=== PATIENT | male | born 1975 | race American Indian/Alaskan Native ===

== ENCOUNTER 2017-03-25 01:46 | Emergency (ER) | payer OTHER ==
[~2017-03-25] VITALS: Ht 188 cm; Wt 122.5 kg
[~2017-03-25 01:46] MED LIST: ALLEGRA ALLERG180 MG PO; BACTRIM DS TAB1 EACH PO; CIPRO500 MG PO; FOLIC ACID1 MG PO; HYDROCHLOROTHIA25 MG PO; KEFLEX500 MG PO; LANTUS100 UNITS/ SUB-Q; MULTIVITAMINS1 EAC7 PO; NOVALOG SUB-Q; TOPROL XL100 MG PO; TRIAMTERENE-HC1 EAC1 PO; TRIAMTERENE-HC1 EAC3 PO; VITAMIN B-12500 MCG PO; VITAMIN D2000 UNI1 PO; VITAMIN D5000 UNIT PO
--- NOTE | 2017-05-27 18:28 | DS ---
[facility] [address] [place], [place] [address] Signed DATE OF DISCHARGE: 05/25/17 FINAL DIAGNOSES Grade 3 splenic laceration. Grade 3 left renal laceration with extravasation. PROCEDURES CT scan of the abdomen and pelvis x2. HISTORY OF PRESENT ILLNESS Bethanie is an 19-year-old young man who is from [place], [place]. He goes to [employer] in [place], [place]. He is on their soccer team. They came down to [place], [place], which is 4 hours away to play our [employer] soccer team. Another player had come from behind him and the knee landed in his left posterior rib cage. He had some shortness of breath, but also noticed some blood in his urine. He was brought to our local hospital for evaluation. HOSPITAL COURSE Bethanie was seen in the emergency room and remained hemodynamically stable. His initial hemoglobin was 12.9, with a BUN 14, creatinine 0.76. His urine of course showed blood. CT scan of the abdomen and pelvis showed the grade 3 splenic laceration with a grade 3 left renal laceration as well involving the lower pole. He also had a moderate amount of hemoperitoneum in his pelvis. I was asked to see him around 9 o'clock that night. We admitted him to the ICU for observation. Bethanie has remained hemodynamically stable. He has not been hypotensive, nor has he had tachycardia. His hemoglobin levels dropped as low as 10.8, but the most recent one is now 11.1. Platelet count also dropped from 231, down to 171, it is now 186. We repeated the CT scan this morning with delayed images and sure enough, he does have some extravasation from his left kidney. There is a fluid collection on the medial side of that left kidney. Consequently, he is in need of stenting of his left kidney. We initially called [facility] and her general surgeon felt that he needed to be at a higher level for his care. His family again is from [facility], so we had initially made a couple of phone calls down to [place], but then finally we were able to reach [facility] in [place], [place]. Dr. Rebel Briscoe is kind enough to accept him in transfer. We are making arrangements now to get Bethanie up to [place] where he can be admitted and undergo his stenting with urologist. Unfortunately, our urologist is out of the country currently. I reviewed all this with Bethanie and mother in detail. They have expressed understanding, would like to proceed. We will go ahead and make those arrangements and we will send a couple of units of blood with Bethanie for his transport as well. Electronically Signed By: KEVIN VARNER MD 05/27/17 1828 PATIENT NAME: BETHANIE VEGA DISCHARGE SUMMARY DATE OF : 77 PHYSICIAN: KEVIN VARNER MD REPORT #: [id number] REPORT IS CONFIDENTIAL AND NOT TO BE RELEASED WITHOUT AUTHORIZATION [facility] [address] [place] [id number] Signed MD YOCASTA Jade/Marlon /[id number] Electronically Signed By: KEVIN VARNER MD 05/27/17 1828 PATIENT NAME: BETHANIE VEGA DISCHARGE SUMMARY DATE OF : 77 PHYSICIAN: KEVIN VARNER MD REPORT #: [id number] REPORT IS CONFIDENTIAL AND NOT TO BE RELEASED WITHOUT AUTHORIZATION
--- NOTE | 2017-05-27 18:28 | CONS ---
[facility] [address] [place], [place] [address] Signed DATE OF CONSULTATION: 05/24/17 REFERRING PHYSICIAN: Dr. Thang Hinojosa. CHIEF COMPLAINT: Trauma to left posterior ribcage. HISTORY OF PRESENT ILLNESS Bethanie is an 19-year-old young man who is attending college in [place], [place]. He is on the soccer team and they were down here tonight for their soccer match. Just after 4 o'clock this afternoon, he took a knee into the posterior aspect of his left ribcage. He thought it maybe he was just out of breath. Of course, he had come out of the game. He also noticed hematuria. He was therefore brought to our local emergency room for evaluation. At the meantime, he has been hemodynamically stable. His initial hemoglobin was 12.9, and an hour later 11.5. Of course, the urinalysis shows the blood in his urine. He underwent a CT scan of the abdomen and pelvis and he has a grade 3 stellate splenic laceration with moderate hemoperitoneum and then grade 3 renal laceration of the inferior pole of his left kidney. It does not appear to extend into the hilum, but of course, whether or not it is leaking from the ureter is not entirely known. In the meantime, he has remained hemodynamically stable and I was asked to come and see him as a general surgeon on-call. PAST MEDICAL HISTORY: Asthma. PAST SURGICAL HISTORY: Tonsils. SOCIAL HISTORY He does not smoke or drink. He is from [place], [place]. He has no primary care provider. His mother is Susan at [phone] and he has 1 older brother. FAMILY HISTORY Mom and dad are healthy. Paternal grandmother was smoker and ended up with throat cancer. REVIEW OF SYSTEMS He had 10 systems reviewed, and he is very healthy otherwise. ALLERGIES: None. MEDICATIONS: Albuterol inhaler p.r.n. PHYSICAL EXAMINATION VITAL SIGNS: His blood pressure is 131/65, his heart rate is 76, respiratory rate 16, his temperature is 98.2. He is 100% on room air. He is 6 feet 4 inches and 83 kg. GENERAL: Bethanie is an 19-year-old young man, lying supine semi-recumbent in his ER bed. Electronically Signed By: KEVIN VARNER MD 05/27/17 1828 PATIENT NAME: BETHANIE VEGA CONSULTATION DATE OF : 77 PHYSICIAN: KEVIN VARNER MD REPORT #: [id number] REPORT IS CONFIDENTIAL AND NOT TO BE RELEASED WITHOUT AUTHORIZATION [facility] [address] [place], [place] [address] Signed His kids activities coach and an country director from a local [employer] are also here with him. He is alert, awake and interactive. He has had good skin color. LUNGS: Clear to auscultation bilaterally. HEART: Regular rate and rhythm. ABDOMEN: Soft and flat. He is a little tender over that left ribcage. LABORATORY DATA His white blood cell count 12, hemoglobin was 12.9 and an hour later after IV fluids down to 11.5, neutrophils 76, the platelet count is 211. BUN 14, creatinine 0.76. His liver function tests are negative. His albumin is 4.4. His urinalysis shows of course the blood. RADIOGRAPHIC STUDIES CT scan of the abdomen and pelvis is reviewed per myself. I also reviewed the dictation from our radiologist. He clearly has grade 3 stellate splenic laceration headed right toward his hilum and then he has a grade 3 inferior pole left renal laceration. It does not appear to involve the hilum. Nevertheless, it does not rule out an injury to the ureter or leak. He also has moderate hemoperitoneum, some around the kidney, some up in the upper abdomen, but most of it is down in his pelvis at this point. ASSESSMENT AND PLAN Bethanie is an 19-year-old young man, otherwise healthy, with a grade 3 splenic laceration and a grade 3 left renal laceration. So far, he has been hemodynamically stable and his injury was 6-1/2 hours ago. At this point, we are going to admit him to our ICU. We will have him undergo serial hemoglobin levels. Tomorrow, we will do a delayed CT scan after some contrast and see if he leaks from his left kidney. In the meantime, I did call Dr. Dago Vick who is 1 of our trauma surgeons at [facility]. We did review these findings and we are going to follow Dr. Vick's input. In the meantime, I had a long discussion with Bethanie and his kids activities coach and his country director. I think Bethanie is well aware of the gravity of this situation. Then afterwards, I called his mother. We spoke over the phone as well. His dad will probably leave in the morning and it is a 7-hour drive or so to get down here. I explained to Bethanie and his mom he is at high risk for transportation in the acute setting and that is why we have to keep him. We would only transport him if absolutely necessary. We can certainly handle his spleen here. If he has a leak from the kidney, we have to give our local urologist manager transition and see if that can be handled here locally. Otherwise, we will keep him least 3 full days, maybe 4 and after that if things are going well, he will travel back to [place] with his family. He has expressed understanding and agreed to above. Kevin Varner MD Electronically Signed By: KEVIN VARNER MD 05/27/17 1828 PATIENT NAME: BETHANIE VEGA CONSULTATION DATE OF : 77 PHYSICIAN: KEVIN VARNER MD REPORT #: [id number] REPORT IS CONFIDENTIAL AND NOT TO BE RELEASED WITHOUT AUTHORIZATION [facility] [address] [place], [place] [address], [place] [address] Signed /Marlon /[id number] Electronically Signed By: KEVIN VARNER MD 05/27/17 1828 PATIENT NAME: BETHANIE VEGA CONSULTATION DATE OF : 77 PHYSICIAN: KEVIN VARNER MD REPORT #: [id number] REPORT IS CONFIDENTIAL AND NOT TO BE RELEASED WITHOUT AUTHORIZATION
== END 2017-03-25 02:22 | disposition home or self-care (01) ==
LOC: ED 01:46
DX: F10.129 Alcohol abuse with intoxication, unspecified (principal); I10 Essential (primary) hypertension; F17.200 Nicotine dependence, unspecified, uncomplicated; Z79.899 Other long term (current) drug therapy
CPT/HCPCS: 99283

== ENCOUNTER 2017-09-11 19:19 | Emergency (ER) | payer OTHER ==
[~2017-09-11] VITALS: Ht 188 cm; Wt 115.7 kg
--- OUTSIDE RECORDS SUMMARY | ~2017-09-11 | XMS | Clinical Summary ---
Demographics + + + | Address | [address] | | | [place] [address] | + + + | Home Phone | | + + + | Preferred Language | Unknown | + + + | Marital Status | Single | + + + | Methodist Affiliation | Unknown | + + + [...] Providers + +------+ + | Care Automatic Spinning Lathe Operator Name | Role | Phone | + +------+ + PP | Unavailable | + +------+ + Source Comments DAPHNE is fully live on both EpicCare Ambulatory and EpicCare InPatient.[facility] Allergies Not on File Current Medications Not [...]
--- OUTSIDE RECORDS SUMMARY | ~2017-09-11 | XMS | Clinical Summary ---
Demographics + + + | Address | [address] | | | [place] [address] | + + + | Home Phone | | + + + | Preferred Language | Unknown | + + + | Marital Status | Single | + + + | Mu-Ism Affiliation | Unknown | + + + [...] Team Providers + +------+ + | Care Hand Paster Name | Role | Phone | + +------+ + PP | Unavailable | + +------+ + Source Comments DAPHNE is fully live on both EpicCare Ambulatory and EpicCare InPatient.[facility] Allergies Not on File Current [...]
[2017-09-11] MEDS ORDERED: NOVOLOG FL100 UNIT/1 SUB-Q (19:37)
--- NOTE | 2017-09-13 07:15 | EKG ---
[facility] [address] [facility] [place], [place] [address] Signed Normal sinus rhythm Cannot rule out Anterior infarct , age undetermined Abnormal ECG No previous ECGs available Confirmed by MARICHUY FREEMAN MD ([id number]) on 09/13/2017 7:15:28 AM Electronically Signed By: MARICHUY FREEMAN MD 09/13/17 0715 PATIENT NAME: BETHANIE VEGA Electrocardiogram DATE OF : 77 PHYSICIAN: MARICHUY FREEMAN MD REPORT #: [id number] REPORT IS CONFIDENTIAL AND NOT TO BE RELEASED WITHOUT AUTHORIZATION
[2017-12-31] MEDS ORDERED: TRIAMTERENE-HC1 EAC2 PO (15:17)
[2017-12-31] MEDS ORDERED: LEXAPRO20 MG PO (15:18)
== END 2017-09-11 21:30 | disposition home or self-care (01) ==
LOC: ED 19:19
DX: F10.229 Alcohol dependence with intoxication, unspecified (principal); I10 Essential (primary) hypertension; E11.9 Type 2 diabetes mellitus without complications; F17.200 Nicotine dependence, unspecified, uncomplicated; Z88.8 Allergy status to other drugs, medicaments and biological substances; Z79.899 Other long term (current) drug therapy; Z79.4 Long term (current) use of insulin; Y90.8 Blood alcohol level of 240 mg/100 ml or more
CPT/HCPCS: 80053; 85025; 93005; 93010; 99284; G0480

== ENCOUNTER 2017-09-13 15:26 | Emergency (ER) | payer OTHER ==
[~2017-09-13] VITALS: Ht 188 cm; Wt 115.7 kg
--- OUTSIDE RECORDS SUMMARY | ~2017-09-13 | XMS | Clinical Summary ---
Demographics + + + | Address | [address] | | | [place] [address] | + + + | Home Phone | | + + + | Preferred Language | Unknown | + + + | Marital Status | Single | + + + | Mandaen Affiliation | Unknown | + + + | Race | | + + + | Ethnic Group | Not or | + + + Author + + + | Author | NON REVENUE LOCATIONS | + + + | Organization | NON REVENUE LOCATIONS | + + + | Address | Unknown | + + + | Phone | Unavailable | + + + Care Team Providers + +------+ + | Care Adoption Agent Name | Role | Phone | + +------+ + PP | Unavailable | + +------+ + Source Comments DAPHNE is fully live on both EpicCare Ambulatory and EpicCare InPatient.[facility] Allergies Not on File Current Medications Not on file Active Problems Not on file Social History + +-------+ +--------+------+ | Tobacco Use | Types | Packs/Day | Years | Date | | | | | Used | | + +-------+ +--------+------+ | Never Assessed | | | | | + +-------+ +--------+------+ + + + | Sex Assigned at | Date Recorded | | | | + + + | Not on file | | + + + Plan of Treatment + + + + + | Health Maintenance | Due Date | Last Done | Comments | + + + + + | INFLUENZA VACCINE | | | | | (FLU SHOT) | 7 | | | + + + + + Results Not on filefrom Last 3 Months"
--- OUTSIDE RECORDS SUMMARY | ~2017-09-13 | XMS | Clinical Summary ---
Demographics + + + | Address | [address] | | | [place] [address] | + + + | Home Phone | | + + + | Preferred Language | Unknown | + + + | Marital Status | Single | + + + | Caodaism Affiliation | Unknown | + + + [...] Team Providers + +------+ + | Care Concert Pianist Name | Role | Phone | + +------+ + PP | Unavailable | + +------+ + Source Comments DAPHNE is fully live on both EpicCare Ambulatory and EpicCare InPatient.[facility] Allergies Not on File Current Medications Not [...]
[~2017-09-13 15:26] MED LIST changes: +NOVOLOG FL100 UNIT/1 SUB-Q
[2017-12-31] MEDS ORDERED: TRIAMTERENE-HC1 EAC2 PO (15:17)
[2017-12-31] MEDS ORDERED: LEXAPRO20 MG PO (15:18)
== END 2017-09-13 16:30 | disposition home or self-care (01) ==
LOC: ED 15:26
DX: S90.411A Abrasion, right great toe, initial encounter (principal); W55.19XA Other contact with horse, initial encounter

== ENCOUNTER 2017-10-20 13:24 | Emergency (ER) | payer OTHER ==
[~2017-10-20] VITALS: Ht 188 cm; Wt 122.5 kg
--- OUTSIDE RECORDS SUMMARY | ~2017-10-20 | XMS | Clinical Summary ---
Demographics + + + | Address | [address] | | | [place] [address] | + + + | Home Phone | | + + + | Preferred Language | Unknown | + + + | Marital Status | Single | + + + | Sabianism Affiliation | Unknown | + + + [...] Team Providers + +------+ + | Care Financial Management Name | Role | Phone | + +------+ + PP | Unavailable | + +------+ + Source Comments DAPHNE is fully live on both EpicCare Ambulatory and EpicCare InPatient.[facility] Allergies Not on File Current Medications Not [...]
--- OUTSIDE RECORDS SUMMARY | ~2017-10-20 | XMS | Clinical Summary ---
Demographics + + + | Address | [address] | | | [place] [address] | + + + | Home Phone | | + + + | Preferred Language | Unknown | + + + | Marital Status | Single | + + + | Orthodox Affiliation | Unknown | + + + [...] Team Providers + +------+ + | Care Kiln Maintenance Name | Role | Phone | + +------+ + PP | Unavailable | + +------+ + Source Comments DAPHNE is fully live on both EpicCare Ambulatory and EpicCare InPatient.[facility] Allergies Not on File Current Medications Not [...]
[2017-10-20] MEDS ORDERED: ATIVAN2 MG PO (14:18)
[2017-10-20] MEDS ORDERED: ONDANSETRON ODT8 MG PO (14:18)
[2017-12-31] MEDS ORDERED: TRIAMTERENE-HC1 EAC2 PO (15:17)
[2017-12-31] MEDS ORDERED: LEXAPRO20 MG PO (15:18)
== END 2017-10-20 14:30 | disposition home or self-care (01) ==
LOC: ED 13:24
DX: F10.10 Alcohol abuse, uncomplicated (principal); R45.89 Other symptoms and signs involving emotional state; I10 Essential (primary) hypertension; F17.200 Nicotine dependence, unspecified, uncomplicated; Z88.8 Allergy status to other drugs, medicaments and biological substances; Z79.899 Other long term (current) drug therapy; Z63.79 Other stressful life events affecting family and household
CPT/HCPCS: 99283

== ENCOUNTER 2018-05-19 12:54 | Emergency (ER) | payer OTHER ==
[~2018-05-19] VITALS: Ht 188 cm; Wt 122.5 kg
--- OUTSIDE RECORDS SUMMARY | ~2018-05-19 | XMS | Clinical Summary ---
Demographics + + + | Address | [address] | | | [place] [address] | + + + | Home Phone | | + + + | Preferred Language | Unknown | + + + | Marital Status | Single | + + + | Alevism Affiliation | Unknown | + + + [...] Team Providers + +------+ + | Care Rides Attendant Name | Role | Phone | + +------+ + PP | Unavailable | + +------+ + Source Comments DAPHNE is fully live on both EpicCare Ambulatory and EpicCare InPatient.[facility] Allergies Not on File Current Medications Not [...] | | | | (FLU SHOT) | 8 | | | + + + + + Results Not on filefrom Last 3 Months"
--- OUTSIDE RECORDS SUMMARY | ~2018-05-19 | XMS | Clinical Summary ---
Demographics + + + | Address | [address] | | | [place] [address] | + + + | Home Phone | | + + + | Preferred Language | Unknown | + + + | Marital Status | Single | + + + | Restorationism Affiliation | Unknown | + + + [...] Team Providers + +------+ + | Care Senior Economist Name | Role | Phone | + +------+ + PP | Unavailable | + +------+ + Source Comments DAPHNE is fully live on both EpicCare Ambulatory and EpicCare InPatient.[facility] [...]
--- OUTSIDE RECORDS SUMMARY | ~2018-05-19 | XMS | Clinical Summary ---
Demographics + + + | Address | [address] | | | [place] [address] | + + + | Home Phone | | + + + | Preferred Language | Unknown | + + + | Marital Status | Single | + + + | Buddhism Affiliation | [id number] | + + + | Race | Unknown | + + + | Ethnic Group | Unknown | + + + Author + + + | Author | [facility] | | | and [place] | + + + | Organization | [facility] | | | and [place] [...] [place], [place] | | | | | [address] | | + + + + + | Elyse Hobbs | ECON | [address] | | | | | [place] | | | | | [address] | | + + + + + Care Team Providers + +------+ + | Care Hardwood Finisher Name | Role | Phone | + [...] +---------+ | [place]ICAID [place] | MEDICA | [id number] | Medica | [phone] | | | | ID | | id | [id number] | | | | [place] | | | | | + +--------+ +--------+ +---------+ | [facility] | IHS | [id number] | Indemn | | | | SERVICE [...] | Self | [birth year] | Home: | [address] | | | al/Fam | | 1975 | [phone] | [place] [address] | | | [place] | | | [address] | | + +--------+ +--------+ + +"
--- OUTSIDE RECORDS SUMMARY | ~2018-05-19 | XMS | Clinical Summary ---
Demographics + + + | Address | [address] | | | [place] [address] | + + + | Home Phone | | + + + | Preferred Language | Unknown | + + + | Marital Status | Single | + + + | Scientology Affiliation | 1041 | + + + | Race | Unknown | + + + | Ethnic Group | Unknown | + + + Author + + + | Author | [facility] | | | and [place] | + + + | Organization | [facility] | | | and [place] | + + + | Address | Unknown | + + + | Phone | Unavailable | + + + Support + + + + + | Name | Relationship | Address | Phone | + + + + + | Isidra Thao | ECON | [address] | | | | | [place], [place] | | | | | [address] | | + + + + + | Elyse Hobbs | ECON | [address] | | | | | [place] | | | | | [address] | | + + + + + Care Team Providers + +------+ + | Care Retail Sales Consultant Name | Role | Phone | + [...] +---------+ | [place]ICAID [place] | MEDICA | [id number] | Medica | [phone] | | | | ID | | id | [phone] | | | | [place] | | | | | + +--------+ +--------+ +---------+ | [facility] | IHS | [id number] | Indemn | | | | SERVICE [...] | Self | [birth year] | Home: | [address] | | | al/Fam | | 1975 | [phone] | [place] [address] | | | [place] | | | [address] | | + +--------+ +--------+ + +"
[~2018-05-19 12:54] MED LIST changes: +ATIVAN2 MG PO; +LEXAPRO20 MG PO; +ONDANSETRON ODT8 MG PO; +TRIAMTERENE-HC1 EAC2 PO
--- OUTSIDE RECORDS SUMMARY | 2018-05-19 12:58 | XMS ---
PreManage Notification: BETHANIE VEGA Security Proteomics Scientist Events 1 event(s) in the past 18 months Most recent security events: Elopement at [facility] 12/31/2017 15:03 - Patient eloped before treatment completed. Details: AMA CRITERIA MET - Group Notification CARE PROVIDERS DR NEYDA ZAFAR Primary Care Current PHONE: [phone] Antonio has no Care Guidelines for this patient. E.D. VISIT COUNT ([address] [facility]. TOTAL 5 NOTE: Visits indicate total known visits. ED/UCC VISIT TRACKING (12 MO.) 05/19/2018 12:55 [facility] [place] TYPE: Emergency COMPLAINT: - INTOXICATION 12/31/2017 15:03 [facility] [place] TYPE: Emergency COMPLAINT: - ALTERED LOC;ETOH INTOXICATION DIAGNOSES: - Disorientation, unspecified - Essential (primary) hypertension - Procedure and treatment not carried out due to patient leaving prior to being seen by health care provider - Other superintendent container terminal (current) drug therapy - Procedure and treatment not carried out due to patient leaving prior to being seen by health care provider - Allergy status to other drugs, medicaments and biological substances status - PREDIABETES - Alcohol dependence, uncomplicated - Procedure and treatment not carried out because of patient's decision for reasons of belief and group pressure - Nicotine dependence, unspecified, uncomplicated - Restlessness and agitation 10/20/2017 13:[address] [facility] [place] TYPE: Emergency COMPLAINT: - DIZZINESS DIAGNOSES: - Other stressful life events affecting family and household - Essential (primary) hypertension - Alcohol abuse, uncomplicated - Other superintendent container terminal (current) drug therapy - Allergy status to other drugs, medicaments and biological substances status - Nicotine dependence, unspecified, uncomplicated - Alcohol dependence with withdrawal, unspecified - Other symptoms and signs involving emotional state 09/13/2017 15:[address] [facility] [place] TYPE: Emergency COMPLAINT: - R FOOT INJURY/PAIN/MSE DIAGNOSES: - Other contact with horse, initial encounter - Abrasion, right great toe, initial encounter 09/11/2017 19:[address] [facility] [facility] [place] TYPE: Emergency COMPLAINT: - DIZZINESS DIAGNOSES: - Alcohol dependence with intoxication, unspecified - Other assisted (current) drug therapy - Type 2 diabetes mellitus without complications - Allergy status to other drugs, medicaments and biological substances status - Dizziness and giddiness - ad terminal makeup operator (current) use of insulin - Blood alcohol level of 240 mg/100 ml or more - Nicotine dependence, unspecified, uncomplicated - Essential (primary) hypertension INPATIENT VISIT TRACKING (12 MO.) No inpatient visits to display in this time frame [email or web address]
[2018-05-19] MEDS ORDERED: BALANCED B-501 EACH PO (13:30)
[2018-05-19] MEDS ORDERED: FOLIC ACID0.4 MG PO (13:31)
--- NOTE | 2018-05-19 21:01 | EKG ---
[facility] [address] [facility] [facility] [place] [address] Signed Normal sinus rhythm Left anterior fascicular block Abnormal ECG When compared with ECG of 11-SEP-2017 20:04, Left anterior fascicular block is now present T wave amplitude has increased in Lateral leads Confirmed by SHERI STONE MD ([id number]) on 05/19/2018 9:01:05 PM Electronically Signed By: SHERI STONE MD 05/19/182100 PATIENT NAME: BETHANIE VEGA RAJAT Electrocardiogram DATE OF : 77 PHYSICIAN: SHERI STONE MD REPORT #: [id number] REPORT IS CONFIDENTIAL AND NOT TO BE RELEASED WITHOUT AUTHORIZATION
== END 2018-05-19 16:15 | disposition home or self-care (01) ==
LOC: ED 12:54
DX: F10.129 Alcohol abuse with intoxication, unspecified (principal); Y90.8 Blood alcohol level of 240 mg/100 ml or more; I10 Essential (primary) hypertension; F17.200 Nicotine dependence, unspecified, uncomplicated; Z88.8 Allergy status to other drugs, medicaments and biological substances; Z79.899 Other long term (current) drug therapy
CPT/HCPCS: 70450; 80053; 85025; 96374; 96375; 99284; G0480; J2405; J3411; J7030; J7042

== ENCOUNTER 2018-05-31 19:10 | Emergency (ER) | payer OTHER ==
[~2018-05-31] VITALS: Ht 188 cm; Wt 122.5 kg
--- OUTSIDE RECORDS SUMMARY | ~2018-05-31 | XMS | Clinical Summary ---
Demographics + + + | Address | [address] | | | [place] [address] | + + + | Home Phone | | + + + | Preferred Language | Unknown | + + + | Marital Status | Single | + + + | Bahai Affiliation | 1041 | + + + | Race | Unknown | + + + | Ethnic Group | Unknown | + + + Author + + + | Author | [facility] | | | and [place] | + + + | Organization | [facility] | | | and [place] | + + + | Address | Unknown | + + + | Phone | Unavailable | + + + Support + + + + + | Name | Relationship | Address | Phone | + + + + + | Isidra Thao | ECON | [address] | | | | | [place], [place] | | | | | [address] | | + + + + + | Elyse Hobbs | ECON | [address] | | | | | [place] | | | | | [address] | | + + + + + Care Team Providers + +------+ + | Care Recovery Coach Name | Role | Phone | + +------+ + | No, Unknownpcp | PP | | + +------+ + [...] | | | | | (#1) | 8 | | | + + + + + Results Not on filefrom Last 3 Months Insurance + +--------+ +--------+ +---------+ | Payer | Benefi | Subscriber | Type | Phone | Address | | | t Plan | ID | | | | | | / | | | | | | | Group | | | | | + +--------+ +--------+ +---------+ | [place] | MEDICA | [id number] | Medica | [phone] | | | ID | | id | [phone] | | | | [place] | | | | | + +--------+ +--------+ +---------+ | [facility] | IHS | [id number] | Indemn | | | | SERVICE | YELLOW | | ity | | | | | [place] | | | | | + +--------+ +--------+ +---------+ + +--------+ +--------+ + + | Guarantor Name | Accoun | Relation to | Date | Phone | Billing Address | | | t Type | Patient | of | | | | | | | | | | + +--------+ +--------+ + + | BETHANIE VEGA | Person | Self | [birth year] | Home: | [address] | | | al/Fam | | 1975 | [phone] | [place] [address] | | | [place] | | | [phone] | | + +--------+ +--------+ + +"
--- OUTSIDE RECORDS SUMMARY | ~2018-05-31 | XMS | Clinical Summary ---
Demographics + + + | Address | [address] | | | [place] [address] | + + + | Home Phone | | + + + | Preferred Language | Unknown | + + + | Marital Status | Single | + + + | Baptism Affiliation | Unknown | + + + [...] Team Providers + +------+ + | Care Procedures Nurse Name | Role | Phone | + +------+ + PP | Unavailable | + +------+ + Source Comments DAPHNE is fully live on both EpicCare Ambulatory and EpicCare InPatient.[facility] Allergies Not on File Current Medications Not [...] | | | | vaccination (#1) | 8 | | | + + + + + Results Not on filefrom Last 3 Months"
--- OUTSIDE RECORDS SUMMARY | ~2018-05-31 | XMS | Clinical Summary ---
Demographics + + + | Address | [address] | | | [place] [address] | + + + | Home Phone | | + + + | Preferred Language | Unknown | + + + | Marital Status | Single | + + + | Worship Affiliation | Unknown | + + + [...] Team Providers + +------+ + | Care Embosser Operator Name | Role | Phone | + +------+ + PP | Unavailable | + +------+ + Source Comments DAPHNE is fully live on both EpicCare Ambulatory and EpicCare InPatient.[facility] Allergies Not on File Current Medications Not [...]
--- OUTSIDE RECORDS SUMMARY | ~2018-05-31 | XMS | Clinical Summary ---
Demographics + + + | Address | [address] | | | [place] [address] | + + + | Home Phone | | + + + | Preferred Language | Unknown | + + + | Marital Status | Single | + + + | Catholic Affiliation | 1041 | + + + | Race | Unknown | + + + | Ethnic Group | Unknown | + + + Author + + + | Author | [facility] | | | and [place] | + + + | Organization | [facility] | | | and [place] [...] [place], [place] | | | | | [address] | | + + + + + | Elyse Hobbs | ECON | [address] | | | | | [place] | | | | | [address] | | + + + + + Care Team Providers + +------+ + | Care Lathe Winder Name | Role | Phone | + [...] +---------+ | [place] | MEDICA | [id number] | Medica | [phone] | | | | ID | | id | [phone] | | | | [place] | | | | | + +--------+ +--------+ +---------+ | [facility] | IHS | [id number] | Indemn | | | | SERVICE [...] | Self | [birth year] | Home: | [address] | | | al/Fam | | 1975 | [phone] | [place] [address] | | | [place] | | | [address] | | + +--------+ +--------+ + +"
[~2018-05-31 19:10] MED LIST changes: +BALANCED B-501 EACH PO; +FOLIC ACID0.4 MG PO
--- OUTSIDE RECORDS SUMMARY | 2018-05-31 19:16 | XMS ---
PreManage Notification: BETHANIE VEGA Security Coupon Manifest Clerk Events 1 event(s) in the past 18 months Most recent security events: Elopement at [facility] 12/31/2017 15:03 - Patient eloped before treatment completed. Details: AMA CRITERIA MET - Group Notification - [facility] - 2 Visits in 30 Days CARE PROVIDERS NEYDA ZAFAR [facility] 05/19/2018-Current PHONE: [phone] DR NEYDA ZAFAR Primary Care Current PHONE: [phone] Antonio has no Care Guidelines for this patient. EAlannaDAlanna VISIT COUNT (12 MO.) 6 [facility] TOTAL 6 NOTE: Visits indicate total known visits. ED/UCC VISIT TRACKING (12 MO.) 2018 19:11 [facility] [place] TYPE: Emergency COMPLAINT: - L SIDED FACIAL SWELLING 05/19/2018 12:55 [facility] [place] TYPE: Emergency COMPLAINT: - INTOXICATION DIAGNOSES: - Blood alcohol level of 240 mg/100 ml or more - Allergy status to other drugs, medicaments and biological substances status - Alcohol abuse with intoxication, unspecified - Essential (primary) hypertension - Other lobsterman (current) drug therapy - Alcohol abuse with intoxication, unspecified - Nicotine dependence, unspecified, uncomplicated 12/31/2017 15:03 [facility] [place] TYPE: Emergency COMPLAINT: - ALTERED LOC;ETOH INTOXICATION DIAGNOSES: - Disorientation, unspecified - Prediabetes - Essential (primary) hypertension - Procedure and treatment not carried out due to patient leaving prior to being seen by health care provider - Other lobsterman (current) drug therapy - Procedure and treatment [...] uncomplicated - Restlessness and agitation 10/20/2017 13:25 [facility] [place] TYPE: Emergency COMPLAINT: - DIZZINESS DIAGNOSES: - Other stressful life events affecting family and household - Essential (primary) hypertension - Alcohol abuse, uncomplicated - Other lobsterman (current) drug therapy - Allergy status to other drugs, medicaments and biological substances status - Nicotine dependence, unspecified, uncomplicated - Alcohol dependence with withdrawal, unspecified - Other symptoms and signs involving emotional state 09/13/2017 15:27 [facility] [place] TYPE: Emergency COMPLAINT: - R FOOT INJURY/PAIN/MSE DIAGNOSES: - Other contact with horse, initial encounter - Abrasion, right great toe, initial encounter 09/11/2017 19:[address] [facility] [place] TYPE: Emergency COMPLAINT: - DIZZINESS DIAGNOSES: - Alcohol dependence with intoxication, unspecified - Other longterm (current) drug therapy - Type 2 diabetes mellitus without complications - Allergy status to other drugs, medicaments and biological substances status - Dizziness and giddiness - half-way (current) use of insulin - Blood alcohol level of 240 mg/100 ml or more - Nicotine dependence, unspecified, uncomplicated - Essential (primary) hypertension INPATIENT VISIT TRACKING (12 MO.) No inpatient visits to display in this time frame [email or web address]
[2018-05-31] MEDS ORDERED: DYRENIUM50 MG PO (19:39)
[2018-05-31] MEDS ORDERED: LAMISIL AT30 GM TOP (20:35)
[2018-05-31] MEDS ORDERED: CEPHALEXIN500 MG PO (20:35)
== END 2018-05-31 20:55 | disposition home or self-care (01) ==
LOC: ED 19:10
DX: B35.6 Tinea cruris (principal); L03.211 Cellulitis of face; L21.9 Seborrheic dermatitis, unspecified; I10 Essential (primary) hypertension; F17.200 Nicotine dependence, unspecified, uncomplicated; Z88.8 Allergy status to other drugs, medicaments and biological substances; Z79.899 Other long term (current) drug therapy
CPT/HCPCS: 99282

== ENCOUNTER 2019-07-05 00:28 | Emergency (ER) | payer OTHER ==
[~2019-07-05] VITALS: Ht 190.5 cm; Wt 113.4 kg
--- OUTSIDE RECORDS SUMMARY | ~2019-07-05 | XMS | Encounter Summary ---
Demographics + + + | Address | [address] | | | [place] [address] | + + + | Home Phone | | + + + | Preferred Language | Unknown | + + + | Marital Status | Single | + + + | Taoism Affiliation | Unknown | + + + | Race | | + + + | Ethnic Group | Not or | + + + Author + + + | Author | [facility] | + + + | Organization | [facility] | + + + | Address | Unknown | + + + | Phone | Unavailable | + + + Care Team Providers + +------+ + | Care Automatic Brine Mixer Operator Name | Role | Phone | + +------+ + PCP | Unavailable | + +------+ + Encounter Details +--------+ + + + + | Date | Type | Department | Care Team | Description | +--------+ + + + + | 07/15/ | Results | Registration [id number] | | | | 1993 | Only | [address] | | | | | | [address] Mailcode: [address] | | | | | | [place], [place] | | | | | | [address] | | | | | | [phone] | | | +--------+ + + + [...] on file | | + + + + + + + | Job Start Date | Occupation | Industry | + + + + | Not on file | Not on file | Not on file | + + + + + + + + | Travel History | Travel Start | Travel End | + + + + + + | No recent travel history available. | + + documented as of this encounter Plan of Treatment Not on filedocumented as of this encounter Procedures + +--------+ + + + | Procedure Name | Priori | Date/Time | Associated Diagnosis | Comments | | | ty | | | | + +--------+ + + + | CHEMISTRY TESTS 4 | Routin | 07/15/1995 | | Results for this | | | e | 1:54 PM | | procedure are in the | | | | PST | | results section. | + +--------+ + + + | CBC TESTS 2 | Routin | 07/15/1995 | | Results for this | | | e | 1:54 PM | | procedure are in the | | | | PST | | results section. | + +--------+ + + + | CHEMISTRY TESTS 2 | Routin | 07/15/1995 | | Results for this | | | e | 1:54 PM | | procedure are in the | | | | PST | | results section. | + +--------+ + + + documented in this encounter Results CHEMISTRY TESTS 2 (07/15/1995 1:54 PM PST) + + + + + + | Component | Value | Ref Range | Performed | Pathologist | | | | | At | Signature | + + + + + + | CHOLESTEROL | 196. | mg/dL | | | | (LAB) | | | | | + + + + + + | TRIGLYCERID | 277. (H) | mg/dL | | | | ES | | | | | + + + + + + + + | Specimen | + + | | + + + + + + + | Performing | Address | City/State/Zipcode | Phone Number | | Organization | | | | + + + + + | [facility] | [address] | [place] [address] | | | PATHOLOGY | [address] | | | + + + + + CHEMISTRY TESTS 4 (07/15/1995 1:54 PM PST) + + + + + + | Component | Value | Ref Range | Performed | Pathologist | | | | | At | Signature | + + + + + + | SODIUM, | 138. | mmol/l | | | | PLASMA | | | | | | (LAB) | | | | | + + + + + + | POTASSIUM, | 4.1 | mmol/l | | | | PLASMA | | | | | | (LAB) | | | | | + + + + + + | CHLORIDE, | 102. | mmol/l | | | | PLASMA | | | | | | (LAB) | | | | | + + + + + + | TOTAL CO2, | 27. | mmol/l | | | | PLASMA | | | | | | (LAB) | | | | | + + + + + + | BUN, PLASMA | 9. | mg/dL | | | | (LAB) | | | | | + + + + + + | CREATININE | 1. | mg/dL | | | | PLASMA | | | | | | (LAB) | | | | | + + + + + + | GLUCOSE, | 85. | mg/dL | | | | PLASMA | | | | | | (LAB) | | | | | + + + + + + | CALCIUM, | 9.6 | mg/dL | | | | PLASMA | | | | | | (LAB) | | | | | + + + + + + | MAGNESIUM,P | 2. | mg/dL | | | | LASMA | | | | | + + + + + + | PHOSPHORUS, | 4. | mg/dL | | | | PLASMA | | | | | | (LAB) | | | | | + + + + + + | URIC ACID, | 9.1 (H) | mg/dL | | | | PLASMA | | | | | | (LAB) | | | | | + + + + + + | AST(SGOT) | 66. (H) | U/L | | | + + + + + + | ALT (SGPT) | 111. (H) | U/L | | | + + + + + + | ALK PHOS | 83. | U/L | | | + + + + + + | LD TOTAL, | 189. | U/L | | | | PLASMA | | | | | + + + + + + | BILIRUBIN | 0.2 | mg/dL | | | | DIRECT | | | | | + + + + + + | BILIRUBIN | 0.8 | mg/dL | | | | TOTAL | | | | | + + + + + + | TOTAL | 7.6 | GM/DL | | | | PROTEIN, | | | | | | PLASMA | | | | | | (LAB) | | | | | + + + + + + | ALBUMIN, | 4.6 | GM/DL | | | | PLASMA | | | | | | (LAB) | | | | | + + + + + + + + | Specimen | + + | | + + + + + + + | Performing | Address | City/State/Zipcode | Phone Number | | Organization | | | | + + + + + | [facility] | [address] | [place] [address] | | | PATHOLOGY | [address] | | | + + + + + CBC TESTS 2 (07/15/1995 1:54 PM PST) + + + + + + | Component | Value | Ref Range | Performed | Pathologist | | | | | At | Signature | + + + + + + | WHITE CELL | 9.4 | K/CU MM | | | | COUNT | | | | | + + + + + + | RED CELL | 4.99 | M/CU MM | | | | COUNT | | | | | + + + + + + | HEMOGLOBIN | 14.9 | GM/DL | | | + + + + + + | HEMATOCRIT | 42.9 | % | | | + + + + + + | MCV | 85.8 | FL | | | + + + + + + | MCH | 29.8 | PG | | | + + + + + + | MCHC | 34.7 (H) | GM/DL | | | + + + + + + | RDW | 13.6 | % | | | + + + + + + | PLATELET | 377. | K/CU MM | | | | COUNT | | | | | + + + + + + | MPV | 7.3 (L) | FL | | | + + + + + + + + | Specimen | + + | | + + + + + + + | Performing | Address | City/State/Zipcode | Phone Number | | Organization | | | | + + + + + | [facility] | [address] | [place] [address] | | | PATHOLOGY | [address] | | | + + + + + documented in this encounter Visit Diagnoses Not on filedocumented in this encounter"
--- OUTSIDE RECORDS SUMMARY | ~2019-07-05 | XMS | Clinical Summary ---
Demographics + + + | Address | [address] | | | [address] | | | [place] [address] | + + + | Home Phone | | + + + | Preferred Language | Unknown | + + + | Marital Status | Single | + + + | Anabaptist Affiliation | Unknown | + + + | Race | Unknown | + + + | Ethnic Group | Unknown | + + + Author + + + | Author | [facility] (Historical as of | | | 04-11-19) | + + + | Organization | [facility] (Historical as of | | | 04-11-19) | + + + | Address | Unknown | + + + | Phone | Unavailable | + + + Support + + +---------+ + | Name | Relationship | Address | Phone | + + +---------+ + | Jenny Correa | ECON | Unknown | | + + +---------+ + Care Team Providers + +------+ + | Care Inside Sales Lead Name | Role | Phone | + +------+ + | Donnell Hoskinsstephen Freedal | PP | | + +------+ + Allergies Not on File Current Medications Not [...] | + + + + + | Vaccine: | | | | | Dtap/Tdap/Td (1 - | 5 | | | | Tdap) | | | | + + + + + | Vaccine: Influenza | | | | | (#1) | 9 | | | + + + + + Results Not on filefrom Last 3 Months Insurance + +--------+ +------+-------+ + | Payer | Benefi | Subscriber | Type | Phone | Address | | | t Plan | ID | | | | | | / | | | | | | | Group | | | | | + +--------+ +------+-------+ + | MEDICAID | MEDICA | [id number] | | | [address] | | | ID | | | | [place], [place] | | | [place] | | | | [address] | + +--------+ +------+-------+ + | [place] | YELLOW | [id number] | | | | | PLANS | [place] | | | | | + +--------+ +------+-------+ + + +--------+ +--------+ + + | Guarantor Name | Accoun | Relation to | Date | Phone | Billing Address | | | t Type | Patient | of | | | | | | | | | | + +--------+ +--------+ + + | BETHANIE VEGA | Person | Self [birth year] | Home: | [address] | | | al/Fam | | 1975 | [phone] | [address] | | | [place] | | | [address] | [place] [address] | + +--------+ +--------+ + +"
--- OUTSIDE RECORDS SUMMARY | ~2019-07-05 | XMS | Clinical Summary ---
Demographics + + + | Address | [address] | | | [place] [address] | + + + | Home Phone | | + + + | Preferred Language | Unknown | + + + | Marital Status | Single | + + + | Christian Affiliation | Unknown | + + + [...] Team Providers + +------+ + | Care Direct Service Provider Name | Role | Phone | + +------+ + PCP | Unavailable | + +------+ + Source Comments DAPHNE is fully live on both EpicCare Ambulatory and EpicCare InPatient.[facility] Allergies Not on File Medications Not on [...] recent travel history available. | + + Last Filed Vital Signs Not on file Plan of Treatment + + + + + | Health Maintenance | Due Date | Last Done | Comments | + + + + + | Influenza (Flu) | | | | | vaccination (#1) | 9 | | | + + + + + | Pneumococcal | Aged Out | | No longer eligible | | vaccination | | | based on patient's | | | | | age to complete this | | | | | topic | + + + + + Results Not on filefrom Last 3 Months"
--- OUTSIDE RECORDS SUMMARY | ~2019-07-05 | XMS | Clinical Summary ---
Demographics + + + | Address | [address] | | | [place] [address] | + + + | Home Phone | | + + + | Preferred Language | Unknown | + + + | Marital Status | Single | + + + | Adventism Affiliation | Unknown | + + + [...] Team Providers + +------+ + | Care Hydro Plant Technician Name | Role | Phone | + +------+ + PCP | Unavailable | + +------+ + Source Comments DAPHNE is fully live on both EpicCare Ambulatory and EpicCare InPatient.[facility] Allergies Not on File Medications Not on [...]
--- OUTSIDE RECORDS SUMMARY | ~2019-07-05 | XMS | Clinical Summary ---
Demographics + + + | Address | [address] | | | [address] | | | [place] [address] | + + + | Home Phone | | + + + | Preferred Language | Unknown | + + + | Marital Status | Single | + + + | Mormonism Affiliation | Unknown | + + + | Race | Unknown | + + + | Ethnic Group | Unknown | + + + Author + + + | Author | [facility] (Historical as of | | | 04-11-19) | + + + | Organization | [facility] (Historical as of | | | 04-11-19) [...] Team Providers + +------+ + | Care Internal Audit Manager Name | Role | Phone | + [...] +------+-------+ + | MEDICAID | MEDICA | [id number] | | | [address] | | | ID | | | | [place], [place] | | | [place] | | | | [address] | + +--------+ +------+-------+ + | [employer] | YELLOW | [id number] | | | | | PLANS | [...] | Self | [birth year] | Home: | [address] | | | al/Fam | | 1975 | [phone] | [address] | | | [place] | | | [address] | [place] [address] | + +--------+ +--------+ + +"
--- OUTSIDE RECORDS SUMMARY | ~2019-07-05 | XMS | Encounter Summary ---
Demographics + + + | Address | [address] | | | [place] [address] | + + + | Home Phone | | + + + | Preferred Language | Unknown | + + + | Marital Status | Single | + + + | Presybeterian Affiliation | Unknown | + + + | Race | | + + + | Ethnic Group | Not or | + + + Author + + + | Author | [facility] | + + + | Organization | [facility] | + + + | Address | Unknown | + + + | Phone | Unavailable | + + + Care Team Providers + +------+ + | Care Booster Operator Name | Role | Phone | [...] [id number] | | | | | | [place], [place] | | | | | | [address] | | | | | | [phone] | | | +--------+ + + + [...] | + + + + + | [facility] | [address] | [place] [address] | | | PATHOLOGY | [address] [...] | + + + + + | [facility] | [address] | [place] [address] | | | PATHOLOGY | [address] [...] | + + + + + | [facility] | [address] | [place] [address] | | | PATHOLOGY | [address] | | | + + + + + documented in this encounter Visit Diagnoses Not on filedocumented in this encounter"
[~2019-07-05 00:28] MED LIST changes: +CEPHALEXIN500 MG PO; +DYRENIUM50 MG PO; +ELOCON15 GM TOP; +KETOCONAZOLE15 GM TOP; +LAMISIL AT30 GM TOP; +PANTOPRAZOLE SO40 MG PO
--- OUTSIDE RECORDS SUMMARY | 2019-07-05 00:30 | XMS ---
PreManage Notification: BETHANIE EVGA Security Lion Hunter Events No recent Security Events currently on file CRITERIA MET - Group Notification - [facility] - Has Care Guidelines CARE PROVIDERS NEYDA ZAFAR [facility] 05/19/2018-Current PHONE: Unknown SHERIF COFFMAN Physician Label Printer 06/02/2018-Current PHONE: Unknown DR NEYDA ZAFAR Primary Care Current PHONE: [phone] Antonio has no Care Guidelines for this patient. Care History Medical/Surgical 03/25/2019 [facility] Care Recommendation: - USE EXTREME CAUTION IN GIVING NARCOTICS TO THIS PATIENT. - Avoid Discharge Narcotic prescriptions if at all possible. Physician discretion. 03/04/2019 [facility] \T\middot;\T\nbsp; PATIENT IS A [employer] MEMBER. \T\middot;\T\nbsp; PLEASE REFER PATIENT TO [facility] FOR NON EMERGENT MEDICAL NEEDS. \T\middot;\ T\nbsp; [facility] CAN SEE PATIENTS SAME DAY FOR APTS IF PATIENT CALLS FIRST THING IN THE MORNING. [facility] NOTE: Visits indicate total known visits. ED/UCC VISIT TRACKING (12 MO.) [facility] COMPLAINT: - DETOX ISSUES 03/24/2019 16:28 [facility] [place] TYPE: Emergency COMPLAINT: - LOW BS DIAGNOSES: - Essential (primary) hypertension - Nicotine dependence, unspecified, uncomplicated - Dehydration - Alcohol abuse, uncomplicated - Acute gastritis without bleeding - Other senior living (current) drug therapy - Dizziness and giddiness - Allergy status to oth drug/meds/biol subst status 03/03/2019 22:57 [facility] [place] TYPE: Emergency COMPLAINT: - SKIN ISSUES DIAGNOSES: - Nicotine dependence, unspecified, uncomplicated - Essential (primary) hypertension - Allergy status to oth drug/meds/biol subst status - Other termination clerk (current) drug therapy - Seborrheic dermatitis, unspecified - Rash and other nonspecific skin eruption INPATIENT VISIT TRACKING (12 MO.) No inpatient visits to display in this time frame [id number]
== END 2019-07-05 01:08 | disposition home or self-care (01) ==
LOC: ED 00:28
DX: F10.10 Alcohol abuse, uncomplicated (principal); I10 Essential (primary) hypertension; F17.200 Nicotine dependence, unspecified, uncomplicated; Z88.8 Allergy status to other drugs, medicaments and biological substances; Z79.899 Other long term (current) drug therapy
CPT/HCPCS: 99284

== ENCOUNTER 2019-12-03 02:47 | Emergency (ER) | payer OTHER ==
[~2019-12-03] VITALS: Ht 190.5 cm; Wt 122.5 kg
--- OUTSIDE RECORDS SUMMARY | 2019-12-03 02:50 | XMS ---
PreManage Notification: BETHANIE VEGA Security District Wildlife Manager Events No recent Security Events currently on file CRITERIA MET - Group Notification - [facility] - Has Care Guidelines CARE PROVIDERS NEYDA ZAFAR [facility] 05/19/2018-Current PHONE: Unknown SHERIF COFFMAN Physician Bender Hand 06/02/2018-Current PHONE: Unknown Antonio has no Care Guidelines for this patient. Care History Medical/Surgical 07/07/2019 [facility] - PLEASE CONTACT [facility]- IF PATIENT ACCEPTS SERVICES- [phone]. - [facility] CAN PROVIDE PATIENT WITH GRANULIZING MACHINE OPERATOR AND HELP WITH COMMUNITY RESOURCES. 03/25/2019 [facility] Care Recommendation: - USE EXTREME CAUTION IN GIVING NARCOTICS TO THIS PATIENT. - Avoid Discharge Narcotic prescriptions if at all possible. Physician discretion. 03/04/2019 [facility] \T\middot;\T\nbsp; PATIENT IS A [employer] MEMBER. \T\middot;\T\nbsp; PLEASE REFER PATIENT TO [facility] FOR NON EMERGENT MEDICAL NEEDS. \T\middot;\ T\nbsp; [facility] CAN SEE PATIENTS SAME DAY FOR APTS IF PATIENT CALLS FIRST THING IN THE MORNING. Jess VISIT COUNT (12 MO.) 4 [facility] TOTAL 4 NOTE: Visits indicate total known visits. ED/UCC VISIT TRACKING (12 MO.) 12/03/2019 02:48 [facility] [place] TYPE: Emergency COMPLAINT: - ABDOMIANL PAIN 07/05/2019 00:28 [facility] [place] TYPE: Emergency COMPLAINT: - DETOX ISSUES DIAGNOSES: - Nicotine dependence, unspecified, uncomplicated - Alcohol abuse, uncomplicated - Other supervisor long goods (current) drug therapy - Essential (primary) hypertension - Allergy status to other drugs, medicaments and biological sub 03/24/2019 16:28 [facility] [place] TYPE: Emergency COMPLAINT: - LOW BS DIAGNOSES: - Essential (primary) hypertension - Nicotine dependence, unspecified, uncomplicated - Dehydration - Alcohol abuse, uncomplicated - Acute gastritis without bleeding - Other fpc (current) drug therapy - Dizziness and giddiness - Allergy status to other drugs, medicaments and biological sub 03/03/2019 22:57 [facility] [place] TYPE: Emergency COMPLAINT: - SKIN ISSUES DIAGNOSES: - Nicotine dependence, unspecified, uncomplicated - Essential (primary) hypertension - Allergy status to other drugs, medicaments and biological sub - Other supervisor long goods (current) drug therapy - Seborrheic dermatitis, unspecified - Rash and other nonspecific skin eruption INPATIENT VISIT TRACKING (12 MO.) No inpatient visits to display in this time frame [id number]
[2019-12-03] MEDS ORDERED: MULTI VITAMIN1 EACH PO (03:07)
== END 2019-12-03 06:50 | disposition short-term general hospital (02) ==
LOC: ED 02:47
DX: A41.9 Sepsis, unspecified organism (principal); R65.20 Severe sepsis without septic shock; N17.9 Acute kidney failure, unspecified; I10 Essential (primary) hypertension; E78.5 Hyperlipidemia, unspecified; Z87.891 Personal history of nicotine dependence; Z79.899 Other long term (current) drug therapy
CPT/HCPCS: 71045; 74176; 80053; 81001; 83605; 83690; 85025; 96361; 96374; 99285-25; G0480; J0692; J7030

== ENCOUNTER 2020-05-17 08:42 | Emergency (ER) | payer OTHER ==
[~2020-05-17] VITALS: Ht 190.5 cm; Wt 122.5 kg
--- OUTSIDE RECORDS SUMMARY | ~2020-05-17 | XMS | Encounter Summary ---
Demographics + + + | Address | [address] | | | [place] [address] | + + + | Home Phone | | + + + | Preferred Language | Unknown | + + + | Marital Status | Single | + + + | Taoist Affiliation | [id number] | + + + | Race | or | + + + | Additional Race(s) | White | + + + | Ethnic Group | Not or | + + + Author + + + | Author | [facility] | | | and [place] | + + + | Organization | [facility] | | | and [place] | + + + | Address | Unknown | + + + | Phone | Unavailable | + + + Support + + +---------+ + | Name | Relationship | Address | Phone | + + +---------+ + | Jenny Correa | ECON | Unknown | | | [place] | | | | + + +---------+ + | Selina Hobbs | ECON | Unknown | | + + +---------+ + | Clinton Perez | ECON | Unknown | | + + +---------+ + Care Team Providers + +------+ + | Care Building Drafter Name | Role | Phone | + +------+ + | Unknown, Physician | PCP | | + +------+ + Encounter Details +--------+ + + + + | Date | Type | Department | Care Team | Description | +--------+ + + + + | 12/02/ | Imaging | [facility] | Provider, | | | 2019 | Exam | [facility] | [address] [place] [address] | | | | | IMAG[address] | | | | | [facility] | [place] [address] | | | | | [place] [address] | | | | | | [phone] | | | +--------+ + + + + Social History + +-------+ +--------+------+ | Tobacco [...] on file | | + + + documented as of this encounter Plan of Treatment Not on filedocumented as of this encounter Procedures + +--------+ + + + | Procedure Name | Priori | Date/Time | Associated Diagnosis | Comments | | | ty | | | | + +--------+ + + + | CT ABDOMEN PELVIS WO | Routin | 12/03/2019 | | Results for this | | CONTRAST | e | 1:22 PM | | procedure are in the | | | | PDT | | results section. | + +--------+ + + + documented in this encounter Results CT Abdomen Pelvis wo Contrast (12/03/2019 1:22 PM PDT) + + | Specimen | + + | | + + + + + | Narrative | Performed At | + + + | External films for comparison only | [facility] | | | | | No results will be in the chart. | | + + + + +---------+ + + | Performing | Address | City/State/Zipcode | Phone Number | | Organization | | | | + +---------+ + + | [facility] | | | | + +---------+ + + documented in this encounter Visit Diagnoses Not on filedocumented in this encounter"
--- OUTSIDE RECORDS SUMMARY | ~2020-05-17 | XMS | Encounter Summary ---
Demographics + + + | Address | [address] | | | [place] [address] | + + + | Home Phone | | + + + | Preferred Language | Unknown | + + + | Marital Status | Single | + + + | Episcopalian Affiliation | [id number] | + + + | Race | or | + + + | Additional Race(s) | White | + + + | Ethnic Group | Not or | + + + Author + + + | Author | [facility] | | | and [place] | + + + | Organization | [facility] | | | and [place] | + + + | Address | Unknown | + + + | Phone | Unavailable | + + + Support + + +---------+ + | Name | Relationship | Address | Phone | + + +---------+ + | Aspen Correa | ECON | Unknown | | | [place] | | | | + + +---------+ + | Selina Hobbs | ECON | Unknown | | + + +---------+ + | Clinton Perez | ECON | Unknown | | + + +---------+ + Care Team Providers + +------+ + | Care Tiller Worker Name | Role | Phone | + +------+ + | Unknown, Physician | PCP | | + +------+ + Reason for Visit Auth/Cert +--------+--------+ + + + + | Status | Reason | Specialty | Diagnoses / | Referred By | Referred To | | | | | Procedures | Contact | Contact | +--------+--------+ + + + + | | | | Diagnoses | | | | | | | Sepsis | | | | | | | (HCC) | | | | | | | Abdominal | | | | | | | pain sepsis | | | | | | | abdominal | | | | | | | pain | | | +--------+--------+ + + + + Encounter Details +--------+ + + + + | Date | Type | Department | Care Team | Description | +--------+ + + + + | 12/02/ | Hospital | [facility] | Flores Bruce MD | Acute kidney injury | | 2019 - | Encounter | MED CTR SUR[facility] | [address] | (PATRICA) with acute | | | | [address] [place] | [place] | tubular necrosis | | 12/08/ | | [place] [address] | [id number] | (ATN) ([facility]) (Primary | | 2019 | | [phone] | | Dx); Severe sepsis | | | | | Glenn Garcia, | ([facility]); Acute kidney | | | | | [address] | injury ([facility]); | | | | | [place] | Hyponatremia | | | | | [address] | | | | | | | | | | | | Ron Melendez MD | | | | | | [address] | | | | | | [place], [place] | | | | | | [address] | | | | | | | | +--------+ + + + + Social History + +-------+ +--------+------+ | Tobacco Use | Types | Packs/Day | Years | Date | | | | | Used | | + +-------+ +--------+------+ | Former Smoker | | | | | + +-------+ +--------+------+ + +---+---+---+ | Smokeless Tobacco: | | | | | Never Used | | | | + +---+---+---+ + + | Comments: every once in a while, 1 or 2 a month | + + + + +---------+ + | Alcohol Use | Drinks/Week | oz/Week | Comments | + + +---------+ + | Yes | 28 Cans of beer | 28.0 | | + + +---------+ + + + + | Sex Assigned at | Date Recorded | | | | + + + | Not on file | | + + + documented as of this encounter Last Filed Vital Signs + + + + + | Vital Sign | Reading | Time Taken | Comments | + + + + + | Blood Pressure | 131/74 | 12/09/2019 7:31 AM | | | | | PDT | | + + + + + | Pulse | 81 | 12/09/2019 7:31 AM | | | | | PDT | | + + + + + | Temperature | 37.5 C (99.5 F) | 12/09/2019 7:31 AM | | | | | PDT | | + + + + + | Respiratory Rate | 19 | 12/09/2019 7:31 AM | | | | | PDT | | + + + + + | Oxygen Saturation | 96% | 12/09/2019 7:31 AM | | | | | PDT | | + + + + + | Inhaled Oxygen | - | - | | | Concentration | | | | + + + + + | Weight | 129.4 kg (285 lb 4.4 | 12/09/2019 4:35 AM | | | | oz) | PDT | | + + + + + | Height | 188 cm (6' 2") | 12/04/2019 6:40 PM | | | | | PDT | | + + + + + | Body Mass Index | 36.63 | 12/04/2019 6:40 PM | | | | | PDT | | + + + + + documented in this encounter Discharge Summaries Ron Melendez MD - 12/09/2019 9:53 AM PDT [place], [place] HOSPITALIST DISCHARGE SUMMARY Pt. Name/Age/: Christiano Johnston 44 y.o. 1975 Date of Admission: 12/03/2019 Date of Discharge: 12/09/2019 Admitting Physician: Flores Bruce MD Primary Care Provider: Physician Unknown PA Discharging Physician: Ron Melendez MD DISCHARGE DIAGNOSES: Active Hospital Problems Diagnosis Severe sepsis Acute kidney injury (PATRICA) with acute tubular necrosis (ATN) Resolved Hospital Problems No resolved problems to display. Liver cirrhosis Hyponatremia Hypomagnesemia DM, A1c 7.8 HTN GERD Alcohol abuse/methamphetamine abuse DISCHARGE MEDICATIONS: Discharge Medications New Medications Details Blood Glucose Monitor System w/Device Kit 1 each by Does not apply route Daily. hnhajotemm-mrrwqlzxnigye-igmsvjgp 50-325-40 mg per tablet Take 1-2 tablets by mouth every 4 hours as needed for Headaches. calcium carbonate 500 mg chewable tablet Chew and swallow 2 tablets 3 times daily. aka: TUMS docusate sodium 100 MG capsule Take 100 mg by mouth Twice daily as needed for Constipation. aka: COLACE folic acid 1 mg tablet Take 1 tablet by mouth Daily. Start: December 10, 2019 glucose blood test strips strip Check once daily aka: TRUETEST TEST Lancets Misc. Misc 1 each by Does not apply route Daily. metFORMIN 500 mg tablet Take 1 tablet by mouth 2 times daily. aka: GLUCOPHAGE sulfamethoxazole-trimethoprim 800-160 mg per tablet Take 1 tablet by mouth 2 times daily. aka: BACTRIM DS thiamine 100 mg tablet Take 1 tablet by mouth Daily. aka: VITAMIN B-1 Start: December 10, 2019 Unchanged Medications Details betamethasone dipropionate 0.05% ointment Apply 1 Application topically Daily as needed (psoriasis). triamcinolone 0.1% cream APPLY 2-3 TIMES DAILY TO AFFECTED AREAS OF PSORIASIS AVOID THE FACE UNDERARMS AND GROIN aka: [facility]: Please refer to the H&P for full details and the most recent rounding rounding (progress) n ote. In short Mr Johnston is a 44 y/o obese gentleman with pmhx of HTN, HLD, ?DM, alcohol and methampheta mine abuse who presented to outside hospital with left-sided flank pain for the past 7 days associated with decreased urine output, he was diagnosed with sepsis, likely due to sourc e, transferred to our facility for higher level of care. Upon arriving to our hospital valery ent was febrile, tachycardic with soft blood pressures, he responded to IVF resuscitation, h is labs showed PATRICA with creatinine of 5.05, BUN of 84, ammonia 54, lactic acid 3.7, total bi lirubin 3.7 with direct 3.3, elevated white count at 21.5, elevated procalcitonin at 28, el evated CRP at 312, hypokalemia, hyponatremia. He was started on Zosyn, meanwhile blood cult ures from [facility] came back with gram-negative bacilli. Throughout the course of the day 12/03 patient developed tachypnea, continued spiking fever. He was transferred to ICU f or closer monitoring. Improved gradually with some improvement in labs except for rising abdulkadir irubin. He was transferred back to regular floor for further care. His kidney function cont inued to improve, his creatinine was 1.8 upon discharge. Has hyperbilirubinemia likely relat ed to cholestasis related to sepsis, his total bili was 5.3 with direct 4.6 upon discharge a nd to trending down, he has been having labile sodium hovering between upper 120s and lower 130s BMP was ordered within 1 week of discharge to evaluate for kidney function and electrol ytes. PT/OT worked with the patient and deemed appropriate to discharge home. Patient was eating and drinking without problems, passing urine and having normal BMs prior to discharge . Cultures grew E. coli and he was switched to Bactrim upon discharge to complete total cou rse of 2 weeks of antibiotics. Patient stable clinically at the time of discharge[facility] 7 days of discharge, recheck BMP/LFTs within 1 week of discharge to [facility] for kidney function, electrolytes and liver function. Most recent weight: Input and output for last 24hrs: Wt Readings from Last 1 Encounters: 12/09/19 129.4 kg (285 lb 4.4 oz) I/O last 24 Hours: In: 1870 [P.O.:1870] Out: 2725 [Urine:2725] Vitals Ranges: Temp: [36.7 C (98 F)-37.5 C (99.5 F)] 37.5 C (99.5 F) Pulse: [75-90] 81 Resp: [18-20] 19 BP: (108-134)/(62-74) 131/74 Vitals: Temp: 37.5 C (99.5 F) BP: 131/74 Pulse: 81 Resp: 19 SpO2: 96 % SpO2 96 % on room air at flow rate 0L/min PHYSICAL EXAM: Patient seen and examined by me on discharge day Constitutional: In no acute distress Eye: pupils round, equal, reactive to light, injected conjunctivae ENT: unremarkable oral ear and nose Neck: obese neck, no lymphadenopathy, thyromegaly nor masses Lymph node exam: negative in the following areas: neck and epitrochlear Cardiac: RRR, S1/S2, no murmurs, rubs or gallops, slight bilateral LE edema Lung: Non-labored breathing, moderate crackles over both bases, no wheezing or rhonchi Abdomen: Obese abdomen, soft, mildly distended, nontender, no HSM nor masses, BS + Psych: Somewhat flat affect, oriented to name, date (month, year) and place, no psychosis, appears depressed Neuro: Face symmetric, tongue midline, lining strap closer equal, no pronator drift, motor and sensory int act throughout Skin: no rashes, ulcers or skin brakes, skin discoloration characteristic of chronic venous stasis over both lower extremities PROCEDURES AND CONSULTS: Procedures None Consults Nephrology PENDING RESULTS: None DISPOSITION AND DISCHARGE INSTRUCTIONS: Condition: Patient being discharged with condition improved Diet: Diabetic diet Greater than 30 minutes were spent on discharge and coordination of post-hospital care. Electronically signed by: Ron Melendez MD, 12/09/2019 9:53 AM [facility] Portions of this chart may have been created with [employer] voice recognition software. Occasi onal wrong-word or sound-alike substitutions may have occurred due to the inherent martinez itations of voice recognition software. Please read the chart carefully and recognize, using context, where these substitutions have occurred documented in this enco unter Discharge Instructions Instructions Ron Melendez MD - 12/03/2019Please check BMP and LFTs within one week of dis charge (12/09/2019) thank you. Probiotics Patient Discharge Information Sheet Probiotics are often thought of as "friendly bacteria" or "healthy bacteria." They are sim ilar to the bacteria that normally live inside of our body and play a role in helping to clay p the body working well. If you have been receiving antibiotics in the hospital, consider taking some form of a prob iotic once you are discharged. A reasonable approach is to take some form of probiotics for 5 days after antibiotics are completed. We have included some options below that may be more affordable and contain the types of ba cteria that have been found helpful in studies. If you have any concerns or questions about probiotics, or have a severe problem with your immune system, please discuss with your doctor. Recommended probiotic formulations commonly available in Pharmacies: ? VSL # 3: 1 capsule by mouth twice a day ? Culturelle: 1 capsule by mouth twice a day ? Provella: 1 capsule by mouth twice a day Dairy Product Options with Probiotics: ? Sabrina's Kefir (many flavors available): 8 ounces per day ? Sabrina's Organic Yogurt (many flavors available): 8 ounces per day ? Mayes Fresh Yogurt (many flavors available): 6 ounces per day AttachmentsThe following attachments cannot be sent through Care Everywhere.Diabetes, Carbo hydrates, Fats, and Protein, Understanding (Portuguese)documented in this encounter Medications at Time of Discharge + + + +---------+ + + | Medication | Sig | Dispensed | Refills | Start | End Date | | | | | | Date | | + + + +---------+ + + | betamethasone | Apply 1 Application | | 0 | | | | dipropionate 0.05% | topically Daily as | | | | | | ointment | needed (psoriasis). 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 Best | | | | | | | applied to damp | | | | | | | skin. | | | | | + + + +---------+ + + | Blood Glucose | 1 each by Does not | 1 each | 0 | 12/09/19 | | | Monitoring Suppl | apply route Daily. | | | 20 | | | (BLOOD GLUCOSE | | | | | | | MONITOR SYSTEM) | | | | | | | w/Device KIT | | | | | | + + + +---------+ + + | | Take 1-2 tablets by | 12 | 0 | 12/09/19 | | | butalbital-acetamino | mouth every 4 hours | tablet | | 20 | | | phen-caffeine | as needed for | | | | | | 50-325-40 mg per | Headaches. | | | | | | tablet | | | | | | + + + +---------+ + + | calcium carbonate | Chew and swallow 2 | 90 | 0 | 04/15/20 | | | (TUMS) 500 mg | tablets 3 times | tablet | | 20 | | | chewable tablet | daily. | | | | | + + + +---------+ + + | docusate sodium | Take 100 mg by mouth | 30 | 0 | 12/09/19 | | | (COLACE) 100 MG | Twice daily as | capsule | | 20 | | | capsule | needed for | | | | | | | Constipation. | | | | | + + + +---------+ + + | folic acid 1 mg | Take 1 tablet by | 30 | 0 | 12/10/19 | | | tablet | mouth Daily. | tablet | | 20 | | + + + +---------+ + + | glucose blood | Check once daily | 120 | 0 | 12/09/19 | | | test strips | | each | | 20 | | | (TRUETEST TEST) | | | | | | | strip | | | | | | + + + +---------+ + + | Ruel Misc. MISC | 1 each by Does not | 120 | 0 | / | | | | apply route Daily. | each | | 20 | | + + + +---------+ + + | metFORMIN | Take 1 tablet by | 60 | 0 | 12/09/19 | | | (GLUCOPHAGE) 500 mg | mouth 2 times daily. | tablet | | 20 | | | tablet | | | | | | + + + +---------+ + + | | Take 1 tablet by | 16 | 0 | / | | | sulfamethoxazole-tri | mouth 2 times daily. | tablet | | 20 | | | methoprim (BACTRIM | | | | | | | DS) 800-160 mg per | | | | | | | tablet | | | | | | + + + +---------+ + + | thiamine (VITAMIN | Take 1 tablet by | 30 | 0 | 12/10/19 | | | B-1) 100 mg tablet | mouth Daily. | tablet | | 20 | | + + + +---------+ + + | triamcinolone | APPLY 2-3 TIMES | | 0 | | | | (KENALOG) 0.1% cream | DAILY TO AFFECTED | | | | | | | AREAS OF PSORIASIS | | | | | | | AVOID THE FACE | | | | | | | UNDERARMS AND GROIN | | | | | + + + +---------+ + + | triamcinolone | Apply 2-3 times | 453.6 g | 11 | 04/17/20 | | | (KENALOG) 0.1% | daily to affected | | | 19 | | | creamIndications: | areas of psoriasis. | | | | | | Guttate psoriasis | Avoid the face, | | | | | | | underarms and groin. | | | | | + + + +---------+ + + | clobetasol | Apply to areas of | 50 mL | 11 | 04/17/20 | | | (TEMOVATE) 0.05 % | rash on a clean damp | | | 19 | 0 | | external | scalp once daily. | | | | | | solutionIndications: | Massage in and DO | | | | | | Guttate psoriasis | NOT RINSE. | | | | | + + + +---------+ + + documented as of this encounter Progress Notes Ron Melendez MD - 12/08/2019 11:15 AM PDT [facility] [place] [facility] Patient: Christiano Johnston : 1975: Age: 44 y.o. MedRec: [id number] Admission date: 12/03/2019 Hospital day # : 5 Physician author: Ron Melendez MD Today: 12/08/2019 Assessment and Hospital Course Mr Johnston is a 44 y/o obese gentleman with pmhx of HTN, HLD, ?DM, alcohol and methampheta mine abuse who presented to outside hospital with left-sided flank pain for the past 7 days associated with decreased urine output, he was diagnosed with sepsis, likely due to sourc e, transferred to our facility for higher level of care. Upon arriving to our hospital valery ent was febrile, tachycardic with soft blood pressures, he responded to IVF resuscitation, h is labs showed PATRICA with creatinine of 5.05, BUN of 84, ammonia 54, lactic acid 3.7, total bi lirubin 3.7 with direct 3.3, elevated white count at 21.5, elevated procalcitonin at 28, el evated CRP at 312, hypokalemia, hyponatremia. He was started on Zosyn, meanwhile blood cult ures from [facility] came back with gram-negative bacilli. Throughout the course of the day 12/03 patient developed tachypnea, continued spiking fever. He was transferred to ICU f or closer monitoring. Improved overnight with some improvement in labs except for rising abdulkadir irubin. He was transferred back to regular floor for further care. His kidney function cont inues to improve. Has hyperbilirubinemia likely related to cholestasis related to sepsis. labs improving, working with PT - still not at baseline. Pending further optimization. An ticipate d/c 12/08. Active Hospital Problems Diagnosis Severe sepsis Acute kidney injury (PATRICA) with acute tubular necrosis (ATN) Resolved Hospital Problems No resolved problems to display. Plan Severe sepsis, resolved Perhaps source White count coming down, lactate normalized, clinically continues to improve Stopped IVF, he is eating and drinking okay Blood cultures from outside hospital grew E.coli, abx switched to ceftriaxone Monitor closely hemodynamic status PATRICA Cr 5.05 from normal upon presentation, down to 3.14->2.4->2.04, urine output continues to i mporve Could be secondary to #1 prerenal versus ATN versus methamphetamine induced ATN versus po ssible hepatorenal syndrome, looking at steady improvement with volume leaning towards prere nal. He is eating and drinking now Appreciate nephrology (Dr. Jensen) input regarding further inpatient care and management w ill follow further recommendations Renally dose medications to creatinine clearance Avoid nephrotoxic agents Renal ultrasound reviewed demonstrates no evidence of hydronephrosis with mildly elevated i ndices of the left kidney suggestive of medical renal disease Monitor kidney function Liver cirrhosis Possible underlying alcoholic compensated cirrhosis Hepatitis panel negative, he was hep A positive in the past He has elevated total Bili 5.8 with direct 5.3, this is likely a cholestasis in the context of sepsis and abx (US showed patent biliary ducts), improving now Monitor closely transaminases and bilirubin 2 g low-sodium diet He was counseled extensively on alcohol cessation Hyponatremia Sodium up to 131 Most likely secondary to #1 and 2. Monitor closely electrolytes Hypomagnesemia Replete accordingly Monitor electrolytes Alcohol/methamphetamine use Patient notes consuming 6 tall bottles per day, but has recently cut down could not speci fy exactly. Continue withCIWAprotocol and multivitamins folate and thiamine. PRN Ativan for methamphetamine withdrawal. Hold for excessive sedation or respiratory rat e of 12 or less. Counseled extensively on alcohol cessation DM Hemoglobin A1c 7.8 He was not aware of the dx Started on insulin sliding scale, added glargine 20 units Continue to monitor sugars and adjust insulin as needed, will need education upon discharge Diabetic diet HTN BP normal low, mostly in low 100s SBP Continue to hold antihypertensives Monitor blood pressure Will restart when he recovers from sepsis GERD Monitor symptoms Protonix 40 mg DVT prophylaxis: In place CODE STATUS: full Code Diet: Renal/diabetic Dispo: Inpatient care, anticipate d/c 12/08 in AM Ron Melendez MD 12/08/2019 11:15 AM [facility] Subjective CC no major complaints as of this AM ROS Constitutional: afebrile, appears more comfortable compared to yesterday Head and neck: negative Cardiac: negative Pulmonary: negative GI: negative : Negative Skin: negative Psyche: Flat affect Musculoskeletal: Generalized weakness Exam Constitutional: In no acute distress Eye: pupils round, equal, reactive to light, injected conjunctivae ENT: unremarkable oral ear and nose Neck: obese neck, no lymphadenopathy, thyromegaly nor masses Lymph node exam: negative in the following areas: neck and epitrochlear Cardiac: RRR, S1/S2, no murmurs, rubs or gallops, slight bilateral LE edema Lung: Non-labored breathing, moderate crackles over both bases, no wheezing or rhonchi Abdomen: Obese abdomen, soft, mildly distended, nontender, no HSM nor masses, BS + Psych: Somewhat flat affect, oriented to name, date (month, year) and place, no psychosis, appears depressed Neuro: Face symmetric, tongue midline, lining strap closer equal, no pronator drift, motor and sensory int act throughout Skin: no rashes, ulcers or skin brakes, skin discoloration characteristic of chronic venous stasis over both lower extremities Objective Data Vitals Ranges: Temp: [35.7 C (96.3 F)-37.2 C (99 F)] 36.9 C (98.4 F) Pulse: [75-94] 89 Resp: [17-20] 17 BP: (104-137)/(64-74) 104/64 Vitals: Temp: 36.9 C (98.4 F) BP: 104/64 Pulse: 89 Resp: 17 SpO2: 97 % SpO2 97 % on room air at flow rate 0L/min Allergies: No Known Allergies Current Medications: Current Facility-Administered Medications Medication Dose Route Frequency Provider Last Rate Last Dose acetaminophen (TYLENOL) tablet 650 mg 650 mg Oral Q4H PRN Ron Melendez MD 650 mg at 12/06/19 0232 adult multivitamin with minerals/iron tablet 1 tablet 1 tablet Oral Daily Ron Melendez MD 1 tablet at 12/08/19 0804 albuterol 2.5 mg/3 mL nebulizer solution 2.5 mg 2.5 mg Nebulization RT Q4H PRN Ron colvin MD 2.5 mg at 12/07/19 2040 bisacodyl (DULCOLAX) suppository 10 mg 10 mg Rectal Daily PRN Ron Melendez MD iwvazmpwqn-ynpydmzunzymi-utvcujxf 50-325-40 mg per tablet 1-2 tablet 1-2 tablet Oral Q 4H PRN Ron Melendez MD 2 tablet at 12/08/19 0635 calcium carbonate (TUMS) chewable tablet 1,000 mg 1,000 mg Oral TID Ron Melendez MD 1,000 mg at 12/08/19 0804 calcium carbonate (TUMS) chewable tablet 1,000 mg 1,000 mg Oral Q4H PRN Ron Melendez MD cefTRIAXone (ROCEPHIN) 1 g in sodium chloride 0.9% 50 mL IVPB 1 g Intravenous Daily Ad mode Melendez MD 100 mL/hr at 12/08/19 0805 1 g at 12/08/19 0805 dextrose 50% injection 12.5-25 g 12.5-25 g Intravenous PRN Ron Melendez MD And dextrose 10% (D10W) infusion Intravenous Continuous PRN Ron Melendez MD metoclopramide (REGLAN) 5 mg/mL injection 10 mg 10 mg Intravenous Once PRN Flores burgess MD And diphenhydrAMINE (BENADRYL) injection 25 mg 25 mg Intravenous Once PRN Emily Miller docusate sodium (COLACE) capsule 100 mg 100 mg Oral BID PRN Ron Melendez MD folic acid tablet 1 mg 1 mg Oral Daily Ron Melendez MD 1 mg at 12/08/19 0804 heparin 5,000 units/mL injection 5,000 Units 5,000 Units Subcutaneous 2 times per day Ron Melendez MD 5,000 Units at 12/08/19 0805 insulin glargine (LANTUS SOLOSTAR) injection (pen) 20 Units 20 Units Subcutaneous QAM Ron Melendez MD 20 Units at 12/08/19 0816 insulin lispro (humaLOG KWIKPEN) injection (pen) 0-10 Units 0-10 Units Subcutaneous 4x Daily WC and HS Ron Melendez MD 1 Units at 12/08/19 0804 lactobacillus GG (CULTURELLE) capsule 1 capsule 1 capsule Oral BID Ron Melendez MD 1 capsule at 12/08/19 0804 LORazepam (ATIVAN) injection 1 mg 1 mg Intravenous Q6H PRN Ron Melendez MD LORazepam (ATIVAN) injection 1-4 mg 1-4 mg Intravenous PRN Ron Melendez MD 1 mg at 12/04/19 1531 melatonin tablet 3 mg 3 mg Oral Nightly PRN Ron Melendez MD ondansetron (ZOFRAN) injection 4 mg 4 mg Intravenous Q6H PRN Ron Melendez MD pharmacy consult - other medications/reasons Other Pharmacy Consult Ron Melendez MD polyethylene glycol (MIRALAX) powder 17 g 17 g Oral Daily PRN Ron Melendez MD senna (SENOKOT) tablet 8.6 mg 8.6 mg Oral BID PRN Ron Melendez MD thiamine (VITAMIN B-1) tablet 100 mg 100 mg Oral Daily Ron Melendez MD 100 mg at 0804 traMADol (ULTRAM) tablet 50 mg 50 mg Oral Q8H PRN Ron Melendez MD 50 mg at 12/05/19 1838 Current Infusions: dextrose 10% Point of care glucose Recent Labs Lab 12/08/19 0632 12/07/19 2128 12/07/19 1708 12/07/19 1159 12/07/19 0641 12/06/192016 POCGLU 157* 141* 159* 188* 131* 179* Labs last 24 hours Recent Results (from the past 24 hour(s)) POC Glucose Collection Time: 12/07/19 11:59 AM Result Value Ref Range Glucose, POC 188 (H) 70 - 109 mg/dL POC Glucose Collection Time: 12/07/19 5:08 PM Result Value Ref Range Glucose, POC 159 (H) 70 - 109 mg/dL POC Glucose Collection Time: 12/07/19 9:28 PM Result Value Ref Range Glucose, POC 141 (H) 70 - 109 mg/dL CBC with Differential Collection Time: 12/08/19 12:15 AM Result Value Ref Range WBC 15.7 (H) 4.0 - 11.0 K/uL RBC 3.80 (L) 4.30 - 5.70 M/uL Hemoglobin 12.2 (L) 13.5 - 18.0 g/dL Hematocrit 34.0 (L) 40.0 - 51.0 % MCV 89.5 83.0 - 101.0 fL MCH 32.1 28.0 - 35.0 pg MCHC 35.9 32.0 - 36.0 g/dL RDW-CV 13.4 <15.0 % RDW-SD 43.9 35.1 - 46.3 fL Platelet Count 142 140 - 440 K/uL MPV 10.5 6.5 - 12.4 fL % Neutrophils 80.3 45.0 - 82.0 % % Lymphocytes 8.8 (L) 20.0 - 45.0 % % Monocytes 8.1 4.0 - 12.0 % % Eosinophils 0.6 0.0 - 5.0 % % Basophils 0.4 0.0 - 1.0 % % Immature Granulocytes 1.8 (H) 0.0 - 0.4 % Absolute Neutrophils 12.60 (H) 1.80 - 8.50 K/uL Absolute Lymphocytes 1.38 0.60 - 3.20 K/uL Absolute Monocytes 1.27 (H) 0.00 - 1.00 K/uL Absolute Eosinophils 0.10 0.00 - 0.40 K/uL Absolute Basophils 0.06 0.00 - 0.10 K/uL Absolute Immature Granulocytes 0.28 (H) 0.00 - 0.03 K/uL % nRBC 0 0 - 2 per 100 WBCs Absolute nRBC 0.00 0.00 - 0.01 K/uL Basic Metabolic Panel Collection Time: 12/08/19 12:16 AM Result Value Ref Range Na 131 (L) 136 - 145 mmol/L K 3.8 3.4 - 5.1 mmol/L Cl 97 (L) 98 - 107 mmol/L CO2 25 20 - 31 mmol/L Anion Gap 9 3 - 16 mmol/L Glucose 130 (H) 60 - 106 mg/dL BUN 41 (H) 9 - 23 mg/dL Creatinine 2.07 (H) 0.70 - 1.30 mg/dL eGFR if not 35 (L) >=60 mL/min/1.73m2 Calcium 8.1 (L) 8.7 - 10.4 mg/dL BUN/Creatinine Ratio 19.8 Hepatic Function Panel Collection Time: 12/08/19 12:16 AM Result Value Ref Range Bilirubin Total 5.8 (H) 0.3 - 1.2 mg/dL Total Protein 5.9 5.7 - 8.2 g/dL Albumin 2.6 (L) 3.2 - 4.8 g/dL AST 76 (H) 0 - 34 U/L ALT 32 10 - 49 U/L Alkaline Phosphatase 208 (H) 46 - 116 U/L Globulin 3.3 2.1 - 3.8 g/dL Albumin/Globulin Ratio 0.8 0.8 - 1.9 Bilirubin, Direct 5.30 (H) 0.00 - 0.30 mg/dl POC Glucose Collection Time: 12/08/19 6:32 AM Result Value Ref Range Glucose, POC 157 (H) 70 - 109 mg/dL Micro results (more choices using dot micro) Microbiology Results (72 hrs) Procedure Component Value Units Date/Time Culture, Blood [[id number]] Collected: 12/07/19445 Order Status: Completed Lab Status: Preliminary result Updated: 12/07/191710 Specimen: Peripheral Blood Culture No growth: Monitored continually by instrument for 5 days Culture, Blood [[id number]] Collected: 12/07/19441 Order Status: Completed Lab Status: Preliminary result Updated: 12/07/191710 Specimen: Peripheral Blood Culture No growth: Monitored continually by instrument for 5 days Radiology results (more choices using dot risresults) No results found. Ron Melendez MD Portions of this chart may have been created with [employer] voice recognition software. Occasi onal wrong-word or sound-alike substitutions may have occurred due to the inherent martinez itations of voice recognition software. Please read the chart carefully and recognize, using context, where these substitutions have occurred Ron Hoyos MD - 5:26 PM PDT [facility] H[facility]PITALIST PROGRESS NOTE Patient: Christiano Johnston : 1975: Age: 44 y.o. MedRec: [id number] Admission date: 12/03/2019 Hospital day # : 4 Physician author: Ron Melendez MD Today: 12/07/2019 Assessment and Hospital Course Mr Johnston is a 44 y/o obese gentleman with pmhx of HTN, HLD, ?DM, alcohol and methampheta mine abuse who presented to outside hospital with left-sided flank pain for the past 7 days associated with decreased urine output, he was diagnosed with sepsis, likely due to sourc e, transferred to our facility for higher level of care. Upon arriving to our hospital valery ent was febrile, tachycardic with soft blood pressures, he responded to IVF resuscitation, h is labs showed PATRICA with creatinine of 5.05, BUN of 84, ammonia 54, lactic acid 3.7, total bi lirubin 3.7 with direct 3.3, elevated white count at 21.5, elevated procalcitonin at 28, el evated CRP at 312, hypokalemia, hyponatremia. He was started on Zosyn, meanwhile blood cult ures from [facility] came back with gram-negative bacilli. Throughout the course of the day 12/03 patient developed tachypnea, continued spiking fever. He was transferred to ICU f or closer monitoring. Improved overnight with some improvement in labs except for rising abdulkadir irubin. He was transferred back to regular floor for further care. His kidney function cont inues to improve. Has hyperbilirubinemia likely related to cholestasis related to sepsis. Pe nding further optimization. Active Hospital Problems Diagnosis Severe sepsis Acute kidney injury (PATRICA) with acute tubular necrosis (ATN) Resolved Hospital Problems No resolved problems to display. Plan Severe sepsis, improving Most likely etiology White count came down and back up (perhaps reactive), lactate normalized, clinically contin ues to improve Stopped IVF, he is eating and drinking okay Blood cultures from outside hospital growing gram-negative rods, continue to cover with Zos yn for now, pending final cultures Monitor closely hemodynamic status Follow-up on cultures and adjust biotics accordingly PATRICA Cr 5.05 from normal upon presentation, down to 3.14->2.4, urine output continues to imporve Could be secondary to #1 prerenal versus ATN versus methamphetamine induced ATN versus po ssible hepatorenal syndrome, looking at steady improvement with volume leaning towards prere nal. He is eating and drinking now Appreciate nephrology (Dr. Jensen) input regarding further inpatient care and management w ill follow further recommendations Renally dose medications to creatinine clearance of less than 15 Avoid nephrotoxic agents Renal ultrasound reviewed demonstrates no evidence of hydronephrosis with mildly elevated i ndices of the left kidney suggestive of medical renal disease Monitor kidney function Liver cirrhosis Possible underlying alcoholic compensated cirrhosis Hepatitis panel negative, he was hep A positive in the past He has elevated total Bili 6.6 with direct 5.8, this is likely a cholestasis in the context of sepsis and abx (US showed patent biliary ducts) Monitor closely transaminases and bilirubin 2 g low-sodium diet He was counseled extensively on alcohol cessation Hyponatremia Sodium hangs around high 120s Most likely secondary to #1 and 2. Monitor closely electrolytes Hypomagnesemia Replete accordingly Monitor electrolytes Alcohol/methamphetamine use Patient notes consuming 6 tall bottles per day, but has recently cut down could not speci fy exactly. Continue withCIWAprotocol and multivitamins folate and thiamine. PRN Ativan for methamphetamine withdrawal. Hold for excessive sedation or respiratory rat e of 12 or less. Counseled extensively on alcohol cessation DM Hemoglobin A1c 7.8 He was not aware of the dx Started on insulin sliding scale, added glargine 20 units Continue to monitor sugars and adjust insulin as needed, will need education upon discharge Diabetic diet HTN BP improved, mostly in low 100s SBP Continue to hold antihypertensives Monitor blood pressure Will restart when he recovers from sepsis GERD Monitor symptoms Protonix 40 mg DVT prophylaxis: In place CODE STATUS: full Code Diet: Renal/diabetic Dispo: Inpatient care, anticipate another 1-2 days Ron Melendez MD 12/07/2019 5:26 PM [facility] Subjective CC chest tightness ROS Constitutional: afebrile, appears more comfortable compared to yesterday Head and neck: negative Cardiac: negative Pulmonary: Subjective difficulty breathing GI: negative : Negative Skin: negative Psyche: Flat affect Musculoskeletal: Generalized weakness Exam Constitutional: In no acute distress Eye: pupils round, equal, reactive to light, injected conjunctivae ENT: unremarkable oral ear and nose Neck: obese neck, no lymphadenopathy, thyromegaly nor masses Lymph node exam: negative in the following areas: neck and epitrochlear Cardiac: RRR, S1/S2, no murmurs, rubs or gallops, slight bilateral LE edema Lung: Non-labored breathing, moderate crackles over both bases, no wheezing or rhonchi Abdomen: Obese abdomen, soft, mildly distended, nontender, no HSM nor masses, BS + Psych: Somewhat flat affect, oriented to name, date (month, year) and place, no psychosis, appears depressed Neuro: Face symmetric, tongue midline, lining strap closer equal, no pronator drift, motor and sensory int act throughout Skin: no rashes, ulcers or skin brakes, skin discoloration characteristic of chronic venous stasis over both lower extremities Objective Data Vitals Ranges: Temp: [35.7 C (96.3 F)-37.4 C (99.3 F)] 36.6 C (97.8 F) Pulse: [82-101] 87 Resp: [18-20] 20 BP: (112-135)/(61-76) 132/73 Vitals: Temp: 36.6 C (97.8 F) BP: 132/73 Pulse: 87 Resp: 20 SpO2: 95 % SpO2 95 % on room air at flow rate 0L/min Allergies: No Known Allergies Current Medications: Current Facility-Administered Medications Medication Dose Route Frequency Provider Last Rate Last Dose acetaminophen (TYLENOL) tablet 650 mg 650 mg Oral Q4H PRN Ron Melendez MD 650 mg at 12/06/19 0232 adult multivitamin with minerals/iron tablet 1 tablet 1 tablet Oral Daily Ron Melendez MD 1 tablet at 12/07/19 0824 albuterol 2.5 mg/3 mL nebulizer solution 2.5 mg 2.5 mg Nebulization RT Q4H PRN Ron colvin MD 2.5 mg at 12/07/19 1447 bisacodyl (DULCOLAX) suppository 10 mg 10 mg Rectal Daily PRN Ron Melendez MD [id number]-axyzzmsdhiugn-fqqrszpe 50-325-40 mg per tablet 1-2 tablet 1-2 tablet Oral Q 4H PRN Ron Melendez MD 2 tablet at 12/07/19 0623 calcium carbonate (TUMS) chewable tablet 1,000 mg 1,000 mg Oral TID Ron Melendez MD 1,000 mg at 12/07/19 1422 calcium carbonate (TUMS) chewable tablet 1,000 mg 1,000 mg Oral Q4H PRN Ron Melendez MD dextrose 50% injection 12.5-25 g 12.5-25 g Intravenous PRN Ron Melendez MD And dextrose 10% (D10W) infusion Intravenous Continuous PRN Ron Melendez MD metoclopramide (REGLAN) 5 mg/mL injection 10 mg 10 mg Intravenous Once PRN Flores burgess MD And diphenhydrAMINE (BENADRYL) injection 25 mg 25 mg Intravenous Once PRN Emily Miller docusate sodium (COLACE) capsule 100 mg 100 mg Oral BID PRN Ron Melendez MD folic acid tablet 1 mg 1 mg Oral Daily Ron Melendez MD 1 mg at 12/07/19 0824 heparin 5,000 units/mL injection 5,000 Units 5,000 Units Subcutaneous 2 times per day Ron Melendez MD 5,000 Units at 12/07/19 0824 insulin glargine (LANTUS SOLOSTAR) injection (pen) 20 Units 20 Units Subcutaneous QAM Ron Melendez MD 20 Units at 12/07/19 0830 insulin lispro (humaLOG KWIKPEN) injection (pen) 0-10 Units 0-10 Units Subcutaneous 4x Daily WC and HS Ron Melendez MD 1 Units at 12/07/19 1708 lactobacillus GG (CULTURELLE) capsule 1 capsule 1 capsule Oral BID Ron Melendez MD 1 capsule at 12/07/19 0824 LORazepam (ATIVAN) injection 1 mg 1 mg Intravenous Q6H PRN Ron Melendez MD LORazepam (ATIVAN) injection 1-4 mg 1-4 mg Intravenous PRN Ron Melendez MD 1 mg at 12/04/19 1531 melatonin tablet 3 mg 3 mg Oral Nightly PRN Ron Melendez MD ondansetron (ZOFRAN) injection 4 mg 4 mg Intravenous Q6H PRN Ron Melendez MD pharmacy consult - other medications/reasons Other Pharmacy Consult Ron Melendez MD piperacillin-tazobactam (ZOSYN) 3.375 g in sodium chloride 0.9% 100 mL IVPB 3.375 g In travenous Q8H Ron Melendez MD 25 mL/hr at 12/07/19 1423 3.375 g at 12/07/19 1423 polyethylene glycol (MIRALAX) powder 17 g 17 g Oral Daily PRN Ron Melendez MD potassium chloride (Klor-Con M20) ER tablet 40 mEq 40 mEq Oral BID Ron Melendez MD 40 mEq at 12/07/19 0824 senna (SENOKOT) tablet 8.6 mg 8.6 mg Oral BID PRN Ron Melendez MD thiamine (VITAMIN B-1) tablet 100 mg 100 mg Oral Daily Ron Melendez MD 100 mg at 0824 traMADol (ULTRAM) tablet 50 mg 50 mg Oral Q8H PRN Ron Melendez MD 50 mg at 12/05/19 1838 Current Infusions: dextrose 10% Point of care glucose Recent Labs Lab 12/07/19 1159 12/07/19 0641 12/06/19 2017 12/06/19 1654 12/06/19 1149 12/06/19 0640 POCGLU 188* 131* 179* 188* 237* 166* Labs last 24 hours Recent Results (from the past 24 hour(s)) POC Glucose Collection Time: 12/06/19 8:17 PM Result Value Ref Range Glucose, POC 179 (H) 70 - 109 mg/dL CBC with Differential Collection Time: 12/07/19 12:30 AM Result Value Ref Range WBC 17.6 (H) 4.0 - 11.0 K/uL RBC 3.97 (L) 4.30 - 5.70 M/uL Hemoglobin 13.0 (L) 13.5 - 18.0 g/dL Hematocrit 35.2 (L) 40.0 - 51.0 % MCV 88.7 83.0 - 101.0 fL MCH 32.7 28.0 - 35.0 pg MCHC 36.9 (H) 32.0 - 36.0 g/dL RDW-CV 13.1 <15.0 % RDW-SD 42.5 35.1 - 46.3 fL Platelet Count 117 (L) 140 - 440 K/uL MPV 11.4 6.5 - 12.4 fL % Neutrophils 82.6 (H) 45.0 - 82.0 % % Lymphocytes 7.0 (L) 20.0 - 45.0 % % Monocytes 7.5 4.0 - 12.0 % % Eosinophils 0.6 0.0 - 5.0 % % Basophils 0.5 0.0 - 1.0 % % Immature Granulocytes 1.8 (H) 0.0 - 0.4 % Absolute Neutrophils 14.55 (H) 1.80 - 8.50 K/uL Absolute Lymphocytes 1.23 0.60 - 3.20 K/uL Absolute Monocytes 1.32 (H) 0.00 - 1.00 K/uL Absolute Eosinophils 0.10 0.00 - 0.40 K/uL Absolute Basophils 0.08 0.00 - 0.10 K/uL Absolute Immature Granulocytes 0.32 (H) 0.00 - 0.03 K/uL % nRBC 0 0 - 2 per 100 WBCs Absolute nRBC 0.00 0.00 - 0.01 K/uL Basic Metabolic Panel Collection Time: 12/07/19 12:30 AM Result Value Ref Range Na 128 (L) 136 - 145 mmol/L K 3.4 3.4 - 5.1 mmol/L Cl 92 (L) 98 - 107 mmol/L CO2 26 20 - 31 mmol/L Anion Gap 10 3 - 16 mmol/L Glucose 151 (H) 60 - 106 mg/dL BUN 57 (H) 9 - 23 mg/dL Creatinine 2.52 (H) 0.70 - 1.30 mg/dL eGFR if not 28 (L) >=60 mL/min/1.73m2 Calcium 8.1 (L) 8.7 - 10.4 mg/dL BUN/Creatinine Ratio 22.6 Hepatic Function Panel Collection Time: 12/07/19 12:30 AM Result Value Ref Range Bilirubin Total 6.6 (H) 0.3 - 1.2 mg/dL Total Protein 6.2 5.7 - 8.2 g/dL Albumin 2.8 (L) 3.2 - 4.8 g/dL AST 82 (H) 0 - 34 U/L ALT 39 10 - 49 U/L Alkaline Phosphatase 185 (H) 46 - 116 U/L Globulin 3.4 2.1 - 3.8 g/dL Albumin/Globulin Ratio 0.8 0.8 - 1.9 Bilirubin, Direct 5.80 (H) 0.00 - 0.30 mg/dl Culture, Blood Collection Time: 12/07/19 4:42 AM Result Value Ref Range Culture No growth: Monitored continually by instrument for 5 days Culture, Blood Collection Time: 12/07/19 4:46 AM Result Value Ref Range Culture No growth: Monitored continually by instrument for 5 days POC Glucose Collection Time: 12/07/19 6:41 AM Result Value Ref Range Glucose, POC 131 (H) 70 - 109 mg/dL POC Glucose Collection Time: 12/07/19 11:59 AM Result Value Ref Range Glucose, POC 188 (H) 70 - 109 mg/dL Micro results (more choices using dot micro) Microbiology Results (72 hrs) Procedure Component Value Units Date/Time Culture, Blood [[id number]] Collected: 12/07/19 0446 Order Status: Completed Lab Status: Preliminary result Updated: 12/07/191710 Specimen: Peripheral Blood Culture No growth: Monitored continually by instrument for 5 days Culture, Blood [[id number]] Collected: 12/07/19441 Order Status: Completed Lab Status: Preliminary result Updated: 12/07/191710 Specimen: Peripheral Blood Culture No growth: Monitored continually by instrument for 5 days Culture, MRSA [[id number]] (Normal) Collected: 12/04/19 1843 Order Status: Completed Lab Status: Final result Updated: 12/05/19 1257 Specimen: Tissue from Nares Culture Negative for MRSA by chromogenic agar method. Radiology results (more choices using dot risresults) No results found. Ron Melendez MD Portions of this chart may have been created with [employer] voice recognition software. Occasi onal wrong-word or sound-alike substitutions may have occurred due to the inherent martinez itations of voice recognition software. Please read the chart carefully and recognize, using context, where these substitutions have occurred Ron Hoyos MD - 07/2020 2:30 PM PDT [place], [place] HOSPITALIST PROGRESS NOTE Patient: Christiano Johnston : 1975: Age: 44 y.o. MedRec: [id number] Admission date: 12/03/2019 Hospital day # : 3 Physician author: Ron Melendez MD Today: 12/06/2019 Assessment and Hospital Course Mr Johnston is a 44 y/o obese gentleman with pmhx of HTN, HLD, ?DM, alcohol and methampheta mine abuse who presented to outside hospital with left-sided flank pain for the past 7 days associated with decreased urine output, he was diagnosed with sepsis, likely due to sourc e, transferred to our facility for higher level of care. Upon arriving to our hospital valery ent was febrile, tachycardic with soft blood pressures, he responded to IVF resuscitation, h is labs showed PATRICA with creatinine of 5.05, BUN of 84, ammonia 54, lactic acid 3.7, total bi lirubin 3.7 with direct 3.3, elevated white count at 21.5, elevated procalcitonin at 28, el evated CRP at 312, hypokalemia, hyponatremia. He was started on Zosyn, meanwhile blood cult ures from [facility] came back with gram-negative bacilli. Throughout the course of the day 12/03 patient developed tachypnea, continued spiking fever. He was transferred to ICU f or closer monitoring. Improved overnight with some improvement in labs except for rising abdulkadir irubin. He was transferred back to regular floor for further care. His kidney function cont inues to improve, pending further optimization. Active Hospital Problems Diagnosis Severe sepsis Acute kidney injury (PATRICA) with acute tubular necrosis (ATN) Resolved Hospital Problems No resolved problems to display. Plan Severe sepsis, improving Most likely etiology White count coming down, lactate normalized, clinically continues to improve We will stop IVF, he is eating and drinking okay Blood cultures from outside hospital growing gram-negative bacilli, continue to cover with Zosyn for now Monitor closely hemodynamic status Follow-up on cultures and adjust biotics accordingly PATRICA Cr 5.05 from normal upon presentation, down to 3.14, urine output continues picking up Could be secondary to #1 prerenal versus ATN versus methamphetamine induced ATN versus po ssible hepatorenal syndrome, looking at steady improvement with volume leaning towards prere nal. He is eating and drinking now, will back off IVF Appreciate nephrology (Dr. Jensen) input regarding further inpatient care and management w ill follow further recommendations Renally dose medications to creatinine clearance of less than 15 Avoid nephrotoxic agents Renal ultrasound reviewed demonstrates no evidence of hydronephrosis with mildly elevated i ndices of the left kidney suggestive of medical renal disease Monitor kidney function Liver cirrhosis Possible underlying alcoholic compensated cirrhosis Hepatitis panel negative, he was hep A positive in the past Monitor closely transaminases and bilirubin 2 g low-sodium diet He was counseled extensively on alcohol cessation Hyponatremia Most likely secondary to #1 and 2. Monitor closely electrolytes Hypomagnesemia Replete accordingly Monitor electrolytes Alcohol/methamphetamine use Patient notes consuming 6 tall bottles per day, but has recently cut down could not speci fy exactly. Continue withCIWAprotocol and multivitamins folate and thiamine. PRN Ativan for methamphetamine withdrawal. Hold for excessive sedation or respiratory rat e of 12 or less. Counseled extensively on alcohol cessation DM Hemoglobin A1c 7.8 He was not aware of the dx Started on insulin sliding scale, added glargine 20 units Continue to monitor sugars and adjust insulin as needed, will need education upon discharge Diabetic diet HTN BP improved, mostly in low 100s SBP Continue to hold antihypertensives Monitor blood pressure Will restart when he recovers from sepsis GERD Monitor symptoms Protonix 40 mg DVT prophylaxis: In place CODE STATUS: full Code Diet: Renal/diabetic Dispo: Inpatient care, anticipate several days Ron Melendez MD 12/06/2019 2:30 PM [facility] Subjective CC difficulty breathing, fever ROS Constitutional: febrile, appears more comfortable compared to yesterday Head and neck: Headache Cardiac: negative Pulmonary: Subjective difficulty breathing GI: negative : Negative Skin: negative Psyche: Flat affect Musculoskeletal: Generalized weakness Exam Constitutional: In no acute distress Eye: pupils round, equal, reactive to light, injected conjunctivae ENT: unremarkable oral ear and nose Neck: obese neck, no lymphadenopathy, thyromegaly nor masses Lymph node exam: negative in the following areas: neck and epitrochlear Cardiac: RRR, S1/S2, no murmurs, rubs or gallops, slight bilateral LE edema Lung: Non-labored breathing, moderate crackles over both bases, no wheezing or rhonchi Abdomen: Obese abdomen, soft, mildly distended, nontender, no HSM nor masses, BS + Psych: Somewhat flat affect, oriented to name, date (month, year) and place, no psychosis, appears depressed Neuro: Face symmetric, tongue midline, lining strap closer equal, no pronator drift, motor and sensory int act throughout Skin: no rashes, ulcers or skin brakes, skin discoloration characteristic of chronic venous stasis over both lower extremities Objective Data Vitals Ranges: Temp: [35.7 C (96.2 F)-37.4 C (99.3 F)] 36.8 C (98.2 F) Pulse: [80-92] 89 Resp: [18-22] 20 BP: (108-124)/(60-87) 114/87 Vitals: Temp: 36.8 C (98.2 F) BP: 114/87 Pulse: 89 Resp: 20 SpO2: 95 % SpO2 95 % on room air at flow rate 2L/min Allergies: No Known Allergies Current Medications: Current Facility-Administered Medications Medication Dose Route Frequency Provider Last Rate Last Dose acetaminophen (TYLENOL) tablet 650 mg 650 mg Oral Q4H PRN Ron Melendez MD 650 mg at 12/06/19 0232 adult multivitamin with minerals/iron tablet 1 tablet 1 tablet Oral Daily Ron Melendez MD 1 tablet at 12/06/19 0836 albuterol 2.5 mg/3 mL nebulizer solution 2.5 mg 2.5 mg Nebulization Q8H PRN Ron diaz MD 2.5 mg at 12/06/19 0758 bisacodyl (DULCOLAX) suppository 10 mg 10 mg Rectal Daily PRN Ron Melendez MD cgoxmgesrv-emisdcijrdyna-lnwvbnmp 50-325-40 mg per tablet 1-2 tablet 1-2 tablet Oral Q 4H PRN Ron Melendez MD 1 tablet at 12/06/19 1253 calcium carbonate (TUMS) chewable tablet 1,000 mg 1,000 mg Oral TID Ron Melendez MD 1,000 mg at 12/06/19 0854 calcium carbonate (TUMS) chewable tablet 1,000 mg 1,000 mg Oral Q4H PRN Ron Melendez MD dextrose 50% injection 12.5-25 g 12.5-25 g Intravenous PRN Ron Melendez MD And dextrose 10% (D10W) infusion Intravenous Continuous PRN Ron Melendez MD dextrose 5% (D5W) 1,000 mL with sodium bicarbonate 150 mEq infusion Intravenous Sorin nuous Flores Bruce MD 100 mL/hr at 12/06/19 1218 metoclopramide (REGLAN) 5 mg/mL injection 10 mg 10 mg Intravenous Once PRN Flores burgess MD And diphenhydrAMINE (BENADRYL) injection 25 mg 25 mg Intravenous Once PRN Emily Miller docusate sodium (COLACE) capsule 100 mg 100 mg Oral BID PRN Ron Melendez MD folic acid tablet 1 mg 1 mg Oral Daily Ron Melendez MD 1 mg at 12/06/19 0836 heparin 5,000 units/mL injection 5,000 Units 5,000 Units Subcutaneous 2 times per day Ron Melendez MD 5,000 Units at 12/06/19 0838 insulin glargine (LANTUS SOLOSTAR) injection (pen) 20 Units 20 Units Subcutaneous QAM Rno Melendez MD 20 Units at 12/06/19 0844 insulin lispro (humaLOG KWIKPEN) injection (pen) 0-10 Units 0-10 Units Subcutaneous 4x Daily WC and HS Ron Melendez MD 2 Units at 12/06/19 1220 lactobacillus GG (CULTURELLE) capsule 1 capsule 1 capsule Oral BID Ron Melendez MD 1 capsule at 12/06/19 0836 LORazepam (ATIVAN) injection 1 mg 1 mg Intravenous Q6H PRN Ron Melendez MD LORazepam (ATIVAN) injection 1-4 mg 1-4 mg Intravenous PRN Ron Melendez MD 1 mg at 12/04/19 1531 melatonin tablet 3 mg 3 mg Oral Nightly PRN Ron Melendez MD ondansetron (ZOFRAN) injection 4 mg 4 mg Intravenous Q6H PRN Ron Melendez MD pharmacy consult - other medications/reasons Other Pharmacy Consult Ron Melendez MD piperacillin-tazobactam (ZOSYN) 3.375 g in sodium chloride 0.9% 100 mL IVPB 3.375 g In travenous Q8H Ron Melendez MD 25 mL/hr at 12/06/19 0710 3.375 g at 12/06/19 0710 polyethylene glycol (MIRALAX) powder 17 g 17 g Oral Daily PRN Ron Melendez MD potassium chloride (Klor-Con M20) ER tablet 40 mEq 40 mEq Oral BID Ron Melendez MD senna (SENOKOT) tablet 8.6 mg 8.6 mg Oral BID PRN Ron Melendez MD thiamine (VITAMIN B-1) tablet 100 mg 100 mg Oral Daily Ron Melendez MD 100 mg at 0836 traMADol (ULTRAM) tablet 50 mg 50 mg Oral Q8H PRN Ron Melendez MD 50 mg at 12/05/19 1838 Current Infusions: dextrose 10% dextrose 5% (D5W) infusion + additives 100 mL/hr at 12/06/19 1218 Point of care glucose Recent Labs Lab 12/06/19 1149 12/06/19 0640 12/05/19 2047 12/05/19 1705 12/05/19 1154 12/05/19 0800 POCGLU 237* 166* 237* 253* 283* 214* Labs last 24 hours Recent Results (from the past 24 hour(s)) POC Glucose Collection Time: 12/05/19 5:05 PM Result Value Ref Range Glucose, POC 253 (H) 70 - 109 mg/dL POC Glucose Collection Time: 12/05/19 8:47 PM Result Value Ref Range Glucose, POC 237 (H) 70 - 109 mg/dL Basic Metabolic Panel Collection Time: 12/06/19 12:01 AM Result Value Ref Range Na 127 (L) 136 - 145 mmol/L K 2.9 (L) 3.4 - 5.1 mmol/L Cl 93 (L) 98 - 107 mmol/L CO2 22 20 - 31 mmol/L Anion Gap 12 3 - 16 mmol/L Glucose 205 (H) 60 - 106 mg/dL BUN 74 (H) 9 - 23 mg/dL Creatinine 3.24 (H) 0.70 - 1.30 mg/dL eGFR if not 21 (L) >=60 mL/min/1.73m2 Calcium 7.8 (L) 8.7 - 10.4 mg/dL BUN/Creatinine Ratio 22.8 Hepatic Function Panel Collection Time: 12/06/19 12:01 AM Result Value Ref Range Bilirubin Total 5.8 (H) 0.3 - 1.2 mg/dL Total Protein 5.7 5.7 - 8.2 g/dL Albumin 2.6 (L) 3.2 - 4.8 g/dL AST 74 (H) 0 - 34 U/L ALT 38 10 - 49 U/L Alkaline Phosphatase 138 (H) 46 - 116 U/L Globulin 3.1 2.1 - 3.8 g/dL Albumin/Globulin Ratio 0.8 0.8 - 1.9 Bilirubin, Direct 5.20 (H) 0.00 - 0.30 mg/dl CBC with Differential Collection Time: 12/06/19 4:35 AM Result Value Ref Range WBC 15.5 (H) 4.0 - 11.0 K/uL RBC 3.85 (L) 4.30 - 5.70 M/uL Hemoglobin 12.4 (L) 13.5 - 18.0 g/dL Hematocrit 34.9 (L) 40.0 - 51.0 % MCV 90.6 83.0 - 101.0 fL MCH 32.2 28.0 - 35.0 pg MCHC 35.5 32.0 - 36.0 g/dL RDW-CV 13.2 <15.0 % RDW-SD 43.8 35.1 - 46.3 fL Platelet Count 79 (L) 140 - 440 K/uL MPV 12.3 6.5 - 12.4 fL % Neutrophils 83.0 (H) 45.0 - 82.0 % % Lymphocytes 5.9 (L) 20.0 - 45.0 % % Monocytes 8.1 4.0 - 12.0 % % Eosinophils 0.8 0.0 - 5.0 % % Basophils 0.5 0.0 - 1.0 % % Immature Granulocytes 1.7 (H) 0.0 - 0.4 % Absolute Neutrophils 12.84 (H) 1.80 - 8.50 K/uL Absolute Lymphocytes 0.91 0.60 - 3.20 K/uL Absolute Monocytes 1.26 (H) 0.00 - 1.00 K/uL Absolute Eosinophils 0.13 0.00 - 0.40 K/uL Absolute Basophils 0.07 0.00 - 0.10 K/uL Absolute Immature Granulocytes 0.26 (H) 0.00 - 0.03 K/uL % nRBC 0 0 - 2 per 100 WBCs Absolute nRBC 0.02 (H) 0.00 - 0.01 K/uL Renal Function Panel Collection Time: 12/06/19 4:35 AM Result Value Ref Range Na 127 (L) 136 - 145 mmol/L K 3.3 (L) 3.4 - 5.1 mmol/L Cl 94 (L) 98 - 107 mmol/L CO2 23 20 - 31 mmol/L Anion Gap 10 3 - 16 mmol/L Glucose 176 (H) 60 - 106 mg/dL BUN 71 (H) 9 - 23 mg/dL Creatinine 3.14 (H) 0.70 - 1.30 mg/dL eGFR if not 22 (L) >=60 mL/min/1.73m2 Calcium 7.8 (L) 8.7 - 10.4 mg/dL Albumin 2.7 (L) 3.2 - 4.8 g/dL Phosphorus 3.1 2.4 - 5.1 mg/dL BUN/Creatinine Ratio 22.6 POC Glucose Collection Time: 12/06/19 6:40 AM Result Value Ref Range Glucose, POC 166 (H) 70 - 109 mg/dL POC Glucose Collection Time: 12/06/19 11:49 AM Result Value Ref Range Glucose, POC 237 (H) 70 - 109 mg/dL Micro results (more choices using dot micro) Microbiology Results (72 hrs) Procedure Component Value Units Date/Time Culture, MRSA [[id number]] (Normal) Collected: 12/04/19 1843 Order Status: Completed Lab Status: Final result Updated: 12/05/19 1257 Specimen: Tissue from Nares Culture Negative for MRSA by chromogenic agar method. Radiology results (more choices using dot risresults) Xr Chest Ap Portable Result Date: 12/04/2019 XR CHEST AP PORTABLE 12/04/2019 6:11 PM HISTORY: respiratory distress. COMPARISON: 12/03/2019. Findings: Heart size is within normal limits. Aorta is normal. Mediastinum demonstrates no acute findings. Central pulmonary vasculature is normal. Mild atelectasis are in the lung ba ses. There is decreased inspiratory effort. There are no acute osseous abnormalities. Mild atelectasis in lung bases along with decreased inspiratory effort. Dictated and Signed by: Neville Bryant MD Electronically signed: 12/04/2019 6:22 PM Ron Melendez MD Portions of this chart may have been created with OneMore[employer]let voice recognition software. Occasi onal wrong-word or sound-alike substitutions may have occurred due to the inherent martinez itations of voice recognition software. Please read the chart carefully and recognize, using context, where these substitutions have occurred Ron Hoyos MD - 06/2020 5:54 PM PDT [facility] HOSPITALIST PROGRESS NOTE Patient: Christiano Johnston : 1975: Age: 44 y.o. MedRec: [id number] Admission date: 12/03/2019 Hospital day # : 2 Physician author: Ron Melendez MD Today: 12/05/2019 Assessment and Hospital Course Mr Johnston is a 44 y/o obese gentleman with pmhx of HTN, HLD, ?DM, alcohol and methampheta mine abuse who presented to outside hospital with left-sided flank pain for the past 7 days associated with decreased urine output, he was diagnosed with sepsis, likely due to sourc e, transferred to our facility for higher level of care. Upon arriving to our hospital valery ent was febrile, tachycardic with soft blood pressures, he responded to IVF resuscitation, h is labs showed PATRICA with creatinine of 5.05, BUN of 84, ammonia 54, lactic acid 3.7, total bi lirubin 3.7 with direct 3.3, elevated white count at 21.5, elevated procalcitonin at 28, el evated CRP at 312, hypokalemia, hyponatremia. He was started on Zosyn, meanwhile blood cult ures from [facility] came back with gram-negative bacilli. Throughout the course of day 12/03 patient developed tachypnea, continued spiking fever. He was transferred to ICU for closer monitoring. Improved overnight with some improvement in labs except for rising bi lirubin. He was transferred back to regular floor for further care. Pending further clinica l improvement. Active Hospital Problems Diagnosis Severe sepsis Acute kidney injury (PATRICA) with acute tubular necrosis (ATN) Resolved Hospital Problems No resolved problems to display. Plan Severe sepsis, improving Most likely etiology White count coming down, lactate normalized, clinically appears improved Continue IVF resuscitation, D5W with bicarb Blood cultures from outside hospital growing gram-negative bacilli, continue to cover with Zosyn for now Monitor closely hemodynamic status Follow-up on cultures and adjust biotics accordingly PATRICA Cr 5.05 from normal upon presentation, down to 4.19, urine output is picking up Could be secondary to #1 prerenal versus ATN versus methamphetamine induced ATN versus po ssible hepatorenal syndrome. Continue with aggressive IV fluid hydration Follow-up urine sodium, urine urea, and urine creatinine, urine osmolality. Appreciate nephrology (Dr. Jensen) input regarding further inpatient care and management w ill follow further recommendations Renally dose medications to creatinine clearance of less than 15 Avoid nephrotoxic agents Renal ultrasound reviewed demonstrates no evidence of hydronephrosis with mildly elevated i ndices of the left kidney suggestive of medical renal disease Monitor kidney function Liver cirrhosis Possible underlying alcoholic compensated cirrhosis Hepatitis panel negative, he was hep A positive in the past Monitor closely transaminases and bilirubin 2 g low-sodium diet He was counseled extensively on alcohol cessation Hyponatremia Most likely secondary to #1 and 2. Monitor closely electrolytes Hypomagnesemia Replete accordingly Monitor electrolytes Alcohol/methamphetamine use Patient notes consuming 6 tall bottles per day, but has recently cut down could not speci fy exactly. Continue withCIWAprotocol and multivitamins folate and thiamine. PRN Ativan for methamphetamine withdrawal. Hold for excessive sedation or respiratory rat e of 12 or less. Counseled extensively on alcohol cessation DM Hemoglobin A1c 7.8 He was not aware of the dx Started on insulin sliding scale, added glargine 20 units Continue to monitor sugars and adjust insulin as needed, will need education upon discharge Diabetic diet HTN Borderline hypotensive, in sepsis now DC all antihypertensives Monitor blood pressure Will restart when he recovers from sepsis GERD Monitor symptoms Protonix 40 mg DVT prophylaxis: In place CODE STATUS: full Code Diet: Renal/diabetic Dispo: Inpatient care, anticipate several days Ron Melendez MD 12/05/2019 5:54 PM [facility] Subjective CC difficulty breathing, fever ROS Constitutional: febrile, appears more comfortable compared to yesterday Head and neck: Headache Cardiac: negative Pulmonary: Subjective difficulty breathing GI: negative : Negative Skin: negative Psyche: Flat affect Musculoskeletal: Generalized weakness Exam Constitutional: In no acute distress Eye: pupils round, equal, reactive to light, injected conjunctivae ENT: unremarkable oral ear and nose Neck: obese neck, no lymphadenopathy, thyromegaly nor masses Lymph node exam: negative in the following areas: neck and epitrochlear Cardiac: RRR, S1/S2, no murmurs, rubs or gallops, slight bilateral LE edema Lung: Non-labored breathing, moderate crackles over both bases, no wheezing or rhonchi Abdomen: Obese abdomen, soft, mildly distended, nontender, no HSM nor masses, BS + Psych: Somewhat flat affect, oriented to name, date (month, year) and place, no psychosis, appears depressed Neuro: Face symmetric, tongue midline, lining strap closer equal, no pronator drift, motor and sensory int act throughout Skin: no rashes, ulcers or skin brakes, skin discoloration characteristic of chronic venous stasis over both lower extremities Objective Data Vitals Ranges: Temp: [35.7 C (96.2 F)-38.6 C (101.5 F)] 35.7 C (96.2 F) Pulse: [77-105] 84 Resp: [18-30] 21 BP: (90-132)/(62-86) 124/78 Vitals: Temp: 35.7 C (96.2 F) BP: 124/78 Pulse: 84 Resp: 21 SpO2: 98 % SpO2 98 % on room air at flow rate 2L/min Allergies: No Known Allergies Current Medications: Current Facility-Administered Medications Medication Dose Route Frequency Provider Last Rate Last Dose acetaminophen (TYLENOL) tablet 650 mg 650 mg Oral Q4H PRN Ron Melendez MD 650 mg at 12/05/19 1732 adult multivitamin with minerals/iron tablet 1 tablet 1 tablet Oral Daily Ron Melendez MD 1 tablet at 12/05/19 0844 albuterol 2.5 mg/3 mL nebulizer solution 2.5 mg 2.5 mg Nebulization Q8H PRN Ron diaz MD bisacodyl (DULCOLAX) suppository 10 mg 10 mg Rectal Daily PRN Ron Melendez MD calcium carbonate (TUMS) chewable tablet 1,000 mg 1,000 mg Oral Q4H PRN Ron Melendez MD dextrose 50% injection 12.5-25 g 12.5-25 g Intravenous PRN Ron Melendez MD And dextrose 10% (D10W) infusion Intravenous Continuous PRN Ron Melendez MD dextrose 5% (D5W) 1,000 mL with sodium bicarbonate 150 mEq infusion Intravenous Sorin raimundo Bruce MD 100 mL/hr at 12/05/19 1043 docusate sodium (COLACE) capsule 100 mg 100 mg Oral BID PRN Ron Melendez MD folic acid tablet 1 mg 1 mg Oral Daily Ron Melendez MD 1 mg at 12/05/19 0844 heparin 5,000 units/mL injection 5,000 Units 5,000 Units Subcutaneous 2 times per day Ron Melendez MD 5,000 Units at 12/05/19 0844 insulin glargine (LANTUS SOLOSTAR) injection (pen) 20 Units 20 Units Subcutaneous QAM Ron Melendez MD 20 Units at 12/05/19 1011 insulin lispro (humaLOG KWIKPEN) injection (pen) 0-10 Units 0-10 Units Subcutaneous 4x Daily WC and HS Ron Melendez MD 3 Units at 12/05/19 1736 lactobacillus GG (CULTURELLE) capsule 1 capsule 1 capsule Oral BID Ron Melendez MD 1 capsule at 12/05/19 0844 LORazepam (ATIVAN) injection 1 mg 1 mg Intravenous Q6H PRN Ron Melendez MD LORazepam (ATIVAN) injection 1-4 mg 1-4 mg Intravenous PRN Ron Melendez MD 1 mg at 12/04/19 1531 melatonin tablet 3 mg 3 mg Oral Nightly PRN Ron Melendez MD ondansetron (ZOFRAN) injection 4 mg 4 mg Intravenous Q6H PRN Ron Melendez MD pharmacy consult - other medications/reasons Other Pharmacy Consult Ron Melendez MD piperacillin-tazobactam (ZOSYN) 3.375 g in sodium chloride 0.9% 100 mL IVPB 3.375 g In travenous Q8H Ron Melendez MD 25 mL/hr at 12/05/19 1652 3.375 g at 12/05/19 1652 polyethylene glycol (MIRALAX) powder 17 g 17 g Oral Daily PRN Ron Melendez MD potassium chloride (Klor-Con M20) ER tablet 40 mEq 40 mEq Oral BID Ron Melendez MD 40 mEq at 12/05/19 1032 senna (SENOKOT) tablet 8.6 mg 8.6 mg Oral BID PRN Ron Melendez MD thiamine (VITAMIN B-1) tablet 100 mg 100 mg Oral Daily Ron Melendez MD 100 mg at 0844 Current Infusions: dextrose 10% dextrose 5% (D5W) infusion + additives 100 mL/hr at 12/05/19 1043 Point of care glucose Recent Labs Lab 12/05/19 1705 12/05/19 1154 12/05/19 0800 12/04/19 2147 12/04/19 1632 12/04/19 1122 POCGLU 253* 283* 214* 224* 159* 219* Labs last 24 hours Recent Results (from the past 24 hour(s)) Culture, MRSA Collection Time: 12/04/19 6:43 PM Result Value Ref Range Culture Negative for MRSA by chromogenic agar method. Lactic Acid Collection Time: 12/04/19 6:45 PM Result Value Ref Range Lactate 1.9 0.5 - 2.2 mmol/L Electrolyte panel Collection Time: 12/04/19 6:45 PM Result Value Ref Range Na 127 (L) 136 - 145 mmol/L K 3.2 (L) 3.4 - 5.1 mmol/L Cl 98 98 - 107 mmol/L CO2 16 (L) 20 - 31 mmol/L Anion Gap 13 3 - 16 mmol/L POC Glucose Collection Time: 12/04/19 9:47 PM Result Value Ref Range Glucose, POC 224 (H) 70 - 109 mg/dL Lactic Acid Collection Time: 12/05/19 12:13 AM Result Value Ref Range Lactate 1.5 0.5 - 2.2 mmol/L Basic Metabolic Panel Collection Time: 12/05/19 12:13 AM Result Value Ref Range Na 128 (L) 136 - 145 mmol/L K 3.1 (L) 3.4 - 5.1 mmol/L Cl 98 98 - 107 mmol/L CO2 18 (L) 20 - 31 mmol/L Anion Gap 12 3 - 16 mmol/L Glucose 244 (H) 60 - 106 mg/dL BUN 87 (H) 9 - 23 mg/dL Creatinine 4.40 (H) 0.70 - 1.30 mg/dL eGFR if not 15 (L) >=60 mL/min/1.73m2 Calcium 7.6 (L) 8.7 - 10.4 mg/dL BUN/Creatinine Ratio 19.8 Hepatic Function Panel Collection Time: 12/05/19 12:13 AM Result Value Ref Range Bilirubin Total 4.7 (H) 0.3 - 1.2 mg/dL Total Protein 5.7 5.7 - 8.2 g/dL Albumin 2.7 (L) 3.2 - 4.8 g/dL AST 76 (H) 0 - 34 U/L ALT 36 10 - 49 U/L Alkaline Phosphatase 106 46 - 116 U/L Globulin 3.0 2.1 - 3.8 g/dL Albumin/Globulin Ratio 0.9 0.8 - 1.9 Bilirubin, Direct 4.20 (H) 0.00 - 0.30 mg/dl Ammonia Collection Time: 12/05/19 12:13 AM Result Value Ref Range Ammonia <10 (L) 11 - 32 umol/L CBC with Differential Collection Time: 12/05/19 3:58 AM Result Value Ref Range WBC 13.8 (H) 4.0 - 11.0 K/uL RBC 4.30 4.30 - 5.70 M/uL Hemoglobin 13.8 13.5 - 18.0 g/dL Hematocrit 39.5 (L) 40.0 - 51.0 % MCV 91.9 83.0 - 101.0 fL MCH 32.1 28.0 - 35.0 pg MCHC 34.9 32.0 - 36.0 g/dL RDW-CV 13.5 <15.0 % RDW-SD 45.9 35.1 - 46.3 fL Platelet Count 61 (L) 140 - 440 K/uL MPV 12.2 6.5 - 12.4 fL % Neutrophils 86.5 (H) 45.0 - 82.0 % % Lymphocytes 5.5 (L) 20.0 - 45.0 % % Monocytes 6.4 4.0 - 12.0 % % Eosinophils 0.4 0.0 - 5.0 % % Basophils 0.1 0.0 - 1.0 % % Immature Granulocytes 1.1 (H) 0.0 - 0.4 % Absolute Neutrophils 11.90 (H) 1.80 - 8.50 K/uL Absolute Lymphocytes 0.75 0.60 - 3.20 K/uL Absolute Monocytes 0.88 0.00 - 1.00 K/uL Absolute Eosinophils 0.06 0.00 - 0.40 K/uL Absolute Basophils 0.02 0.00 - 0.10 K/uL Absolute Immature Granulocytes 0.15 (H) 0.00 - 0.03 K/uL % nRBC 0 0 - 2 per 100 WBCs Absolute nRBC 0.00 0.00 - 0.01 K/uL Renal Function Panel Collection Time: 12/05/19 3:58 AM Result Value Ref Range Na 130 (L) 136 - 145 mmol/L K 3.0 (L) 3.4 - 5.1 mmol/L Cl 97 (L) 98 - 107 mmol/L CO2 18 (L) 20 - 31 mmol/L Anion Gap 15 3 - 16 mmol/L Glucose 221 (H) 60 - 106 mg/dL BUN 84 (H) 9 - 23 mg/dL Creatinine 4.19 (H) 0.70 - 1.30 mg/dL eGFR if not 16 (L) >=60 mL/min/1.73m2 Calcium 7.8 (L) 8.7 - 10.4 mg/dL Albumin 2.9 (L) 3.2 - 4.8 g/dL Phosphorus 4.3 2.4 - 5.1 mg/dL BUN/Creatinine Ratio 20.0 POC Glucose Collection Time: 12/05/19 8:00 AM Result Value Ref Range Glucose, POC 214 (H) 70 - 109 mg/dL POC Glucose Collection Time: 12/05/19 11:54 AM Result Value Ref Range Glucose, POC 283 (H) 70 - 109 mg/dL POC Glucose Collection Time: 12/05/19 5:05 PM Result Value Ref Range Glucose, POC 253 (H) 70 - 109 mg/dL Micro results (more choices using dot micro) Microbiology Results (72 hrs) Procedure Component Value Units Date/Time Culture, MRSA [[id number]] (Normal) Collected: 12/04/19 1843 Order Status: Completed Lab Status: Final result Updated: 12/05/19 1257 Specimen: Tissue from Nares Culture Negative for MRSA by chromogenic agar method. Culture, Blood [[id number]] Collected: 12/03/19 1039 Order Status: Completed Lab Status: Preliminary result Updated: 12/03/19 231 Specimen: Peripheral Blood Culture No growth: Monitored continually by instrument for 5 days Culture, Blood [[id number]] Collected: 12/03/19 1039 Order Status: Completed Lab Status: Preliminary result Updated: 12/03/19 231 Specimen: Peripheral Blood Culture No growth: Monitored continually by instrument for 5 days Culture, Urine [[id number]] Collected: 12/03/19 0811 Order Status: Completed Lab Status: Final result Updated: 12/05/19 1057 Specimen: Urine, Clean Catch Culture 40,000 CFU/ml Mixed rome (multiple morphologies present) Comment: Suggests contamination with urogenital or skin rome. No further work-up to follow. Radiology results (more choices using dot risresults) Xr Chest Ap Portable Result Date: 12/04/2019 XR CHEST AP PORTABLE 12/04/2019 6:11 PM HISTORY: respiratory distress. COMPARISON: 12/03/2019. Findings: Heart size is within normal limits. Aorta is normal. Mediastinum demonstrates no acute findings. Central pulmonary vasculature is normal. Mild atelectasis are in the lung ba ses. There is decreased inspiratory effort. There are no acute osseous abnormalities. Mild atelectasis in lung bases along with decreased inspiratory effort. Dictated and Signed by: Neville Bryant MD Electronically signed: 12/04/2019 6:22 PM Us Abdomen Limited Result Date: 12/04/2019 US ABDOMEN LIMITED 12/04/2019 8:45 AM HISTORY: obstructive pattern bilirubinemia, to evaluat ed biliary tree, thank you. COMPARISON: 12/03/2019 PROTOCOL: Ross scale and Doppler images of the abdomen. FINDINGS: Gallbladder: Mild diffuse bladder wall thickening and distention of t he gallbladder. No pericholecystic fluid or gallstones identified. CBD is normal in caliber measuring 3 mm. No intrahepatic biliary ductal dilatation. Liver: Nodular echotexture of the liver. No suspicious mass identified. Liver is not enlarged. Pancreas: Visualized parenchym a is within normal limits. The pancreatic duct is normal. No evidence of intrahepatic or extrahepatic biliary ductal dilatation ultrasound. Gallbladd er is distended with mild gallbladder wall thickening. No other evidence to suggest acute ch olecystitis. Dictated and Signed by: Trevor Rascon MD Electronically signed: 12/04/2019 2:3 3 PM Ron Melendez MD Portions of this chart may have been created with OneMore[employer]let voice recognition software. Occasi onal wrong-word or sound-alike substitutions may have occurred due to the inherent martinez itations of voice recognition software. Please read the chart carefully and recognize, using context, where these substitutions have occurred esi Ewing, PharmD - 12/05/2019 4:49 PM PDT PHARMACY SERVICES: ADMISSION MEDICATION REVIEW Christiano Johnston is a 44 y.o. male admitted on 12/03/2019. Patient is a reliable historian. Location of Patient when reviewed: MEDICAL FLOOR Patient s prior to admit medication and over the counter (OTC) medications/herbal supplem ents list obtained from: X Verbal interview with patient who was ABLE TO RECALL ALL name, strength, and directions X [employer] insurance reported information X Outside Information Vaccines up to date? Influenza Yes Pneumococcal No Tdap Yes Shingles Unsure Noted medications discrepancies or medication-related issues: Medication added: Medication: Prior to Admission Sig: Patient taking differently as: Betamethasone 0.05% ointment 1 application topically daily as needed for psoriasis Triamcinolone 0.1% cream APPLY 2-3 TIMES DAILY TO AFFECTED AREAS OF PSORIASIS AVOID THE FA CE UNDERARMS AND GROIN Patient states he only uses this when he thinks about it Recreational Substances, Tobacco & Alcohol use/frequency: X Alcohol: 4-6 "tall cans daily" then states not daily when he has money Recreational substances: denies use Best possible PATENT EXAMINER medication list after pharmacy review: PT REPORTED TAKING NOT TAKING Medication Sig Last Dose Dispense Doc. Provider betamethasone dipropionate 0.05% ointment Apply 1 Application topically Daily as needed (p soriasis). Taking Historical Provider, triamcinolone (KENALOG) 0.1% cream APPLY 2-3 TIMES DAILY TO AFFECTED AREAS OF PSORIASIS AV OID THE FACE UNDERARMS AND GROIN Taking Differently Historical Provider, Medication review performed and electronically signed by Delilah Nunes, [employer] 2019 4:23 PM Reviewed by Desi Ewing, PharmD 12/05/2019 4:49 PM Ron Hoyos MD - 12/04/2019 5:47 PM PDT [place], [place] HOSPITALIST PROGRESS NOTE Patient: Christiano Johnston : 1975: Age: 44 y.o. MedRec: [id number] Admission date: 12/03/2019 Hospital day # : 1 Physician author: Ron Melendez MD Today: 12/04/2019 Assessment and Hospital Course Mr Johnston is a 44 y/o obese gentleman with pmhx of HTN, HLD, ?DM, alcohol and methampheta mine abuse who presented to outside hospital with left-sided flank pain for the past 7 days associated with decreased urine output, he was diagnosed with sepsis, likely due to sourc e, transferred to our facility for higher level of care. Upon arriving to our hospital valery ent was febrile, tachycardic with soft blood pressures, he responded to IVF resuscitation, h is labs showed PATRICA with creatinine of 5.05, BUN of 84, ammonia 54, lactic acid 3.7, total bi lirubin 3.7 with direct 3.3, elevated white count at 21.5, elevated procalcitonin at 28, el evated CRP at 312, hypokalemia, hyponatremia. He was started on Zosyn, meanwhile blood cult ures from [facility] came back with gram-negative bacilli. Throughout the course of th e day patient developed tachypnea, continued spiking fever. He was transferred to stepdown unit for closer monitoring, pending ABG/chest x-ray. Pending further clinical improvement. Active Hospital Problems Diagnosis Severe sepsis Acute kidney injury (PATRICA) with acute tubular necrosis (ATN) Resolved Hospital Problems No resolved problems to display. Plan Severe sepsis Most likely etiology Leukocytosis and lactic acid were trending down but clinically he became tachycardic and ta chypneic with labored breathing, pending ABG/chest x-ray Continue IVF resuscitation Blood cultures from outside hospital growing gram-negative bacilli, will cover with Zosyn f or now Monitor closely hemodynamic status Follow-up will follow cultures and adjust biotics accordingly PATRICA Cr 5.05 from normal Could be secondary to #1 prerenal versus ATN versus methamphetamine induced ATN versus po ssible hepatorenal syndrome. Continue with aggressive IV fluid hydration Follow-up urine sodium, urine urea, and urine creatinine, urine osmolality. Appreciate nephrology (Dr. Jensen) input regarding further inpatient care and management w ill follow further recommendations Renally dose medications to creatinine clearance of less than 15 Avoid nephrotoxic agents Renal ultrasound reviewed demonstrates no evidence of hydronephrosis with mildly elevated i ndices of the left kidney suggestive of medical renal disease Monitor kidney function Liver cirrhosis Possible underlying alcoholic compensated cirrhosis Hepatitis panel pending, he was hep A positive in the past Monitor closely transaminases 2 g low-sodium diet He was counseled extensively on alcohol cessation Hyponatremia Most likely secondary to #1 and 2. Monitor closely electrolytes Hypomagnesemia Replete accordingly Monitor electrolytes Alcohol/methamphetamine use The patient notes consuming 6 tall bottles per day, but has recently cut down could not s pecify exactly. Continue withCIWAprotocol and multivitamins folate and thiamine. PRN Ativan for methamphetamine withdrawal. Hold for excessive sedation or respiratory rat e of 12 or less. Counseled extensively on alcohol cessation DM Hemoglobin A1c 7.8 He was not aware of the dx Started on insulin sliding scale Continue to monitor sugars and adjust insulin as needed, will need education upon discharge Diabetic diet HTN Borderline hypotensive, in sepsis now DC all antihypertensives Monitor blood pressure Will restart when he recovers from sepsis GERD Monitor symptoms Protonix 40 mg DVT prophylaxis: In place CODE STATUS: full Code Diet: Renal/diabetic Dispo: Inpatient care, anticipate several days Ron Melendez MD 12/04/2019 5:47 PM [facility] Subjective CC increased work of breathing, generalized weakness ROS Constitutional: febrile, uncomfortable in bed Head and neck: Headache Cardiac: negative Pulmonary: Increased work of breathing GI: negative : Oliguria Skin: negative Psyche: Flat affect Musculoskeletal: Generalized weakness Exam Constitutional: In mild distress Eye: pupils round, equal, reactive to light, injected conjunctivae ENT: unremarkable oral ear and nose Neck: obese neck, no lymphadenopathy, thyromegaly nor masses Lymph node exam: negative in the following areas: neck and epitrochlear Cardiac: RRR, tachycardic, S1/S2, no murmurs, rubs or gallops, slight bilateral LE edema Lung: labored breathing, moderate crackles over both bases, no wheezing or rhonchi Abdomen: Obese abdomen, soft, mildly distended, nontender, no HSM nor masses, BS + Psych: Somewhat flat affect,, oriented to name, date (month, year) and place, no psychosis Neuro: Face symmetric, tongue midline, lining strap closer equal, no pronator drift, motor and sensory int act throughout Skin: no rashes, ulcers or skin brakes, skin discoloration characteristic of chronic venous stasis over both lower extremities Objective Data Vitals Ranges: Temp: [36.7 C (98.1 F)-39.2 C (102.6 F)] 39.2 C (102.6 F) Pulse: [88-114] 105 Resp: [18-32] 32 BP: (87-121)/(50-67) 121/62 Vitals: Temp: (!) 39.2 C (102.6 F) BP: 121/62 Pulse: 105 Resp: (!) 32 SpO2: 93 % SpO2 93 % on room air at flow rate L/min Allergies: No Known Allergies Current Medications: Current Facility-Administered Medications Medication Dose Route Frequency Provider Last Rate Last Dose acetaminophen (TYLENOL) tablet 650 mg 650 mg Oral Q4H PRN Flores Bruce MD 650 mg a t 12/04/19 1728 adult multivitamin with minerals/iron tablet 1 tablet 1 tablet Oral Daily Flores bunn MD 1 tablet at 12/04/19 0804 albuterol 2.5 mg/3 mL nebulizer solution 2.5 mg 2.5 mg Nebulization Q8H PRN Ron diaz MD bisacodyl (DULCOLAX) suppository 10 mg 10 mg Rectal Daily PRN Flores Bruce MD calcium carbonate (TUMS) chewable tablet 1,000 mg 1,000 mg Oral Q4H PRN Flores Bruce MD dextrose 50% injection 12.5-25 g 12.5-25 g Intravenous PRN Flores Bruce MD And dextrose 10% (D10W) infusion Intravenous Continuous PRN Flores Bruce MD docusate sodium (COLACE) capsule 100 mg 100 mg Oral BID PRN Flores Bruce MD folic acid tablet 1 mg 1 mg Oral Daily Flores Bruce MD 1 mg at 12/04/19 0804 heparin 5,000 units/mL injection 5,000 Units 5,000 Units Subcutaneous 2 times per day Flores Bruce MD 5,000 Units at 12/04/19 0803 insulin lispro (humaLOG KWIKPEN) injection (pen) 0-6 Units 0-6 Units Subcutaneous 4x D aily WC and HS Flores Bruce MD 2 Units at 12/04/19 1213 lactobacillus GG (CULTURELLE) capsule 1 capsule 1 capsule Oral BID Glenn Garcia MD 1 capsule at 12/04/19 0804 LORazepam (ATIVAN) injection 1 mg 1 mg Intravenous Q6H PRN Glenn Garcia MD LORazepam (ATIVAN) injection 1-4 mg 1-4 mg Intravenous PRN Flores Bruce MD 1 mg at 12/04/19 1531 melatonin tablet 3 mg 3 mg Oral Nightly PRN Flores Bruce MD ondansetron (ZOFRAN) injection 4 mg 4 mg Intravenous Q6H PRN Flores Bruce MD pharmacy consult - other medications/reasons Other Pharmacy Consult Glenn Garcia MD piperacillin-tazobactam (ZOSYN) 3.375 g in sodium chloride 0.9% 100 mL IVPB 3.375 g In travenous Q8H Ron Melendez MD polyethylene glycol (MIRALAX) powder 17 g 17 g Oral Daily PRN Flores Bruce MD potassium chloride (Klor-Con M20) ER tablet 20 mEq 20 mEq Oral BID Ron Melendez MD 20 mEq at 12/04/19 0928 senna (SENOKOT) tablet 8.6 mg 8.6 mg Oral BID PRN Flores Bruce MD sodium chloride 0.9% (NS) infusion Intravenous Continuous Ron Melendez MD 100 mL/hr at 12/04/19 1517 thiamine (VITAMIN B-1) tablet 100 mg 100 mg Oral Daily Flores Bruce MD 100 mg at 0 12/04/19 0804 Current Infusions: dextrose 10% sodium chloride 0.9% 100 mL/hr at 12/04/19 1517 Point of care glucose Recent Labs Lab 12/04/19 1632 12/04/19 1122 12/04/19 0636 12/03/19 2025 12/03/19 1700 12/03/19 1206 POCGLU 159* 219* 135* 166* 190* 163* Labs last 24 hours Recent Results (from the past 24 hour(s)) POC Glucose Collection Time: 12/03/19 8:25 PM Result Value Ref Range Glucose, POC 166 (H) 70 - 109 mg/dL Protime INR Collection Time: 12/04/19 3:55 AM Result Value Ref Range Prothrombin Time 18.6 (H) 11.3 - 13.9 seconds INR 1.5 (H) 0.9 - 1.1 Magnesium Collection Time: 12/04/19 3:56 AM Result Value Ref Range Magnesium 1.8 1.6 - 2.6 mg/dL Hemoglobin A1C Collection Time: 12/04/19 3:56 AM Result Value Ref Range Hemoglobin A1c 7.8 (H) 4.3 - 6.0 % Estimated Average Glucose 177 mg/dL CBC with Differential Collection Time: 12/04/19 3:56 AM Result Value Ref Range WBC 10.3 4.0 - 11.0 K/uL RBC 4.13 (L) 4.30 - 5.70 M/uL Hemoglobin 13.3 (L) 13.5 - 18.0 g/dL Hematocrit 37.3 (L) 40.0 - 51.0 % MCV 90.3 83.0 - 101.0 fL MCH 32.2 28.0 - 35.0 pg MCHC 35.7 32.0 - 36.0 g/dL RDW-CV 13.1 <15.0 % RDW-SD 44.0 35.1 - 46.3 fL Platelet Count 76 (L) 140 - 440 K/uL MPV 11.0 6.5 - 12.4 fL % Neutrophils 90.2 (H) 45.0 - 82.0 % % Lymphocytes 3.8 (L) 20.0 - 45.0 % % Monocytes 5.0 4.0 - 12.0 % % Eosinophils 0.2 0.0 - 5.0 % % Basophils 0.1 0.0 - 1.0 % % Immature Granulocytes 0.7 (H) 0.0 - 0.4 % Absolute Neutrophils 9.28 (H) 1.80 - 8.50 K/uL Absolute Lymphocytes 0.39 (L) 0.60 - 3.20 K/uL Absolute Monocytes 0.51 0.00 - 1.00 K/uL Absolute Eosinophils 0.02 0.00 - 0.40 K/uL Absolute Basophils 0.01 0.00 - 0.10 K/uL Absolute Immature Granulocytes 0.07 (H) 0.00 - 0.03 K/uL % nRBC 0 0 - 2 per 100 WBCs Absolute nRBC 0.03 (H) 0.00 - 0.01 K/uL Hepatic Function Panel Collection Time: 12/04/19 3:56 AM Result Value Ref Range Bilirubin Total 3.7 (H) 0.3 - 1.2 mg/dL Total Protein 6.1 5.7 - 8.2 g/dL Albumin 2.9 (L) 3.2 - 4.8 g/dL AST 74 (H) 0 - 34 U/L ALT 34 10 - 49 U/L Alkaline Phosphatase 179 (H) 46 - 116 U/L Globulin 3.2 2.1 - 3.8 g/dL Albumin/Globulin Ratio 0.9 0.8 - 1.9 Bilirubin, Direct 3.30 (H) 0.00 - 0.30 mg/dl Basic Metabolic Panel Collection Time: 12/04/19 3:56 AM Result Value Ref Range Na 128 (L) 136 - 145 mmol/L K 3.1 (L) 3.4 - 5.1 mmol/L Cl 96 (L) 98 - 107 mmol/L CO2 15 (L) 20 - 31 mmol/L Anion Gap 17 (H) 3 - 16 mmol/L Glucose 151 (H) 60 - 106 mg/dL BUN 84 (H) 9 - 23 mg/dL Creatinine 5.05 (H) 0.70 - 1.30 mg/dL eGFR if not 13 (L) >=60 mL/min/1.73m2 Calcium 8.2 (L) 8.7 - 10.4 mg/dL BUN/Creatinine Ratio 16.6 Phosphorus Collection Time: 12/04/19 3:56 AM Result Value Ref Range Phosphorus 4.6 2.4 - 5.1 mg/dL POC Glucose Collection Time: 12/04/19 6:36 AM Result Value Ref Range Glucose, POC 135 (H) 70 - 109 mg/dL Lactic Acid Collection Time: 12/04/19 9:10 AM Result Value Ref Range Lactate 2.6 (H) 0.5 - 2.2 mmol/L Ammonia Collection Time: 12/04/19 9:10 AM Result Value Ref Range Ammonia <10 (L) 11 - 32 umol/L POC Glucose Collection Time: 12/04/19 11:22 AM Result Value Ref Range Glucose, POC 219 (H) 70 - 109 mg/dL POC Glucose Collection Time: 12/04/19 4:32 PM Result Value Ref Range Glucose, POC 159 (H) 70 - 109 mg/dL Micro results (more choices using dot micro) Microbiology Results (72 hrs) Procedure Component Value Units Date/Time Culture, Blood [[id number]] Collected: 12/03/191038 Order Status: Completed Lab Status: Preliminary result Updated: 12/03/192310 Specimen: Peripheral Blood Culture No growth: Monitored continually by instrument for 5 days Culture, Blood [[id number]] Collected: 12/03/191038 Order Status: Completed Lab Status: Preliminary result Updated: 12/03/192310 Specimen: Peripheral Blood Culture No growth: Monitored continually by instrument for 5 days Culture, Urine [[id number]] Collected: 12/03/1911 Order Status: Completed Lab Status: Preliminary result Updated: 12/04/19838 Specimen: Urine, Clean Catch Culture 40,000 CFU/ml Mixed rome (multiple morphologies present) Comment: Suggests contamination with urogenital or skin rome. Radiology results (more choices using dot risresults) Ct Abdomen Pelvis Wo Contrast Result Date: 12/03/2019 External films for comparison only No results will be in the chart. Us Renal Complete Result Date: 12/03/2019 US RENAL COMPLETE 12/03/2019 8:24 AM HISTORY: ARF. COMPARISON: None. PROTOCOL: Ross scale and Doppler images of the kidneys and bladder. FINDINGS: Right Kidney: The kidney is smooth in contour and normal in echotexture without stone or hydronephrosis. Size of the kidney is 12. 7 x 6.4 x 7.1 cm. Resistive index is 0.68, normal. Left Kidney: The kidney is smooth in cont our and normal in echotexture without stone or hydronephrosis. Size of the kidney is 13.3 x 7.3 x 8.5 cm. Resistive indices range from 0.69-0.78, mildly elevated and suggestive of medi getachew renal disease. Bladder: The bladder has a normal appearance. The patient was unable to v oid. Ureteral jets are not seen on the right and left. No evidence for hydronephrosis. Mildly elevated resistive indices of left kidney suggestive of medical renal disease. Dictated and Signed by: Neville Bryant MD Electronically signed: 9:14 AM Us Abdomen Limited Result Date: 12/04/2019 US ABDOMEN LIMITED 12/04/2019 8:45 AM HISTORY: obstructive pattern bilirubinemia, to evaluat ed biliary tree, thank you. COMPARISON: 12/03/2019 PROTOCOL: Ross scale and Doppler images of the abdomen. FINDINGS: Gallbladder: Mild diffuse bladder wall thickening and distention of t he gallbladder. No pericholecystic fluid or gallstones identified. CBD is normal in caliber measuring 3 mm. No intrahepatic biliary ductal dilatation. Liver: Nodular echotexture of the liver. No suspicious mass identified. Liver is not enlarged. Pancreas: Visualized parenchym a is within normal limits. The pancreatic duct is normal. No evidence of intrahepatic or extrahepatic biliary ductal dilatation ultrasound. Gallbladd er is distended with mild gallbladder wall thickening. No other evidence to suggest acute ch olecystitis. Dictated and Signed by: Trevor Rascon MD Electronically signed: 12/04/2019 2:3 3 PM Xr Chest 1 Vw Result Date: 12/03/2019 External films for comparison only No results will be in the chart. Ron Melendez MD Portions of this chart may have been created with [employer] voice recognition software. Occasi onal wrong-word or sound-alike substitutions may have occurred due to the inherent martinez itations of voice recognition software. Please read the chart carefully and recognize, using context, where these substitutions have occurred esi Ewing PharmD - 12/03/2019 12:32 PM PDTPharmacy Services Probiotic protocol initiated for qualifying patients if the patient has been on antibiotics for <72 hours and after inclusion/exclusion criteria assessed. If the patient has been on a ntibiotics for >72 hours probiotics will not be initiated, despite meeting inclusion/exclusi on criteria. Inclusion criteria: Patient is Age 1818 years old or older Yes [x] No [] Exclusion criteria: Yes [] No [x] Surgical antibiotic prophylaxis Yes [] No [x] On Vancomycin IV monotherapy Yes [] No [x] Active antibiotics exclusively for CDI treatment Yes [] No [x] Acute pancreatitis Yes [] No [x] (lipase not drawn) Immunocompromised Yes [] No [x] (Neutropenia with ANC <1000, HIV with CD4 count <200,C hemotherapy or radiation, Solid organ transplant, Active hematologic malignancy) Comment: lactobacillus 1 capsule po bid Plan: 1. Initiate probiotics per protocol; smartphrase ".rxprobiotics" added to admin instruction s on probiotic order; yes 2. AVS updated with ".rxprobioticdischarge"; yes 3. Enter stop time for 5 days after antibiotics if/when end time established Desi Ewing PharmD 12/03/2019 12:32 PM documented in this encounter H&P Notes Glenn Garcia MD - 12/03/2019 10:58 AM PDTFormatting of this note might be different fr om the original. Patient Name: Christiano Johnston Date of Admission: 12/03/2019 Referring Provider: [facility] emergency room Source of Information: patient-Reliability fair. Chief Complaint: Left flank pain with decreased urine output x1 week. HPI: 44-year-old male with an extensive past medical history of essential hypertension, hyperlip idemia, methamphetamine and alcohol abuse and questionable diabetes mellitus who initially p resented to [facility] with a chief complaint of left-sided flank pain x7 day with asso ciated decreased urine output transfer to [facility] for severe sepsis and acute kidney injury with creatinine of 5.66 (baseline 0.6). As per discussion with the patient at bedside, he notes otherwise being in his usual state of health until last (11/23) when the patient began to experience left flank pain. Patient notes associated symptoms of fatigue, malaise, and decreased urinary output. The pa tient did not think much of his symptoms and otherwise try to increase his hydration. Ariel xt patient had methamphetamines on 11/23. The patient's symptoms continued to worsen at wh ich point he became concerned and presented to [facility] ER for further evaluation and management. In [facility] ER, the patient was noted to have heart rate of 99 bpm, afebrile and blo od pressure 90/50. The patient received 2 L of normal saline and cefepime. Laboratory resu lts demonstrated leukocytosis with serum sodium was noted to be 127, BUN 67, and creatinine 5.66 (baseline 0.6). CT of the abdomen pelvis without contrast demonstrated abnormal liver contour suggesting possible cirrhosis. No hydronephrosis no renal stones. Questional ear ly pyelonephritis although limited evaluation given no IV contrast. No free fluid or absces s in the abdomen. The patient was transferred as a direct admission to [facility] for further inpatient care and management admission for severe sepsis and acute kidney i njury. Review of Systems Constitutional: Positive for malaise/fatigue. Negative for chills and fever. HENT: Negative for nosebleeds. Eyes: Negative for double vision. Respiratory: Negative for shortness of breath. Cardiovascular: Negative for chest pain and palpitations. Gastrointestinal: Positive for nausea. Negative for blood in stool. Genitourinary: Positive for dysuria and flank pain. Musculoskeletal: Negative for falls. Neurological: Negative for focal weakness. Endo/Heme/Allergies: Negative for polydipsia. Psychiatric/Behavioral: Positive for substance abuse. Negative for hallucinations. PMH: Past Medical History: Diagnosis Date Reflux esophagitis 12/19/12 PSH: Past Surgical History: Procedure Laterality Date UPPER GASTROINTESTINAL ENDOSCOPY 12/19/12 Medications: No current facility-administered medications on file prior to encounter. No current outpatient medications on file prior to encounter. Allergies: No Known Allergies FH: family history is not on file. SH: Physical Exam: BP 127/67 | Pulse 110 | Temp 35.8 C (96.4 F) (Oral) | Resp 16 | Ht 1.88 m (6' 2") | Wt 115.9 kg (255 lb 8.2 oz) | BMI 32.81 kg/m Physical Exam Vitals signs and nursing note reviewed. Constitutional: General: He is not in acute distress. HENT: Head: Normocephalic. Nose: No congestion. Mouth/Throat: Mouth: Mucous membranes are dry. Eyes: Pupils: Pupils are equal, round, and reactive to light. Neck: Musculoskeletal: Neck supple. Cardiovascular: Rate and Rhythm: Normal rate. Pulses: Normal pulses. Abdominal: General: Bowel sounds are normal. Palpations: Abdomen is soft. Tenderness: There is no guarding or rebound. Comments: Positive for left-sided flank pain Skin: General: Skin is warm. Neurological: General: No focal deficit present. Mental Status: He is alert and oriented to person, place, and time. Mental status is at baseline. Cranial Nerves: No cranial nerve deficit. Sensory: No sensory deficit. Labs: BMP 129* 96* 69* 211* 3.6 17* 5.24* CaMgPhos 8.6* 1.5* LFT 48* 138* 7.4 31 2.6* 3.6 CBC 17.3* 14.5 112* 41.4 Coag Last labs from current encounter as of 12/03/19-10:58 Recent Labs Lab 12/03/19 0811 PHUR 6.0 BLOODU Moderate* KETONES Negative GLUCOSEU Negative Imaging: Imaging reviewed and will be addressed as indicated in the assessment and plan. ACTIVE COMORBIDITIES: Active comorbid conditions include: - hypertension; essential - - substance abuse Problem List: Active Problems: * No active hospital problems. * Resolved Problems: * No resolved hospital problems. * Assessment and Plan: 1. Severe sepsis: -Most likely secondary to etiology. In the setting of acute kidney injury which could b e secondary to infection. -Hemodynamically stable. Afebrile. -Laboratory results reviewed demonstrate leukocytosis of 21.5 K. No bandemia. -Urine culture in process. UA abnormal. -We will order blood culture x2. Of note, the patient was given cefepime at [place] ER before blood cultures were collected. -Serum lactic acid 3.7. Will repeat, until downtrend is established. -Procalcitonin 28.9 and CRP 312. -We will order Zosyn. Acute kidney injury: -Could be secondary to point #1 prerenal versus ATN versus ATN from methamphetamine use v ersus possible hepatorenal syndrome. -Continue with aggressive IV fluid hydration. -Follow-up urine sodium, urine urea, and urine creatinine. Will order urine osmolality. -Appreciate nephrology (Dr. Jensen) input regarding further inpatient care and management will follow further recommendations. -Renally dose medications to creatinine clearance of less than 15 -Avoid nephrotoxic agents. -Renal ultrasound reviewed demonstrates no evidence of hydronephrosis with mildly elevated indices of the left kidney suggestive of medical renal disease. Abnormal liver contour: -Possible underlying alcoholic compensated cirrhosis. -We will order acute liver panel to exclude underlying hepatitis C. -We will require outpatient GI follow-up. -2 g low-sodium diet. -Patient will require cessation of alcohol intake. Hyponatremia: -Most likely secondary to point #1 and 2. -We will continue to monitor with repeat labs later today. Hypomagnesemia: -We will replete. Alcohol/methamphetamine use: -The patient notes consuming 6 tall boys per day, but has recently cut down could not spe cify exactly. -Continue with CIWA protocol and multivitamins folate and thiamine. -PRN Ativan for methamphetamine withdrawal. Hold for excessive sedation or respiratory rat e of 12 or less. Hyperglycemia: -Most likely in the setting of point #1; however, as the patient is overweight we will orde r hemoglobin A1c to rule out undiagnosed diabetes mellitus. -We will start with insulin sliding scale. -Diet: Renal, diabetic Dental hypertension: Per review of home medications: Toprol-XL 100 mg daily. GERD: Protonix 40 mg every morning. DVT prophylaxis: In place Full Code by default - TBD Glenn Garcia MD 12/03/2019 I believe the patient will require a minimum of 2 midnights for appropriate medical managem ent and safe discharge planning. Kindly, see daily progress notes for further details.Elect ronically signed by Glenn Garcia MD at 12/03/2019 11:01 AM PDTdocumented in this encount er Consult Notes Harinder Jernigan RD - 12/08/2019 8:55 AM PDTAssociated Order(s): IP CONSULT TO DIABETES Mack HULL met with Christiano at bedside today to discuss his new dx of Type 2 DM. He receives his healthcare through [facility]. He states that he had diabetes in e past and took insulin, but was under the impression that he no longer had it. We discussed the significance of his 7.8% A1c and the importance of getting it below 7.0%. I provided payam rosario with a glucometer and 10 test strips. He is familiar with checking BG and has done it in t he past. [facility] will provide diabetes testing supplies, but he does not think he can get in anytime soon due to the COVID-19 situation. He will need a glucometer ordered prior to d ischarge. We discussed a healthy eating plan for diabetes, including the type and amount of carbohydrates to include per meal. I encouraged him to eliminate things like soda, juice, an d sugar and gave ideas for sugar-free alternatives. He was receptive of the information prov ided and plans to follow up with a provider at [facility]. Harinder Jernigan RD Diabetes Services Yvette Lin ch, MD - 12/03/2019 11:15 AM PDT [facility] NEPHROLOGY CONSULTATION Patient: Christiano Johnston : 1975 DATE OF CONSULTATION: 12/03/2019 REASON FOR CONSULTATION: Acute kidney injury REFERRING PHYSICIAN: Dr. Glenn Garcia MD PRIMARY CARE PHYSICIAN: Dr. Physician Lyles PA ASSESMENT AND PLAN 1. Acute kidney injury, suspect due to prerenal etiology, due to decrease PO intake, NSAID use, diuretic use. Baseline kidney function is normal, per report. UA is notable for hyaline casts. Urine sodium is >20 (however, pt took his diuretic, HCTZ- triamterene, prior to admission). Pt has notable sub-nephrotic proteinuria, UPCR 1.51. Interstitial nephritis related to NSAID use is possible. Imaging is negative for hydronephrosis. No h/o fall -- will check CK to rule out myositis. Recommend supportive care -- monitor UOP. Metabolic acidosis, +gap, due to lactic acidosis & renal failure -- will switch IVF to a bi carb-containing fluid. Hypomagnesemia -- will order 2 gm IV Mg sulfate. Hyponatremia -- agree with isotonic IVF. Monitor serum sodium trend. Possible UTI / pyelonephritis -- on abx; urine and blood cultures are pending. No nephrotoxins. 2. 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 No overt sign of ascites on exam. Check coag. 3. Hyperglycemia, without diagnosis of DM. HPI Christiano Johnston is a 44 y.o. male with hypertension, hyperlipidemia, obesity, alcohol and methamphetamine abuse, who presented with left abdominal / flank pain, leukocytosis, and ac [place] kidney failure. Pt states he has not felt well for about a week. Pt reports decrease in energy, appetite, and urine output. Pt denies fever, cough, shortness of breath, sore throat, chest pain. Pt had left-sided abdominal pain, sharp, exacerbated by certain position. Pt was seen in [facility] ER last night. Pt was found to have acute kidney failure, with serum creatinine 5 .7 mg/dL. Prior baseline serum creatinine had been 0.6 mg/dL (per H&P). Non-contrast CT wa s obtained in ER showed no hydronephrosis, no stones, abnormal liver c/w cirrhosis. Pt was transferred for further management. Pt reports he had a good BM this morning. His abdomen is no longer hurting him. Pt report s he is able to urinate without difficulty; pt is using an urinal. Pt denies back pain. Pt denies myalgia, arthralgia. Pt reports he was having headaches this past week, and he has been taking ibuprofen, one ta blet about twice a day, plus Tylenol. Pt also had a recent methamphetamine use at a friend's house. Pt reports he usually drinks 4-6 cans of beer per day. Pt states he is trying to cut down and eventually off. REVIEW OF SYSTEMS 10-ROS obtained per HPI otherwise negative. PAST MEDICAL HISTORY Hypertension Hyperlipidemia Alcohol use History of GERD / reflux esophagitis SURGICAL HISTORY Past Surgical History: Procedure Laterality Date UPPER GASTROINTESTINAL ENDOSCOPY 12/19/12 FAMILY HISTORY No FH of kidney disease. Mother -- of thyroid disease. Father -- estranged. SOCIAL HISTORY Pt is currently unemployed. 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 Pt denies tobacco, marijuana use. Heavy alcohol use, 4-6 beers a day. Pt uses methamphetamines. , is [place]. ALLERGIES No Known Allergies HOME MEDICATIONS "cholesterol" medication HCTZ-triamterene Metoprolol XL Folic acid B12 Multivitamin CURRENT MEDICATIONS Scheduled Meds: adult multivitamin with minerals/iron 1 tablet Oral Daily folic acid 1 mg Oral Daily heparin 5,000 Units Subcutaneous 2 times per day insulin lispro 0-6 Units Subcutaneous 4x Daily WC and HS pharmacy consult - other medications/reasons Other Pharmacy Consult piperacillin-tazobactam 3.375 g Intravenous Once piperacillin-tazobactam 3.375 g Intravenous Q12H thiamine 100 mg Oral Daily Continuous Infusions: dextrose 10% sodium chloride 0.9% 100 mL/hr at 12/03/19 0823 PRN Meds:acetaminophen, bisacodyl, calcium carbonate, Hypoglycemia Management AND POCT Glucose AND dextrose AND dextrose 10%, docusate sodium, LORazepam, LORazepam, venu onin, ondansetron, polyethylene glycol, senna OBJECTIVE VITAL SIGNS: Vital sign ranges for last 24hrs: Input and output for last 24hrs: Temp: [35.8 C (96.4 F)] 35.8 C (96.4 F) Pulse: [110] 110 Resp: [16] 16 BP: (127)/(67) 127/67 No data recorded First: 115.9 kg (12/03/19 0758)Last: 115.9 kg (12/03/19 0758)Difference: 0kg No intake/outp ut data recorded. General: In no acute distress HEENT: OP clear Cardiac: Regular rate and rhythm, normal S1 and S2. No rub, gallop, murmur. No periphera l edema. Chest: Normal respiratory effort. Clear to auscultation. No wheezes or crackles. Abdomen: Soft, non-distended, non-tender, normal bowel sounds. Msk: Normal muscle tone. No joint swelling. Skin: No rash. Neuro: Alert, interactive. Psych: Normal affect. Normal speech. LABORATORY DATA: Recent Labs Lab 12/03/19 1039 12/03/19 0817 WBC 17.3* 21.5* HGB 14.5 15.1 HCT 41.4 42.1 PLT 112* 140 Recent Labs Lab 12/03/19 1039 12/03/19 0817 NA 126* 129* K 3.7 3.6 CL 96* 96* CO2 16* 17* BUN 66* 69* CREA 5.16* 5.24* CALCIUM 8.5* 8.6* PHOS 4.3 -- ALBUMIN 3.3 3.6 GLU 198* 211* Recent Labs Lab 12/03/19 0817 MG 1.5* 12/03/2019 08:11 Color, UA Yellow Clarity, UA Hazy (A) Specific Dyke 1.014 pH, Urine 6.0 Glucose, UA Negative Ketones, UA Negative Protein, UA 100 mg/dL (A) Blood, UA Moderate (A) Bilirubin, UA Negative Nitrite, UA Negative Urobilinogen, Urine Negative Leukocyte esterase, UA Small (A) WBC UA 50-100 (A) WBC CLUMPS UA Few (A) RBC UA 50-100 (A) Squamous epithelial, UA 5-10 (A) BACTERIA UA 1+ (A) HYALINE CASTS UA 5-10 (A) Mucus, UA Present (A) Creatinine, Urine, Random 114 PRO/CREA RATIO,URINE 1.51 (H) Protein, Urine 175 (H) Sodium, Urine Random 45 URINE COMMENT Urine Culture Set Up Diagnostic Studies: Available data and images were reviewed personally. Significant results and findings are ad dressed here or in the Assessment and Plan. RENAL ULTRASOUND 12/03/2019 FINDINGS: Right Kidney: The kidney is smooth in contour and normal in echotexture without stone or hydronephrosis. Size of the kidney is 12.7 x 6.4 x 7.1 cm. Resistive index is 0.68 , normal. Left Kidney: The kidney is smooth in contour and normal in echotexture without stone or hydronephrosis. Size of the kidney is 13.3 x 7.3 x 8.5 cm. Resistive indices range from 0.69-0.78, mildly elevated and suggestive of medical renal disease. Bladder: The bladder has a normal appearance. The patient was unable to void. Ureteral jets are not seen on the right and left. IMPRESSION: No evidence for hydronephrosis. Mildly elevated resistive indices of left kidney suggestive of medical renal disease. Thank you for the opportunity to be of assistance. Please call if you have any questions. Yvette Jensen MD Electronically signed: 12/03/2019 11:15 AM [facility] documented in this encounter Miscellaneous Notes Plan of Zeinab - Allie Loya RN - 12/09/2019 3:00 PM PDTPt dcd home via agency transpo rt. Avs and prescriptions given. No questions voiced. lan of Zeinab - Rakan Elizondo LICSW - 12/09/2019 12:1 1 PM PDTThis binder caser faxed the history and physical, the last physician's progress note , after visit summary and demographics to the [facility] in [place]. Received a ca ll and a hospital follow up appointment was scheduled for Wednesday 12/13 at 10:15. This appoin tment was put on the patient's after visit summary.Electronically signed by: ANA LAURA Amato 12/09/2019 12:15 PMElectronically signed by ANA LAURA Madison at 020 12:15 PM PDTPlan of Zeinab - Tereso Garcia PTA - 12/09/2019 10:40 AM PDTTherapy Plan of Care Missed Visit Note Patient Information Patient Name: Christiano Johnston Date of : 1975 Age: 44 y.o. The patient was unable to be seen for today's scheduled visit due to pt requesting to rest prior to discharging today, pt stating he is frustrated with the discharge process and wanti ng to have his IV's removed and is wanting to go home and wondering if his ride has been set up, pt educated for importance of IV's until time to leave and that the nurse, FLORES and MD are working on his discharge planning, this therapist discussed his concerns with both his nurs e and CM and was able to report back to pt about how the process with going, pt re-education about importance of upright activity tolerance and functional mobility is for overall healt h, pt cont to decline therapy and requesting to rest prior to discharge. Plan: Pt to be seen at next scheduled visit. Electronically signed by: Tereso Garcia PTA, 12/09/2019 11:29 AM lan of Zeinab - Rama, Isabel Irvin RN - 12/09/2019 5:30 AM PDT Problem: Adult Inpatient Plan of Care Goal: Plan of Care Review Outcome: Ongoing, progressing Goal: Patient-Specific Goal Outcome: Ongoing, progressing Goal: Absence of Hospital-Acquired Illness or Injury Outcome: Ongoing, progressing Goal: Optimal Comfort and Wellbeing Outcome: Ongoing, progressing Goal: Readiness for Transition of Care Outcome: Ongoing, progressing Goal: Rounds/Family Conference Outcome: Ongoing, progressing Problem: Skin Injury Risk Increased Goal: Skin Health and Integrity Outcome: Ongoing, progressing Problem: Fall Injury Risk Goal: Absence of Fall and Fall-Related Injury Outcome: Ongoing, progressing Problem: Discharge Planning Goal: Patient's discharge needs will be identified in a timely manner Outcome: Ongoing, progressing Problem: Mobility Impairment Goal: Optimal Mobility Outcome: Ongoing, progressing Problem: Diabetes Comorbidity Goal: Blood Glucose Level Within Desired Range Outcome: Ongoing, progressing Pt A/O x4, VSS, Lungs clear/dim at the bases, Pt sclera/skin jaundice, ABD bruising LE devin dy, Numb on BL toes, Last BM 12/07, trace edema on ankles, CIWA 0, CGA w/fww, diet na 2g res tricted diet con carb. Renal diet. Slept well last night, call light within reach will sorin nue to monitor. lan o Yanick Todd PTA - 12/08/2019 3:20 PM PDT Physical Therapy Plan of Care Treatment Note Summary: Christiano has been participating in physical therapy for treatment of Weakness and d econditioning, impaired functional mobility and balance due to admission for sepsis and PATRICA with L flank pain. Emphasis of session included functional transfers, gt and stair trainin g. Patient demonstrates progress towards functional goals as evidenced by pt was able to in crease gt distance and begin stair training. RN cleared patient for participation in therapy. Patient was agreeable to therapy. Patient participated without adverse reaction. RN debriefed on therapy session and patient status. P amandaient is encouraged to ambulate into hallway with nursing staff. It is encouraged that the patient be up in chair for all meals. Recommended mobility with nursing: Day Night into the bathroom into the bathroom Front Wheel Walker Front Wheel Walker stand by assistance stand by assistance Remaining barriers to discharge and functional limitations include decreased insight into s afety and deficits, decreased functional activity tolerance, decreased functional transfers, decreased gait velocity, stairs at home, not yet able to mobilize at level safe for home rolo mccorm[facility] indicating significant impairment with basic functional mobility, and medical status. Christiano will benefit from continued therapeutic intervention to address ongoing impairments and increase safety and independence with activities necessary for safe discharge. Refer be low for specific details regarding functional levels. Physical Therapy Discharge Recommendations are: Recommended discharge disposition: home with assist Post discharge physical therapy recommendation: ongoing low intensity therapy, will benefi t from structured setting, home health Equipment Recommendations: none Planned Interventions: balance training, bed mobility training, gait training, home exerci se program, joint mobilization, motor coordination training, neuromuscular re-education, sta ir training, prosthetic fitting/training, postural re-education, patient/family education, s trengthening, stretching, transfer training Recommended Frequency: 5 times/wk Patient Status/Goals: Reflects last filed data and may be from multiple contributors. Gait pt agreeable to use fww during gt training in [place], however does not normally use FWW at [facility] Level of Newton: stand by assist, verbal cues required Assistive Device: 2 wheeled walker (FWW) Distance (feet): 150 x2 seated rest between sets Safety Issues: balance decreased during turns, step length decreased, weight-shifting abili ty decreased Impairments: impaired balance, pain, strength decreased, decreased flexibility Stairs trialed stairs, pt safely complete Number of Stairs: 4 Handrail Location: right side (ascending) Level of Newton: stand by assist Assistive Device: 1 rail Technique Used: step over step (ascending), step over step (descending) Safety Issues: weight-shifting ability decreased Impairments: impaired balance, decreased flexibility Transfers increased time/effort, pt reports increased abdominal pain during [id number]-vh-[id number] transitions; noted sway, no LOB; trialed with and without AD, pt more stable with AD, however does not u se one at home and does not want to start using an AD Bed-Chair, Level of Newton: stand by assist Chair-Bed, Level of Newton: stand by assist Vad-Jfoio-Vny, Assistive Device: none Sit-Stand, Level of Newton: contact guard assist Stand-Sit, Level of Newton: stand by assist Xko-Dsucc-Dpe, Assistive Device: none Toilet, Level of Newton: stand by assist Toilet, Assistive Device: grab bars Safety Issues: step length decreased, weight-shifting ability decreased, balance decreased during turns Impairments: impaired balance, pain, decreased flexibility Bed Mobility NT during session; pt up in recliner on arrival and requested to return to chair at end of session PT Goal Review Date Most Recent Value STG Review Date 12/14/19 at 12/07/2019 1140 All Bed Mobility Goal Most Recent Value STG Status new at 12/07/2019 1140 STG Newton Level modified independent at 12/07/2019 1140 STG Assistive Device bed rails, HOB elevated at 12/07/2019 1140 All Transfers Goal Most Recent Value STG Status progressing at 12/08/2019 1520 STG Newton Level modified independent at 12/07/2019 1140 STG Assistive Device 2 wheeled walker (FWW) at 12/07/2019 1140 Gait Goal Most Recent Value STG Status progressing at 12/08/2019 1520 STG Newton Level modified independent at 12/07/2019 1140 STG Assistive Device 2 wheeled walker (FWW) at 12/07/2019 1140 STG Distance (feet) 150 at 12/07/2019 1140 PT Time Calculation Individual Start Time: 1456 Individual Stop Time: 1520 Individual Total Time: 24 PT Total Treatment Time: 24 Timed [place] Code Minutes: 24 Electronically signed by: Yanick Gibson PTA, 12/08/2019 4:23 PM lan of Zeinab - Allie Loya RN - 0 12/08/2019 2:31 PM PDT Problem: Adult Inpatient Plan of Care Goal: Plan of Care Review Outcome: Ongoing, progressing Goal: Patient-Specific Goal Outcome: Ongoing, progressing Goal: Absence of Hospital-Acquired Illness or Injury Outcome: Ongoing, progressing Goal: Optimal Comfort and Wellbeing Outcome: Ongoing, progressing Goal: Readiness for Transition of Care Outcome: Ongoing, progressing Goal: Rounds/Family Conference Outcome: Ongoing, progressing Problem: Skin Injury Risk Increased Goal: Skin Health and Integrity Outcome: Ongoing, progressing Problem: Fall Injury Risk Goal: Absence of Fall and Fall-Related Injury Outcome: Ongoing, progressing Problem: Discharge Planning Goal: Patient's discharge needs will be identified in a timely manner Outcome: Ongoing, progressing Problem: Mobility Impairment Goal: Optimal Mobility Outcome: Ongoing, progressing Problem: Diabetes Comorbidity Goal: Blood Glucose Level Within Desired Range Outcome: Ongoing, progressing Pt alert and oriented. Tyl w/ caffiene given for H/A. CGA w/ fww. Tolerating renal diet, sodium restricted. LT wrist and RAC IV SL. Trace edema to b/L ankles. LBM today. HRR w/ tele . B/L LE juan, dry. Numbness to b/l feet. Yellow sclera. CIWA 0-2. lan of Zeinab - Rakan Earl LICSW - 12/08/2019 12:08 PM PDTReceived a call from the [facility] machine assembler supervisor Concepción at [facility] [phone] asking about the patient. This binder caser tried to get a hold of Concepción and left a message for her to call this binder caser. Patient maybe ready to return home tomorrow. Patient may benefit from home health nursing and physical therapy. Will put a sticky note for the physician. This binder caser saw the patient who stated that he wanted to go home and he was not interested in a custodial.El ectronically signed by: ANA LAURA Madison 12/08/2019 12:14 PM lan of Zeinab - Harinder Jernigan RD - 12/08/2019 8:56 AM PDTSee note from inpatient diabetes consult completed today.Electronica lly signed by Harinder Jernigan RD at 12/08/2019 2:00 PM PDTPlan of Zeinab - Kathryn Gardner RN - 12/08/2019 7:01 AM PDTAlert and oriented. C/o abdominal discomfort from " where the lady poked and prodded with the ultrasounds wand" bruising noted from the heparin sq injecti ons. Gave pain medication prn. IV antibiotics q6h. Clear lung sounds. Calls appropriately. V SS. lan of Care Carole Harris RRT - 12/07/2019 5:39 PM PDTBreath sounds diminished. He had one as needed nebulizer treatment for shortness of breath, with some relief to his breathing. SpO2: 95 % on room air lan of Zeinab - Allie Curiel RN - 12/07/2019 4:07 PM PDT Problem: Adult Inpatient Plan of Care Goal: Plan of Care Review Outcome: Ongoing, progressing Goal: Patient-Specific Goal Outcome: Ongoing, progressing Goal: Absence of Hospital-Acquired Illness or Injury Outcome: Ongoing, progressing Goal: Optimal Comfort and Wellbeing Outcome: Ongoing, progressing Goal: Readiness for Transition of Care Outcome: Ongoing, progressing Goal: Rounds/Family Conference Outcome: Ongoing, progressing Problem: Skin Injury Risk Increased Goal: Skin Health and Integrity Outcome: Ongoing, progressing Problem: Fall Injury Risk Goal: Absence of Fall and Fall-Related Injury Outcome: Ongoing, progressing Problem: Discharge Planning Goal: Patient's discharge needs will be identified in a timely manner Outcome: Ongoing, progressing Problem: Mobility Impairment Goal: Optimal Mobility Outcome: Ongoing, progressing Pt alert and oriented. Denies pain. CGA w/ fww. Tolerating renal diet, sodium restricted. LT wrist and RAC IV SL. Trace edema to b/L ankles. LBM today. HRR w/ tele. B/L LE juan. Num bness to b/l feet. Yellow sclera. CIWA 0.Electronically signed by Allie Loya RN at 4:11 PM PDTPlan of Silverio Villalobos PT - 12/07/2019 12:15 PM PDTFormatt ing of this note might be different from the original. Physical Therapy Plan of Care Initial Evaluation, Treatment Note Summary: Christiano presents to physical therapy with Weakness and deconditioning, impaired f unctional mobility and balance due to admission for sepsis and PATRICA with L flank pain. . Pt reports flank pain is mostly resolved and he wants to be up on his feet more. Agreeable to using FWW for safety for now. Moving slowly and making slow progress toward return to PLO F. Objective exam reveals impairments with aerobic capacity/endurance, cognitive, anthropomet lorri characteristics, ergonomics and body mechanics, functional endurance/activity tolerance, gait, locomotion, and balance, integumentary integrity, joint integrity and mobility, motor function, muscle performance, neuromotor, posture, ROM, reflex integrity, sensory integrati on/regulation, social dynamics, ventilation and respiration/gas exchange, HEP. RN cleared patient for participation in therapy. Patient was agreeable to therapy. Patient participated without adverse reaction. RN debriefed on therapy session and patient status. P atient is encouraged to ambulate into hallway with nursing staff. It is encouraged that the patient be up in chair for all meals. Recommended mobility with nursing: Day Night into the hallway into the hallway Front Wheel Walker Front Wheel Walker stand by assistance and verbal cues and tactile cues contact guard assistance and verbal c ues and tactile cues Barriers to discharge and functional limitations include decreased insight into safety and deficits, decreased functional activity tolerance, decreased bed mobility, decreased functio nal transfers, decreased functional gait distance, decreased gait velocity, and medical stat us. Christiano will benefit from therapeutic intervention to address impairments and increase safet y and independence with activities necessary for safe discharge. Refer below for specific d etails regarding functional levels. Precautions/Limitations: falls Precaution Comment: pt reports R ear hearing loss recently, reports he fell asleep next to a speaker after drinking and equilibrium was effected for 2-3 weeks Left Lower Extremity Weight-Bearing: full weight-bearing Right Lower Extremity Weight-Bearing: full weight-bearing Previous Level of Function: Transferring: independent Ambulation: independent Toileting: independent Bathing: independent Dressing: independent Eating: independent Communication: understands/communicates without difficulty Swallowin-->swallows foods/liquids without difficulty Equipment Currently Used at Home: none Prior Functional Level Comment: independent prior, does not drive Potential available assistance at discharge: Significant Relationships: spouse Parent Marital Status: Living Environment/Accessibility: Lives With: spouse Living Arrangements: house Home Accessibility: stairs to enter home Number of Stairs to Enter Home: 1 Number of Stairs Within Home: 0 Stair Railings at Home: none Financial Concerns: none Transportation Available: public transportation Patient/Family s Goals: return to PLOF, resume care and rehab thru [facility] Rehabilitation potential: good, to achieve stated therapy goals Physical Therapy Discharge Recommendations are: Recommended discharge disposition: home with assist Post discharge physical therapy recommendation: ongoing low intensity therapy, will benefi t from structured setting, home health Equipment Recommendations: none Planned Interventions: balance training, bed mobility training, gait training, home exerci se program, joint mobilization, motor coordination training, neuromuscular re-education, sta ir training, prosthetic fitting/training, postural re-education, patient/family education, s trengthening, stretching, transfer training Recommended Frequency: 5 times/wk Patient Status/Goals: Reflects last filed data and may be from multiple contributors. Gait gait belt for safety, pt moves slowly. reports he does not normally use FWW Level of Newton: contact guard assist Assistive Device: 2 wheeled walker (FWW) Distance (feet): 150 Transfers pt moves slowly Sit-Stand, Level of Newton: contact guard assist Stand-Sit, Level of Newton: contact guard assist Maz-Dvmcz-Orq, Assistive Device: 2 wheeled walker (FWW) Bed Mobility NT this session, RN reports he moves slow but needs only CGA for safety when sitting up Balance good Functional Endurance Fair, stops for rest breaks after 150 ft. ROM ROM Testing Results: no range of motion deficits identified Strength BLEs grossly 4/5 overall Strength Testing Results: no strength deficits were identified PT Goal Review Date Most Recent Value STG Review Date 12/14/19 at 12/07/2019 1140 All Bed Mobility Goal Most Recent Value STG Status new at 12/07/2019 1140 STG Newton Level modified independent at 12/07/2019 1140 STG Assistive Device bed rails, HOB elevated at 12/07/2019 1140 All Transfers Goal Most Recent Value STG Status new at 12/07/2019 1140 STG [place] Level modified independent at 12/07/2019 1140 STG Assistive Device 2 wheeled walker (FWW) at 12/07/2019 1140 Gait Goal Most Recent Value STG Status new at 12/07/2019 1140 STG [place] Level modified independent at 12/07/2019 1140 STG Assistive Device 2 wheeled walker (FWW) at 12/07/2019 1140 STG Distance (feet) 150 at 12/07/2019 1140 PT Time Calculation Individual Start Time: 1140 Individual Stop Time: 1215 Individual Total Time: 35 PT Total Treatment Time: 35 Timed [place] Code Minutes: 20 Electronically signed by: Silverio Jarvis, PT, 12/07/2019 12:21 PM lan of Rakan Orona L ICSW - 12/07/2019 11:55 AM PDTVisited with this patient in follow up. Patient lives [place] [facility] [place], [place] with his who does not drive. Patient said that the doctor said t hat he would probably be ready for discharge on Saturday. Patient will need transportation home using [employer] the [facility] emergency medical patient transportation driver.Electronically sign ed by: ANA LAURA Madison 12/07/2019 12:01 PM Patient is followed by the [facility] and needs to be referred back to the clinic wh en he is discharged.Electronically signed by: ANA LAURA Madison 12/07/2019 12:15 PME lectronically signed by ANA LAURA Madison at 12/07/2019 12:15 PM PDTPlan of Jay Jay Webb RN - 12/07/2019 5:21 AM PDTTravis is a/o x4 and resting well between care s. CIWA 2-4 score this shift. C/O of headache 02/02, Nqmvnuddjlq-sbketlkvzslyj-cvowvpwo given with relief. TMAX 99F. Lungs diminished throughout. Critical lab blood cultures 08/29 perico nielsen MD notified, more cultures ordered. BG 179 last night. VSS. lan of Lanette Moraes RN - 12/06/19 20 6:39 PM PDTHeadache managed better with fufdgqwagg-bfjutqcoxkmwm-urluwlls than acetamino phen. New orders for Tums THREE TIMES DAILY. BG ranged from 166-237 mg/dL. Spouse called several times; unable to speak to her. Last time she called the front office attendant she used amanda carmen. Patient had updated spouse on status. Requested phone number to call spouse but t hey don't have a home phone. 6: 44 PM PDTPlan of Care - Lisa Briggs GLOBAL REGULATORY AFFAIRS MANAGER - 12/06/2019 5:50 AM PDTTravis requested one PRN treatment this shift for shortness of breath, tightness/dry cough. SpO2: 93 % on room ai r. Breath sounds appear clear, equal bilaterally. lan of Care - Gloria Briscoe RN - 12/06/2019 3:50 AM PDTTravi s is A & O x 4. Reports pain 5-8/10, Tylenol administered re-assessed stays at 5/10. Pt k+2 .9, replacement administered. Voiding adequately. IV Zosyn continued. VSS. Calls appropriate ly, purposeful rounding. Slept well in between cares. lan of Zeinab - Lanette Tejeda RN - 12/05/2019 6:50 PM PD TTransferred from ICU around 1600. BG 253 mg/dL. Complained of headache and that acetamino phen didn't manage pain; administered anyway. Pain level dropped from 8-5.5/10. Informed D dhiraj Melendez; new order for tramadol which patient stated doesn't manage his headache pain eit her but agree to try again. CIWA score of 4. lan of Care - Desi Chou, GLOBAL REGULATORY AFFAIRS MANAGER - 12/05/2019 10:22 AM PDTTravis oxygen saturation is SpO2: 93 % on room air and a heart rate of 97. Breath sounds are clear and post breathing treatment breath sounds are . Pt has a none cough. Pt's respirations are no shortness of breath reported, depth regular, pattern regular, unlabored with . No respiratory distress/sob noted, no prn tx needed lan of Jillian Brown RN - 12/04/2019 6:53 PM PD TPatient is alert and oriented x4. Temp has been high, HR in tachy, and RR tachy, other nallely ls stable. Had a MEWS of 6 at 1730. Hospitalist notified, patient transferred to ICU. Heart is regular and lungs are clear. Patient is on RA. Bowel tones are active, last BM was 12/03/2019. Patient is voiding without difficulties. Patient reports pain, a headache. Ellen t used a one time dose of tramadol 50mg for pain, and had a dose of 1 mg ativan for a CIWA o f 9, mostly for the headache. No new skin issues. Bed alarm is active. Patient did not have any injuries or falls during this shift. Frequent rounding completed. Will continue to monit or. Moved to ICU at 1820 P DTPlan of Landon Ricks RRT - 12/04/2019 4:13 PM PDTTravis was 94% on RA with dar horton BS and no reported SOB. He did not require PRN tx. He says he usually takes an inhaler at bedtime. Unlabored RR 24. 4: 14 PM PDTPlan of Rakan Orona LICSW - 12/04/2019 11:36 AM PDTVisited with th is patient who lives just outside of [place], [place] with his who is a home health administrator. His w brigida does not drive. Patient is [facility] by the [facility]. Patient does not work. He stated that if he is discharged before the end of the weekend, he might not have a ride home. He has one step to get into the house and no other steps.Electronically signed by: ANA LAURA Gonzalez 12/04/2019 11:41 AM lan of Priscila Barron RN - 12/04/2019 4:48 AM PDTT beulah is A/O x4 and free of falls during shift. C/O headache and had a temp of 101.2 tx with tylenol with decreased temp and pain. MEWS score of 5 asymptomatic @0400 (Dr. Bruce notifie d). MEWS score 4 asymptomatic @[address] Bruce notified. CIWA score neg @2 and 1. Zosyn g iven x1. Christiano calls appropriately and will continue to monitor. eICU Note - Rik Guaman RN - 12/04/2019 4 :11 AM PDTContacted RN about MEWS score. Will continue to monitor lan of Care - Tia Bowman RN - 12/03/2019 6:51 PM PDTTravis denied pain today. He basically slept all day, in between cares. He woke up quite easily with just a gentle knock or speaking his name. His BT's were present, his l ast BM was 12/03/19, he was having diarrhea before coming in and had one BM here today. He is voiding but not a lot yet, he has had a couple incontinent episodes so it is hard to get an exact measurement. His vitals have been stable, although he is tachy in the low 100's.Electr onically signed by Tia Bowman RN at 12/03/2019 6:56 PM PDTdocumented in this encount er Plan of Treatment + +------+--------+ + + | Name | Type | Priori | Associated Diagnoses | Order Schedule | | | | ty | | | + +------+--------+ + + | Basic Metabolic | Lab | Routin | Severe sepsis | Expected: | | Panel | | e | ([facility]) Acute kidney | 12/16/2019, Expires: | | | | | injury ([facility]) | 12/08/2020 | | | | | Hyponatremia Acute | | | | | | kidney injury ([facility]) | | | | | | with acute tubular | | | | | | necrosis (ATN) ([facility]) | | + +------+--------+ + + documented as of this encounter Procedures + +--------+ + + + | Procedure Name | Priori | Date/Time | Associated Diagnosis | Comments | | | ty | | | | + +--------+ + + + | POC GLUCOSE | Routin | 12/09/2019 | | Results for this | | | e | 11:21 AM | | procedure are in the | | | | PDT | | results section. | + +--------+ + + + | POC GLUCOSE | Routin | 12/09/2019 | | Results for this | | | e | 6:24 AM | | procedure are in the | | | | PDT | | results section. | + +--------+ + + + | CBC WITH | Routin | 12/09/2019 | | Results for this | | DIFFERENTIAL | e | 12:21 AM | | procedure are in the | | | | PDT | | results section. | + +--------+ + + + | HEPATIC FUNCTION | Routin | 12/09/2019 | | Results for this | | PANEL | e | 12:21 AM | | procedure are in the | | | | PDT | | results section. | + +--------+ + + + | BASIC METABOLIC | Routin | 12/09/2019 | | Results for this | | PANEL | e | 12:21 AM | | procedure are in the | | | | PDT | | results section. | + +--------+ + + + | POC GLUCOSE | Routin | 12/08/2019 | | Results for this | | | e | 8:45 PM | | procedure are in the | | | | PDT | | results section. | + +--------+ + + + | POC GLUCOSE | Routin | 12/08/2019 | | Results for this | | | e | 4:48 PM | | procedure are in the | | | | PDT | | results section. | + +--------+ + + + | POC GLUCOSE | Routin | 12/08/2019 | | Results for this | | | e | 11:52 AM | | procedure are in the | | | | PDT | | results section. | + +--------+ + + + | POC GLUCOSE | Routin | 12/08/2019 | | Results for this | | | e | 6:32 AM | | procedure are in the | | | | PDT | | results section. | + +--------+ + + + | HEPATIC FUNCTION | Routin | 12/08/2019 | | Results for this | | PANEL | e | 12:16 AM | | procedure are in the | | | | PDT | | results section. | + +--------+ + + + | BASIC METABOLIC | Routin | 12/08/2019 | | Results for this | | PANEL | e | 12:16 AM | | procedure are in the | | | | PDT | | results section. | + +--------+ + + + | CBC WITH | Routin | 12/08/2019 | | Results for this | | DIFFERENTIAL | e | 12:15 AM | | procedure are in the | | | | PDT | | results section. | + +--------+ + + + | POC GLUCOSE | Routin | 12/07/2019 | | Results for this | | | e | 9:28 PM | | procedure are in the | | | | PDT | | results section. | + +--------+ + + + | POC GLUCOSE | Routin | 12/07/2019 | | Results for this | | | e | 5:08 PM | | procedure are in the | | | | PDT | | results section. | + +--------+ + + + | POC GLUCOSE | Routin | 12/07/2019 | | Results for this | | | e | 11:59 AM | | procedure are in the | | | | PDT | | results section. | + +--------+ + + + | POC GLUCOSE | Routin | 12/07/2019 | | Results for this | | | e | 6:41 AM | | procedure are in the | | | | PDT | | results section. | + +--------+ + + + | CULTURE, BLOOD | Routin | 12/07/2019 | | Results for this | | | e | 4:46 AM | | procedure are in the | | | | PDT | | results section. | + +--------+ + + + | BLOOD CULTURE GM | Routin | 12/07/2019 | | Results for this | | NEGATIVE PATHOGEN | e | 4:42 AM | | procedure are in the | | PANEL, PCR | | PDT | | results section. | + +--------+ + + + | CULTURE, BLOOD | Routin | 12/07/2019 | | Results for this | | | e | 4:42 AM | | procedure are in the | | | | PDT | | results section. | + +--------+ + + + | CBC WITH | Routin | 12/07/2019 | | Results for this | | DIFFERENTIAL | e | 12:30 AM | | procedure are in the | | | | PDT | | results section. | + +--------+ + + + | HEPATIC FUNCTION | Routin | 12/07/2019 | | Results for this | | PANEL | e | 12:30 AM | | procedure are in the | | | | PDT | | results section. | + +--------+ + + + | BASIC METABOLIC | Routin | 12/07/2019 | | Results for this | | PANEL | e | 12:30 AM | | procedure are in the | | | | PDT | | results section. | + +--------+ + + + | POC GLUCOSE | Routin | 12/06/2019 | | Results for this | | | e | 8:17 PM | | procedure are in the | | | | PDT | | results section. | + +--------+ + + + | POC GLUCOSE | Routin | 12/06/2019 | | Results for this | | | e | 4:54 PM | | procedure are in the | | | | PDT | | results section. | + +--------+ + + + | POC GLUCOSE | Routin | 12/06/2019 | | Results for this | | | e | 11:49 AM | | procedure are in the | | | | PDT | | results section. | + +--------+ + + + | POC GLUCOSE | Routin | 12/06/2019 | | Results for this | | | e | 6:40 AM | | procedure are in the | | | | PDT | | results section. | + +--------+ + + + | CBC WITH | Routin | 12/06/2019 | | Results for this | | DIFFERENTIAL | e | 4:35 AM | | procedure are in the | | | | PDT | | results section. | + +--------+ + + + | RENAL FUNCTION PANEL | Routin | 12/06/2019 | | Results for this | | | e | 4:35 AM | | procedure are in the | | | | PDT | | results section. | + +--------+ + + + | HEPATIC FUNCTION | Routin | 12/06/2019 | | Results for this | | PANEL | e | 12:01 AM | | procedure are in the | | | | PDT | | results section. | + +--------+ + + + | BASIC METABOLIC | Routin | 12/06/2019 | | Results for this | | PANEL | e | 12:01 AM | | procedure are in the | | | | PDT | | results section. | + +--------+ + + + | POC GLUCOSE | Routin | 12/05/2019 | | Results for this | | | e | 8:47 PM | | procedure are in the | | | | PDT | | results section. | + +--------+ + + + | POC GLUCOSE | Routin | 12/05/2019 | | Results for this | | | e | 5:05 PM | | procedure are in the | | | | PDT | | results section. | + +--------+ + + + | POC GLUCOSE | Routin | 12/05/2019 | | Results for this | | | e | 11:54 AM | | procedure are in the | | | | PDT | | results section. | + +--------+ + + + | POC GLUCOSE | Routin | 12/05/2019 | | Results for this | | | e | 8:00 AM | | procedure are in the | | | | PDT | | results section. | + +--------+ + + + | CBC WITH | Routin | 12/05/2019 | | Results for this | | DIFFERENTIAL | e | 3:58 AM | | procedure are in the | | | | PDT | | results section. | + +--------+ + + + | RENAL FUNCTION PANEL | Routin | 12/05/2019 | | Results for this | | | e | 3:58 AM | | procedure are in the | | | | PDT | | results section. | + +--------+ + + + | LACTIC ACID | Routin | 12/05/2019 | | Results for this | | | e | 12:13 AM | | procedure are in the | | | | PDT | | results section. | + +--------+ + + + | AMMONIA | Routin | 12/05/2019 | | Results for this | | | e | 12:13 AM | | procedure are in the | | | | PDT | | results section. | + +--------+ + + + | HEPATIC FUNCTION | Routin | 12/05/2019 | | Results for this | | PANEL | e | 12:13 AM | | procedure are in the | | | | PDT | | results section. | + +--------+ + + + | BASIC METABOLIC | Routin | 12/05/2019 | | Results for this | | PANEL | e | 12:13 AM | | procedure are in the | | | | PDT | | results section. | + +--------+ + + + | POC GLUCOSE | Routin | 12/04/2019 | | Results for this | | | e | 9:47 PM | | procedure are in the | | | | PDT | | results section. | + +--------+ + + + | LACTIC ACID | STAT | 12/04/2019 | | Results for this | | | | 6:45 PM | | procedure are in the | | | | PDT | | results section. | + +--------+ + + + | ELECTROLYTE PANEL | STAT | 12/04/2019 | | Results for this | | | | 6:45 PM | | procedure are in the | | | | PDT | | results section. | + +--------+ + + + | CULTURE, MRSA | Routin | 12/04/2019 | | Results for this | | | e | 6:43 PM | | procedure are in the | | | | PDT | | results section. | + +--------+ + + + | XR CHEST AP PORTABLE | STAT | 12/04/2019 | | Results for this | | | | 6:23 PM | | procedure are in the | | | | PDT | | results section. | + +--------+ + + + | POC BLOOD GASES | Routin | 12/04/2019 | | Results for this | | | e | 5:58 PM | | procedure are in the | | | | PDT | | results section. | + +--------+ + + + | POC GLUCOSE | Routin | 12/04/2019 | | Results for this | | | e | 4:32 PM | | procedure are in the | | | | PDT | | results section. | + +--------+ + + + | POC GLUCOSE | Routin | 12/04/2019 | | Results for this | | | e | 11:22 AM | | procedure are in the | | | | PDT | | results section. | + +--------+ + + + | US ABDOMEN LIMITED | Routin | 12/04/2019 | | Results for this | | | e | 9:17 AM | | procedure are in the | | | | PDT | | results section. | + +--------+ + + + | LACTIC ACID | Routin | 12/04/2019 | | Results for this | | | e | 9:10 AM | | procedure are in the | | | | PDT | | results section. | + +--------+ + + + | AMMONIA | Routin | 12/04/2019 | | Results for this | | | e | 9:10 AM | | procedure are in the | | | | PDT | | results section. | + +--------+ + + + | POC GLUCOSE | Routin | 12/04/2019 | | Results for this | | | e | 6:36 AM | | procedure are in the | | | | PDT | | results section. | + +--------+ + + + | HEPATITIS PANEL, | Routin | 12/04/2019 | | Results for this | | ACUTE | e | 4:20 AM | | procedure are in the | | | | PDT | | results section. | + +--------+ + + + | CBC WITH | Routin | 12/04/2019 | | Results for this | | DIFFERENTIAL | e | 3:56 AM | | procedure are in the | | | | PDT | | results section. | + +--------+ + + + | PHOSPHORUS | Routin | 12/04/2019 | | Results for this | | | e | 3:56 AM | | procedure are in the | | | | PDT | | results section. | + +--------+ + + + | MAGNESIUM | Routin | 12/04/2019 | | Results for this | | | e | 3:56 AM | | procedure are in the | | | | PDT | | results section. | + +--------+ + + + | HEMOGLOBIN A1C | Routin | 12/04/2019 | | Results for this | | | e | 3:56 AM | | procedure are in the | | | | PDT | | results section. | + +--------+ + + + | HEPATIC FUNCTION | Routin | 12/04/2019 | | Results for this | | PANEL | e | 3:56 AM | | procedure are in the | | | | PDT | | results section. | + +--------+ + + + | BASIC METABOLIC | Routin | 12/04/2019 | | Results for this | | PANEL | e | 3:56 AM | | procedure are in the | | | | PDT | | results section. | + +--------+ + + + | PROTIME INR | Routin | 12/04/2019 | | Results for this | | | e | 3:55 AM | | procedure are in the | | | | PDT | | results section. | + +--------+ + + + | POC GLUCOSE | Routin | 12/03/2019 | | Results for this | | | e | 8:25 PM | | procedure are in the | | | | PDT | | results section. | + +--------+ + + + | BASIC METABOLIC | Routin | 12/03/2019 | | Results for this | | PANEL | e | 5:26 PM | | procedure are in the | | | | PDT | | results section. | + +--------+ + + + | POC GLUCOSE | Routin | 12/03/2019 | | Results for this | | | e | 5:00 PM | | procedure are in the [...] | + +--------+ + + + | XR CHEST 1 VIEW | Routin | 12/03/2019 | | Results for this | | | e | 1:21 PM | | procedure are in the | | | | PDT | | results section. | + +--------+ + + + | POC GLUCOSE | Routin | 12/03/2019 | | Results for this | | | e | 12:06 PM | | procedure are in the | | | | PDT | | results section. | + +--------+ + + + | BLOOD CULTURE GM | Routin | 12/03/2019 | | Results for this | | NEGATIVE PATHOGEN | e | 10:39 AM | | procedure are in the | | PANEL, PCR | | PDT | | results section. | + +--------+ + + + | DIFFERENTIAL, MANUAL | Routin | 12/03/2019 | | Results for this | | | e | 10:39 AM | | procedure are in the | | | | PDT | | results section. | + +--------+ + + + | CULTURE, BLOOD | Routin | 12/03/2019 | | Results for this | | | e | 10:39 AM | | procedure are in the | | | | PDT | | results section. | + +--------+ + + + | CULTURE, BLOOD | Routin | 12/03/2019 | | Results for this | | | e | 10:39 AM | | procedure are in the | | | | PDT | | results section. | + +--------+ + + + | CBC WITH | Routin | 12/03/2019 | | Results for this | | DIFFERENTIAL | e | 10:39 AM | | procedure are in the | | | | PDT | | results section. | + +--------+ + + + | LACTIC ACID | STAT | 12/03/2019 | | Results for this | | | | 10:39 AM | | procedure are in the | | | | PDT | | results section. | + +--------+ + + + | RENAL FUNCTION PANEL | STAT | 12/03/2019 | | Results for this | | | | 10:39 AM | | procedure are in the | | | | PDT | | results section. | + +--------+ + + + | US RENAL COMPLETE | Routin | 12/03/2019 | | Results for this | | | e | 9:08 AM | | procedure are in the | | | | PDT | | results section. | + +--------+ + + + | PROCALCITONIN, SERUM | STAT | 12/03/2019 | | Results for this | | | | 8:17 AM | | procedure are in the | | | | PDT | | results section. | + +--------+ + + + | CBC WITH | STAT | 12/03/2019 | | Results for this | | DIFFERENTIAL | | 8:17 AM | | procedure are in the | | | | PDT | | results section. | + +--------+ + + + | C-REACTIVE PROTEIN | STAT | 12/03/2019 | | Results for this | | | | 8:17 AM | | procedure are in the | | | | PDT | | results section. | + +--------+ + + + | MAGNESIUM | STAT | 12/03/2019 | | Results for this | | | | 8:17 AM | | procedure are in the | | | | PDT | | results section. | + +--------+ + + + | LACTIC ACID | STAT | 12/03/2019 | | Results for this | | | | 8:17 AM | | procedure are in the | | | | PDT | | results section. | + +--------+ + + + | CK TOTAL | Add-On | 12/03/2019 | | Results for this | | | | 8:17 AM | | procedure are in the | | | | PDT | | results section. | + +--------+ + + + | COMPREHENSIVE | STAT | 12/03/2019 | | Results for this | | METABOLIC PANEL | | 8:17 AM | | procedure are in the | | | | PDT | | results section. | + +--------+ + + + | URINALYSIS WITH | Routin | 12/03/2019 | | Results for this | | MICROSCOPIC WITH | e | 8:11 AM | | procedure are in the | | CULTURE IF INDICATED | | PDT | | results section. | + +--------+ + + + | UREA NITROGEN, URINE | Add-On | 12/03/2019 | | Results for this | | | | 8:11 AM | | procedure are in the | | | | PDT | | results section. | + +--------+ + + + | PROTEIN/CREATININE | Add-On | 12/03/2019 | | Results for this | | RATIO, URINE | | 8:11 AM | | procedure are in the | | | | PDT | | results section. | + +--------+ + + + | SODIUM, URINE, | Routin | 12/03/2019 | | Results for this | | RANDOM | e | 8:11 AM | | procedure are in the | | | | PDT | | results section. | + +--------+ + + + | OSMOLALITY, URINE | Add-On | 12/03/2019 | | Results for this | | | | 8:11 AM | | procedure are in the | | | | PDT | | results section. | + +--------+ + + + | CREATININE, URINE, | Routin | 12/03/2019 | | Results for this | | RANDOM | e | 8:11 AM | | procedure are in the | | | | PDT | | results section. | + +--------+ + + + | DRUGS OF ABUSE, | Routin | 12/03/2019 | | Results for this | | SCREEN, URINE | e | 8:11 AM | | procedure are in the | | | | PDT | | results section. | + +--------+ + + + | CULTURE, URINE | Routin | 12/03/2019 | | Results for this | | | e | 8:11 AM | | procedure are in the | | | | PDT | | results section. | + +--------+ + + + | IMAGING REPORT - | | 12/03/2019 | | Results for this | | EXTERNAL SCAN | | 12:00 AM | | procedure are in the | | | | PDT | | results section. | + +--------+ + + + | IMAGING REPORT - | | 12/03/2019 | | Results for this | | EXTERNAL SCAN | | 12:00 AM | | procedure are in the | | | | PDT | | results section. | + +--------+ + + + | LABS - EXTERNAL SCAN | | 12/03/2019 | | Results for this | | | | 12:00 AM | | procedure are in the | | | | PDT | | results section. | + +--------+ + + + documented in this encounter Results POC Glucose (12/09/2019 11:21 AM PDT) + +---------+ + + + | Component | Value | Ref Range | Performed | Pathologist | | | | | At | Signature | + +---------+ + + + | Glucose, | 128 (H) | 70 - 109 mg/dL | [facility] | | | P[facility] | | | [facility] | [facility] | [facility] | | | | | | [facility] - | | | | | | LAB[facility]ATORY | | + +---------+ + + + + + | Specimen | + + | Blood | + + + + + + + | Performing | Address | City/State/Zipcode | Phone Number | | Organization | | | | + + + + + | [facility] | [address] | [place] | [phone] | | [facility] | | [address] | | | - LABORATORY | | | | + + + + + POC Glucose (12/09/2019 6:24 AM PDT) + +-------+ + + + | Component | Value | Ref Range | Performed | Pathologist | | | | | At | Signature | + +-------+ + + + | Glucose, | 98 | 70 - 109 mg/dL | [facility] | | | POC | | | [facility] | | | | | | [facility] | | | | | | [facility] - | | | | | | LABORATORY | | + +-------+ + + + + + | Specimen | + + | Blood | + + + + + + + | Performing | Address | City/State/Zipcode | Phone Number | | Organization | | | | + + + + + | [facility] | [address] | [place] | [phone] | | [facility] | | [address] | | | - LABORATORY | | | | + + + + + Hepatic Function Panel (12/09/2019 12:21 AM PDT) + + + + + + | Component | Value | Ref Range | Performed | Pathologist | | | | | At | Signature | + + + + + + | Bilirubin | 5.3 (H) | 0.3 - 1.2 mg/dL | [facility] | | | Total | | | [facility] | | | | | | [facility] | | | | | | [facility] - | | | | | | LABORATORY | | + + + + + + | Total | 6.6 | 5.7 - 8.2 g/dL | [facility] | | | Protein | | | [facility] | | | | | | [facility] | | | | | | [facility] - | | | | | | LABORATORY | | + + + + + + | Albumin | 2.8 (L) | 3.2 - 4.8 g/dL | [facility] | | | | | | [facility] | | | | | | [facility] | | | | | | [facility] - | | | | | | LABORATORY | | + + + + + + | AST | 70 (H) | 0 - 34 U/L | [facility] | | | | | | [facility] | | | | | | [facility] | | | | | | [facility] - | | | | | | LABORATORY | | + + + + + + | ALT | 33 | 10 - 49 U/L | [facility] | | | | | [facility] | | | | | | [facility] | | | | | | [facility] - | | | | | | LAB[facility]ATORY | | + + + + + + | Alkaline | 229 (H) | 46 - 116 U/L | [facility] | | | Phosphatase | | | [facility] | | | [facility] | | [facility] | | | | | | [facility] - | | | | | | LABORATORY | | + + + + + + | Globulin | 3.8 | 2.1 - 3.8 g/dL | [facility] | | | | | | [facility] | | | | | | [facility] | | | | | | [facility] - | | | | | | LABORATORY | | + + + + + + | Albumin/Katrin | 0.7 (L) | 0.8 - 1.9 | [facility] | | | bulin Ratio | | | [facility] | | | | | | [facility] | | | | | | [facility] - | | | | | | LABORATORY | | + + + + + + | Bilirubin, | 4.60 (H) | 0.00 - 0.30 | [facility] | | | Direct | | mg/dl | [facility] | | | | | | [facility] | | | | | | [facility] - | | | | | | LABORATORY | | + + + + + + + + | Specimen | + + | Blood | + + + + + + + | Performing | Address | City/State/Zipcode | Phone Number | | Organization | | | | + + + + + | [facility] | [address] | [place], [place] | [phone] | | [facility] | | [address] | | | - LABORATORY | | | | + + + + + Basic Metabolic Panel (12/09/2019 12:21 AM PDT) + + + + + + | Component | Value | Ref Range | Performed | Pathologist | | | | | At | Signature | + + + + + + | Na | 127 (L) | 136 - 145 | [facility] | | | | | mmol/L | [facility] | | | | | | [facility] | | | | | | [facility] - | | | | | | LABORATORY | | + + + + + + | K | 4.2 | 3.4 - 5.1 | [facility] | | | | | mmol/L | [facility] | | | | | | [facility] | | | | | | [facility] - | | | | | | LABORATORY | | + + + + + + | Cl | 99 | 98 - 107 mmol/L | [facility] | | | | | | [facility] | | | | | | [facility] | | | | | | [facility] - | | | | | | LABORATORY | | + + + + + + | CO2 | 22 | 20 - 31 mmol/L | [facility] | | | | | | [facility] | | | | | | [facility] | | | | | | [facility] - | | | | | | LABORATORY | | + + + + + + | Anion Gap | 6 | 3 - 16 mmol/L | [facility] | | | | | | [facility] | | | | | | [facility] | | | | | | [facility] - | | | | | | LABORATORY | | + + + + + + | Glucose | 145 (H) | 60 - 106 mg/dL | [facility] | | | | | | [facility] | | | | | | [facility] | | | | | | [facility] - | | | | | | LABORATORY | | + + + + + + | BUN | 34 (H) | 9 - 23 mg/dL | [facility] | | | | | | [facility] | | | | | | [facility] | | | | | | [facility] - | | | | | | LABORATORY | | + + + + + + | Creatinine | 1.82 (H) | 0.70 - 1.30 | [facility] | | | | | mg/dL | [facility] | | | | | | MEDICAL | | | | | | CENTER - | | | | | | LABORATORY | | + + + + + + | eGFR, | 41 (L)Comment: | >=60 | [facility] | | | non- | GLOMERULAR FILTRATION | mL/min/1.73m2 | [facility] | | | [place] | RATE,ESTIMATED | | MEDICAL | | | | mL/min/1.41d8Dmbf than | | CENTER - | | | | 60 Chronic kidney | | LABORATORY | | | | disease,if found over a | | | | | | 3-month period.Less than | | | | | | 15 Kidney failureFor | | | | | | | | | | | | Americans,multiply the | | | | | | calculated GFR by 1.21. | | | | | | | | | | + + + + + + | Calcium | 8.2 (L) | 8.7 - 10.4 | [facility] | | | | | mg/dL | [facility] | | | | | | MEDICAL | | | | | | CENTER - | | | | | | LABORATORY | | + + + + + + | BUN/Creatin | 18.7 | | [facility] | | | ine Ratio | | | [facility] | | | | | | [facility] | | | | | | [facility] - | | | | | | LABORATORY | | + + + + + + + + | Specimen | + + | Blood | + + + + + + + | Performing | Address | City/State/Zipcode | Phone Number | | Organization | | | | + + + + + | [facility] | [address] | [place] | [phone] | | [facility] | | [address] | | | - LABORATORY | | | | + + + + + CBC with Differential (12/09/2019 12:21 AM PDT) + + + + + + | Component | Value | Ref Range | Performed | Pathologist | | | | | At | Signature | + + + + + + | White Blood | 15.4 (H) | 4.0 - 11.0 K/uL | [facility] | | | Cells | | | [facility] | | | | | | [facility] | | | | | | C[facility] - | | | | | | LABORATORY | | + + + + + + | Red Blood | 4.03 (L) | 4.30 - 5.70 | [facility] | | | Cells | | M/uL | [facility] | | | | | | MEDICAL | | | | | | CENTER - | | | | | | LABORATORY | | + + + + + + | Hemoglobin | 13.0 (L) | 13.5 - 18.0 | [facility] | | | | | g/dL | [facility] | | | | | | [facility] | | | | | | CENTER - | | | | | | LABORATORY | | + + + + + + | Hematocrit | 37.3 (L) | 40.0 - 51.0 % | [facility] | | | | | | [facility] | | | | | | [facility] | | | | | | CENTER - | | | | | | LABORATORY | | + + + + + + | MCV | 92.6 | 83.0 - 101.0 fL | [facility] | | | | | | [facility] | | | | | | [facility] | | | | | | CENTER - | | | | | | LABORATORY | | + + + + + + | MCH | 32.3 | 28.0 - 35.0 pg | [facility] | | | | | | [facility] | | | | | | [facility] | | | | | | [facility] - | | | | | | LABORATORY | | + + + + + + | MCHC | 34.9 | 32.0 - 36.0 | [facility] | | | | | g/dL | [facility] | | | | | | [facility] | | | | | | CENTER - | | | | | | LABORATORY | | + + + + + + | RDW-CV | 13.7 | <15.0 % | [facility] | | | | | | [facility] | | | | | | [facility] | | | | | | [facility] - | | | | | | LABORATORY | | + + + + + + | RDW-SD | 46.9 (H) | 35.1 - 46.3 fL | [facility] | | | | | | [facility] | | | | | | [facility] | | | | | | [facility] - | | | | | | LABORATORY | | + + + + + + | Platelet | 188 | 140 - 440 K/uL | [facility] | | | Count | | | [facility] | | | | | | [facility] | | | | | | [facility] - | | | | | | LABORATORY | | + + + + + + | MPV | 10.1 | 6.5 - 12.4 fL | [facility] | | | | | | [facility] | | | | | | [facility] | | | | | | [facility] - | | | | | | LABORATORY | | + + + + + + | % | 81.3 | 45.0 - 82.0 % | [facility] | | | Neutrophils | | | [facility] | | | | | | [facility] | | | | | | CENTER - | | | | | | LABORATORY | | + + + + + + | % | 9.3 (L) | 20.0 - 45.0 % | [facility] | | | Lymphocytes | | | [facility] | | | | | | [facility] | | | | | | CENTER - | | | | | | LABORATORY | | + + + + + + | % Monocytes | 6.6 | 4.0 - 12.0 % | [facility] | | | | | | [facility] | | | | | | [facility] | | | | | | [facility] - | | | | | | LABORATORY | | + + + + + + | % | 1.0 | 0.0 - 5.0 % | [facility] | | | Eosinophils | | | [facility] | | | | | | [facility] | | | | | | CENTER - | | | | | | LABORATORY | | + + + + + + | % Basophils | 0.4 | 0.0 - 1.0 % | [facility] | | | | | | [facility] | | | | | | [facility] | | | | | | [facility] - | | | | | | LABORATORY | | + + + + + + | % Immature | 1.4 (H)Comment: | 0.0 - 0.4 % | [facility] | | | Granulocyte | Preliminary studies have | | [facility] | | | s | indicated the IG% | | MEDICAL | | | | and/or IG# show promise | | CENTER - | | | | as an early indicator | | LABORATORY | | | | for infection. | | | | + + + + + + | Absolute | 12.50 (H) | 1.80 - 8.50 | [facility] | | | Neutrophils | | K/uL | [facility] | | | | | | MEDICAL | | | | | | CENTER - | | | | | | LABORATORY | | + + + + + + | Absolute | 1.43 | 0.60 - 3.20 | [facility] | | | Lymphocytes | | K/uL | [facility] | | | | | | MEDICAL | | | | | | CENTER - | | | | | | LABORATORY | | + + + + + + | Absolute | 1.01 (H) | 0.00 - 1.00 | [facility] | | | Monocytes | | K/uL | [facility] | | | | | | MEDICAL | | | | | | CENTER - | | | | | | LABORATORY | | + + + + + + | Absolute | 0.16 | 0.00 - 0.40 | [facility] | | | Eosinophils | | K/uL | [facility] | | | | | | MEDICAL | | | | | | CENTER - | | | | | | LABORATORY | | + + + + + + | Absolute | 0.06 | 0.00 - 0.10 | [facility] | | | Basophils | | K/uL | [facility] | | | | | | MEDICAL | | | | | | CENTER - | | | | | | LABORATORY | | + + + + + + | Absolute | 0.21 (H) | 0.00 - 0.03 | [facility] | | | Immature | | K/uL | [facility] | | | Granulocyte | | | MEDICAL | | | s | | | CENTER - | | | | | | LABORATORY | | + + + + + + | % nRBC | 0 | 0 - 2 per 100 | [facility] | | | | | WBCs | [facility] | | | | | | MEDICAL | | | | | | CENTER - | | | | | | LABORATORY | | + + + + + + | Absolute | 0.00 | 0.00 - 0.01 | [facility] | | | nRBC | | K/uL | [facility] | | | | | | MEDICAL | | | | | | CENTER - | | | | | | LABORATORY | | + + + + + + + + | Specimen | + + | Blood | + + + + + + + | Performing | Address | City/State/Zipcode | Phone Number | | Organization | | | | + + + + + | [facility] | [address] | [place] | [phone] | | [facility] | | [address] | | | - LABORATORY | | | | + + + + + POC Glucose (12/08/2019 8:45 PM PDT) + +---------+ + + + | Component | Value | Ref Range | Performed | Pathologist | | | | | At | Signature | + +---------+ + + + | Glucose, | 140 (H) | 70 - 109 mg/dL | [facility] | | | POC | | | [facility] | | | | | | MEDICAL | | | | | | CENTER - | | | | | | LABORATORY | | + +---------+ + + + + + | Specimen | + + | Blood | + + + + + + + | Performing | Address | City/State/Zipcode | Phone Number | | Organization | | | | + + + + + | [facility] | [address] | [place] | [phone] | | [facility] | | [address] | | | - LABORATORY | | | | + + + + + POC Glucose (12/08/2019 4:48 PM PDT) + +---------+ + + + | Component | Value | Ref Range | Performed | Pathologist | | | | | At | Signature | + +---------+ + + + | Glucose, | 128 (H) | 70 - 109 mg/dL | [facility] | | | POC | | | [facility] | | | | | | MEDICAL | | | | | | CENTER - | | | | | | LABORATORY | | + +---------+ + + + + + | Specimen | + + | Blood | + + + + + + + | Performing | Address | City/State/Zipcode | Phone Number | | Organization | | | | + + + + + | [facility] | [address] | [place] | [phone] | | [facility] | | [address] | | | - LABORATORY | | | | + + + + + POC Glucose (12/08/2019 11:52 AM PDT) + +---------+ + + + | Component | Value | Ref Range | Performed | Pathologist | | | | | At | Signature | + +---------+ + + + | Glucose, | 169 (H) | 70 - 109 mg/dL | [facility] | | | POC | | | [facility] | | | | | | MEDICAL | | | | | | CENTER - | | | | | | LABORATORY | | + +---------+ + + + + + | Specimen | + + | Blood | + + + + + + + | Performing | Address | City/State/Zipcode | Phone Number | | Organization | | | | + + + + + | [facility] | [address] | [place] | [phone] | | [facility] | | [address] | | | - LABORATORY | | | | + + + + + POC Glucose (12/08/2019 6:32 AM PDT) + +---------+ + + + | Component | Value | Ref Range | Performed | Pathologist | | | | | At | Signature | + +---------+ + + + | Glucose, | 157 (H) | 70 - 109 mg/dL | [facility] | | | POC | | | [facility] | | | | | | MEDICAL | | | | | | CENTER - | | | | | | LABORATORY | | + +---------+ + + + + + | Specimen | + + | Blood | + + + + + + + | Performing | Address | City/State/Zipcode | Phone Number | | Organization | | | | + + + + + | [facility] | [address] | [place] | [phone] | | [facility] | | [address] | | | - LABORATORY | | | | + + + + + Hepatic Function Panel (12/08/2019 12:16 AM PDT) + + + + + + | Component | Value | Ref Range | Performed | Pathologist | | | | | At | Signature | + + + + + + | Bilirubin | 5.8 (H) | 0.3 - 1.2 mg/dL | [facility] | | | Total | | | [facility] | | | | | | MEDICAL | | | | | | CENTER - | | | | | | LABORATORY | | + + + + + + | Total | 5.9 | 5.7 - 8.2 g/dL | [facility] | | | Protein | | | [facility] | | | | | | MEDICAL | | | | | | CENTER - | | | | | | LABORATORY | | + + + + + + | Albumin | 2.6 (L) | 3.2 - 4.8 g/dL | [facility] | | | | | | [facility] | | | | | | MEDICAL | | | | | | CENTER - | | | | | | LABORATORY | | + + + + + + | AST | 76 (H) | 0 - 34 U/L | [facility] | | | | | | [facility] | | | | | | MEDICAL | | | | | | CENTER - | | | | | | LABORATORY | | + + + + + + | ALT | 32 | 10 - 49 U/L | [facility] | | | | | | [facility] | | | | | | MEDICAL | | | | | | CENTER - | | | | | | LABORATORY | | + + + + + + | Alkaline | 208 (H) | 46 - 116 U/L | [facility] | | | Phosphatase | | | [facility] | | | | | | MEDICAL | | | | | | CENTER - | | | | | | LABORATORY | | + + + + + + | Globulin | 3.3 | 2.1 - 3.8 g/dL | [facility] | | | | | | [facility] | | | | | | MEDICAL | | | | | | CENTER - | | | | | | LABORATORY | | + + + + + + | Albumin/Katrin | 0.8 | 0.8 - 1.9 | [facility] | | | bulin Ratio | | | [facility] | | | | | | MEDICAL | | | | | | CENTER - | | | | | | LABORATORY | | + + + + + + | Bilirubin, | 5.30 (H) | 0.00 - 0.30 | [facility] | | | Direct | | mg/dl | [facility] | | | | | | MEDICAL | | | | | | CENTER - | | | | | | LABORATORY | | + + + + + + + + | Specimen | + + | Blood | + + + + + + + | Performing | Address | City/State/Zipcode | Phone Number | | Organization | | | | + + + + + | [facility] | [address] | [place] | [phone] | | [facility] | | [address] | | | - LABORATORY | | | | + + + + + Basic Metabolic Panel (12/08/2019 12:16 AM PDT) + + + + + + | Component | Value | Ref Range | Performed | Pathologist | | | | | At | Signature | + + + + + + | Na | 131 (L) | 136 - 145 | [facility] | | | | | mmol/L | [facility] | | | | | | MEDICAL | | | | | | CENTER - | | | | | | LABORATORY | | + + + + + + | K | 3.8 | 3.4 - 5.1 | [facility] | | | | | mmol/L | [facility] | | | | | | MEDICAL | | | | | | CENTER - | | | | | | LABORATORY | | + + + + + + | Cl | 97 (L) | 98 - 107 mmol/L | [facility] | | | | | | [facility] | | | | | | MEDICAL | | | | | | CENTER - | | | | | | LABORATORY | | + + + + + + | CO2 | 25 | 20 - 31 mmol/L | [facility] | | | | | | [facility] | | | | | | MEDICAL | | | | | | CENTER - | | | | | | LABORATORY | | + + + + + + | Anion Gap | 9 | 3 - 16 mmol/L | [facility] | | | | | | [facility] | | | | | | MEDICAL | | | | | | CENTER - | | | | | | LABORATORY | | + + + + + + | Glucose | 130 (H) | 60 - 106 mg/dL | [facility] | | | | | | [facility] | | | | | | MEDICAL | | | | | | CENTER - | | | | | | LABORATORY | | + + + + + + | BUN | 41 (H) | 9 - 23 mg/dL | [facility] | | | | | | [facility] | | | | | | MEDICAL | | | | | | CENTER - | | | | | | LABORATORY | | + + + + + + | Creatinine | 2.07 (H) | 0.70 - 1.30 | [facility] | | | | | mg/dL | [facility] | | | | | | MEDICAL | | | | | | CENTER - | | | | | | LABORATORY | | + + + + + + | eGFR, | 35 (L)Comment: | >=60 | [facility] | | | non- | GLOMERULAR FILTRATION | mL/min/1.73m2 | [facility] | | | [place] | RATE,ESTIMATED | | MEDICAL | | | | mL/min/1.87f2Qitt than | | CENTER - | | | | 60 Chronic kidney | | LABORATORY | | | | disease,if found over a | | | | | | 3-month period.Less than | | | | | | 15 Kidney failureFor | | | | | | | | | | | | Americans,multiply the | | | | | | calculated GFR by 1.21. | | | | | | | | | | + + + + + + | Calcium | 8.1 (L) | 8.7 - 10.4 | [facility] | | | | | mg/dL | [facility] | | | | | | MEDICAL | | | | | | CENTER - | | | | | | LABORATORY | | + + + + + + | BUN/Creatin | 19.8 | | [facility] | | | ine Ratio | | | [facility] | | | | | | MEDICAL | | | | | | CENTER - | | | | | | LABORATORY | | + + + + + + + + | Specimen | + + | Blood | + + + + + + + | Performing | Address | City/State/Zipcode | Phone Number | | Organization | | | | + + + + + | [facility] | [address] | [place] | [phone] | | [facility] | | [address] | | | - LABORATORY | | | | + + + + + CBC with Differential (12/08/2019 12:15 AM PDT) + + + + + + | Component | Value | Ref Range | Performed | Pathologist | | | | | At | Signature | + + + + + + | White Blood | 15.7 (H) | 4.0 - 11.0 K/uL | [facility] | | | Cells | | | [facility] | | | | | | MEDICAL | | | | | | CENTER - | | | | | | LABORATORY | | + + + + + + | Red Blood | 3.80 (L) | 4.30 - 5.70 | [facility] | | | Cells | | M/uL | [facility] | | | | | | MEDICAL | | | | | | CENTER - | | | | | | LABORATORY | | + + + + + + | Hemoglobin | 12.2 (L) | 13.5 - 18.0 | [facility] | | | | | g/dL | [facility] | | | | | | MEDICAL | | | | | | CENTER - | | | | | | LABORATORY | | + + + + + + | Hematocrit | 34.0 (L) | 40.0 - 51.0 % | [facility] | | | | | | [facility] | | | | | | MEDICAL | | | | | | CENTER - | | | | | | LABORATORY | | + + + + + + | MCV | 89.5 | 83.0 - 101.0 fL | [facility] | | | | | | [facility] | | | | | | MEDICAL | | | | | | CENTER - | | | | | | LABORATORY | | + + + + + + | MCH | 32.1 | 28.0 - 35.0 pg | [facility] | | | | | | [facility] | | | | | | MEDICAL | | | | | | CENTER - | | | | | | LABORATORY | | + + + + + + | MCHC | 35.9 | 32.0 - 36.0 | [facility] | | | | | g/dL | [facility] | | | | | | MEDICAL | | | | | | CENTER - | | | | | | LABORATORY | | + + + + + + | RDW-CV | 13.4 | <15.0 % | [facility] | | | | | | [facility] | | | | | | MEDICAL | | | | | | CENTER - | | | | | | LABORATORY | | + + + + + + | RDW-SD | 43.9 | 35.1 - 46.3 fL | [facility] | | | | | | [facility] | | | | | | MEDICAL | | | | | | CENTER - | | | | | | LABORATORY | | + + + + + + | Platelet | 142 | 140 - 440 K/uL | [facility] | | | Count | | | [facility] | | | | | | MEDICAL | | | | | | CENTER - | | | | | | LABORATORY | | + + + + + + | MPV | 10.5 | 6.5 - 12.4 fL | [facility] | | | | | | [facility] | | | | | | MEDICAL | | | | | | CENTER - | | | | | | LABORATORY | | + + + + + + | % | 80.3 | 45.0 - 82.0 % | [facility] | | | Neutrophils | | | [facility] | | | | | | MEDICAL | | | | | | CENTER - | | | | | | LABORATORY | | + + + + + + | % | 8.8 (L) | 20.0 - 45.0 % | [facility] | | | Lymphocytes | | | [facility] | | | | | | MEDICAL | | | | | | CENTER - | | | | | | LABORATORY | | + + + + + + | % Monocytes | 8.1 | 4.0 - 12.0 % | [facility] | | | | | | [facility] | | | | | | MEDICAL | | | | | | CENTER - | | | | | | LABORATORY | | + + + + + + | % | 0.6 | 0.0 - 5.0 % | [facility] | | | Eosinophils | | | [facility] | | | | | | MEDICAL | | | | | | CENTER - | | | | | | LABORATORY | | + + + + + + | % Basophils | 0.4 | 0.0 - 1.0 % | [facility] | | | | | | [facility] | | | | | | MEDICAL | | | | | | CENTER - | | | | | | LABORATORY | | + + + + + + | % Immature | 1.8 (H)Comment: | 0.0 - 0.4 % | [facility] | | | Granulocyte | Preliminary studies have | | [facility] | | | s | indicated the IG% | | MEDICAL | | | | and/or IG# show promise | | CENTER - | | | | as an early indicator | | LABORATORY | | | | for infection. | | | | + + + + + + | Absolute | 12.60 (H) | 1.80 - 8.50 | [facility] | | | Neutrophils | | K/uL | [facility] | | | | | | MEDICAL | | | | | | CENTER - | | | | | | LABORATORY | | + + + + + + | Absolute | 1.38 | 0.60 - 3.20 | [facility] | | | Lymphocytes | | K/uL | [facility] | | | | | | MEDICAL | | | | | | CENTER - | | | | | | LABORATORY | | + + + + + + | Absolute | 1.27 (H) | 0.00 - 1.00 | [facility] | | | Monocytes | | K/uL | [facility] | | | | | | MEDICAL | | | | | | CENTER - | | | | | | LABORATORY | | + + + + + + | Absolute | 0.10 | 0.00 - 0.40 | [facility] | | | Eosinophils | | K/uL | [facility] | | | | | | MEDICAL | | | | | | CENTER - | | | | | | LABORATORY | | + + + + + + | Absolute | 0.06 | 0.00 - 0.10 | [facility] | | | Basophils | | K/uL | [facility] | | | | | | MEDICAL | | | | | | CENTER - | | | | | | LABORATORY | | + + + + + + | Absolute | 0.28 (H) | 0.00 - 0.03 | [facility] | | | Immature | | K/uL | [facility] | | | Granulocyte | | | MEDICAL | | | s | | | CENTER - | | | | | | LABORATORY | | + + + + + + | % nRBC | 0 | 0 - 2 per 100 | [facility] | | | | | WBCs | [facility] | | | | | | MEDICAL | | | | | | CENTER - | | | | | | LABORATORY | | + + + + + + | Absolute | 0.00 | 0.00 - 0.01 | [facility] | | | nRBC | | K/uL | [facility] | | | | | | MEDICAL | | | | | | CENTER - | | | | | | LABORATORY | | + + + + + + + + | Specimen | + + | Blood | + + + + + + + | Performing | Address | City/State/Zipcode | Phone Number | | Organization | | | | + + + + + | [facility] | [address] | [place] | [phone] | | [facility] | | [address] | | | - LABORATORY | | | | + + + + + POC Glucose (12/07/2019 9:28 PM PDT) + +---------+ + + + | Component | Value | Ref Range | Performed | Pathologist | | | | | At | Signature | + +---------+ + + + | Glucose, | 141 (H) | 70 - 109 mg/dL | [facility] | | | POC | | | [facility] | | | | | | MEDICAL | | | | | | CENTER - | | | | | | LABORATORY | | + +---------+ + + + + + | Specimen | + + | Blood | + + + + + + + | Performing | Address | City/State/Zipcode | Phone Number | | Organization | | | | + + + + + | [facility] | [address] | [place] | [phone] | | [facility] | | [address] | | | - LABORATORY | | | | + + + + + POC Glucose (12/07/2019 5:08 PM PDT) + +---------+ + + + | Component | Value | Ref Range | Performed | Pathologist | | | | | At | Signature | + +---------+ + + + | Glucose, | 159 (H) | 70 - 109 mg/dL | [facility] | | | POC | | | [facility] | | | | | | MEDICAL | | | | | | CENTER - | | | | | | LABORATORY | | + +---------+ + + + + + | Specimen | + + | Blood | + + + + + + + | Performing | Address | City/State/Zipcode | Phone Number | | Organization | | | | + + + + + | [facility] | [address] | [place], [place] | [phone] | | [facility] | | [address] | | | - LABORATORY | | | | + + + + + POC Glucose (12/07/2019 11:59 AM PDT) + +---------+ + + + | Component | Value | Ref Range | Performed | Pathologist | | | | | At | Signature | + +---------+ + + + | Glucose, | 188 (H) | 70 - 109 mg/dL | [facility] | | | POC | | | [facility] | | | | | | MEDICAL | | | | | | CENTER - | | | | | | LABORATORY | | + +---------+ + + + + + | Specimen | + + | Blood | + + + + + + + | Performing | Address | City/State/Zipcode | Phone Number | | Organization | | | | + + + + + | [facility] | [address] | [place] | [phone] | | [facility] | | [address] | | | - LABORATORY | | | | + + + + + POC Glucose (12/07/2019 6:41 AM PDT) + +---------+ + + + | Component | Value | Ref Range | Performed | Pathologist | | | | | At | Signature | + +---------+ + + + | Glucose, | 131 (H) | 70 - 109 mg/dL | [facility] | | | POC | | | [facility] | | | | | | MEDICAL | | | | | | CENTER - | | | | | | LABORATORY | | + +---------+ + + + + + | Specimen | + + | Blood | + + + + + + + | Performing | Address | City/State/Zipcode | Phone Number | | Organization | | | | + + + + + | [facility] | [address] | [place] | [phone] | | [facility] | | [address] | | | - LABORATORY | | | | + + + + + Culture, Blood (12/07/2019 4:46 AM PDT) + + + + + + | Component | Value | Ref Range | Performed | Pathologist | | | | | At | Signature | + + + + + + | Culture | No growth after 5 days | | [facility] | | | | incubation. | | [facility] | | | | | | MEDICAL | | | | | | CENTER - | | | | | | LABORATORY | | + + + + + + + + | Specimen | + + | Blood - Peripheral | | blood specimen | | (specimen) | + + + + + + + | Performing | Address | City/State/Zipcode | Phone Number | | Organization | | | | + + + + + | [facility] | [address] | [place] | [phone] | | [facility] | | [address] | | | - LABORATORY | | | | + + + + + Blood Culture GN Panel, PCR (12/07/2019 4:42 AM PDT) + + + + + + | Component | Value | Ref Range | Performed | Pathologist | | | | | At | Signature | + + + + + + | Escherichia | Detected (AA)Comment: | Not Detected | [facility] | | | coli, DNA | Critical Result called | | [facility] | | | | to and read back by | | MEDICAL | | | | Jeremy Bowman, | | CENTER - | | | | PharmDanilo on 12/08/2019 at | | LABORATORY | | | | 8:39 PM by Bria | | | | | | GABRIELLE Stephens | | | | + + + + + + | Pseudomonas | Not Detected | Not Detected | [facility] | | | | | | [facility] | | | aeruginosa, | | | MEDICAL | | | DNA | | | CENTER - | | | | | | LABORATORY | | + + + + + + | Klebsiella | Not Detected | Not Detected | [facility] | | | pneumoniae, | | | [facility] | | | DNA | | | MEDICAL | | | | | | CENTER - | | | | | | LABORATORY | | + + + + + + | Klebsiella | Not Detected | Not Detected | [facility] | | | oxytoca, | | | [facility] | | | DNA | | | MEDICAL | | | | | | CENTER - | | | | | | LABORATORY | | + + + + + + | CTX-M (ESBL | Not Detected | Not Detected | [facility] | | | resistance | | | [facility] | | | gene), DNA | | | MEDICAL | | | | | | CENTER - | | | | | | LABORATORY | | + + + + + + | Enterobacte | Not Detected | Not Detected | [facility] | | | r species, | | | [facility] | | | DNA | | | MEDICAL | | | | | | CENTER - | | | | | | LABORATORY | | + + + + + + | Proteus | Not Detected | Not Detected | [facility] | | | species, | | | [facility] | | | DNA | | | MEDICAL | | | | | | CENTER - | | | | | | LABORATORY | | + + + + + + | Acinetobact | Not Detected | Not Detected | [facility] | | | er species, | | | [facility] | | | DNA | | | MEDICAL | | | | | | CENTER - | | | | | | LABORATORY | | + + + + + + | Citrobacter | Not Detected | Not Detected | [facility] | | | species, | | | [facility] | | | DNA | | | MEDICAL | | | | | | CENTER - | | | | | | LABORATORY | | + + + + + + | OXA (CRE | Not Detected | Not Detected | [facility] | | | resistance | | | [facility] | | | gene), DNA | | | MEDICAL | | | | | | CENTER - | | | | | | LABORATORY | | + + + + + + | IMP (CRE | Not Detected | Not Detected | [facility] | | | resistance | | | [facility] | | | gene), DNA | | | MEDICAL | | | | | | CENTER - | | | | | | LABORATORY | | + + + + + + | KPC (CRE | Not Detected | Not Detected | [facility] | | | resistance | | | [facility] | | | gene), DNA | | | MEDICAL | | | | | | CENTER - | | | | | | LABORATORY | | + + + + + + | VIM (CRE | Not Detected | Not Detected | [facility] | | | resistance | | | [facility] | | | gene), DNA | | | MEDICAL | | | | | | CENTER - | | | | | | LABORATORY | | + + + + + + | NDM (CRE | Not Detected | Not Detected | [facility] | | | resistance | | | [facility] | | | gene), DNA | | | MEDICAL | | | | | | CENTER - | | | | | | LABORATORY | | + + + + + + + + | Specimen | + + | Blood - Peripheral | | blood specimen | | (specimen) | + + + + + + + | Performing | Address | City/State/Zipcode | Phone Number | | Organization | | | | + + + + + | [facility] | [address] | [place] | [phone] | | [facility] | | [address] | | | - LABORATORY | | | | + + + + + Culture, Blood (12/07/2019 4:42 AM PDT) + + + + + + | Component | Value | Ref Range | Performed | Pathologist | | | | | At | Signature | + + + + + + | Culture | Positive Blood Culture | | [facility] | | | | (AA) | [facility] | | | | | [facility] | | | | | | CENTER - | | | | | | LABORATORY | | + + + + + + | Culture | Escherichia coli | | [facility] | | | | | | [facility] | | | | | | MEDICAL | | | | | | CENTER - | | | | | | LABORATORY | | + + + + + + | Gram Stain | Gram negative | | [facility] | | | Result | rodsComment: | | [facility] | | | | Critical Result called | | MEDICAL | | | | to and read back by | | CENTER - | | | | Allie Loya RN on | | LABORATORY | | | | 12/08/2019 at 6:17 PM by | | | | | | Bria Stephens [place] | | | | + + + + + + + + | Specimen | + + | Blood - Peripheral | | blood specimen | | (specimen) | + + + + +--------+ + | Organism | Antibiotic | Method | Susceptibility | + + +--------+ + | Escherichia coli | Cefazolin | | <=4 ug/mL: | | | | | Sensitive | + + +--------+ + | Escherichia coli | Cefoxitin | | <=4 ug/mL: | | | | | Sensitive | + + +--------+ + | Escherichia coli | Ceftazidime | | <=1 ug/mL: | | | | | Sensitive | + + +--------+ + | Escherichia coli | Ceftriaxone | | <=1 ug/mL: | | | | | Sensitive | + + +--------+ + | Escherichia coli | Ciprofloxacin | | <=0.25 ug/mL: | | | | | Sensitive | + + +--------+ + | Escherichia coli | Ertapenem | | <=0.5 ug/mL: | | | | | Sensitive | + + +--------+ + | Escherichia coli | Gentamicin | | <=1 ug/mL: | | | | | Sensitive | + + +--------+ + | Escherichia coli | Meropenem | | <=0.25 ug/mL: | | | | | Sensitive | + + +--------+ + | Escherichia coli | Tobramycin | | <=1 ug/mL: | | | | | Sensitive | + + +--------+ + | Escherichia coli | Trimethoprim + | | <=20 ug/mL: | | | Sulfamethoxazole | | Sensitive | + + +--------+ + + + + + + | Performing | Address | City/State/Zipcode | Phone Number | | Organization | | | | + + + + + | [facility] | [address] | [place] | [phone] | | [facility] | | [address] | | | - LABORATORY | | | | + + + + + Hepatic Function Panel (12/07/2019 12:30 AM PDT) + + + + + + | Component | Value | Ref Range | Performed | Pathologist | | | | | At | Signature | + + + + + + | Bilirubin | 6.6 (H) | 0.3 - 1.2 mg/dL | [facility] | | | Total | | | [facility] | | | | | [facility] - | | | | | | [facility]ATORY | | + + + + + + | Total | 6.2 | 5.7 - 8.2 g/dL | [facility] | | | Protein | | | [facility] | | | | | | [facility] | | | [facility] - | | | | | | [facility]ATORY | | + + + + + + | Albumin | 2.8 (L) | 3.2 - 4.8 g/dL | [facility] | | | | | | [facility] | | | | [facility] | | | | | [facility] - | | | | | | [facility]ATORY | | + + + + + + | AST | 82 (H) | 0 - 34 U/L | [facility] | | | | | | [facility] | | [facility] - | | | | | | [facility]ATORY | | + + + + + + | ALT | 39 | 10 - 49 U/L | [facility] | | | | | | [facility] | | [facility] - | | | | | | [facility]ATORY | | + + + + + + | Alkaline | 185 (H) | 46 - 116 U/L | [facility] | | | Phosphatase | | | [facility] | | | | | | [facility] | | | | | | [facility] - | | | | | | [facility]ATORY | | + + + + + + | Globulin | 3.4 | 2.1 - 3.8 g/dL | [facility] | | | | | | [facility] | | [facility] | | | [facility] | | | | | [facility] - | | | | | | [facility]ATORY | | + + + + + + | Albumin/Katrin | 0.8 | 0.8 - 1.9 | [facility] | | | bulin Ratio | | | [facility] | | | | | | [facility] | | | | | | [facility] - | | | | | | LAB[facility]ATORY | | + + + + + + | Bilirubin, | 5.80 (H) | 0.00 - 0.30 | [facility] | | | Direct | | mg/dl | [facility] | | | | | | [facility] | | | | | | [facility] - | | | | | | LAB[facility]ATORY | | + + + + + + + + | Specimen | + + | Blood | + + + + + + + | Performing | Address | City/State/Zipcode | Phone Number | | Organization | | | | + + + + + | [facility] | [address] | [place] | [phone] | | [facility] | | [address] | | | - LABORATORY | | | | + + + + + Basic Metabolic Panel (12/07/2019 12:30 AM PDT) + + + + + + | Component | Value | Ref Range | Performed | Pathologist | | | | | At | Signature | + + + + + + | Na | 128 (L) | 136 - 145 | [facility] | | | | | mmol/L | [facility] | | | | | | [facility] | | | | | | [facility] - | | | | | | LABORATORY | | + + + + + + | K | 3.4 | 3.4 - 5.1 | [facility] | | | | | mmol/L | [facility] | | | | | | [facility] | | | | | | [facility] - | | | | | | LABORATORY | | + + + + + + | Cl | 92 (L) | 98 - 107 mmol/L | [facility] | | | | | | [facility] | | | | | | [facility] | | | | | [facility] - | | | | | | LAB[facility]ATORY | | + + + + + + | CO2 | 26 | 20 - 31 mmol/L | [facility] | | | | | | [facility] | | | | | | [facility] | | | | | [facility] - | | | | | | LAB[facility]ATORY | | + + + + + + | Anion Gap | 10 | 3 - 16 mmol/L | [facility] | | [facility] - | | | | | | LAB[facility]ATORY | | + + + + + + | Glucose | 151 (H) | 60 - 106 mg/dL | [facility] | [facility] | [facility] - | | | | | | [facility]ATORY | | + + + + + + | BUN | 57 (H) | 9 - 23 mg/dL | [facility] | [facility] | [facility] | | | | [facility] - | | | | | | LAB[facility]ATORY | | + + + + + + | Creatinine | 2.52 (H) | 0.70 - 1.30 | [facility] | | | | | mg/dL | [facility] | | | [facility] | | [facility] | | | | | | [facility] - | | | | | | LABORATORY | | + + + + + + | eGFR, | 28 (L)Comment: | >=60 | [facility] | | | non- | GLOMERULAR FILTRATION | mL/min/1.73m2 | [facility] | | | [place] | RATE,ESTIMATED | | MEDICAL | | | | mL/min/1.77r3Dajx than | | CENTER - | | | | 60 Chronic kidney | | LABORATORY | | | | disease,if found over a | | | | | | 3-month period.Less than | | | | | | 15 Kidney failureFor | | | | | | | | | | | | Americans,multiply the | | | | | | calculated GFR by 1.21. | | | | | | | | | | + + + + + + | Calcium | 8.1 (L) | 8.7 - 10.4 | [facility] | | | | | mg/dL | [facility] | | | | | | [facility] - | | | | | | LAB[facility]ATORY | | + + + + + + | BUN/Creatin | 22.6 | | [facility] | | | ine Ratio | | | [facility] | | | | | | [facility] | | | | | | [facility] - | | | | | | LABORATORY | | + + + + + + + + | Specimen | + + | Blood | + + + + + + + | Performing | Address | City/State/Zipcode | Phone Number | | Organization | | | | + + + + + | [facility] | [address] | [place] | [phone] | | [facility] | | [address] | | | - LABORATORY | | | | + + + + + CBC with Differential (12/07/2019 12:30 AM PDT) + + + + + + | Component | Value | Ref Range | Performed | Pathologist | | | | | At | Signature | + + + + + + | White Blood | 17.6 (H) | 4.0 - 11.0 K/uL | [facility] | | | Cells | | | [facility] | [facility] | [facility] | | | [facility] - | | | | | | LABORATORY | | + + + + + + | Red Blood | 3.97 (L) | 4.30 - 5.70 | [facility] | | | Cells | | M/uL | [facility] | | | | | | [facility] | | | | | | [facility] - | | | | | | LABORATORY | | + + + + + + | Hemoglobin | 13.0 (L) | 13.5 - 18.0 | [facility] | | | | | g/dL | [facility] | | | | | | [facility] | | | | | | [facility] - | | | | | | LABORATORY | | + + + + + + | Hematocrit | 35.2 (L) | 40.0 - 51.0 % | [facility] | | | | | | [facility] | | | | | | [facility] | | | | | | [facility] - | | | | | | LABORATORY | | + + + + + + | MCV | 88.7 | 83.0 - 101.0 fL | [facility] | | | | | | [facility] | | | | | | [facility] | | | | | | [facility] - | | | | | | LABORATORY | | + + + + + + | MCH | 32.7 | 28.0 - 35.0 pg | [facility] | | | | | | [facility] | | | [facility] | | [facility] | | | | | | [facility] - | | | | | | LABORATORY | | + + + + + + | MCHC | 36.9 (H) | 32.0 - 36.0 | [facility] | | | | | g/dL | [facility] | | | | | | [facility] | | | | | | C[facility] - | | | | | | LABORATORY | | + + + + + + | RDW-CV | 13.1 | <15.0 % | [facility] | | | | | [facility] | | | [facility] | [facility] | | | | | | [facility] - | | | | | | LAB[facility]ATORY | | + + + + + + | RDW-SD | 42.5 | 35.1 - 46.3 fL | [facility] | | | | | | [facility] | | | | | | [facility] | | | | | | [facility] - | | | | | | LABORATORY | | + + + + + + | Platelet | 117 (L) | 140 - 440 K/uL | [facility] | | | Count | | | [facility] | | | | | | [facility] | | | | | | [facility] - | | | | | | LABORATORY | | + + + + + + | MPV | 11.4 | 6.5 - 12.4 fL | [facility] | | | | | | [facility] | | | | | | [facility] | | | | | | [facility] - | | | | | | LABORATORY | | + + + + + + | % | 82.6 (H) | 45.0 - 82.0 % | [facility] | | | Neutrophils | | | [facility] | | | | | | [facility] | | | | | | CENTER - | | | | | | LABORATORY | | + + + + + + | % | 7.0 (L) | 20.0 - 45.0 % | [facility] | | | Lymphocytes | | | [facility] | | | | | | [facility] | | | | | | [facility] - | | | | | | LABORATORY | | + + + + + + | % Monocytes | 7.5 | 4.0 - 12.0 % | [facility] | | | | | | [facility] | | | | | | [facility] | | | | | | [facility] - | | | | | | LABORATORY | | + + + + + + | % | 0.6 | 0.0 - 5.0 % | [facility] | | | Eosinophils | | | [facility] | | | | | | [facility] | | | | | | [facility] - | | | | | | LABORATORY | | + + + + + + | % Basophils | 0.5 | 0.0 - 1.0 % | [facility] | | | | | | [facility] | | | | | | [facility] | | | | | | [facility] - | | | | | | LABORATORY | | + + + + + + | % Immature | 1.8 (H)Comment: | 0.0 - 0.4 % | [facility] | | | Granulocyte | Preliminary studies have | | [facility] | | | s | indicated the IG% | | MEDICAL | | | | and/or IG# show promise | | CENTER - | | | | as an early indicator | | LABORATORY | | | | for infection. | | | | + + + + + + | Absolute | 14.55 (H) | 1.80 - 8.50 | [facility] | | | Neutrophils | | K/uL | [facility] | | | | | | [facility] | | | | | | CENTER - | | | | | | LABORATORY | | + + + + + + | Absolute | 1.23 | 0.60 - 3.20 | [facility] | | | Lymphocytes | | K/uL | [facility] | | | | | | [facility] | | | | | | CENTER - | | | | | | LABORATORY | | + + + + + + | Absolute | 1.32 (H) | 0.00 - 1.00 | [facility] | | | Monocytes | | K/uL | [facility] | | | | | | [facility] | | | | | | CENTER - | | | | | | LABORATORY | | + + + + + + | Absolute | 0.10 | 0.00 - 0.40 | [facility] | | | Eosinophils | | K/uL | [facility] | | | | | | [facility] | | | | | | CENTER - | | | | | | LABORATORY | | + + + + + + | Absolute | 0.08 | 0.00 - 0.10 | [facility] | | | Basophils | | K/uL | [facility] | | | | | | [facility] | | | | | | CENTER - | | | | | | LABORATORY | | + + + + + + | Absolute | 0.32 (H) | 0.00 - 0.03 | [facility] | | | Immature | | K/uL | [facility] | | | Granulocyte | | | MEDICAL | | | s | | | CENTER - | | | | | | LABORATORY | | + + + + + + | % nRBC | 0 | 0 - 2 per 100 | [facility] | | | | | WBCs | [facility] | | | | | | [facility] | | | | | | [facility]ENTER - | | | | | | LABORATORY | | + + + + + + | Absolute | 0.00 | 0.00 - 0.01 | [facility] | | | nRBC | | K/uL | [facility] | | | | | | [facility] | | | | | | [facility]ENTER - | | | | | | LABORATORY | | + + + + + + + + | Specimen | + + | Blood | + + + + + + + | Performing | Address | City/State/Zipcode | Phone Number | | Organization | | | | + + + + + | [facility] | [address] | [place] | [phone] | | [facility] | | [address] | | | - LABORATORY | | | | + + + + + POC Glucose (12/06/2019 8:17 PM PDT) + +---------+ + + + | Component | Value | Ref Range | Performed | Pathologist | | | | | At | Signature | + +---------+ + + + | Glucose, | 179 (H) | 70 - 109 mg/dL | [facility] | | | POC | | | [facility] | | | | | | [facility] | | | | | | CENTER - | | | | | | LABORATORY | | + +---------+ + + + + + | Specimen | + + | Blood | + + + + + + + | Performing | Address | City/State/Zipcode | Phone Number | | Organization | | | | + + + + + | [facility] | [address] | [place] | [phone] | | [facility] | | [address] | | | - LABORATORY | | | | + + + + + POC Glucose (12/06/2019 4:54 PM PDT) + +---------+ + + + | Component | Value | Ref Range | Performed | Pathologist | | | | | At | Signature | + +---------+ + + + | Glucose, | 188 (H) | 70 - 109 mg/dL | [facility] | | | POC | | | [facility] | | | | | | [facility] | | | | | | C[facility] - | | | | | | LABORATORY | | + +---------+ + + + + + | Specimen | + + | Blood | + + + + + + + | Performing | Address | City/State/Zipcode | Phone Number | | Organization | | | | + + + + + | [facility] | [address] | [place] | [phone] | | [facility] | | [address] | | | - LABORATORY | | | | + + + + + POC Glucose (12/06/2019 11:49 AM PDT) + +---------+ + + + | Component | Value | Ref Range | Performed | Pathologist | | | | | At | Signature | + +---------+ + + + | Glucose, | 237 (H) | 70 - 109 mg/dL | [facility] | | | POC | | | [facility] | | | | | | [facility] | | | | | | CENTER - | | | | | | LABORATORY | | + +---------+ + + + + + | Specimen | + + | Blood | + + + + + + + | Performing | Address | City/State/Zipcode | Phone Number | | Organization | | | | + + + + + | [facility] | [address] | [place] | [phone] | | [facility] | | [address] | | | - LABORATORY | | | | + + + + + POC Glucose (12/06/2019 6:40 AM PDT) + +---------+ + + + | Component | Value | Ref Range | Performed | Pathologist | | | | | At | Signature | + +---------+ + + + | Glucose, | 166 (H) | 70 - 109 mg/dL | [facility] | | | POC | | | [facility] | | | | | | [facility] | | | | | | CENTER - | | | | | | LABORATORY | | + +---------+ + + + + + | Specimen | + + | Blood | + + + + + + + | Performing | Address | City/State/Zipcode | Phone Number | | Organization | | | | + + + + + | [facility] | [address] | [place] | [phone] | | [facility] | | [address] | | | - LABORATORY | | | | + + + + + Renal Function Panel (12/06/2019 4:35 AM PDT) + + + + + + | Component | Value | Ref Range | Performed | Pathologist | | | | | At | Signature | + + + + + + | Na | 127 (L) | 136 - 145 | [facility] | | | | | mmol/L | [facility] | | | | | | [facility] | | | | | | CENTER - | | | | | | LABORATORY | | + + + + + + | K | 3.3 (L) | 3.4 - 5.1 | [facility] | | | | | mmol/L | [facility] | | | | | | [facility] | | | | | | CENTER - | | | | | | LABORATORY | | + + + + + + | Cl | 94 (L) | 98 - 107 mmol/L | [facility] | | | | | | [facility] | | | | | | [facility] | | | | | | CENTER - | | | | | | LABORATORY | | + + + + + + | CO2 | 23 | 20 - 31 mmol/L | [facility] | | | | | | [facility] | | | | | | [facility] | | | | | | CENTER - | | | | | | LABORATORY | | + + + + + + | Anion Gap | 10 | 3 - 16 mmol/L | [facility] | | | | | | [facility] | | | | | | [facility] | | | | | | CENTER - | | | | | | LABORATORY | | + + + + + + | Glucose | 176 (H) | 60 - 106 mg/dL | [facility] | | | | | | [facility] | | | | | | [facility] | | | | | | CENTER - | | | | | | LABORATORY | | + + + + + + | BUN | 71 (H) | 9 - 23 mg/dL | [facility] | | | | | | [facility] | | | | | | [facility] | | | | | | CENTER - | | | | | | LABORATORY | | + + + + + + | Creatinine | 3.14 (H) | 0.70 - 1.30 | [facility] | | | | | mg/dL | [facility] | | | | | | MEDICAL | | | | | | CENTER - | | | | | | LABORATORY | | + + + + + + | eGFR, | 22 (L)Comment: | >=60 | [facility] | | | non- | GLOMERULAR FILTRATION | mL/min/1.73m2 | [facility] | | | [place] | RATE,ESTIMATED | | MEDICAL | | | | mL/min/1.16m7Pfdu than | | CENTER - | | | | 60 Chronic kidney | | LABORATORY | | | | disease,if found over a | | | | | | 3-month period.Less than | | | | | | 15 Kidney failureFor | | | | | | | | | | | | Americans,multiply the | | | | | | calculated GFR by 1.21. | | | | | | | | | | + + + + + + | Calcium | 7.8 (L) | 8.7 - 10.4 | [facility] | | | | | mg/dL | [facility] | | | | | | MEDICAL | | | | | | CENTER - | | | | | | LABORATORY | | + + + + + + | Albumin | 2.7 (L) | 3.2 - 4.8 g/dL | [facility] | | | | | | [facility] | | | | | | [facility] | | | | | | CENTER - | | | | | | LABORATORY | | + + + + + + | Phosphorus | 3.1 | 2.4 - 5.1 mg/dL | [facility] | | | | | | [facility] | | | | | | [facility]ICAL | | | | | | CENTER - | | | | | | LABORATORY | | + + + + + + | BUN/Creatin | 22.6 | | [facility] | | | ine Ratio | | | [facility] | | | | | | [facility] | | | | | | CENTER - | | | | | | LABORATORY | | + + + + + + + + | Specimen | + + | Blood | + + + + + + + | Performing | Address | City/State/Zipcode | Phone Number | | Organization | | | | + + + + + | [facility] | [address] | [place], [place] | [phone] | | [facility] | | [address] | | | - LABORATORY | | | | + + + + + CBC with Differential (12/06/2019 4:35 AM PDT) + + + + + + | Component | Value | Ref Range | Performed | Pathologist | | | | | At | Signature | + + + + + + | White Blood | 15.5 (H) | 4.0 - 11.0 K/uL | [facility] | | | Cells | | | [facility] | | | | | | [facility] | | | | | | CENTER - | | | | | | LABORATORY | | + + + + + + | Red Blood | 3.85 (L) | 4.30 - 5.70 | [facility] | | | Cells | | M/uL | [facility] | | | | | | [facility] | | | | | | CENTER - | | | | | | LABORATORY | | + + + + + + | Hemoglobin | 12.4 (L) | 13.5 - 18.0 | [facility] | | | | | g/dL | [facility] | | | | | | [facility] | | | | | | CENTER - | | | | | | LABORATORY | | + + + + + + | Hematocrit | 34.9 (L) | 40.0 - 51.0 % | [facility] | | | | | | [facility] | | | | | | [facility] | | | | | | CENTER - | | | | | | LABORATORY | | + + + + + + | MCV | 90.6 | 83.0 - 101.0 fL | [facility] | | | | | | [facility] | | | | | | [facility] | | | | | | CENTER - | | | | | | LABORATORY | | + + + + + + | MCH | 32.2 | 28.0 - 35.0 pg | [facility] | | | | | | [facility] | | | | | | [facility] | | | | | | CENTER - | | | | | | LABORATORY | | + + + + + + | MCHC | 35.5 | 32.0 - 36.0 | [facility] | | | | | g/dL | [facility] | | | | | | [facility] | | | | | | CENTER - | | | | | | LABORATORY | | + + + + + + | RDW-CV | 13.2 | <15.0 % | [facility] | | | | | | [facility] | | | | | | [facility] | | | | | | CENTER - | | | | | | LABORATORY | | + + + + + + | RDW-SD | 43.8 | 35.1 - 46.3 fL | [facility] | | | | | | [facility] | | | | | | [facility] | | | | | | CENTER - | | | | | | LABORATORY | | + + + + + + | Platelet | 79 (L) | 140 - 440 K/uL | [facility] | | | Count | | | [facility] | | | | | | [facility] | | | | | | CENTER - | | | | | | LABORATORY | | + + + + + + | MPV | 12.3 | 6.5 - 12.4 fL | [facility] | | | | | | [facility] | | | | | | [facility] | | | | | | CENTER - | | | | | | LABORATORY | | + + + + + + | % | 83.0 (H) | 45.0 - 82.0 % | [facility] | | | Neutrophils | | | [facility] | | | | | | [facility] | | | | | | CENTER - | | | | | | LABORATORY | | + + + + + + | % | 5.9 (L) | 20.0 - 45.0 % | [facility] | | | Lymphocytes | | | [facility] | | | | | | [facility] | | | | | | CENTER - | | | | | | LABORATORY | | + + + + + + | % Monocytes | 8.1 | 4.0 - 12.0 % | [facility] | | | | | | [facility] | | | | | | [facility] | | | | | | CENTER - | | | | | | LABORATORY | | + + + + + + | % | 0.8 | 0.0 - 5.0 % | [facility] | | | Eosinophils | | | [facility] | | | | | | [facility]ICAL | | | | | | CENTER - | | | | | | LABORATORY | | + + + + + + | % Basophils | 0.5 | 0.0 - 1.0 % | [facility] | | | | | | [facility] | | | | | | [facility] | | | | | | CENTER - | | | | | | LABORATORY | | + + + + + + | % Immature | 1.7 (H)Comment: | 0.0 - 0.4 % | [facility] | | | Granulocyte | Preliminary studies have | | [facility] | | | s | indicated the IG% | | MEDICAL | | | | and/or IG# show promise | | CENTER - | | | | as an early indicator | | LABORATORY | | | | for infection. | | | | + + + + + + | Absolute | 12.84 (H) | 1.80 - 8.50 | [facility] | | | Neutrophils | | K/uL | [facility] | | | | | | [facility] | | | | | | CENTER - | | | | | | LABORATORY | | + + + + + + | Absolute | 0.91 | 0.60 - 3.20 | [facility] | | | Lymphocytes | | K/uL | [facility] | | | | | | [facility] | | | | | | CENTER - | | | | | | LABORATORY | | + + + + + + | Absolute | 1.26 (H) | 0.00 - 1.00 | [facility] | | | Monocytes | | K/uL | [facility] | | | | | | [facility] | | | | | | CENTER - | | | | | | LABORATORY | | + + + + + + | Absolute | 0.13 | 0.00 - 0.40 | [facility] | | | Eosinophils | | K/uL | [facility] | | | | | | [facility] | | | | | | CENTER - | | | | | | LABORATORY | | + + + + + + | Absolute | 0.07 | 0.00 - 0.10 | [facility] | | | Basophils | | K/uL | [facility] | | | | | | [facility] | | | | | | CENTER - | | | | | | LABORATORY | | + + + + + + | Absolute | 0.26 (H) | 0.00 - 0.03 | [facility] | | | Immature | | K/uL | [facility] | | | Granulocyte | | | MEDICAL | | | s | | | CENTER - | | | | | | LABORATORY | | + + + + + + | % nRBC | 0 | 0 - 2 per 100 | [facility] | | | | | WBCs | [facility] | | | | | | [facility] | | | | | | CENTER - | | | | | | LABORATORY | | + + + + + + | Absolute | 0.02 (H)Comment: | 0.00 - 0.01 | [facility] | | | nRBC | Presence of any NRBC's | K/uL | [facility] | | | | in adults is clinically | | MEDICAL | | | | significant. | | CENTER - | | | | | | LABORATORY | | + + + + + + + + | Specimen | + + | Blood | + + + + + + + | Performing | Address | City/State/Zipcode | Phone Number | | Organization | | | | + + + + + | [facility] | [address] | [place] | [phone] | | [facility] | | [address] | | | - LABORATORY | | | | + + + + + Hepatic Function Panel (12/06/2019 12:01 AM PDT) + + + + + + | Component | Value | Ref Range | Performed | Pathologist | | | | | At | Signature | + + + + + + | Bilirubin | 5.8 (H) | 0.3 - 1.2 mg/dL | [facility] | | | Total | | | [facility] | | | | | | [facility] | | | | | | CENTER - | | | | | | LABORATORY | | + + + + + + | Total | 5.7 | 5.7 - 8.2 g/dL | [facility] | | | Protein | | | [facility] | | | | | | [facility]ICAL | | | | | | CENTER - | | | | | | LABORATORY | | + + + + + + | Albumin | 2.6 (L) | 3.2 - 4.8 g/dL | [facility] | | | | | | [facility] | | | | | | [facility] | | | | | | CENTER - | | | | | | LABORATORY | | + + + + + + | AST | 74 (H) | 0 - 34 U/L | [facility] | | | | | | [facility] | | | | | | [facility] | | | | | | CENTER - | | | | | | LABORATORY | | + + + + + + | ALT | 38 | 10 - 49 U/L | [facility] | | | | | | [facility] | | | | | | [facility] | | | | | | CENTER - | | | | | | LABORATORY | | + + + + + + | Alkaline | 138 (H) | 46 - 116 U/L | [facility] | | | Phosphatase | | | [facility] | | | | | | [facility]ICAL | | | | | | CENTER - | | | | | | LABORATORY | | + + + + + + | Globulin | 3.1 | 2.1 - 3.8 g/dL | [facility] | | | | | | [facility] | | | | | | [facility] | | | | | | CENTER - | | | | | | LABORATORY | | + + + + + + | Albumin/Katrin | 0.8 | 0.8 - 1.9 | [facility] | | | bulin Ratio | | | [facility] | | | | | | [facility] | | | | | | CENTER - | | | | | | LABORATORY | | + + + + + + | Bilirubin, | 5.20 (H) | 0.00 - 0.30 | [facility] | | | Direct | | mg/dl | [facility] | | | | | | [facility]ICAL | | | | | | CENTER - | | | | | | LABORATORY | | + + + + + + + + | Specimen | + + | Blood | + + + + + + + | Performing | Address | City/State/Zipcode | Phone Number | | Organization | | | | + + + + + | [facility] | [address] | [place], [place] | [phone] | | [facility] | | [address] | | | - LABORATORY | | | | + + + + + Basic Metabolic Panel (12/06/2019 12:01 AM PDT) + + + + + + | Component | Value | Ref Range | Performed | Pathologist | | | | | At | Signature | + + + + + + | Na | 127 (L) | 136 - 145 | [facility] | | | | | mmol/L | [facility] | | | | | | [facility] | | | | | | CENTER - | | | | | | LABORATORY | | + + + + + + | K | 2.9 (L) | 3.4 - 5.1 | [facility] | | | | | mmol/L | [facility] | | | | | | [facility]ICAL | | | | | | CENTER - | | | | | | LABORATORY | | + + + + + + | Cl | 93 (L) | 98 - 107 mmol/L | [facility] | | | | | | [facility] | | | | | | [facility] | | | | | | CENTER - | | | | | | LABORATORY | | + + + + + + | CO2 | 22 | 20 - 31 mmol/L | [facility] | | | | | | [facility] | | | | | | MEDICAL | | | | | | CENTER - | | | | | | LABORATORY | | + + + + + + | Anion Gap | 12 | 3 - 16 mmol/L | [facility] | | | | | | [facility] | | | | | | [facility] | | | | | | CENTER - | | | | | | LABORATORY | | + + + + + + | Glucose | 205 (H) | 60 - 106 mg/dL | [facility] | | | | | | [facility] | | | | | | [facility] | | | | | | CENTER - | | | | | | LABORATORY | | + + + + + + | BUN | 74 (H) | 9 - 23 mg/dL | [facility] | | | | | | [facility] | | | | | | [facility] | | | | | | CENTER - | | | | | | LABORATORY | | + + + + + + | Creatinine | 3.24 (H) | 0.70 - 1.30 | [facility] | | | | | mg/dL | [facility] | | | | | | [facility] | | | | | | CENTER - | | | | | | LABORATORY | | + + + + + + | eGFR, | 21 (L)Comment: | >=60 | [facility] | | | non- | GLOMERULAR FILTRATION | mL/min/1.73m2 | [facility] | | | [place] | RATE,ESTIMATED | | MEDICAL | | | | mL/min/1.68l4Sawo than | | CENTER - | | | | 60 Chronic kidney | | LABORATORY | | | | disease,if found over a | | | | | | 3-month period.Less than | | | | | | 15 Kidney failureFor | | | | | | | | | | | | Americans,multiply the | | | | | | calculated GFR by 1.21. | | | | | | | | | | + + + + + + | Calcium | 7.8 (L) | 8.7 - 10.4 | [facility] | | | | | mg/dL | [facility] | | | | | | [facility] | | | | | | CENTER - | | | | | | LABORATORY | | + + + + + + | BUN/Creatin | 22.8 | | [facility] | | | ine Ratio | | | [facility] | | | | | | [facility] | | | | | | CENTER - | | | | | | LABORATORY | | + + + + + + + + | Specimen | + + | Blood | + + + + + + + | Performing | Address | City/State/Zipcode | Phone Number | | Organization | | | | + + + + + | [facility] | [address] | [place] | [phone] | | [facility] | | [address] | | | - LABORATORY | | | | + + + + + POC Glucose (12/05/2019 8:47 PM PDT) + +---------+ + + + | Component | Value | Ref Range | Performed | Pathologist | | | | | At | Signature | + +---------+ + + + | Glucose, | 237 (H) | 70 - 109 mg/dL | [facility] | | | POC | | | [facility] | | | | | | [facility] | | | | | | CENTER - | | | | | | LABORATORY | | + +---------+ + + + + + | Specimen | + + | Blood | + + + + + + + | Performing | Address | City/State/Zipcode | Phone Number | | Organization | | | | + + + + + | [facility] | [address] | [place] | [phone] | | [facility] | | [address] | | | - LABORATORY | | | | + + + + + POC Glucose (12/05/2019 5:05 PM PDT) + +---------+ + + + | Component | Value | Ref Range | Performed | Pathologist | | | | | At | Signature | + +---------+ + + + | Glucose, | 253 (H) | 70 - 109 mg/dL | [facility] | | | POC | | | [facility] | | | | | | MEDICAL | | | | | | CENTER - | | | | | | LABORATORY | | + +---------+ + + + + + | Specimen | + + | Blood | + + + + + + + | Performing | Address | City/State/Zipcode | Phone Number | | Organization | | | | + + + + + | [facility] | [address] | [place] | [phone] | | [facility] | | [address] | | | - LABORATORY | | | | + + + + + POC Glucose (12/05/2019 11:54 AM PDT) + +---------+ + + + | Component | Value | Ref Range | Performed | Pathologist | | | | | At | Signature | + +---------+ + + + | Glucose, | 283 (H) | 70 - 109 mg/dL | [facility] | | | POC | | | [facility] | | | | | | [facility] | | | | | | CENTER - | | | | | | LABORATORY | | + +---------+ + + + + + | Specimen | + + | Blood | + + + + + + + | Performing | Address | City/State/Zipcode | Phone Number | | Organization | | | | + + + + + | [facility] | [address] | [place] | [phone] | | [facility] | | [address] | | | - LABORATORY | | | | + + + + + POC Glucose (12/05/2019 8:00 AM PDT) + +---------+ + + + | Component | Value | Ref Range | Performed | Pathologist | | | | | At | Signature | + +---------+ + + + | Glucose, | 214 (H) | 70 - 109 mg/dL | [facility] | | | P[facility] | | | [facility] | | | | | | [facility] | | | | | | CENTER - | | | | | | LABORATORY | | + +---------+ + + + + + | Specimen | + + | Blood | + + + + + + + | Performing | Address | City/State/Zipcode | Phone Number | | Organization | | | | + + + + + | [facility] | [address] | [place] | [phone] | | [facility] | | [address] | | | - LABORATORY | | | | + + + + + Renal Function Panel (12/05/2019 3:58 AM PDT) + + + + + + | Component | Value | Ref Range | Performed | Pathologist | | | | | At | Signature | + + + + + + | Na | 130 (L) | 136 - 145 | [facility] | | | | | mmol/L | [facility] | | | | | | MEDICAL | | | | | | CENTER - | | | | | | LABORATORY | | + + + + + + | K | 3.0 (L) | 3.4 - 5.1 | [facility] | | | | | mmol/L | [facility] | | | | | | MEDICAL | | | | | | CENTER - | | | | | | LABORATORY | | + + + + + + | Cl | 97 (L) | 98 - 107 mmol/L | [facility] | | | | | | [facility] | | | | | | [facility] | | | | | | CENTER - | | | | | | LABORATORY | | + + + + + + | CO2 | 18 (L) | 20 - 31 mmol/L | [facility] | | | | | | [facility] | | | | | | MEDICAL | | | | | | CENTER - | | | | | | LABORATORY | | + + + + + + | Anion Gap | 15 | 3 - 16 mmol/L | [facility] | | | | | | [facility] | | | | | | [facility] | | | | | | CENTER - | | | | | | LABORATORY | | + + + + + + | Glucose | 221 (H) | 60 - 106 mg/dL | [facility] | | | | | | [facility] | | | | | | [facility] | | | | | | CENTER - | | | | | | LABORATORY | | + + + + + + | BUN | 84 (H) | 9 - 23 mg/dL | [facility] | | | | | | [facility] | | | | | | MEDICAL | | | | | | CENTER - | | | | | | LABORATORY | | + + + + + + | Creatinine | 4.19 (H) | 0.70 - 1.30 | [facility] | | | | | mg/dL | [facility] | | | | | | MEDICAL | | | | | | CENTER - | | | | | | LABORATORY | | + + + + + + | eGFR, | 16 (L)Comment: | >=60 | [facility] | | | non- | GLOMERULAR FILTRATION | mL/min/1.73m2 | [facility] | | | [place] | RATE,ESTIMATED | | MEDICAL | | | | mL/min/[id number] than | | CENTER - | | | | 60 Chronic kidney | | LABORATORY | | | | disease,if found over a | | | | | | 3-month period.Less than | | | | | | 15 Kidney failureFor | | | | | | | | | | | | Americans,multiply the | | | | | | calculated GFR by 1.21. | | | | | | | | | | + + + + + + | Calcium | 7.8 (L) | 8.7 - 10.4 | [facility] | | | | | mg/dL | [facility] | | | | | | MEDICAL | | | | | | CENTER - | | | | | | LABORATORY | | + + + + + + | Albumin | 2.9 (L) | 3.2 - 4.8 g/dL | [facility] | | | | | | [facility] | | | | | | MEDICAL | | | | | | CENTER - | | | | | | LABORATORY | | + + + + + + | Phosphorus | 4.3 | 2.4 - 5.1 mg/dL | [facility] | | | | | | [facility] | | | | | | MEDICAL | | | | | | CENTER - | | | | | | LABORATORY | | + + + + + + | BUN/Creatin | 20.0 | | [facility] | | | ine Ratio | | | [facility] | | | | | | MEDICAL | | | | | | CENTER - | | | | | | LABORATORY | | + + + + + + + + | Specimen | + + | Blood | + + + + + + + | Performing | Address | City/State/Zipcode | Phone Number | | Organization | | | | + + + + + | [facility] | [address] | [place] | [phone] | | [facility] | | [address] | | | - LABORATORY | | | | + + + + + CBC with Differential (12/05/2019 3:58 AM PDT) + + + + + + | Component | Value | Ref Range | Performed | Pathologist | | | | | At | Signature | + + + + + + | White Blood | 13.8 (H) | 4.0 - 11.0 K/uL | [facility] | | | Cells | | | [facility] | | | | | | MEDICAL | | | | | | CENTER - | | | | | | LABORATORY | | + + + + + + | Red Blood | 4.30 | 4.30 - 5.70 | [facility] | | | Cells | | M/uL | [facility] | | | | | | MEDICAL | | | | | | CENTER - | | | | | | LABORATORY | | + + + + + + | Hemoglobin | 13.8 | 13.5 - 18.0 | [facility] | | | | | g/dL | [facility] | | | | | | MEDICAL | | | | | | CENTER - | | | | | | LABORATORY | | + + + + + + | Hematocrit | 39.5 (L) | 40.0 - 51.0 % | [facility] | | | | | | [facility] | | | | | | [facility]ICAL | | | | | | CENTER - | | | | | | LABORATORY | | + + + + + + | MCV | 91.9 | 83.0 - 101.0 fL | [facility] | | | | | | [facility] | | | | | | MEDICAL | | | | | | CENTER - | | | | | | LABORATORY | | + + + + + + | MCH | 32.1 | 28.0 - 35.0 pg | [facility] | | | | | | [facility] | | | | | | [facility] | | | | | | CENTER - | | | | | | LABORATORY | | + + + + + + | MCHC | 34.9 | 32.0 - 36.0 | [facility] | | | | | g/dL | [facility] | | | | | | MEDICAL | | | | | | CENTER - | | | | | | LABORATORY | | + + + + + + | RDW-CV | 13.5 | <15.0 % | [facility] | | | | | | [facility] | | | | | | MEDICAL | | | | | | CENTER - | | | | | | LABORATORY | | + + + + + + | RDW-SD | 45.9 | 35.1 - 46.3 fL | [facility] | | | | | | [facility] | | | | | | [facility]ICAL | | | | | | CENTER - | | | | | | LABORATORY | | + + + + + + | Platelet | 61 (L) | 140 - 440 K/uL | [facility] | | | Count | | | [facility] | | | | | | MEDICAL | | | | | | CENTER - | | | | | | LABORATORY | | + + + + + + | MPV | 12.2 | 6.5 - 12.4 fL | [facility] | | | | | | [facility] | | | | | | MEDICAL | | | | | | CENTER - | | | | | | LABORATORY | | + + + + + + | % | 86.5 (H) | 45.0 - 82.0 % | [facility] | | | Neutrophils | | | [facility] | | | | | | MEDICAL | | | | | | CENTER - | | | | | | LABORATORY | | + + + + + + | % | 5.5 (L) | 20.0 - 45.0 % | [facility] | | | Lymphocytes | | | [facility] | | | | | | MEDICAL | | | | | | CENTER - | | | | | | LABORATORY | | + + + + + + | % Monocytes | 6.4 | 4.0 - 12.0 % | [facility] | | | | | | [facility] | | | | | | MEDICAL | | | | | | CENTER - | | | | | | LABORATORY | | + + + + + + | % | 0.4 | 0.0 - 5.0 % | [facility] | | | Eosinophils | | | [facility] | | | | | | MEDICAL | | | | | | CENTER - | | | | | | LABORATORY | | + + + + + + | % Basophils | 0.1 | 0.0 - 1.0 % | [facility] | | | | | | [facility] | | | | | | MEDICAL | | | | | | CENTER - | | | | | | LABORATORY | | + + + + + + | % Immature | 1.1 (H)Comment: | 0.0 - 0.4 % | [facility] | | | Granulocyte | Preliminary studies have | | [facility] | | | s | indicated the IG% | | MEDICAL | | | | and/or IG# show promise | | CENTER - | | | | as an early indicator | | LABORATORY | | | | for infection. | | | | + + + + + + | Absolute | 11.90 (H) | 1.80 - 8.50 | [facility] | | | Neutrophils | | K/uL | [facility] | | | | | | MEDICAL | | | | | | CENTER - | | | | | | LABORATORY | | + + + + + + | Absolute | 0.75 | 0.60 - 3.20 | [facility] | | | Lymphocytes | | K/uL | [facility] | | | | | | MEDICAL | | | | | | CENTER - | | | | | | LABORATORY | | + + + + + + | Absolute | 0.88 | 0.00 - 1.00 | [facility] | | | Monocytes | | K/uL | [facility] | | | | | | MEDICAL | | | | | | CENTER - | | | | | | LABORATORY | | + + + + + + | Absolute | 0.06 | 0.00 - 0.40 | [facility] | | | Eosinophils | | K/uL | [facility] | | | | | | MEDICAL | | | | | | CENTER - | | | | | | LABORATORY | | + + + + + + | Absolute | 0.02 | 0.00 - 0.10 | [facility] | | | Basophils | | K/uL | [facility] | | | | | | MEDICAL | | | | | | CENTER - | | | | | | LABORATORY | | + + + + + + | Absolute | 0.15 (H) | 0.00 - 0.03 | [facility] | | | Immature | | K/uL | [facility] | | | Granulocyte | | | MEDICAL | | | s | | | CENTER - | | | | | | LABORATORY | | + + + + + + | % nRBC | 0 | 0 - 2 per 100 | [facility] | | | | | WBCs | [facility] | | | | | | MEDICAL | | | | | | CENTER - | | | | | | LABORATORY | | + + + + + + | Absolute | 0.00 | 0.00 - 0.01 | [facility] | | | nRBC | | K/uL | [facility] | | | | | | MEDICAL | | | | | | CENTER - | | | | | | LABORATORY | | + + + + + + + + | Specimen | + + | Blood | + + + + + + + | Performing | Address | City/State/Zipcode | Phone Number | | Organization | | | | + + + + + | [facility] | [address] | [place] | [phone] | | [facility] | | [address] | | | - LABORATORY | | | | + + + + + Ammonia (12/05/2019 12:13 AM PDT) + +---------+ + + + | Component | Value | Ref Range | Performed | Pathologist | | | | | At | Signature | + +---------+ + + + | Ammonia | <10 (L) | 11 - 32 umol/L | [facility] | | | | | | [facility] | | | | | | MEDICAL | | | | | | CENTER - | | | | | | LABORATORY | | + +---------+ + + + + + | Specimen | + + | Blood | + + + + + + + | Performing | Address | City/State/Zipcode | Phone Number | | Organization | | | | + + + + + | [facility] | [address] | [place], [place] | [phone] | | [facility] | | [address] | | | - LABORATORY | | | | + + + + + Hepatic Function Panel (12/05/2019 12:13 AM PDT) + + + + + + | Component | Value | Ref Range | Performed | Pathologist | | | | | At | Signature | + + + + + + | Bilirubin | 4.7 (H) | 0.3 - 1.2 mg/dL | [facility] | | | Total | | | [facility] | | | | | | MEDICAL | | | | | | CENTER - | | | | | | LABORATORY | | + + + + + + | Total | 5.7 | 5.7 - 8.2 g/dL | [facility] | | | Protein | | | [facility] | | | | | | MEDICAL | | | | | | CENTER - | | | | | | LABORATORY | | + + + + + + | Albumin | 2.7 (L) | 3.2 - 4.8 g/dL | [facility] | | | | | | [facility] | | | | | | MEDICAL | | | | | | CENTER - | | | | | | LABORATORY | | + + + + + + | AST | 76 (H) | 0 - 34 U/L | [facility] | | | | | | [facility] | | | | | | MEDICAL | | | | | | CENTER - | | | | | | LABORATORY | | + + + + + + | ALT | 36 | 10 - 49 U/L | [facility] | | | | | | [facility] | | | | | | MEDICAL | | | | | | CENTER - | | | | | | LABORATORY | | + + + + + + | Alkaline | 106 | 46 - 116 U/L | [facility] | | | Phosphatase | | | [facility] | | | | | | MEDICAL | | | | | | CENTER - | | | | | | LABORATORY | | + + + + + + | Globulin | 3.0 | 2.1 - 3.8 g/dL | [facility] | | | | | | [facility] | | | | | | MEDICAL | | | | | | CENTER - | | | | | | LABORATORY | | + + + + + + | Albumin/Katrin | 0.9 | 0.8 - 1.9 | [facility] | | | bulin Ratio | | | [facility] | | | | | | MEDICAL | | | | | | CENTER - | | | | | | LABORATORY | | + + + + + + | Bilirubin, | 4.20 (H) | 0.00 - 0.30 | [facility] | | | Direct | | mg/dl | [facility] | | | | | | MEDICAL | | | | | | CENTER - | | | | | | LABORATORY | | + + + + + + + + | Specimen | + + | Blood | + + + + + + + | Performing | Address | City/State/Zipcode | Phone Number | | Organization | | | | + + + + + | [facility] | [address] | [place] | [phone] | | [facility] | | [address] | | | - LABORATORY | | | | + + + + + Basic Metabolic Panel (12/05/2019 12:13 AM PDT) + + + + + + | Component | Value | Ref Range | Performed | Pathologist | | | | | At | Signature | + + + + + + | Na | 128 (L) | 136 - 145 | [facility] | | | | | mmol/L | [facility] | | | | | | MEDICAL | | | | | | CENTER - | | | | | | LABORATORY | | + + + + + + | K | 3.1 (L) | 3.4 - 5.1 | [facility] | | | | | mmol/L | [facility] | | | | | | MEDICAL | | | | | | CENTER - | | | | | | LABORATORY | | + + + + + + | Cl | 98 | 98 - 107 mmol/L | [facility] | | | | | | [facility] | | [facility] | | | MEDICAL | | | | | | CENTER - | | | | | | LABORATORY | | + + + + + + | CO2 | 18 (L) | 20 - 31 mmol/L | [facility] | | | | | | [facility] | | | | | | MEDICAL | | | | | | CENTER - | | | | | | LABORATORY | | + + + + + + | Anion Gap | 12 | 3 - 16 mmol/L | [facility] | | | | | | [facility] | | | | | | MEDICAL | | | | | | CENTER - | | | | | | LABORATORY | | + + + + + + | Glucose | 244 (H) | 60 - 106 mg/dL | [facility] | | | | | | [facility] | | | | | | MEDICAL | | | | | | CENTER - | | | | | | LABORATORY | | + + + + + + | BUN | 87 (H) | 9 - 23 mg/dL | [facility] | | | | | | [facility] | | | | | | MEDICAL | | | | | | CENTER - | | | | | | LABORATORY | | + + + + + + | Creatinine | 4.40 (H) | 0.70 - 1.30 | [facility] | | | | | mg/dL | [facility] | | | | | | MEDICAL | | | | | | CENTER - | | | | | | LABORATORY | | + + + + + + | eGFR, | 15 (L)Comment: | >=60 | [facility] | | | non- | GLOMERULAR FILTRATION | mL/min/1.73m2 | [facility] | | | [place] | RATE,ESTIMATED | | MEDICAL | | | | mL/min/1.27l5Njyn than | | CENTER - | | | | 60 Chronic kidney | | LABORATORY | | | | disease,if found over a | | | | | | 3-month period.Less than | | | | | | 15 Kidney failureFor | | | | | | | | | | | | Americans,multiply the | | | | | | calculated GFR by 1.21. | | | | | | | | | | + + + + + + | Calcium | 7.6 (L) | 8.7 - 10.4 | [facility] | | | | | mg/dL | [facility] | | | | | | MEDICAL | | | | | | CENTER - | | | | | | LABORATORY | | + + + + + + | BUN/Creatin | 19.8 | | [facility] | | | ine Ratio | | | [facility] | | | | | | MEDICAL | | | | | | CENTER - | | | | | | LABORATORY | | + + + + + + + + | Specimen | + + | Blood | + + + + + + + | Performing | Address | City/State/Zipcode | Phone Number | | Organization | | | | + + + + + | [facility] | [address] | [place] | [phone] | | [facility] | | [address] | | | - LABORATORY | | | | + + + + + Lactic Acid (12/05/2019 12:13 AM PDT) + +-------+ + + + | Component | Value | Ref Range | Performed | Pathologist | | | | | At | Signature | + +-------+ + + + | Lactate | 1.5 | 0.5 - 2.2 | [facility] | | | | | mmol/L | [facility] | | | | | | MEDICAL | | | | | | CENTER - | | | | | | LABORATORY | | + +-------+ + + + + + | Specimen | + + | Blood | + + + + + + + | Performing | Address | City/State/Zipcode | Phone Number | | Organization | | | | + + + + + | [facility] | [address] | [place] | [phone] | | [facility] | | [address] | | | - LABORATORY | | | | + + + + + POC Glucose (12/04/2019 9:47 PM PDT) + +---------+ + + + | Component | Value | Ref Range | Performed | Pathologist | | | | | At | Signature | + +---------+ + + + | Glucose, | 224 (H) | 70 - 109 mg/dL | [facility] | | | POC | | | [facility] | | | | | | MEDICAL | | | | | | CENTER - | | | | | | LABORATORY | | + +---------+ + + + + + | Specimen | + + | Blood | + + + + + + + | Performing | Address | City/State/Zipcode | Phone Number | | Organization | | | | + + + + + | [facility] | [address] | [place] | [phone] | | [facility] | | [address] | | | - LABORATORY | | | | + + + + + Electrolyte panel (12/04/2019 6:45 PM PDT) + +---------+ + + + | Component | Value | Ref Range | Performed | Pathologist | | | | | At | Signature | + +---------+ + + + | Na | 127 (L) | 136 - 145 | [facility] | | | | | mmol/L | [facility] | | | | | | MEDICAL | | | | | | CENTER - | | | | | | LABORATORY | | + +---------+ + + + | K | 3.2 (L) | 3.4 - 5.1 | [facility] | | | | | mmol/L | [facility] | | | | | | MEDICAL | | | | | | CENTER - | | | | | | LABORATORY | | + +---------+ + + + | Cl | 98 | 98 - 107 mmol/L | [facility] | | | | | | [facility] | | | | | | MEDICAL | | | | | | CENTER - | | | | | | LABORATORY | | + +---------+ + + + | CO2 | 16 (L) | 20 - 31 mmol/L | [facility] | | | | | | [facility] | | | | | | MEDICAL | | | | | | CENTER - | | | | | | LABORATORY | | + +---------+ + + + | Anion Gap | 13 | 3 - 16 mmol/L | [facility] | | | | | | [facility] | | | | | | MEDICAL | | | | | | CENTER - | | | | | | LABORATORY | | + +---------+ + + + + + | Specimen | + + | Blood | + + + + + + + | Performing | Address | City/State/Zipcode | Phone Number | | Organization | | | | + + + + + | [facility] | [address] | [place] | [phone] | | [facility] | | [address] | | | - LABORATORY | | | | + + + + + Lactic Acid (12/04/2019 6:45 PM PDT) + +-------+ + + + | Component | Value | Ref Range | Performed | Pathologist | | | | | At | Signature | + +-------+ + + + | Lactate | 1.9 | 0.5 - 2.2 | [facility] | | | | | mmol/L | [facility] | | | | | | MEDICAL | | | | | | CENTER - | | | | | | LABORATORY | | + +-------+ + + + + + | Specimen | + + | Blood | + + + + + + + | Performing | Address | City/State/Zipcode | Phone Number | | Organization | | | | + + + + + | [facility] | [address] | [place] | [phone] | | [facility] | | [address] | | | - LABORATORY | | | | + + + + + Culture, MRSA (12/04/2019 6:43 PM PDT) + + + + + + | Component | Value | Ref Range | Performed | Pathologist | | | | | At | Signature | + + + + + + | Culture | Negative for MRSA by | | [facility] | | | | chromogenic agar method. | | [facility] | | | | | | MEDICAL | | | | | | CENTER - | | | | | | LABORATORY | | + + + + + + + + | Specimen | + + | Tissue - Both | | anterior nares (body | | structure) | + + + + + + + | Performing | Address | City/State/Zipcode | Phone Number | | Organization | | | | + + + + + | [facility] | [address] | [place] | [phone] | | [facility] | | [address] | | | - LABORATORY | | | | + + + + + XR Chest AP Portable (12/04/2019 6:23 PM PDT) + + | Specimen | + + | | + + + + + | Impressions | Performed At | + + + | Mild atelectasis in lung bases along with decreased inspiratory | [facility] | | effort. Dictated and Signed by: Neville Bryant MD Electronically | | | signed: 12/04/2019 6:22 PM | | + + + + + + | Narrative | Performed At | + + + | XR CHEST AP PORTABLE 12/04/2019 6:11 PM HISTORY: respiratory | [facility] | | distress. COMPARISON: 12/03/2019. Findings: Heart size is | | | within normal limits. Aorta is normal. Mediastinum demonstrates no | | | acute findings. Central pulmonary vasculature is normal. Mild | | | atelectasis are in the lung bases. There is decreased inspiratory | | | effort. There are no acute osseous abnormalities. | | + + + + + | Procedure Note | + + | Davin, Rad Results In - 12/04/2019 6:25 PM PDT XR CHEST AP PORTABLE 12/04/2019 6:11 PM | | | | HISTORY: respiratory distress. | | | | COMPARISON: 12/03/2019. | | | | Findings: | | Heart size is within normal limits. Aorta is normal. Mediastinum demonstrates no | | acute findings. Central pulmonary vasculature is normal. Mild atelectasis are in | | the lung bases. There is decreased inspiratory effort. There are no acute | | osseous abnormalities. | | | | IMPRESSION: | | Mild atelectasis in lung bases along with decreased inspiratory effort. | | | | Dictated and Signed by: Neville Bryant MD | | Electronically signed: 12/04/2019 6:22 PM | + + + +---------+ + + | Performing | Address | City/State/Zipcode | Phone Number | | Organization | | | | + +---------+ + + | [facility] | | | | + +---------+ + + POC Blood Gases (12/04/2019 5:58 PM PDT) + + + + + + | Component | Value | Ref Range | Performed | Pathologist | | | | | At | Signature | + + + + + + | Specimen | Artery | | [facility] | | | Source | | | [facility] | | | | | | MEDICAL | | | | | | CENTER - | | | | | | LABORATORY | | + + + + + + | pH, POC | 7.472 (H) | 7.3 - 7.45 | [facility] | | | | | | [facility] | | | | | | MEDICAL | | | | | | CENTER - | | | | | | LABORATORY | | + + + + + + | HCO3, POC | 13.8 (L) | 21.0 - 28.0 | [facility] | | | | | mmol/L | [facility] | | | | | | MEDICAL | | | | | | CENTER - | | | | | | LABORATORY | | + + + + + + | TCO2, POC | 14.4 (L) | 22.0 - 29.0 | [facility] | | | | | mmol/L | [facility] | | | | | | MEDICAL | | | | | | CENTER - | | | | | | LABORATORY | | + + + + + + | Base | -7.2 (L) | -2.0 - 3.0 | [facility] | | | Excess, POC | | mmol/L | [facility] | | | | | | MEDICAL | | | | | | CENTER - | | | | | | LABORATORY | | + + + + + + | Base | -9.8 (L) | -2.0 - 3.0 | [facility] | | | Excess, | | mmol/L | [facility] | | | Extracellul | | | MEDICAL | | | ar fluid, | | | CENTER - | | | POC | | | LABORATORY | | + + + + + + | O2 Sat, POC | 96 | 90 - 100 % | [facility] | | | | | | [facility] | | | | | | MEDICAL | | | | | | CENTER - | | | | | | LABORATORY | | + + + + + + | PCO2, POC | 18.9 (L) | 35 - 45 mmHg | [facility] | | | | | | [facility] | | | | | | MEDICAL | | | | | | CENTER - | | | | | | LABORATORY | | + + + + + + | pO2, POC | 72 | 60 - 750 mmHg | [facility] | | | | | | [facility] | | | | | | MEDICAL | | | | | | CENTER - | | | | | | LABORATORY | | + + + + + + + + | Specimen | + + | Blood | + + + + + + + | Performing | Address | City/State/Zipcode | Phone Number | | Organization | | | | + + + + + | [facility] | [address] | [place] | [phone] | | [facility] | | [address] | | | - LABORATORY | | | | + + + + + POC Glucose (12/04/2019 4:32 PM PDT) + +---------+ + + + | Component | Value | Ref Range | Performed | Pathologist | | | | | At | Signature | + +---------+ + + + | Glucose, | 159 (H) | 70 - 109 mg/dL | [facility] | | | POC | | | [facility] | | | | | | MEDICAL | | | | | | CENTER - | | | | | | LABORATORY | | + +---------+ + + + + + | Specimen | + + | Blood | + + + + + + + | Performing | Address | City/State/Zipcode | Phone Number | | Organization | | | | + + + + + | [facility] | [address] | [place] | [phone] | | [facility] | | [address] | | | - LABORATORY | | | | + + + + + POC Glucose (12/04/2019 11:22 AM PDT) + +---------+ + + + | Component | Value | Ref Range | Performed | Pathologist | | | | | At | Signature | + +---------+ + + + | Glucose, | 219 (H) | 70 - 109 mg/dL | [facility] | | | POC | | | [facility] | | | | | | MEDICAL | | | | | | CENTER - | | | | | | LABORATORY | | + +---------+ + + + + + | Specimen | + + | Blood | + + + + + + + | Performing | Address | City/State/Zipcode | Phone Number | | Organization | | | | + + + + + | [facility] | [address] | [place] | [phone] | | [facility] | | [address] | | | - LABORATORY | | | | + + + + + US Abdomen Limited (12/04/2019 9:17 AM PDT) + + | Specimen | + + | | + + + + + | Impressions | Performed At | + + + | No evidence of intrahepatic or extrahepatic biliary ductal | [facility] | | dilatation ultrasound. Gallbladder is distended with mild | | | gallbladder wall thickening. No other evidence to suggest acute | | | cholecystitis. Dictated and Signed by: Trevor Rascon MD | | | Electronically signed: 12/04/2019 2:33 PM | | + + + + + + | Narrative | Performed At | + + + | US ABDOMEN LIMITED 12/04/2019 8:45 AM HISTORY: obstructive | [facility] | | pattern bilirubinemia, to evaluated biliary tree, thank you. | | | COMPARISON: 12/03/2019 PROTOCOL: Ross scale and Doppler images of | | | the abdomen. FINDINGS: Gallbladder: Mild diffuse bladder wall | | | thickening and distention of the gallbladder. No pericholecystic | | | fluid or gallstones identified. CBD is normal in caliber measuring 3 | | | mm. No intrahepatic biliary ductal dilatation. Liver: Nodular | | | echotexture of the liver. No suspicious mass identified. Liver is not | | | enlarged. Pancreas: Visualized parenchyma is within normal | | | limits. The pancreatic duct is normal. | | + + + + + | Procedure Note | + + | Davin, Rad Results In - 12/04/2019 2:36 PM PDT US ABDOMEN LIMITED 12/04/2019 8:45 AM | | | | HISTORY: obstructive pattern bilirubinemia, to evaluated biliary tree, thank | | you. | | | | COMPARISON: 12/03/2019 | | | | PROTOCOL: Ross scale and Doppler images of the abdomen. | | | | FINDINGS: | | Gallbladder: Mild diffuse bladder wall thickening and distention of the | | gallbladder. No pericholecystic fluid or gallstones identified. CBD is normal in | | caliber measuring 3 mm. No intrahepatic biliary ductal dilatation. | | | | Liver: Nodular echotexture of the liver. No suspicious mass identified. Liver is | | not enlarged. | | | | Pancreas: Visualized parenchyma is within normal limits. The pancreatic duct is | | normal. | | | | | | | | IMPRESSION: | | No evidence of intrahepatic or extrahepatic biliary ductal dilatation | | ultrasound. | | | | Gallbladder is distended with mild gallbladder wall thickening. No other | | evidence to suggest acute cholecystitis. | | | | Dictated and Signed by: Trevor Rascon MD | | Electronically signed: 12/04/2019 2:33 PM | + + + +---------+ + + | Performing | Address | City/State/Zipcode | Phone Number | | Organization | | | | + +---------+ + + | [facility] | | | | + +---------+ + + Ammonia (12/04/2019 9:10 AM PDT) + +---------+ + + + | Component | Value | Ref Range | Performed | Pathologist | | | | | At | Signature | + +---------+ + + + | Ammonia | <10 (L) | 11 - 32 umol/L | [facility] | | | | | | [facility] | | | | | | [facility] | | | | | | [facility] - | | | | | | LABORATORY | | + +---------+ + + + + + | Specimen | + + | Blood | + + + + + + + | Performing | Address | City/State/Zipcode | Phone Number | | Organization | | | | + + + + + | [facility] | [address] | [place], [place] | [phone] | | [facility] | | [address] | | | - LABORATORY | | | | + + + + + Lactic Acid (12/04/2019 9:10 AM PDT) + +---------+ + + + | Component | Value | Ref Range | Performed | Pathologist | | | | | At | Signature | + +---------+ + + + | Lactate | 2.6 (H) | 0.5 - 2.2 | [facility] | | | | | mmol/L | [facility] | | | | | | [facility] | | | | | | [facility] - | | | | | | LABORATORY | | + +---------+ + + + + + | Specimen | + + | Blood | + + + + + + + | Performing | Address | City/State/Zipcode | Phone Number | | Organization | | | | + + + + + | [facility] | [address] | [place] | [phone] | | [facility] | | [address] | | | - LABORATORY | | | | + + + + + POC Glucose (12/04/2019 6:36 AM PDT) + +---------+ + + + | Component | Value | Ref Range | Performed | Pathologist | | | | | At | Signature | + +---------+ + + + | Glucose, | 135 (H) | 70 - 109 mg/dL | [facility] | | | POC | | | [facility] | | | | | | [facility] | | | | | | C[facility] - | | | | | | LABORATORY | | + +---------+ + + + + + | Specimen | + + | Blood | + + + + + + + | Performing | Address | City/State/Zipcode | Phone Number | | Organization | | | | + + + + + | [facility] | [address] | [place] | [phone] | | [facility] | | [address] | | | - LABORATORY | | | | + + + + + Hepatitis Panel, Acute (12/04/2019 4:20 AM PDT) + + + + + + | Component | Value | Ref Range | Performed | Pathologist | | | | | At | Signature | + + + + + + | HEP A IGM | Negative | Negative | REFERENCE | | | AB, REF | | | LAB [facility] | | | | | | - BKR | | + + + + + + | Hepatitis B | Negative | Negative | REFERENCE | | | Surface Ag | | | LAB [facility] | | | | | | - BKR | | + + + + + + | HEP B Core | Negative | Negative | REFERENCE | | | IGM | | | LAB [facility] | | | Antibody | | | - BKR | | + + + + + + | Hepatitis C | 0.1Comment: | 0.0 - 0.9 s/co | REFERENCE | | | Ab | | ratio | LAB [facility] | | | | Negative: | | - BKR | | | | < 0.8 | | | | | | | | | | | | Indeterminate: | | | | | | 0.8 - 0.9 | | | | | | | | | | | | Positive: | | | | | | > 0.9 The CDC | | | | | | recommends that a | | | | | | positive HCV antibody | | | | | | result be followed up | | | | | | with a HCV Nucleic Acid | | | | | | Amplification test | | | | | | ([id number]). | | | | + + + + + + + + | Specimen | + + | Blood | + + + + + | Narrative | Performed At | + + + | Performed at: 01 - [facility] [place] [address], | REFERENCE LAB | | [place], [place] [id number] Lube Attendant: Feliciano Avilez MD, Phone: | [facility] | | [phone] | | + + + + + + + + | Performing | Address | City/State/Zipcode | Phone Number | | Organization | | | | + + + + + | REFERENCE LAB | [address] | [place], [place] | [phone] | | [facility] | [facility] | [address] | | + + + + + Phosphorus (12/04/2019 3:56 AM PDT) + +-------+ + + + | Component | Value | Ref Range | Performed | Pathologist | | | | | At | Signature | + +-------+ + + + | Phosphorus | 4.6 | 2.4 - 5.1 mg/dL | [facility] | | | | | | [facility] | | | | | | [facility] | | | | | | [facility] - | | | | | | LABORATORY | | + +-------+ + + + + + | Specimen | + + | Blood | + + + + + + + | Performing | Address | City/State/Zipcode | Phone Number | | Organization | | | | + + + + + | [facility] | [address] | [place] | [phone] | | [facility] | | [address] | | | - LABORATORY | | | | + + + + + Basic Metabolic Panel (12/04/2019 3:56 AM PDT) + + + + + + | Component | Value | Ref Range | Performed | Pathologist | | | | | At | Signature | + + + + + + | Na | 128 (L) | 136 - 145 | [facility] | | | | | mmol/L | [facility] | | | | | | [facility] | | | | | | CENTER - | | | | | | LABORATORY | | + + + + + + | K | 3.1 (L) | 3.4 - 5.1 | [facility] | | | | | mmol/L | [facility] | | | | | | [facility] | | | | | | CENTER - | | | | | | LABORATORY | | + + + + + + | Cl | 96 (L) | 98 - 107 mmol/L | [facility] | | | | | | [facility] | | | | | | [facility] | | | | | | CENTER - | | | | | | LABORATORY | | + + + + + + | CO2 | 15 (L) | 20 - 31 mmol/L | [facility] | | | | | | [facility] | | | | | | [facility] | | | | | | CENTER - | | | | | | LABORATORY | | + + + + + + | Anion Gap | 17 (H) | 3 - 16 mmol/L | [facility] | | | | | | [facility] | | | | | | [facility] | | | | | | CENTER - | | | | | | LABORATORY | | + + + + + + | Glucose | 151 (H) | 60 - 106 mg/dL | [facility] | | | | | | [facility] | | | | | | [facility] | | | | | | CENTER - | | | | | | LABORATORY | | + + + + + + | BUN | 84 (H) | 9 - 23 mg/dL | [facility] | | | | | | [facility] | | | | | | [facility] | | | | | | CENTER - | | | | | | LABORATORY | | + + + + + + | Creatinine | 5.05 (H) | 0.70 - 1.30 | [facility] | | | | | mg/dL | [facility] | | | | | | [facility]ICAL | | | | | | CENTER - | | | | | | LABORATORY | | + + + + + + | eGFR, | 13 (L)Comment: | >=60 | [facility] | | | non- | GLOMERULAR FILTRATION | mL/min/1.73m2 | [facility] | | | [place] | RATE,ESTIMATED | | MEDICAL | | | | mL/min/1.60q1Jfco than | | CENTER - | | | | 60 Chronic kidney | | LABORATORY | | | | disease,if found over a | | | | | | 3-month period.Less than | | | | | | 15 Kidney failureFor | | | | | | | | | | | | Americans,multiply the | | | | | | calculated GFR by 1.21. | | | | | | | | | | + + + + + + | Calcium | 8.2 (L) | 8.7 - 10.4 | [facility] | | | | | mg/dL | [facility] | | | | | | [facility] | | | | | | CENTER - | | | | | | LABORATORY | | + + + + + + | BUN/Creatin | 16.6 | | [facility] | | | ine Ratio | | | . [facility] | | | | | | [facility] | | | | | | CENTER - | | | | | | LABORATORY | | + + + + + + + + | Specimen | + + | Blood | + + + + + + + | Performing | Address | City/State/Zipcode | Phone Number | | Organization | | | | + + + + + | [facility] | [address] | [place] | [phone] | | [facility] | | [address] | | | - LABORATORY | | | | + + + + + Hepatic Function Panel (12/04/2019 3:56 AM PDT) + + + + + + | Component | Value | Ref Range | Performed | Pathologist | | | | | At | Signature | + + + + + + | Bilirubin | 3.7 (H) | 0.3 - 1.2 mg/dL | [facility] | | | Total | | | [facility] | | | | | | [facility] | | | | | | CENTER - | | | | | | LABORATORY | | + + + + + + | Total | 6.1 | 5.7 - 8.2 g/dL | [facility] | | | Protein | | | [facility] | | | | | | MEDICAL | | | | | | CENTER - | | | | | | LABORATORY | | + + + + + + | Albumin | 2.9 (L) | 3.2 - 4.8 g/dL | [facility] | | | | | | [facility] | | | | | | MEDICAL | | | | | | CENTER - | | | | | | LABORATORY | | + + + + + + | AST | 74 (H) | 0 - 34 U/L | [facility] | | | | | | [facility] | | | | | | MEDICAL | | | | | | CENTER - | | | | | | LABORATORY | | + + + + + + | ALT | 34 | 10 - 49 U/L | [facility] | | | | | | [facility] | | | | | | [facility]ICAL | | | | | | CENTER - | | | | | | LABORATORY | | + + + + + + | Alkaline | 179 (H) | 46 - 116 U/L | [facility] | | | Phosphatase | | | [facility] | | | | | | MEDICAL | | | | | | CENTER - | | | | | | LABORATORY | | + + + + + + | Globulin | 3.2 | 2.1 - 3.8 g/dL | [facility] | | | | | | [facility] | | | | | | [facility] | | | | | | CENTER - | | | | | | LABORATORY | | + + + + + + | Albumin/Katrin | 0.9 | 0.8 - 1.9 | [facility] | | | bulin Ratio | | | [facility] | | | | | | MEDICAL | | | | | | CENTER - | | | | | | LABORATORY | | + + + + + + | Bilirubin, | 3.30 (H) | 0.00 - 0.30 | [facility] | | | Direct | | mg/dl | [facility] | | | | | | MEDICAL | | | | | | CENTER - | | | | | | LABORATORY | | + + + + + + + + | Specimen | + + | Blood | + + + + + + + | Performing | Address | City/State/Zipcode | Phone Number | | Organization | | | | + + + + + | [facility] | [address] | [place] | [phone] | | [facility] | | [address] | | | - LABORATORY | | | | + + + + + CBC with Differential (12/04/2019 3:56 AM PDT) + + + + + + | Component | Value | Ref Range | Performed | Pathologist | | | | | At | Signature | + + + + + + | White Blood | 10.3 | 4.0 - 11.0 K/uL | [facility] | | | Cells | | | [facility] | | | | | | MEDICAL | | | | | | CENTER - | | | | | | LABORATORY | | + + + + + + | Red Blood | 4.13 (L) | 4.30 - 5.70 | [facility] | | | Cells | | M/uL | [facility] | | | | | | MEDICAL | | | | | | CENTER - | | | | | | LABORATORY | | + + + + + + | Hemoglobin | 13.3 (L) | 13.5 - 18.0 | [facility] | | | | | g/dL | [facility] | | | | | | MEDICAL | | | | | | CENTER - | | | | | | LABORATORY | | + + + + + + | Hematocrit | 37.3 (L) | 40.0 - 51.0 % | [facility] | | | | | | [facility] | | | | | | MEDICAL | | | | | | CENTER - | | | | | | LABORATORY | | + + + + + + | MCV | 90.3 | 83.0 - 101.0 fL | [facility] | | | | | | [facility] | | [facility] | | | [facility]ICAL | | | | | | CENTER - | | | | | | LABORATORY | | + + + + + + | MCH | 32.2 | 28.0 - 35.0 pg | [facility] | | | | | | [facility] | | | | | | MEDICAL | | | | | | CENTER - | | | | | | LABORATORY | | + + + + + + | MCHC | 35.7 | 32.0 - 36.0 | [facility] | | | | | g/dL | [facility] | | | | | | MEDICAL | | | | | | CENTER - | | | | | | LABORATORY | | + + + + + + | RDW-CV | 13.1 | <15.0 % | [facility] | | | | | | [facility] | | | | | | MEDICAL | | | | | | CENTER - | | | | | | LABORATORY | | + + + + + + | RDW-SD | 44.0 | 35.1 - 46.3 fL | [facility] | | | | | | [facility] | | | | | | [facility]ICAL | | | | | | CENTER - | | | | | | LABORATORY | | + + + + + + | Platelet | 76 (L) | 140 - 440 K/uL | [facility] | | | Count | | | [facility] | | | | | | MEDICAL | | | | | | CENTER - | | | | | | LABORATORY | | + + + + + + | MPV | 11.0 | 6.5 - 12.4 fL | [facility] | | | | | | [facility] | | | | | | MEDICAL | | | | | | CENTER - | | | | | | LABORATORY | | + + + + + + | % | 90.2 (H) | 45.0 - 82.0 % | [facility] | | | Neutrophils | | | [facility] | | | | | | MEDICAL | | | | | | CENTER - | | | | | | LABORATORY | | + + + + + + | % | 3.8 (L) | 20.0 - 45.0 % | [facility] | | | Lymphocytes | | | [facility] | | | | | | MEDICAL | | | | | | CENTER - | | | | | | LABORATORY | | + + + + + + | % Monocytes | 5.0 | 4.0 - 12.0 % | [facility] | | | | | | [facility] | | | | | | MEDICAL | | | | | | CENTER - | | | | | | LABORATORY | | + + + + + + | % | 0.2 | 0.0 - 5.0 % | [facility] | | | Eosinophils | | | [facility] | | | | | | MEDICAL | | | | | | CENTER - | | | | | | LABORATORY | | + + + + + + | % Basophils | 0.1 | 0.0 - 1.0 % | [facility] | | | | | | [facility] | | | | | | MEDICAL | | | | | | CENTER - | | | | | | LABORATORY | | + + + + + + | % Immature | 0.7 (H)Comment: | 0.0 - 0.4 % | [facility] | | | Granulocyte | Preliminary studies have | | [facility] | | | s | indicated the IG% | | MEDICAL | | | | and/or IG# show promise | | CENTER - | | | | as an early indicator | | LABORATORY | | | | for infection. | | | | + + + + + + | Absolute | 9.28 (H) | 1.80 - 8.50 | [facility] | | | Neutrophils | | K/uL | [facility] | | | | | | MEDICAL | | | | | | CENTER - | | | | | | LABORATORY | | + + + + + + | Absolute | 0.39 (L) | 0.60 - 3.20 | [facility] | | | Lymphocytes | | K/uL | [facility] | | | | | | MEDICAL | | | | | | CENTER - | | | | | | LABORATORY | | + + + + + + | Absolute | 0.51 | 0.00 - 1.00 | [facility] | | | Monocytes | | K/uL | [facility] | | | | | | MEDICAL | | | | | | CENTER - | | | | | | LABORATORY | | + + + + + + | Absolute | 0.02 | 0.00 - 0.40 | [facility] | | | Eosinophils | | K/uL | [facility] | | | | | | MEDICAL | | | | | | CENTER - | | | | | | LABORATORY | | + + + + + + | Absolute | 0.01 | 0.00 - 0.10 | [facility] | | | Basophils | | K/uL | [facility] | | | | | | MEDICAL | | | | | | CENTER - | | | | | | LABORATORY | | + + + + + + | Absolute | 0.07 (H) | 0.00 - 0.03 | [facility] | | | Immature | | K/uL | [facility] | | | Granulocyte | | | MEDICAL | | | s | | | CENTER - | | | | | | LABORATORY | | + + + + + + | % nRBC | 0 | 0 - 2 per 100 | [facility] | | | | | WBCs | [facility] | | | | | | MEDICAL | | | | | | CENTER - | | | | | | LABORATORY | | + + + + + + | Absolute | 0.03 (H)Comment: | 0.00 - 0.01 | [facility] | | | nRBC | Presence of any NRBC's | K/uL | [facility] | | | | in adults is clinically | | MEDICAL | | | | significant. | | CENTER - | | | | | | LABORATORY | | + + + + + + + + | Specimen | + + | Blood | + + + + + + + | Performing | Address | City/State/Zipcode | Phone Number | | Organization | | | | + + + + + | [facility] | [address] | [place], [place] | [phone] | | [facility] | | [address] | | | - LABORATORY | | | | + + + + + Hemoglobin A1C (12/04/2019 3:56 AM PDT) + +---------+ + + + | Component | Value | Ref Range | Performed | Pathologist | | | | | At | Signature | + +---------+ + + + | Hemoglobin | 7.8 (H) | 4.3 - 6.0 % | [facility] | | | A1c | | | [facility] | | | | | | MEDICAL | | | | | | CENTER - | | | | | | LABORATORY | | + +---------+ + + + | Estimated | 177 | mg/dL | [facility] | | | Average | | | [facility] | | | Glucose | | | MEDICAL | | | | | | CENTER - | | | | | | LABORATORY | | + +---------+ + + + + + | Specimen | + + | Blood | + + + + + + + | Performing | Address | City/State/Zipcode | Phone Number | | Organization | | | | + + + + + | [facility] | [address] | [place] | [phone] | | [facility] | | [address] | | | - LABORATORY | | | | + + + + + Magnesium (12/04/2019 3:56 AM PDT) + +-------+ + + + | Component | Value | Ref Range | Performed | Pathologist | | | | | At | Signature | + +-------+ + + + | Magnesium | 1.8 | 1.6 - 2.6 mg/dL | [facility] | | | | | | [facility] | | | | | | MEDICAL | | | | | | CENTER - | | | | | | LABORATORY | | + +-------+ + + + + + | Specimen | + + | Blood | + + + + + + + | Performing | Address | City/State/Zipcode | Phone Number | | Organization | | | | + + + + + | [facility] | [address] | [place] | [phone] | | [facility] | | [address] | | | - LABORATORY | | | | + + + + + Protime INR (12/04/2019 3:55 AM PDT) + + + + + + | Component | Value | Ref Range | Performed | Pathologist | | | | | At | Signature | + + + + + + | Prothrombin | 18.6 (H) | 11.3 - 13.9 | [facility] | | | Time | | seconds | [facility] | | | | | | MEDICAL | | | | | | CENTER - | | | | | | LABORATORY | | + + + + + + | INR | 1.5 (H)Comment: Usual | 0.9 - 1.1 | [facility] | | | | Oral Anticoagulation | | [facility] | | | | Range: 2.0 - | | MEDICAL | | | | 3.0High Level Oral | | CENTER - | | | | Anticoagulation Range: | | LABORATORY | | | | 2.5 - 3.5 | | | | + + + + + + + + | Specimen | + + | Blood | + + + + + + + | Performing | Address | City/State/Zipcode | Phone Number | | Organization | | | | + + + + + | [facility] | [address] | [place] | [phone] | | [facility] | | [address] | | | - LABORATORY | | | | + + + + + POC Glucose (12/03/2019 8:25 PM PDT) + +---------+ + + + | Component | Value | Ref Range | Performed | Pathologist | | | | | At | Signature | + +---------+ + + + | Glucose, | 166 (H) | 70 - 109 mg/dL | [facility] | | | POC | | | [facility] | | | | | | MEDICAL | | | | | | CENTER - | | | | | | LABORATORY | | + +---------+ + + + + + | Specimen | + + | Blood | + + + + + + + | Performing | Address | City/State/Zipcode | Phone Number | | Organization | | | | + + + + + | [facility] | [address] | [place] | [phone] | | [facility] | | [address] | | | - LABORATORY | | | | + + + + + Basic Metabolic Panel (12/03/2019 5:26 PM PDT) + + + + + + | Component | Value | Ref Range | Performed | Pathologist | | | | | At | Signature | + + + + + + | Na | 126 (L) | 136 - 145 | [facility] | | | | | mmol/L | [facility] | | | | | | MEDICAL | | | | | | CENTER - | | | | | | LABORATORY | | + + + + + + | K | 3.6 | 3.4 - 5.1 | [facility] | | | | | mmol/L | [facility] | | | | | | MEDICAL | | | | | | CENTER - | | | | | | LABORATORY | | + + + + + + | Cl | 96 (L) | 98 - 107 mmol/L | [facility] | | | | | | [facility] | | | | | | MEDICAL | | | | | | CENTER - | | | | | | LABORATORY | | + + + + + + | CO2 | 15 (L) | 20 - 31 mmol/L | [facility] | | | | | | [facility] | | | | | | MEDICAL | | | | | | CENTER - | | | | | | LABORATORY | | + + + + + + | Anion Gap | 15 | 3 - 16 mmol/L | [facility] | | | | | | [facility] | | [facility] | | | MEDICAL | | | | | | CENTER - | | | | | | LABORATORY | | + + + + + + | Glucose | 215 (H) | 60 - 106 mg/dL | [facility] | | | | | | [facility] | | | | | | MEDICAL | | | | | | CENTER - | | | | | | LABORATORY | | + + + + + + | BUN | 75 (H) | 9 - 23 mg/dL | [facility] | | | | | | [facility] | | | | | | MEDICAL | | | | | | CENTER - | | | | | | LABORATORY | | + + + + + + | Creatinine | 5.17 (H) | 0.70 - 1.30 | [facility] | | | | | mg/dL | [facility] | | | | | | MEDICAL | | | | | | CENTER - | | | | | | LABORATORY | | + + + + + + | eGFR, | 12 (L)Comment: | >=60 | [facility] | | | non- | GLOMERULAR FILTRATION | mL/min/1.73m2 | [facility] | | | [place] | RATE,ESTIMATED | | MEDICAL | | | | mL/min/1.91x4Aucx than | | CENTER - | | | | 60 Chronic kidney | | LABORATORY | | | | disease,if found over a | | | | | | 3-month period.Less than | | | | | | 15 Kidney failureFor | | | | | | | | | | | | Americans,multiply the | | | | | | calculated GFR by 1.21. | | | | | | | | | | + + + + + + | Calcium | 8.2 (L) | 8.7 - 10.4 | [facility] | | | | | mg/dL | [facility] | | | | | | MEDICAL | | | | | | CENTER - | | | | | | LABORATORY | | + + + + + + | BUN/Creatin | 14.5 | | [facility] | | | ine Ratio | | | [facility] | | | | | | MEDICAL | | | | | | CENTER - | | | | | | LABORATORY | | + + + + + + + + | Specimen | + + | Blood | + + + + + + + | Performing | Address | City/State/Zipcode | Phone Number | | Organization | | | | + + + + + | [facility] | [address] | [place] | [phone] | | [facility] | | [address] | | | - LABORATORY | | | | + + + + + POC Glucose (12/03/2019 5:00 PM PDT) + +---------+ + + + | Component | Value | Ref Range | Performed | Pathologist | | | | | At | Signature | + +---------+ + + + | Glucose, | 190 (H) | 70 - 109 mg/dL | [facility] | | | POC | | | [facility] | | | | | | MEDICAL | | | | | | CENTER - | | | | | | LABORATORY | | + +---------+ + + + + + | Specimen | + + | Blood | + + + + + + + | Performing | Address | City/State/Zipcode | Phone Number | | Organization | | | | + + + + + | [facility] | [address] | [place] | [phone] | | [facility] | | [address] | | | - LABORATORY | | | | + + + + + CT Abdomen Pelvis wo Contrast (12/03/2019 1:22 [...] | | | + +---------+ + + XR Chest 1 Vw (12/03/2019 1:21 PM PDT) + + | Specimen | [...] | | | + +---------+ + + POC Glucose (12/03/2019 12:06 PM PDT) + +---------+ + + + | Component | Value | Ref Range | Performed | Pathologist | | | | | At | Signature | + +---------+ + + + | Glucose, | 163 (H) | 70 - 109 mg/dL | [facility] | | | POC | | | [facility] | | | | | | MEDICAL | | | | | | CENTER - | | | | | | LABORATORY | | + +---------+ + + + + + | Specimen | + + | Blood | + + + + + + + | Performing | Address | City/State/Zipcode | Phone Number | | Organization | | | | + + + + + | [facility] | [address] | [place] | [phone] | | [facility] | | [address] | | | - LABORATORY | | | | + + + + + Blood Culture GN Panel, PCR (12/03/2019 10:39 AM PDT) + + + + + + | Component | Value | Ref Range | Performed | Pathologist | | | | | At | Signature | + + + + + + | Escherichia | Detected (AA)Comment: | Not Detected | [facility] | | | coli, DNA | Critical Result called | | [facility] | | | | to and read back by | | MEDICAL | | | | Jeremy Bowman, | | CENTER - | | | | PharmD on 12/07/2019 at | | LABORATORY | | | | 5:21 AM by Brock Carrasco | | | | | | Mitchell. | | | | + + + + + + | Pseudomonas | Not Detected | Not Detected | [facility] | | | | | | [facility] | | | aeruginosa, | | | MEDICAL | | | DNA | | | CENTER - | | | | | | LABORATORY | | + + + + + + | Klebsiella | Not Detected | Not Detected | [facility] | | | pneumoniae, | | | [facility] | | | DNA | | | MEDICAL | | | | | | CENTER - | | | | | | LABORATORY | | + + + + + + | Klebsiella | Not Detected | Not Detected | [facility] | | | oxytoca, | | | [facility] | | | DNA | | | MEDICAL | | | | | | CENTER - | | | | | | LABORATORY | | + + + + + + | CTX-M (ESBL | Not Detected | Not Detected | [facility] | | | resistance | | | [facility] | | | gene), DNA | | | MEDICAL | | | | | | CENTER - | | | | | | LABORATORY | | + + + + + + | Enterobacte | Not Detected | Not Detected | [facility] | | | r species, | | | [facility] | | | DNA | | | MEDICAL | | | | | | CENTER - | | | | | | LABORATORY | | + + + + + + | Proteus | Not Detected | Not Detected | [facility] | | | species, | | | [facility] | | | DNA | | | MEDICAL | | | | | | CENTER - | | | | | | LABORATORY | | + + + + + + | Acinetobact | Not Detected | Not Detected | [facility] | | | er species, | | | [facility] | | | DNA | | | MEDICAL | | | | | | CENTER - | | | | | | LABORATORY | | + + + + + + | Citrobacter | Not Detected | Not Detected | [facility] | | | species, | | | [facility] | | | DNA | | | MEDICAL | | | | | | CENTER - | | | | | | LABORATORY | | + + + + + + | OXA (CRE | Not Detected | Not Detected | [facility] | | | resistance | | | [facility] | | | gene), DNA | | | MEDICAL | | | | | | CENTER - | | | | | | LABORATORY | | + + + + + + | IMP (CRE | Not Detected | Not Detected | [facility] | | | resistance | | | [facility] | | | gene), DNA | | | MEDICAL | | | | | | CENTER - | | | | | | LABORATORY | | + + + + + + | KPC (CRE | Not Detected | Not Detected | [facility] | | | resistance | | | [facility] | | | gene), DNA | | | MEDICAL | | | | | | CENTER - | | | | | | LABORATORY | | + + + + + + | VIM (CRE | Not Detected | Not Detected | [facility] | | | resistance | | | [facility] | | | gene), DNA | | | MEDICAL | | | | | | CENTER - | | | | | | LABORATORY | | + + + + + + | NDM (CRE | Not Detected | Not Detected | [facility] | | | resistance | | | [facility] | | | gene), DNA | | | MEDICAL | | | | | | CENTER - | | | | | | LABORATORY | | + + + + + + + + | Specimen | + + | Blood - Peripheral | | blood specimen | | (specimen) | + + + + + + + | Performing | Address | City/State/Zipcode | Phone Number | | Organization | | | | + + + + + | [facility] | [address] | [place], [place] | [phone] | | [facility] | | [address] | | | - LABORATORY | | | | + + + + + Differential, Manual (12/03/2019 10:39 AM PDT) + + + + + + | Component | Value | Ref Range | Performed | Pathologist | | | | | At | Signature | + + + + + + | % Segmented | 79.0 (H) | 50.0 - 70.0 % | [facility] | | | | | | [facility] | | | Neutrophils | | | MEDICAL | | | | | | CENTER - | | | | | | LABORATORY | | + + + + + + | % | 4.0 (L) | 20.0 - 40.0 % | [facility] | | | Lymphocytes | | | [facility] | | | | | | [facility]ICAL | | | | | | CENTER - | | | | | | LABORATORY | | + + + + + + | % Monocytes | 1.0 | 1.0 - 6.0 % | [facility] | | | | | | [facility] | | | | | | [facility]ICAL | | | | | | CENTER - | | | | | | LABORATORY | | + + + + + + | % Bands | 16.0 (H) | 0.0 - 5.0 % | [facility] | | | | | | [facility] | | | | | | [facility] | | | | | | CENTER - | | | | | | LABORATORY | | + + + + + + | Absolute | 13.67 (H) | 1.80 - 7.70 | [facility] | | | Segmented | | K/uL | [facility] | | | Neutrophils | | | MEDICAL | | | | | | CENTER - | | | | | | LABORATORY | | + + + + + + | Absolute | 0.69 (L) | 1.00 - 3.40 | [facility] | | | Lymphocytes | | K/uL | [facility] | | | | | | [facility] | | | | | | CENTER - | | | | | | LABORATORY | | + + + + + + | Absolute | 0.17 | 0.00 - 0.80 | [facility] | | | Monocytes | | K/uL | [facility] | | | | | | [facility] | | | | | | CENTER - | | | | | | LABORATORY | | + + + + + + | Absolute | 2.77 (H) | 0.00 - 1.50 | [facility] | | | Bands | | K/uL | [facility] | | | | | | [facility]ICAL | | | | | | CENTER - | | | | | | LABORATORY | | + + + + + + | % nRBC | 1 | per 100 WBC's | [facility] | | | | | | [facility] | | | | | | [facility] | | | | | | [facility] - | | | | | | LABORATORY | | + + + + + + | Total Cells | 100 | | [facility] | | | Counted | | | [facility] | | | | | | [facility] | | | | | | CENTER - | | | | | | LABORATORY | | + + + + + + | RBC | Normal | | [facility] | | | Morphology | | | [facility] | | | | | | [facility] | | | | | | CENTER - | | | | | | LABORATORY | | + + + + + + | Platelet | Increased (A) | Adequate | [facility] | | | Estimate | | | [facility] | | | | | | [facility] | | | | | | CENTER - | | | | | | LABORATORY | | + + + + + + | Toxic | Present (A) | Not Present | [facility] | | | Granulation | | | [facility] | | | | | | [facility] | | | | | | CENTER - | | | | | | LABORATORY | | + + + + + + | Leukocyte | Present (A) | Not Present | [facility] | | | Toxic | | | [facility] | | | Vacuoles | | | MEDICAL | | | | | | CENTER - | | | | | | LABORATORY | | + + + + + + | Dohle | Present (A) | (none) | [facility] | | | Bodies | | | [facility] | | | | | | [facility] | | | | | | CENTER - | | | | | | LABORATORY | | + + + + + + + + | Specimen | + + | Blood | + + + + + + + | Performing | Address | City/State/Zipcode | Phone Number | | Organization | | | | + + + + + | [facility] | [address] | [place] | [phone] | | [facility] | | [address] | | | - LABORATORY | | | | + + + + + Renal Function Panel (12/03/2019 10:39 AM PDT) + + + + + + | Component | Value | Ref Range | Performed | Pathologist | | | | | At | Signature | + + + + + + | Na | 126 (L) | 136 - 145 | [facility] | | | | | mmol/L | [facility] | | | | | | [facility]ICAL | | | | | | CENTER - | | | | | | LABORATORY | | + + + + + + | K | 3.7 | 3.4 - 5.1 | [facility] | | | | | mmol/L | [facility] | | | | | | [facility] | | | | | | CENTER - | | | | | | LABORATORY | | + + + + + + | Cl | 96 (L) | 98 - 107 mmol/L | [facility] | | | | | | [facility] | | | | | | [facility] | | | | | | CENTER - | | | | | | LABORATORY | | + + + + + + | CO2 | 16 (L) | 20 - 31 mmol/L | [facility] | | | | | | [facility] | | | | | | [facility] | | | | | | CENTER - | | | | | | LABORATORY | | + + + + + + | Anion Gap | 14 | 3 - 16 mmol/L | [facility] | | | | | | [facility] | | | | | | MEDICAL | | | | | | CENTER - | | | | | | LABORATORY | | + + + + + + | Glucose | 198 (H) | 60 - 106 mg/dL | [facility] | [facility] | [facility] | | | | | | [facility] - | | | | | | LABORATORY | | + + + + + + | BUN | 66 (H) | 9 - 23 mg/dL | [facility] | [facility] | | [facility] | [facility] | | | | | | CENTER - | | | | | | LABORATORY | | + + + + + + | Creatinine | 5.16 (H) | 0.70 - 1.30 | [facility] | | | | | mg/dL | [facility] | [facility] | [facility] | | | | | | CENTER - | | | | | | LABORATORY | | + + + + + + | eGFR, | 12 (L)Comment: | >=60 | [facility] | | | non- | GLOMERULAR FILTRATION | mL/min/1.73m2 | [facility] | | | [place] | RATE,ESTIMATED | | MEDICAL | | | | mL/min/[id number] than | | CENTER - | | | | 60 Chronic kidney | | LABORATORY | | | | disease,if found over a | | | | | | 3-month period.Less than | | | | | | 15 Kidney failureFor | | | | | | | | | | | | Americans,multiply the | | | | | | calculated GFR by 1.21. | | | | | | | | | | + + + + + + | Calcium | 8.5 (L) | 8.7 - 10.4 | [facility] | | | | | mg/dL | [facility] | | | | | | MEDICAL | | | | | | CENTER - | | | | | | LABORATORY | | + + + + + + | Albumin | 3.3 | 3.2 - 4.8 g/dL | [facility] | [facility] | [facility] | | | [facility] | [facility] | | | | | | CENTER - | | | | | | LABORATORY | | + + + + + + | Phosphorus | 4.3 | 2.4 - 5.1 mg/dL | [facility] | | | | | | [facility] | | | | | | [facility] | | | | | | CENTER - | | | | | | LABORATORY | | + + + + + + | BUN/Creatin | 12.8 | | [facility] | | | ine Ratio | | | [facility] | | | | | | [facility] | | | | | | CENTER - | | | | | | LABORATORY | | + + + + + + + + | Specimen | + + | Blood | + + + + + + + | Performing | Address | City/State/Zipcode | Phone Number | | Organization | | | | + + + + + | [facility] | [address] | [place], [place] | [phone] | | [facility] | | [address] | | | - LABORATORY | | | | + + + + + CBC with Differential (12/03/2019 10:39 AM PDT) + + + + + + | Component | Value | Ref Range | Performed | Pathologist | | | | | At | Signature | + + + + + + | White Blood | 17.3 (H) | 4.0 - 11.0 K/uL | [facility] | | | Cells | | | [facility] | | | [facility] | | [facility] | | | | | | CENTER - | | | | | | LABORATORY | | + + + + + + | Red Blood | 4.43 | 4.30 - 5.70 | [facility] | | | Cells | | M/uL | [facility] | | | | | | MEDICAL | | | | | | CENTER - | | | | | | LABORATORY | | + + + + + + | Hemoglobin | 14.5 | 13.5 - 18.0 | [facility] | | | | | g/dL | [facility] | | | | | | [facility] | | | | | | CENTER - | | | | | | LABORATORY | | + + + + + + | Hematocrit | 41.4 | 40.0 - 51.0 % | [facility] | | | | | | [facility] | | | | | | [facility] | | | | | | CENTER - | | | | | | LABORATORY | | + + + + + + | MCV | 93.5 | 83.0 - 101.0 fL | [facility] | | | | | | [facility] | | | | | | [facility] | | | | | | CENTER - | | | | | | LABORATORY | | + + + + + + | MCH | 32.7 | 28.0 - 35.0 pg | [facility] | | | | | | [facility] | | | | | | [facility] | | | | | | CENTER - | | | | | | LABORATORY | | + + + + + + | MCHC | 35.0 | 32.0 - 36.0 | [facility] | | | | | g/dL | [facility] | | | | | | MEDICAL | | | | | | CENTER - | | | | | | LABORATORY | | + + + + + + | RDW-CV | 13.2 | <15.0 % | [facility] | | | | | | [facility] | | | | | | [facility] | | | | | | CENTER - | | | | | | LABORATORY | | + + + + + + | RDW-SD | 45.1 | 35.1 - 46.3 fL | [facility] | | | | | | [facility] | | | | | | [facility] | | | | | | CENTER - | | | | | | LABORATORY | | + + + + + + | Platelet | 112 (L) | 140 - 440 K/uL | [facility] | | | Count | | | [facility] | | | | | | MEDICAL | | | | | | CENTER - | | | | | | LABORATORY | | + + + + + + | MPV | 10.8 | 6.5 - 12.4 fL | [facility] | | | | | | [facility] | | | | | | [facility] | | | | | | CENTER - | | | | | | LABORATORY | | + + + + + + | % nRBC | 0 | 0 - 2 per 100 | [facility] | | | | | WBCs | [facility] | | | | | | MEDICAL | | | | | | CENTER - | | | | | | LABORATORY | | + + + + + + | Absolute | 0.00 | 0.00 - 0.01 | [facility] | | | nRBC | | K/uL | [facility] | | | | | | MEDICAL | | | | | | CENTER - | | | | | | LABORATORY | | + + + + + + + + | Specimen | + + | Blood | + + + + + + + | Performing | Address | City/State/Zipcode | Phone Number | | Organization | | | | + + + + + | [facility] | [address] | [place] | [phone] | | [facility] | | [address] | | | - LABORATORY | | | | + + + + + Lactic Acid (12/03/2019 10:39 AM PDT) + +---------+ + + + | Component | Value | Ref Range | Performed | Pathologist | | | | | At | Signature | + +---------+ + + + | Lactate | 3.1 (H) | 0.5 - 2.2 | [facility] | | | | | mmol/L | [facility] | | | | | | MEDICAL | | | | | | CENTER - | | | | | | LABORATORY | | + +---------+ + + + + + | Specimen | + + | Blood | + + + + + + + | Performing | Address | City/State/Zipcode | Phone Number | | Organization | | | | + + + + + | [facility] | [address] | [place] | [phone] | | [facility] | | [address] | | | - LABORATORY | | | | + + + + + Culture, Blood (12/03/2019 10:39 AM PDT) + + + + + + | Component | Value | Ref Range | Performed | Pathologist | | | | | At | Signature | + + + + + + | Culture | Positive Blood Culture | | [facility] | | | | (AA) | | [facility] | | | | | | MEDICAL | | | | | | CENTER - | | | | | | LABORATORY | | + + + + + + | Culture | Escherichia coliComment: | | [facility] | | | | For sensitivity | | [facility] | | | | results, refer to | | MEDICAL | | | | security tech culture. | | CENTER - | | | | | | LABORATORY | | + + + + + + | Gram Stain | Gram negative | | [facility] | | | Result | rodsComment: 3 | | [facility] | | | | bottles. Critical Result | | MEDICAL | | | | called to and read back | | CENTER - | | | | by Allie Loya RN | | LABORATORY | | | | on 12/08/2019 at 10:48 AM | | | | | | by Shahbaz Germain. | | | | + + + + + + + + | Specimen | + + | Blood - Peripheral | | blood specimen | | (specimen) | + + + + + | Narrative | Performed At | + + + | For sensitivity results, refer to security tech culture# [id number] | [facility] | | | [facility] | | | [facility] | | | - LABORATORY | + + + + + + + + | Performing | Address | City/State/Zipcode | Phone Number | | Organization | | | | + + + + + | [facility] | [address] | [place] | [phone] | | [facility] | | [address] | | | - LABORATORY | | | | + + + + + Culture, Blood (12/03/2019 10:39 AM PDT) + + + + + + | Component | Value | Ref Range | Performed | Pathologist | | | | | At | Signature | + + + + + + | Culture | Positive Blood Culture | | [facility] | | | | (AA) | | [facility] | | | | | | MEDICAL | | | | | | CENTER - | | | | | | LABORATORY | | + + + + + + | Culture | Escherichia coli | | [facility] | | | | | | [facility] | | | | | | MEDICAL | | | | | | CENTER - | | | | | | LABORATORY | | + + + + + + | Gram Stain | Gram negative | | [facility] | | | Result | rodsComment: 2 of 4 | | [facility] | | | | bottles. Critical Result | | MEDICAL | | | | called to and read back | | CENTER - | | | | by Jay Jay Ontiveros, RN | | LABORATORY | | | | on 12/07/2019 at 2:39 AM | | | | | | by Brock Medrano. | | | | + + + + + + + + | Specimen | + + | Blood - Peripheral | | blood specimen | | (specimen) | + + + + +--------+ + | Organism | Antibiotic | Method | Susceptibility | + + +--------+ + | Escherichia coli | Cefazolin | | <=4 ug/mL: | | | | | Sensitive | + + +--------+ + | Escherichia coli | Cefoxitin | | <=4 ug/mL: | | | | | Sensitive | + + +--------+ + | Escherichia coli | Ceftazidime | | <=1 ug/mL: | | | | | Sensitive | + + +--------+ + | Escherichia coli | Ceftriaxone | | <=1 ug/mL: | | | | | Sensitive | + + +--------+ + | Escherichia coli | Ciprofloxacin | | <=0.25 ug/mL: | | | | | Sensitive | + + +--------+ + | Escherichia coli | Ertapenem | | <=0.5 ug/mL: | | | | | Sensitive | + + +--------+ + | Escherichia coli | Gentamicin | | <=1 ug/mL: | | | | | Sensitive | + + +--------+ + | Escherichia coli | Meropenem | | <=0.25 ug/mL: | | | | | Sensitive | + + +--------+ + | Escherichia coli | Tobramycin | | <=1 ug/mL: | | | | | Sensitive | + + +--------+ + | Escherichia coli | Trimethoprim + | | <=20 ug/mL: | | | Sulfamethoxazole | | Sensitive | + + +--------+ + + + + + + | Performing | Address | City/State/Zipcode | Phone Number | | Organization | | | | + + + + + | [facility] | [address] | [place] | [phone] | | [facility] | | [address] | | | - LABORATORY | | | | + + + + + US Renal Complete (12/03/2019 9:08 AM PDT) + + | Specimen | + + | | + + + + + | Impressions | Performed At | + + + | No evidence for hydronephrosis. Mildly elevated resistive | [facility] | | indices of left kidney suggestive of medical renal disease. | | | Dictated and Signed by: Neville Bryant MD Electronically signed: | | | 12/03/2019 9:14 AM | | + + + + + + | Narrative | Performed At | + + + | US RENAL COMPLETE 12/03/2019 8:24 AM HISTORY: ARF. | [facility] | | COMPARISON: None. PROTOCOL: Ross scale and Doppler images of the | | | kidneys and bladder. FINDINGS: Right Kidney: The kidney is smooth | | | in contour and normal in echotexture without stone or | | | hydronephrosis. Size of the kidney is 12.7 x 6.4 x 7.1 cm. Resistive | | | index is 0.68, normal. Left Kidney: The kidney is smooth in | | | contour and normal in echotexture without stone or hydronephrosis. | | | Size of the kidney is 13.3 x 7.3 x 8.5 cm. Resistive indices range | | | from 0.69-0.78, mildly elevated and suggestive of medical renal | | | disease. Bladder: The bladder has a normal appearance. The patient | | | was unable to void. Ureteral jets are not seen on the right and | | | left. | | + + + + + | Procedure Note | + + | Davin, Rad Results In - 12/03/2019 9:17 AM PDT US RENAL COMPLETE 12/03/2019 8:24 AM | | | | HISTORY: ARF. | | | | COMPARISON: None. | | | | PROTOCOL: Ross scale and Doppler images of the kidneys and bladder. | | | | FINDINGS: | | Right Kidney: The kidney is smooth in contour and normal in echotexture without | | stone or hydronephrosis. Size of the kidney is 12.7 x 6.4 x 7.1 cm. Resistive | | index is 0.68, normal. | | | | Left Kidney: The kidney is smooth in contour and normal in echotexture without | | stone or hydronephrosis. Size of the kidney is 13.3 x 7.3 x 8.5 cm. Resistive | | indices range from 0.69-0.78, mildly elevated and suggestive of medical renal | | disease. | | | | Bladder: The bladder has a normal appearance. The patient was unable to void. | | Ureteral jets are not seen on the right and left. | | | | IMPRESSION: | | No evidence for hydronephrosis. | | | | Mildly elevated resistive indices of left kidney suggestive of medical renal | | disease. | | | | Dictated and Signed by: Neville Bryant MD | | Electronically signed: 12/03/2019 9:14 AM | + + + +---------+ + + | Performing | Address | City/State/Zipcode | Phone Number | | Organization | | | | + +---------+ + + | [facility] | | | | + +---------+ + + CK Total (12/03/2019 8:17 AM PDT) + +--------+ + + + | Component | Value | Ref Range | Performed | Pathologist | | | | | At | Signature | + +--------+ + + + | CK TOTAL | 36 (L) | 46 - 171 U/L | [facility] | | | | | | [facility] | | | | | | MEDICAL | | | | | | CENTER - | | | | | | LABORATORY | | + +--------+ + + + + + | Specimen | + + | Blood | + + + + + + + | Performing | Address | City/State/Zipcode | Phone Number | | Organization | | | | + + + + + | [facility] | [address] | [place] | [phone] | | [facility] | | [address] | | | - LABORATORY | | | | + + + + + Lactic Acid (12/03/2019 8:17 AM PDT) + +---------+ + + + | Component | Value | Ref Range | Performed | Pathologist | | | | | At | Signature | + +---------+ + + + | Lactate | 3.7 (H) | 0.5 - 2.2 | [facility] | | | | | mmol/L | [facility] | | | | | | MEDICAL | | | | | | CENTER - | | | | | | LABORATORY | | + +---------+ + + + + + | Specimen | + + | Blood | + + + + + + + | Performing | Address | City/State/Zipcode | Phone Number | | Organization | | | | + + + + + | [facility] | [address] | [place] | [phone] | | [facility] | | [address] | | | - LABORATORY | | | | + + + + + C-Reactive Protein (12/03/2019 8:17 AM PDT) + + + + + + | Component | Value | Ref Range | Performed | Pathologist | | | | | At | Signature | + + + + + + | CRP | 312.10 (H) | <10.00 mg/L | [facility] | | | | | | [facility] | | | | | | [facility] | | | | | | CENTER - | | | | | | LABORATORY | | + + + + + + + + | Specimen | + + | Blood | + + + + + + + | Performing | Address | City/State/Zipcode | Phone Number | | Organization | | | | + + + + + | [facility] | [address] | [place] | [phone] | | [facility] | | [address] | | | - LABORATORY | | | | + + + + + Procalcitonin (12/03/2019 8:17 AM PDT) + + + + + + | Component | Value | Ref Range | Performed | Pathologist | | | | | At | Signature | + + + + + + | Procalciton | 28.97 ()Comment: | <=0.50 ng/mL | [facility] | | | in | Critical Result called | | [facility] | | | | to and read back by | | MEDICAL | | | | Tia Bowman RN on | | CENTER - | | | | 12/03/2019 at 9:13 AM by | | LABORATORY | | | | [facility] | | | | | | Tech. | | | | + + + + + + | Comment | Comment: < 0.50 | | [facility] | | | | ng/mL:Procalcitonin | | [facility] | | | | levels below 0.50 ng/mL | | MEDICAL | | | | on the first day of | | CENTER - | | | | admission represents a | | LABORATORY | | | | low risk for progression | | | | | | to severe sepsis and/or | | | | | | septic shock, however | | | | | | these do not exclude an | | | | | | infection, because | | | | | | localized infections | | | | | | (without systemic signs) | | | | | | may also be associated | | | | | | with such low levels. | | | | | | > 2.00 | | | | | | ng/mL:Procalcitonin | | | | | | levels above 2.00 ng/mL | | | | | | on the first day of | | | | | | admission represents a | | | | | | high risk for | | | | | | progression to severe | | | | | | sepsis and/or septic | | | | | | shock. If the | | | | | | procalcitonin | | | | | | measurement is performed | | | | | | shortly after the | | | | | | systemic infection | | | | | | process has started | | | | | | (usually less than 6 | | | | | | hours), these values may | | | | | | still be low. As | | | | | | various non-infectious | | | | | | conditions are known to | | | | | | induce procalcitonin as | | | | | | well, procalcitonin | | | | | | levels between 0.50 | | | | | | ng/mL and 2.00 ng/mL | | | | | | should be reviewed | | | | | | carefully to take into | | | | | | account the specific | | | | | | clinical background and | | | | | | condition(s) of the | | | | | | individual patient. | | | | + + + + + + + + | Specimen | + + | Blood | + + + + + + + | Performing | Address | City/State/Zipcode | Phone Number | | Organization | | | | + + + + + | [facility] | [address] | [place] | [phone] | | [facility] | | [address] | | | - LABORATORY | | | | + + + + + Magnesium (12/03/2019 8:17 AM PDT) + +---------+ + + + | Component | Value | Ref Range | Performed | Pathologist | | | | | At | Signature | + +---------+ + + + | Magnesium | 1.5 (L) | 1.6 - 2.6 mg/dL | [facility] | | | | | | [facility] | | | | | | MEDICAL | | | | | | CENTER - | | | | | | LABORATORY | | + +---------+ + + + + + | Specimen | + + | Blood | + + + + + + + | Performing | Address | City/State/Zipcode | Phone Number | | Organization | | | | + + + + + | [facility] | [address] | [place] | [phone] | | [facility] | | [address] | | | - LABORATORY | | | | + + + + + Comprehensive Metabolic Panel (12/03/2019 8:17 AM PDT) + + + + + + | Component | Value | Ref Range | Performed | Pathologist | | | | | At | Signature | + + + + + + | Na | 129 (L) | 136 - 145 | [facility] | | | | | mmol/L | [facility] | | | | | | MEDICAL | | | | | | CENTER - | | | | | | LABORATORY | | + + + + + + | K | 3.6 | 3.4 - 5.1 | [facility] | | | | | mmol/L | [facility] | | | | | | MEDICAL | | | | | | CENTER - | | | | | | LABORATORY | | + + + + + + | Cl | 96 (L) | 98 - 107 mmol/L | [facility] | | | | | | [facility] | | | | | | MEDICAL | | | | | | CENTER - | | | | | | LABORATORY | | + + + + + + | CO2 | 17 (L) | 20 - 31 mmol/L | [facility] | | | | | | [facility] | | | | | | MEDICAL | | | | | | CENTER - | | | | | | LABORATORY | | + + + + + + | Anion Gap | 16 | 3 - 16 mmol/L | [facility] | | | | | | [facility] | | | | | | MEDICAL | | | | | | CENTER - | | | | | | LABORATORY | | + + + + + + | Glucose | 211 (H) | 60 - 106 mg/dL | [facility] | | | | | | [facility] | | | | | | MEDICAL | | | | | | CENTER - | | | | | | LABORATORY | | + + + + + + | BUN | 69 (H) | 9 - 23 mg/dL | [facility] | | | | | | [facility] | | | | | | MEDICAL | | | | | | CENTER - | | | | | | LABORATORY | | + + + + + + | Creatinine | 5.24 (H) | 0.70 - 1.30 | [facility] | | | | | mg/dL | [facility] | | | | | | MEDICAL | | | | | | CENTER - | | | | | | LABORATORY | | + + + + + + | eGFR, | 12 (L)Comment: | >=60 | [facility] | | | non- | GLOMERULAR FILTRATION | mL/min/1.73m2 | [facility] | | | [place] | RATE,ESTIMATED | | MEDICAL | | | | mL/min/1.09v7Xqyz than | | CENTER - | | | | 60 Chronic kidney | | LABORATORY | | | | disease,if found over a | | | | | | 3-month period.Less than | | | | | | 15 Kidney failureFor | | | | | | | | | | | | Americans,multiply the | | | | | | calculated GFR by 1.21. | | | | | | | | | | + + + + + + | Calcium | 8.6 (L) | 8.7 - 10.4 | [facility] | | | | | mg/dL | [facility] | | | | | | MEDICAL | | | | | | CENTER - | | | | | | LABORATORY | | + + + + + + | Albumin | 3.6 | 3.2 - 4.8 g/dL | [facility] | | | | | | [facility] | | | | | | MEDICAL | | | | | | CENTER - | | | | | | LABORATORY | | + + + + + + | Bilirubin | 2.6 (H) | 0.3 - 1.2 mg/dL | [facility] | | | Total | | | [facility] | | | | | | MEDICAL | | | | | | CENTER - | | | | | | LABORATORY | | + + + + + + | Total | 7.4 | 5.7 - 8.2 g/dL | [facility] | | | Protein | | | [facility] | | | | | | MEDICAL | | | | | | CENTER - | | | | | | LABORATORY | | + + + + + + | AST | 48 (H) | 0 - 34 U/L | [facility] | | | | | | [facility] | | | | | | MEDICAL | | | | | | CENTER - | | | | | | LABORATORY | | + + + + + + | ALT | 31 | 10 - 49 U/L | [facility] | | | | | | [facility] | | | | | | MEDICAL | | | | | | CENTER - | | | | | | LABORATORY | | + + + + + + | Alkaline | 138 (H) | 46 - 116 U/L | [facility] | | | Phosphatase | | | [facility] | | | | | | MEDICAL | | | | | | CENTER - | | | | | | LABORATORY | | + + + + + + | Globulin | 3.8 | 2.1 - 3.8 g/dL | [facility] | | | | | | [facility] | | | | | | MEDICAL | | | | | | CENTER - | | | | | | LABORATORY | | + + + + + + | Albumin/Katrin | 0.9 | 0.8 - 1.9 | [facility] | | | bulin Ratio | | | [facility] | | | | | | MEDICAL | | | | | | CENTER - | | | | | | LABORATORY | | + + + + + + | BUN/Creatin | 13.2 | | [facility] | | | ine Ratio | | | [facility] | | | | | | MEDICAL | | | | | | CENTER - | | | | | | LABORATORY | | + + + + + + + + | Specimen | + + | Blood | + + + + + + + | Performing | Address | City/State/Zipcode | Phone Number | | Organization | | | | + + + + + | [facility] | [address] | [place] | [phone] | | [facility] | | [address] | | | - LABORATORY | | | | + + + + + CBC with Differential (12/03/2019 8:17 AM PDT) + + + + + + | Component | Value | Ref Range | Performed | Pathologist | | | | | At | Signature | + + + + + + | White Blood | 21.5 (H) | 4.0 - 11.0 K/uL | [facility] | | | Cells | | | [facility] | | | | | | MEDICAL | | | | | | CENTER - | | | | | | LABORATORY | | + + + + + + | Red Blood | 4.57 | 4.30 - 5.70 | [facility] | | | Cells | | M/uL | [facility] | | | | | | MEDICAL | | | | | | CENTER - | | | | | | LABORATORY | | + + + + + + | Hemoglobin | 15.1 | 13.5 - 18.0 | [facility] | | | | | g/dL | [facility] | | | | | | MEDICAL | | | | | | CENTER - | | | | | | LABORATORY | | + + + + + + | Hematocrit | 42.1 | 40.0 - 51.0 % | [facility] | | | | | | [facility] | | | | | | MEDICAL | | | | | | CENTER - | | | | | | LABORATORY | | + + + + + + | MCV | 92.1 | 83.0 - 101.0 fL | [facility] | | | | | | [facility] | | | | | | MEDICAL | | | | | | CENTER - | | | | | | LABORATORY | | + + + + + + | MCH | 33.0 | 28.0 - 35.0 pg | [facility] | | | | | | [facility] | | | | | | MEDICAL | | | | | | CENTER - | | | | | | LABORATORY | | + + + + + + | MCHC | 35.9 | 32.0 - 36.0 | [facility] | | | | | g/dL | [facility] | | | | | | MEDICAL | | | | | | CENTER - | | | | | | LABORATORY | | + + + + + + | RDW-CV | 13.0 | <15.0 % | [facility] | | | | | | [facility] | | | | | | MEDICAL | | | | | | CENTER - | | | | | | LABORATORY | | + + + + + + | RDW-SD | 44.1 | 35.1 - 46.3 fL | [facility] | | | | | | [facility] | | | | | | MEDICAL | | | | | | CENTER - | | | | | | LABORATORY | | + + + + + + | Platelet | 140 | 140 - 440 K/uL | [facility] | | | Count | | | [facility] | | | | | | MEDICAL | | | | | | CENTER - | | | | | | LABORATORY | | + + + + + + | MPV | 10.4 | 6.5 - 12.4 fL | [facility] | | | | | | [facility] | | | | | | MEDICAL | | | | | | CENTER - | | | | | | LABORATORY | | + + + + + + | % | 89.0 (H) | 45.0 - 82.0 % | [facility] | | | Neutrophils | | | [facility] | | | | | | MEDICAL | | | | | | [facility] - | | | | | | LABORATORY | | + + + + + + | % | 2.8 (L) | 20.0 - 45.0 % | [facility] | | | Lymphocytes | | | [facility] | | | | | | [facility] | | | | | | [facility] - | | | | | | LABORATORY | | + + + + + + | % Monocytes | 4.4 | 4.0 - 12.0 % | [facility] | | | | | | [facility] | | | | | | [facility] | | | | | | [facility] - | | | | | | LABORATORY | | + + + + + + | % | 0.0 | 0.0 - 5.0 % | [facility] | | | Eosinophils | | | [facility] | | | | | | [facility] | | | | | | [facility] - | | | | | | LABORATORY | | + + + + + + | % Basophils | 0.7 | 0.0 - 1.0 % | [facility] | | | | | | [facility] | | | | | | [facility] | | | | | | [facility] - | | | | | | LABORATORY | | + + + + + + | % Immature | 3.1 (H)Comment: | 0.0 - 0.4 % | [facility] | | | Granulocyte | Preliminary studies have | | [facility] | | | s | indicated the IG% | | MEDICAL | | | | and/or IG# show promise | | CENTER - | | | | as an early indicator | | LABORATORY | | | | for infection. | | | | + + + + + + | Absolute | 19.14 (H) | 1.80 - 8.50 | [facility] | | | Neutrophils | | K/uL | [facility] | | | | | | [facility] | | | | | | [facility]ENTER - | | | | | | LABORATORY | | + + + + + + | Absolute | 0.60 | 0.60 - 3.20 | [facility] | | | Lymphocytes | | K/uL | [facility] | | | | | | [facility] | | | | | | [facility] - | | | | | | LABORATORY | | + + + + + + | Absolute | 0.94 | 0.00 - 1.00 | [facility] | | | Monocytes | | K/uL | [facility] | | | | | | [facility] | | | | | | [facility] - | | | | | | LABORATORY | | + + + + + + | Absolute | 0.00 | 0.00 - 0.40 | [facility] | | | Eosinophils | | K/uL | [facility] | | | | | | [facility] | | | | | | [facility] - | | | | | | LABORATORY | | + + + + + + | Absolute | 0.15 (H) | 0.00 - 0.10 | [facility] | | | Basophils | | K/uL | [facility] | | | | | | [facility] | | | | | | [facility] - | | | | | | LABORATORY | | + + + + + + | Absolute | 0.66 (H) | 0.00 - 0.03 | [facility] | | | Immature | | K/uL | [facility] | | | Granulocyte | | | MEDICAL | | | s | | | CENTER - | | | | | | LABORATORY | | + + + + + + | % nRBC | 0 | 0 - 2 per 100 | [facility] | | | | | WBCs | [facility] | | | | | | MEDICAL | | | | | | CENTER - | | | | | | LABORATORY | | + + + + + + | Absolute | 0.00 | 0.00 - 0.01 | [facility] | | | nRBC | | K/uL | [facility] | | | | | | MEDICAL | | | | | | CENTER - | | | | | | LABORATORY | | + + + + + + + + | Specimen | + + | Blood | + + + + + + + | Performing | Address | City/State/Zipcode | Phone Number | | Organization | | | | + + + + + | [facility] | [address] | [place] | [phone] | | [facility] | | [id number] | | | - LABORATORY | | | | + + + + + Urea nitrogen, urine (12/03/2019 8:11 AM PDT) + +-------+ + + + | Component | Value | Ref Range | Performed | Pathologist | | | | | At | Signature | + +-------+ + + + | Urea | 521 | Not Estab. | [facility] | | | nitrogen, | | mg/dL | [facility] | | | Urine | | | - BKR | | + +-------+ + + + + + | Specimen | + + | Urine | + + + + + | Narrative | Performed At | + + + | Performed at: [address] [address] [address], | REFERENCE LAB | | [place], [place] [id number] Lube Attendant: Feliciano Avilez MD, Phone: | [facility] | | [phone] | | + + + + + + + + | Performing | Address | City/State/Zipcode | Phone Number | | Organization | | | | + + + + + | REFERENCE LAB | [address] | [place], [place] | [phone] | | [facility] | [address] | [address] | | + + + + + Osmolality, Urine (12/03/2019 8:11 AM PDT) + +-------+ + + + | Component | Value | Ref Range | Performed | Pathologist | | | | | At | Signature | + +-------+ + + + | OSMO URINE | 394 | 300-1,000 | [facility] | | | | | mOsm/kg | [facility] | | | | | | [facility] | | | | | | CENTER - | | | | | | LABORATORY | | + +-------+ + + + + + | Specimen | + + | Urine | + + + + + + + | Performing | Address | City/State/Zipcode | Phone Number | | Organization | | | | + + + + + | [facility] | [address] | [place] | [phone] | | [facility] | | [address] | | | - LABORATORY | | | | + + + + + Protein/Creatinine Ratio, Urine (12/03/2019 8:11 AM PDT) + + + + + + | Component | Value | Ref Range | Performed | Pathologist | | | | | At | Signature | + + + + + + | Protein, | 175 (H) | 1 - 14 mg/dL | [facility] | | | Urine | | | [facility] | | | | | | MEDICAL | | | | | | CENTER - | | | | | | LABORATORY | | + + + + + + | Creatinine, | 116 | mg/dL | [facility] | | | Urine, | | | [facility] | | | Random | | | MEDICAL | | | | | | CENTER - | | | | | | LABORATORY | | + + + + + + | PRO/CREA | 1.51 (H) | <0.20 mg/mg | [facility] | | | RATIO,URINE | | | [facility] | | | | | | [facility] | | | | | | CENTER - | | | | | | LABORATORY | | + + + + + + + + | Specimen | + + | Urine - Urine | | specimen obtained by | | clean catch | | procedure (specimen) | + + + + + + + | Performing | Address | City/State/Zipcode | Phone Number | | Organization | | | | + + + + + | [facility] | [address] | [place] | [phone] | | [facility] | | [address] | | | - LABORATORY | | | | + + + + + Culture, Urine (12/03/2019 8:11 AM PDT) + + + + + + | Component | Value | Ref Range | Performed | Pathologist | | | | | At | Signature | + + + + + + | Culture | 40,000 CFU/ml Mixed | | [facility] | | | | rome (multiple | | [facility] | | | | morphologies | | MEDICAL | | | | present)Comment: | | CENTER - | | | | Suggests contamination | | LABORATORY | | | | with urogenital or skin | | | | | | rome.No further work-up | | | | | | to follow. | | | | + + + + + + + + | Specimen | + + | Urine - Urine | | specimen obtained by | | clean catch | | procedure (specimen) | + + + + + + + | Performing | Address | City/State/Zipcode | Phone Number | | Organization | | | | + + + + + | [facility] | [address] | [place] | [phone] | | [facility] | | [address] | | | - LABORATORY | | | | + + + + + Creatinine, Urine, Random (12/03/2019 8:11 AM PDT) + +-------+ + + + | Component | Value | Ref Range | Performed | Pathologist | | | | | At | Signature | + +-------+ + + + | Creatinine, | 114 | mg/dL | [facility] | | | Urine, | | | [facility] | | | Random | | | MEDICAL | | | | | | CENTER - | | | | | | LABORATORY | | + +-------+ + + + + + | Specimen | + + | Urine - Urine | | specimen obtained by | | clean catch | | procedure (specimen) | + + + + + + + | Performing | Address | City/State/Zipcode | Phone Number | | Organization | | | | + + + + + | [facility] | [address] | [place] | [phone] | | [facility] | | [address] | | | - LABORATORY | | | | + + + + + Sodium, Urine, Random (12/03/2019 8:11 AM PDT) + +-------+ + + + | Component | Value | Ref Range | Performed | Pathologist | | | | | At | Signature | + +-------+ + + + | Sodium, | 45 | 40 - 220 mmol/L | [facility] | | | Urine | | | [facility] | | | Random | | | MEDICAL | | | | | | CENTER - | | | | | | LABORATORY | | + +-------+ + + + + + | Specimen | + + | Urine - Urine | | specimen obtained by | | clean catch | | procedure (specimen) | + + + + + + + | Performing | Address | City/State/Zipcode | Phone Number | | Organization | | | | + + + + + | [facility] | [address] | [place] | [phone] | | [facility] | | [address] | | | - LABORATORY | | | | + + + + + Drugs of Abuse, Screen, Urine (12/03/2019 8:11 AM PDT) + + + + + + | Component | Value | Ref Range | Performed | Pathologist | | | | | At | Signature | + + + + + + | Amphetamine | Negative | Negative | [facility] | | | Screen, | | | [facility] | | | Urine | | | MEDICAL | | | | | | CENTER - | | | | | | LABORATORY | | + + + + + + | Barbiturate | Negative | Negative | [facility] | | | s Screen, | | | [facility] | | | Urine | | | MEDICAL | | | | | | CENTER - | | | | | | LABORATORY | | + + + + + + | Benzodiazep | Negative | Negative | [facility] | | | radha | | | [facility] | | | Screen, | | | MEDICAL | | | Urine | | | CENTER - | | | | | | LABORATORY | | + + + + + + | Cannabinoid | Negative | Negative | [facility] | | | s Screen, | | | [facility] | | | Urine | | | MEDICAL | | | | | | CENTER - | | | | | | LABORATORY | | + + + + + + | Cocaine | Negative | Negative | [facility] | | | Screen, | | | [facility] | | | Urine | | | MEDICAL | | | | | | CENTER - | | | | | | LABORATORY | | + + + + + + | Methadone | Negative | Negative | [facility] | | | Screen, | | | [facility] | | | Urine | | | MEDICAL | | | | | | CENTER - | | | | | | LABORATORY | | + + + + + + | Opiates | Negative | Negative | [facility] | | | Screen, | | | [facility] | | | Urine | | | MEDICAL | | | | | | CENTER - | | | | | | LABORATORY | | + + + + + + + + | Specimen | + + | Urine - Urine | | specimen obtained by | | clean catch | | procedure (specimen) | + + + + + + + | Performing | Address | City/State/Zipcode | Phone Number | | Organization | | | | + + + + + | [facility] | [address] | [place], [place] | [phone] | | [facility] | | [address] | | | - LABORATORY | | | | + + + + + Urinalysis with Microscopic with Culture if Indicated (12/03/2019 8:11 AM PDT) + + + + + + | Component | Value | Ref Range | Performed | Pathologist | | | | | At | Signature | + + + + + + | Color, | Yellow | Light Yellow, | [facility] | | | Urine | | Yellow, Straw | [facility] | | | | | | MEDICAL | | | | | | CENTER - | | | | | | LABORATORY | | + + + + + + | Clarity, | Hazy (A) | Clear | [facility] | | | Urine | | | [facility] | | | | | | MEDICAL | | | | | | CENTER - | | | | | | LABORATORY | | + + + + + + | pH, Urine | 6.0 | 5.0 - 8.0 | [facility] | | | | | | [facility] | | | | | | MEDICAL | | | | | | CENTER - | | | | | | LABORATORY | | + + + + + + | Specific | 1.014 | 1.001 - 1.030 | [facility] | | | Dyke, | | | [facility] | | | Urine | | | MEDICAL | | | | | | CENTER - | | | | | | LABORATORY | | + + + + + + | Protein, | 100 mg/dL (A) | Negative | [facility] | | | Urine | | | [facility] | | | | | | MEDICAL | | | | | | CENTER - | | | | | | LABORATORY | | + + + + + + | Blood, | Moderate (A) | Negative | [facility] | | | Urine | | | [facility] | | | | | | MEDICAL | | | | | | CENTER - | | | | | | LABORATORY | | + + + + + + | Glucose, | Negative | Negative | [facility] | | | Urine | | | [facility] | | | | | | MEDICAL | | | | | | CENTER - | | | | | | LABORATORY | | + + + + + + | Ketones, | Negative | Negative | [facility] | | | Urine | | | [facility] | | | | | | MEDICAL | | | | | | CENTER - | | | | | | LABORATORY | | + + + + + + | Bilirubin, | Negative | Negative | [facility] | | | Urine | | | [facility] | | | | | | MEDICAL | | | | | | CENTER - | | | | | | LABORATORY | | + + + + + + | Nitrite, | Negative | Negative | [facility] | | | Urine | | | [facility] | | | | | | MEDICAL | | | | | | CENTER - | | | | | | LABORATORY | | + + + + + + | Leukocyte | Small (A) | Negative | [facility] | | | Esterase, | | | [facility] | | | Urine | | | MEDICAL | | | | | | CENTER - | | | | | | LABORATORY | | + + + + + + | Urobilinoge | Negative | 0.2 mg/dL, 1.0 | [facility] | | | n, Urine | | mg/dL, Negative | [facility] | | | | | | MEDICAL | | | | | | CENTER - | | | | | | LABORATORY | | + + + + + + | White Blood | 50-100 (A) | 0 - 2 /HPF | [facility] | | | Cells, | | | [facility] | | | Urine | | | MEDICAL | | | | | | CENTER - | | | | | | LABORATORY | | + + + + + + | White Blood | Few (A) | None Seen /HPF | [facility] | | | Cell | | | [facility] | | | Clumps, | | | MEDICAL | | | Urine | | | CENTER - | | | | | | LABORATORY | | + + + + + + | Red Blood | 50-100 (A) | 0 - 2 /HPF | [facility] | | | Cells, | | | [facility] | | | Urine | | | MEDICAL | | | | | | CENTER - | | | | | | LABORATORY | | + + + + + + | Squamous | 5-10 (A) | 0 - 2 /LPF | [facility] | | | Epithelial | | | [facility] | | | Cells, | | | MEDICAL | | | Urine | | | CENTER - | | | | | | LABORATORY | | + + + + + + | Bacteria, | 1+ (A) | Negative /HPF | [facility] | | | Urine | | | [facility] | | | | | | MEDICAL | | | | | | CENTER - | | | | | | LABORATORY | | + + + + + + | Mucus, | Present (A) | Negative /LPF | [facility] | | | Urine | | | [facility] | | | | | | MEDICAL | | | | | | CENTER - | | | | | | LABORATORY | | + + + + + + | Hyaline | 5-10 (A) | 0 - 2 /LPF | [facility] | | | Christy, | | | [facility] | | | Urine | | | MEDICAL | | | | | | CENTER - | | | | | | LABORATORY | | + + + + + + | Urine | Urine Culture Set Up | | [facility] | | | Comment | | | [facility] | | | | | | MEDICAL | | | | | | CENTER - | | | | | | LABORATORY | | + + + + + + + + | Specimen | + + | Urine - Urine | | specimen obtained by | | clean catch | | procedure (specimen) | + + + + + + + | Performing | Address | City/State/Zipcode | Phone Number | | Organization | | | | + + + + + | [facility] | [address] | [place] | [phone] | | [facility] | | [address] | | | - LABORATORY | | | | + + + + + LABS - EXTERNAL SCAN (12/03/2019 12:00 AM PDT) + + + | Narrative | Performed At | + + + | Ordered by an | | | unspecified provider. | | + + + IMAGING REPORT - EXTERNAL SCAN (12/03/2019 12:00 AM PDT) + + + | Narrative | Performed At | + + + | Ordered by an | | | unspecified provider. | | + + + IMAGING REPORT - EXTERNAL SCAN (12/03/2019 12:00 AM PDT) + + + | Narrative | Performed At | + + + | Ordered by an | | | unspecified provider. | | + + + documented in this encounter Visit Diagnoses + + | Diagnosis | + + | Severe sepsis (HCC) - Primary | + + | Acute kidney injury (HCC) Acute kidney failure, unspecified | + + | Hyponatremia Hyposmolality and/or hyponatremia | + + | Acute kidney injury (PATRICA) with acute tubular necrosis (ATN) ([facility]) | + + documented in this encounter Administered Medications + +--------+ +--------+------+------+ | Medication Order | MAR | Action | Dose | Rate | Site | | | Action | Date | | | | + +--------+ +--------+------+------+ | acetaminophen (TYLENOL) tablet | Given | 12/06/19 | 650 mg | | | | 650 mg 650 mg, Oral, EVERY 4 | | 20 2:32 | | | | | HOURS PRN, Pain, or fever >= 38.6 | | AM PDT | | | | | C (101.5 F), Starting Marina 12/03/19 | | | | | | | at 0804 | | | | | | + +--------+ +--------+------+------+ +-------+ +--------+---+---+ | Given | 12/05/19 | 650 mg | | | | | 20 9:53 | | | | | | PM PDT | | | | +-------+ +--------+---+---+ | Given | 12/05/19 | 650 mg | | | | | 20 5:32 | | | | | | PM PDT | | | | +-------+ +--------+---+---+ +---+---+ | | | +---+---+ + +-------+ + +---+---+ | adult multivitamin with | Given | 12/09/19 | 1 tablet | | | | minerals/iron tablet 1 tablet 1 | | 20 8:27 | | | | | tablet, Oral, DAILY, First dose | | AM PDT | | | | | on [facility] 12/03/19 at 0900 | | | | | | + +-------+ + +---+---+ +-------+ + +---+---+ | Given | 12/08/19 | 1 tablet | | | | | 20 8:04 | | | | | | AM PDT | | | | +-------+ + +---+---+ | Given | 12/07/19 | 1 tablet | | | | | 20 8:24 | | | | | | AM PDT | | | | +-------+ + +---+---+ +---+---+ | | | +---+---+ + +-------+ +--------+---+---+ | albuterol 2.5 mg/3 mL nebulizer | Given | 12/07/19 | 2.5 mg | | | | solution 2.5 mg 2.5 mg, | | 20 12:31 | | | | | Nebulization, EVERY 8 HOURS PRN, | | AM PDT | | | | | Shortness of Breath, Starting Fri | | | | | | | 12/04/19 at 1536, RT will | | | | | | | administer., | | | | | | + +-------+ +--------+---+---+ +-------+ +--------+---+---+ | Given | 12/06/19 | 2.5 mg | | | | | 20 7:58 | | | | | | AM PDT | | | | +-------+ +--------+---+---+ | Given | 12/06/19 | 2.5 mg | | | | | 20 4:57 | | | | | | AM PDT | | | | +-------+ +--------+---+---+ +---+---+ | | | +---+---+ + +-------+ +--------+---+---+ | albuterol 2.5 mg/3 mL nebulizer | Given | 12/09/19 | 2.5 mg | | | | solution 2.5 mg 2.5 mg, | | 20 12:18 | | | | | Nebulization, RT EVERY 4 HOURS | | AM PDT | | | | | PRN, Shortness of Breath, | | | | | | | Starting 12/07/19 at 1111, RT | | | | | | | will administer., | | | | | | + +-------+ +--------+---+---+ +-------+ +--------+---+---+ | Given | 12/08/19 | 2.5 mg | | | | | 20 3:41 | | | | | | PM PDT | | | | +-------+ +--------+---+---+ | Given | 12/07/19 | 2.5 mg | | | | | 20 8:40 | | | | | | PM PDT | | | | +-------+ +--------+---+---+ +---+---+ | | | +---+---+ + +-------+ +---------+---+---+ | | Given | 12/08/19 | 2 | | | | wojthmqwvu-uparckcbqtune-ofquqifb | | 20 8:53 | tablets | | | | 50-325-40 mg per tablet 1-2 | | PM PDT | | | | | tablet 1-2 tablet, Oral, EVERY 4 | | | | | | | HOURS PRN, Headaches, Starting | | | | | | | 12/06/19 at 1232, Maximum 6 | | | | | | | tablets per day., | | | | | | + +-------+ +---------+---+---+ +-------+ +---------+---+---+ | Given | 12/08/19 | 2 | | | | | 20 1:30 | tablets | | | | | PM PDT | | | | +-------+ +---------+---+---+ | Given | 12/08/19 | 2 | | | | | 20 6:35 | tablets | | | | | AM PDT | | | | +-------+ +---------+---+---+ +---+---+ | | | +---+---+ + +-------+ + +---+---+ | calcium carbonate (TUMS) | Given | 12/09/19 | 1,000 mg | | | | chewable tablet 1,000 mg 1,000 | | 20 1:51 | | | | | mg, Oral, 3 TIMES DAILY, First | | PM PDT | | | | | dose on 12/06/19 at 0915 | | | | | | + +-------+ + +---+---+ +-------+ + +---+---+ | Given | 12/09/19 | 1,000 mg | | | | | 20 8:28 | | | | | | AM PDT | | | | +-------+ + +---+---+ | Given | 12/08/19 | 1,000 mg | | | | | 20 8:40 | | | | | | PM PDT | | | | +-------+ + +---+---+ +---+---+ | | | +---+---+ + +---------+ +-----+-------+---+ | cefTRIAXone (ROCEPHIN) 1 g in | New Bag | 12/09/19 | 1 g | 100 | | | sodium chloride 0.9% 50 mL IVPB | | 20 8:28 | | mL/hr | | | 1 g, Intravenous, Administer over | | AM PDT | | | | | 30 Minutes, EVERY 24 HOURS | | | | | | | (Daily), First dose on Sat | | | | | | | 12/08/19 at 0900, Activate system | | | | | | | and mix before use., Indications: | | | | | | | Bacteremia | | | | | | + +---------+ +-----+-------+---+ +---------+ +-----+-------+---+ | New Bag | 12/08/19 | 1 g | 100 | | | | 20 8:05 | | mL/hr | | | | AM PDT | | | | +---------+ +-----+-------+---+ + +---+ | | | + +---+ | dextrose 10% (D10W) infusion | | | at 50 mL/hr, Intravenous, | | | CONTINUOUS PRN, hypoglycemia, | | | Starting Marina 12/03/19 at 0804, | | | Start infusion if unable to | | | maintain blood glucose greater | | | than 70 mg/dL after two rounds of | | | hypoglycemia treatment. Recheck | | | blood glucose 30 minutes after | | | starting D10W then at least | | | hourly and PRN until it is | | | discontinued. Call provider to | | | discuss parameters for D10W | | | discontinuation., | | + +---+ | | | + +---+ + +---------+ +---+-------+---+ | dextrose 5% (D5W) 1,000 mL with | New Bag | 12/06/19 | | 100 | | | sodium bicarbonate 150 mEq | | 20 12:18 | | mL/hr | | | infusion at 100 mL/hr, | | PM PDT | | | | | Intravenous, CONTINUOUS, Starting | | | | | | | 12/05/19 at 0030 | | | | | | + +---------+ +---+-------+---+ +---------+ +---+-------+---+ | New Bag | 12/06/19 | | 100 | | | | 20 1:00 | | mL/hr | | | | AM PDT | | | | +---------+ +---+-------+---+ | New Bag | 12/05/19 | | 100 | | | | 20 10:43 | | mL/hr | | | | AM PDT | | | | +---------+ +---+-------+---+ +---+---+ | | | +---+---+ + +---------+ +---+-------+---+ | dextrose 5% and sodium chloride | New Bag | 12/04/19 | | 200 | | | 0.45% (D5 1/2 NS) 1,000 mL with | | 20 7:54 | | mL/hr | | | sodium bicarbonate 150 mEq | | PM PDT | | | | | infusion at 200 mL/hr, | | | | | | | Intravenous, CONTINUOUS, Starting | | | | | | | 12/04/19 at 1930 | | | | | | + +---------+ +---+-------+---+ + +---+ | | | + +---+ | dextrose 50% injection 12.5-25 | | | g 12.5-25 g, Intravenous, PRN, | | | Low Blood Sugar, Starting Marina | | | 12/03/19 at 0804, For blood glucose | | | 50-69 mg/dl - give 12.5 g For | | | blood glucose less than 50 mg/dl | | | - give 25 g, | | + +---+ | | | + +---+ | diphenhydrAMINE (BENADRYL) | | | injection 25 mg 25 mg, | | | Intravenous, ONCE PRN, headache, | | | Starting 12/06/19 at 0330, For | | | 1 dose | | + +---+ | | | + +---+ + +-------+ +------+---+---+ | folic acid tablet 1 mg 1 mg, | Given | 12/09/19 | 1 mg | | | | Oral, DAILY, First dose on Sat | | 20 8:27 | | | | | 12/03/19 at 0900 | | AM PDT | | | | + +-------+ +------+---+---+ +-------+ +------+---+---+ | Given | 12/08/19 | 1 mg | | | | | 20 8:04 | | | | | | AM PDT | | | | +-------+ +------+---+---+ | Given | 12/07/19 | 1 mg | | | | | 20 8:24 | | | | | | AM PDT | | | | +-------+ +------+---+---+ +---+---+ | | | +---+---+ + +-------+ +--------+---+ + | heparin 5,000 units/mL | Given | 12/09/19 | 5,000 | | Abdomen- | | injection 5,000 Units 5,000 | | 20 8:28 | Units | | RLQ | | Units, Subcutaneous, EVERY 12 | | AM PDT | | | | | HOURS (2 times per day), First | | | | | | | dose on Marina 12/03/19 at 0900 | | | | | | + +-------+ +--------+---+ + +-------+ +--------+---+ + | Given | 12/08/19 | 5,000 | | Abdomen- | | | 20 8:53 | Units | | LLQ | | | PM PDT | | | | +-------+ +--------+---+ + | Given | 12/08/19 | 5,000 | | Abdomen- | | | 20 8:05 | Units | | RLQ | | | AM PDT | | | | +-------+ +--------+---+ + +---+---+ | | | +---+---+ + +-------+ + +---+ + | insulin glargine (LANTUS | Given | 12/09/19 | 20 Units | | Abdomen- | | SOLOSTAR) injection (pen) 20 | | 20 8:28 | | | LLQ | | Units 20 Units, Subcutaneous, | | AM PDT | | | | | EVERY MORNING, First dose (after | | | | | | | last modification) on 12/05/19 | | | | | | | at 0930, For subcutaneous use | | | | | | | only. Basal (long acting) | | | | | | | insulin., If NPO: Decrease dose, | | | | | | | by: 50% | | | | | | + +-------+ + +---+ + +-------+ + +---+ + | Given | 12/08/19 | 20 Units | | Abdomen- | | | 20 8:16 | | | RLQ | | | AM PDT | | | | +-------+ + +---+ + | Given | 12/07/19 | 20 Units | | Abdomen- | | | 20 8:30 | | | LUQ | | | AM PDT | | | | +-------+ + +---+ + +---+---+ | | | +---+---+ + +-------+ +---------+---+ + | insulin lispro (humaLOG | Given | 12/08/19 | 1 Units | | Abdomen- | | KWIKPEN) injection (pen) 0-10 | | 20 11:52 | | | RLQ | | Units 0-10 Units, Subcutaneous, | | AM PDT | | | | | 4 TIMES DAILY WITH MEALS & | | | | | | | NIGHTLY, First dose (after last | | | | | | | modification) on 12/05/19 at | | | | | | | 1200, CORRECTION SCALE: Blood | | | | | | | Glucose (BG) < 150: | | | | | | | None BG 150-200: DAY: 1 units. | | | | | | | NIGHT: 0 units BG 201-250: | | | | | | | DAY: 2 units. NIGHT: 1 units | | | | | | | BG 251-300: DAY: 3 units. NIGHT: | | | | | | | 2 units BG 301-350: DAY: 4 | | | | | | | units. NIGHT: 3 units BG | | | | | | | 351-400: DAY: 5 units. NIGHT: 4 | | | | | | | units BG > 400 : DAY: 6 | | | | | | | units. NIGHT: 5 units | | | | | | | AND CALL PROVIDER | | | | | | | Use DAY DOSE for doses | | | | | | | scheduled: AC, NPO, Daytime | | | | | | | [phone] Use NIGHT DOSE for | | | | | | | doses scheduled: HS, | | | | | | | Nighttime [phone] If the BG is | | | | | | | not checked before the patient | | | | | | | starts eating, do not give | | | | | | | correction insulin., | | | | | | + +-------+ +---------+---+ + +-------+ +---------+---+ + | Given | 12/08/19 | 1 Units | | Abdomen- | | | 20 8:04 | | | LLQ | | | AM PDT | | | | +-------+ +---------+---+ + | Given | 12/07/19 | 1 Units | | Abdomen- | | | 20 5:08 | | | LLQ | | | PM PDT | | | | +-------+ +---------+---+ + +---+---+ | | | +---+---+ + +-------+ +---------+---+ + | insulin lispro (humaLOG | Given | 12/05/19 | 2 Units | | Arm-Left | | KWIKPEN) injection (pen) 0-6 | | 20 8:12 | | | Upper | | Units 0-6 Units, Subcutaneous, 4 | | AM PDT | | | | | TIMES DAILY WITH MEALS & | | | | | | | NIGHTLY, First dose on Marina 12/03/19 | | | | | | | at 0830, CORRECTION SCALE: | | | | | | | Blood Glucose (BG) < 150: | | | | | | | None BG 150-200: DAY: 1 | | | | | | | units. NIGHT: 0 units BG | | | | | | | 201-250: DAY: 2 units. NIGHT: 1 | | | | | | | units BG 251-300: DAY: 3 units. | | | | | | | NIGHT: 2 units BG 301-350: | | | | | | | DAY: 4 units. NIGHT: 3 units | | | | | | | BG 351-400: DAY: 5 units. NIGHT: | | | | | | | 4 units BG > 400 : DAY: | | | | | | | 6 units. NIGHT: 5 units | | | | | | | AND CALL | | | | | | | PROVIDER Use DAY DOSE for doses | | | | | | | scheduled: AC, NPO, Daytime | | | | | | | 8995-6932 Use NIGHT DOSE for | | | | | | | doses scheduled: HS, | | | | | | | Nighttime 4589-3475 If the BG is | | | | | | | not checked before the patient | | | | | | | starts eating, do not give | | | | | | | correction insulin., | | | | | | + +-------+ +---------+---+ + +-------+ +---------+---+ + | Given | 12/04/19 | 1 Units | | Abdomen- | | | 20 9:48 | | | RLQ | | | PM PDT | | | | +-------+ +---------+---+ + | Given | 12/04/19 | 2 Units | | Arm-Righ | | | 20 12:13 | | | t Upper | | | PM PDT | | | | +-------+ +---------+---+ + +---+---+ | | | +---+---+ + +-------+ +---------+---+---+ | lactobacillus GG (CULTURELLE) | Given | 12/09/19 | 1 | | | | capsule 1 capsule 1 capsule, | | 20 8:27 | capsule | | | | Oral, 2 TIMES DAILY, First dose | | AM PDT | | | | | on [facility] 12/03/19 at 1300, Probiotics | | | | | | | added by pharmacy per [facility] | | | | | | | protocol Do not open or crush., | | | | | | + +-------+ +---------+---+---+ +-------+ +---------+---+---+ | Given | 12/08/19 | 1 | | | | | 20 8:40 | capsule | | | | | PM PDT | | | | +-------+ +---------+---+---+ | Given | 12/08/19 | 1 | | | | | 20 8:04 | capsule | | | | | AM PDT | | | | +-------+ +---------+---+---+ + +---+ | | | + +---+ | LORazepam (ATIVAN) injection 1 | | | mg 1 mg, Intravenous, EVERY 6 | | | HOURS PRN, Withdrawal Symptoms, | | | To be used for methamphetamine | | | withdrawal. Hold for excessive | | | sedation or respiratory rate of | | | 12 or less., Starting [facility] 12/03/19 | | | at 1008 | | + +---+ | | | + +---+ + +-------+ +------+---+---+ | LORazepam (ATIVAN) injection | Given | 12/04/19 | 1 mg | | | | 1-4 mg 1-4 mg, Intravenous, PRN, | | 20 3:31 | | | | | Withdrawal Symptoms, Starting | | PM PDT | | | | | [facility] 12/03/19 at 0804, CIWA less | | | | | | | than 9: No dose, reassess in 4 | | | | | | | hours CIWA 9-14: Give 1 mg, | | | | | | | reassess in 2 hours CIWA 15-20: | | | | | | | Give 2 mg, reassess in 1 hour | | | | | | | CIWA 21-25: Give 3 mg, reassess | | | | | | | in 30 minutes CIWA greater than | | | | | | | 25: 4 mg, reassess in 30 minutes, | | | | | | | | | | | | | + +-------+ +------+---+---+ +---+---+ | | | +---+---+ + +---------+ +-----+ +---+ | magnesium sulfate 2 g/50 mL | New Bag | 12/03/19 | 2 g | 25 mL/hr | | | IVPB 2 g 2 g, Intravenous, | | 20 1:56 | | | | | Administer over 120 Minutes, | | PM PDT | | | | | ONCE, [facility] 12/03/19 at 1145, For 1 | | | | | | | dose, Maximum recommended | | | | | | | infusion rate = 1 gram/hour., | | | | | | + +---------+ +-----+ +---+ + +---+ | | | + +---+ | metoclopramide (REGLAN) 5 mg/mL | | | injection 10 mg 10 mg, | | | Intravenous, ONCE PRN, headache, | | | Starting [facility] 12/06/19 at 0330, For | | | 1 dose, Protect from light., | | + +---+ | | | + +---+ | pharmacy consult - other | | | medications/reasons PHARMACY | | | CONSULT, Starting [facility] 12/03/19 at | | | 1010, Pharmacy to dose which | | | medication? Renally dose Zosyn. | | | Thank you. | | + +---+ | | | + +---+ + +---------+ +---------+-------+---+ | piperacillin-tazobactam (ZOSYN) | New Bag | 12/03/19 | 3.375 g | 200 | | | 3.375 g in sodium chloride 0.9% | | 20 12:08 | | mL/hr | | | 100 mL IVPB 3.375 g, | | PM PDT | | | | | Intravenous, Administer over 0.5 | | | | | | | Hours, ONCE, [facility] 12/03/19 at 1030, | | | | | | | For 1 dose, Extended-Infusion | | | | | | | Zosyn Protocol: infuse bolus over | | | | | | | 30 minutes, followed in 4 hours | | | | | | | by maintenance dosing. Activate | | | | | | | system and mix before use., | | | | | | | Indications: SEPSIS OF UNKNOWN | | | | | | | ETIOLOGY | | | | | | + +---------+ +---------+-------+---+ +---+---+ | | | +---+---+ + +---------+ +---------+ +---+ | piperacillin-tazobactam (ZOSYN) | New Bag | 12/04/19 | 3.375 g | 25 mL/hr | | | 3.375 g in sodium chloride 0.9% | | 20 3:14 | | | | | 100 mL IVPB 3.375 g, | | PM PDT | | | | | Intravenous, Administer over 4 | | | | | | | Hours, EVERY 12 HOURS INTERVAL, | | | | | | | First dose (after last | | | | | | | modification) on [facility] 12/03/19 at | | | | | | | 1500, Extended-Infusion Zosyn | | | | | | | Protocol: infuse over 4 hours | | | | | | | when maintenance dose has a | | | | | | | frequency of Q8H (or Q12H for | | | | | | | renal dose adjustment). Activate | | | | | | | system and mix before use., | | | | | | | Indications: SEPSIS OF UNKNOWN | | | | | | | ETIOLOGY | | | | | | + +---------+ +---------+ +---+ +---------+ +---------+ +---+ | New Bag | 12/04/19 | 3.375 g | 25 mL/hr | | | | 20 2:55 | | | | | | AM PDT | | | | +---------+ +---------+ +---+ | New Bag | 12/03/19 | 3.375 g | 25 mL/hr | | | | 20 3:51 | | | | | | PM PDT | | | | +---------+ +---------+ +---+ +---+---+ | | | +---+---+ + +---------+ +---------+ +---+ | piperacillin-tazobactam (ZOSYN) | New Bag | 12/08/19 | 3.375 g | 25 mL/hr | | | 3.375 g in sodium chloride 0.9% | | 20 6:36 | | | | | 100 mL IVPB 3.375 g, | | AM PDT | | | | | Intravenous, Administer over 4 | | | | | | | Hours, EVERY 8 HOURS INTERVAL, | | | | | | | First dose (after last | | | | | | | modification) on Sat12/04/19 at | | | | | | | 2315, Extended-Infusion Zosyn | | | | | | | Protocol: infuse over 4 hours | | | | | | | when maintenance dose has a | | | | | | | frequency of Q8H (or Q12H for | | | | | | | renal dose adjustment). Activate | | | | | | | system and mix before use., | | | | | | | Indications: SEPSIS OF UNKNOWN | | | | | | | ETIOLOGY | | | | | | + +---------+ +---------+ +---+ +---------+ +---------+ +---+ | New Bag | 12/07/19 | 3.375 g | 25 mL/hr | | | | 20 11:17 | | | | | | PM PDT | | | | +---------+ +---------+ +---+ | New Bag | 12/07/19 | 3.375 g | 25 mL/hr | | | | 20 2:23 | | | | | | PM PDT | | | | +---------+ +---------+ +---+ +---+---+ | | | +---+---+ + +-------+ +--------+---+---+ | potassium bicarb-citric acid | Given | 12/06/19 | 40 mEq | | | | (EFFER-K) effervescent tablet 40 | | 20 3:46 | | | | | mEq 40 mEq, Oral, ONCE, Sun | | AM PDT | | | | | 12/06/19 at 0345, For 1 dose, | | | | | | | Dissolve 10 mEq tab in 58-85 mL | | | | | | | water. Dissolve 20 mEq tab in | | | | | | | 85-115 mL water., | | | | | | + +-------+ +--------+---+---+ +---+---+ | | | +---+---+ + +-------+ +--------+---+---+ | potassium chloride (Klor-Con | Given | 12/04/19 | 20 mEq | | | | M20) ER tablet 20 mEq 20 mEq, | | 20 9:31 | | | | | Oral, 2 TIMES DAILY, First dose | | PM PDT | | | | | on 12/04/19 at 0900, For 2 | | | | | | | doses | | | | | | + +-------+ +--------+---+---+ +-------+ +--------+---+---+ | Given | 12/04/19 | 20 mEq | | | | | 20 9:28 | | | | | | AM PDT | | | | +-------+ +--------+---+---+ +---+---+ | | | +---+---+ + +-------+ +--------+---+---+ | potassium chloride (Klor-Con | Given | 12/06/19 | 40 mEq | | | | M20) ER tablet 40 mEq 40 mEq, | | 20 8:36 | | | | | Oral, 2 TIMES DAILY, First dose | | AM PDT | | | | | (after last modification) on Sat | | | | | | | 12/05/19 at 1015, For 4 doses | | | | | | + +-------+ +--------+---+---+ +-------+ +--------+---+---+ | Given | 12/05/19 | 40 mEq | | | | | 20 8:42 | | | | | | PM PDT | | | | +-------+ +--------+---+---+ | Given | 12/05/19 | 40 mEq | | | | | 20 10:32 | | | | | | AM PDT | | | | +-------+ +--------+---+---+ +---+---+ | | | +---+---+ + +-------+ +--------+---+---+ | potassium chloride (Klor-Con | Given | 12/07/19 | 40 mEq | | | | M20) ER tablet 40 mEq 40 mEq, | | 20 9:18 | | | | | Oral, 2 TIMES DAILY, First dose | | PM PDT | | | | | (after last modification) on Sun | | | | | | | 12/06/19 at 0915, For 4 doses, May | | | | | | | take with food to decrease GI | | | | | | | upset., | | | | | | + +-------+ +--------+---+---+ +-------+ +--------+---+---+ | Given | 12/07/19 | 40 mEq | | | | | 20 8:24 | | | | | | AM PDT | | | | +-------+ +--------+---+---+ | Given | 12/06/19 | 40 mEq | | | | | 20 8:09 | | | | | | PM PDT | | | | +-------+ +--------+---+---+ +---+---+ | | | +---+---+ + +---------+ +---+-------+---+ | sodium chloride 0.45% (1/2 NS) | New Bag | 12/03/19 | | 100 | | | 1,000 mL with potassium chloride | | 20 3:02 | | mL/hr | | | 20 mEq, sodium bicarbonate 75 mEq | | PM PDT | | | | | infusion at 100 mL/hr, | | | | | | | Intravenous, FIXED VOLUME (see | | | | | | | admin instruction), Starting [facility] | | | | | | | 12/03/19 at 1445, For 10 hours, 1 | | | | | | | Liter, | | | | | | + +---------+ +---+-------+---+ +---+---+ | | | +---+---+ + +---------+ +--------+-------+---+ | sodium chloride 0.9% (NS) bolus | New Bag | 12/04/19 | 1,000 | 500 | | | 1,000 mL 1,000 mL, Intravenous, | | 20 6:17 | mLs | mL/hr | | | Administer over 2 Hours, ONCE, | | PM PDT | | | | | 12/04/19 at 1830, For 1 dose | | | | | | + +---------+ +--------+-------+---+ +---+---+ | | | +---+---+ + +---------+ +---------+-------+---+ | sodium chloride 0.9% (NS) bolus | New Bag | 12/04/19 | 500 mLs | 999 | | | 500 mL 500 mL, Intravenous, | | 20 5:58 | | mL/hr | | | Administer over 15-30 Minutes, | | AM PDT | | | | | ONCE, 12/04/19 at 0615, For 1 | | | | | | | dose | | | | | | + +---------+ +---------+-------+---+ +---+---+ | | | +---+---+ + +---------+ +---+-------+---+ | sodium chloride 0.9% (NS) | New Bag | 12/03/19 | | 100 | | | infusion at 100 mL/hr, | | 20 8:23 | | mL/hr | | | Intravenous, CONTINUOUS, Starting | | AM PDT | | | | | [place] 12/03/19 at 0830 | | | | | | + +---------+ +---+-------+---+ +---+---+ | | | +---+---+ + +---------+ +---+-------+---+ | sodium chloride 0.9% (NS) | New Bag | 12/04/19 | | 100 | | | infusion at 100 mL/hr, | | 20 3:17 | | mL/hr | | | Intravenous, CONTINUOUS, Starting | | PM PDT | | | | | 12/04/19 at 1100 | | | | | | + +---------+ +---+-------+---+ +---------+ +---+-------+---+ | New Bag | 12/04/19 | | 100 | | | | 20 10:40 | | mL/hr | | | | AM PDT | | | | +---------+ +---+-------+---+ +---+---+ | | | +---+---+ + +---------+ +---+-------+---+ | sodium chloride 0.9% (NS) | New Bag | 12/04/19 | | 100 | | | infusion at 100 mL/hr, | | 20 9:18 | | mL/hr | | | Intravenous, CONTINUOUS, Starting | | PM PDT | | | | | 12/04/19 at 1930 | | | | | | + +---------+ +---+-------+---+ +---+---+ | | | +---+---+ + +-------+ +--------+---+---+ | thiamine (VITAMIN B-1) tablet | Given | 12/09/19 | 100 mg | | | | 100 mg 100 mg, Oral, DAILY, | | 20 8:27 | | | | | First dose on [facility] 12/03/19 at 0900 | | AM PDT | | | | + +-------+ +--------+---+---+ +-------+ +--------+---+---+ | Given | 12/08/19 | 100 mg | | | | | 20 8:04 | | | | | | AM PDT | | | | +-------+ +--------+---+---+ | Given | 12/07/19 | 100 mg | | | | | 20 8:24 | | | | | | AM PDT | | | | +-------+ +--------+---+---+ +---+---+ | | | +---+---+ + +-------+ +-------+---+---+ | traMADol (ULTRAM) tablet 50 mg | Given | 12/04/19 | 50 mg | | | | 50 mg, Oral, ONCE, 12/04/19 | | 20 11:21 | | | | | at 1100, For 1 dose | | AM PDT | | | | + +-------+ +-------+---+---+ +---+---+ | | | +---+---+ + +-------+ +-------+---+---+ | traMADol (ULTRAM) tablet 50 mg | Given | 12/05/19 | 50 mg | | | | 50 mg, Oral, EVERY 8 HOURS PRN, | | 20 6:38 | | | | | Pain, Headaches, Starting Sat | | PM PDT | | | | | 12/05/19 at 1757 | | | | | | + +-------+ +-------+---+---+ +---+---+ | | | +---+---+ documented in this encounter
--- OUTSIDE RECORDS SUMMARY | ~2020-05-17 | XMS | Encounter Summary ---
Demographics + + + | Address | [address] | | | [place] [address] | + + + | Home Phone | | + + + | Preferred Language | Unknown | + + + | Marital Status | Single | + + + | Restorationism Affiliation | 1041 | + + + | Race | or | + + + | Additional Race(s) | White | + + + | Ethnic Group | Not or | + + + Author + + + | Author | [facility] | | | and [place] | + + + | Organization | [facility] | | | and [...] Team Providers + +------+ + | Care Cable Strander Name | Role | Phone | + +------+ + | Unknown, Physician | PCP | | + +------+ + Reason for Visit + +--------+ + | Reason | Onset | Comments | | | Date | | + +--------+ + | Abnormal Lab | 12/03/ | | | | 2019 | | + +--------+ + Encounter Details +--------+ + + + + | Date | Type | Department | Care Team | Description | +--------+ + + + + | 12/03/ | Telephone | [facility] | Tricia Mcdonough | Abnormal Lab | | 2019 | | [address] | | | | | [place] | | | | | | [address] | | | | | | [phone] | | | +--------+ + + + [...] + + documented as of this encounter Miscellaneous Notes Telephone Encounter - Tricia Mcdonough RN - 12/04/2019 10:34 AM PDTReviewed the Hepatic function panel from 12/04/19. This patient is not at [facility] but appears to be hospitalized. E lectronically signed by Tricia Mcdonough RN at 12/04/2019 10:35 AM PDTdocumented in this e ncounter Plan of Treatment Not on filedocumented as of this encounter Visit Diagnoses Not on filedocumented in this encounter"
--- OUTSIDE RECORDS SUMMARY | ~2020-05-17 | XMS | Clinical Summary ---
Demographics + + + | Address | [address] | | | [place] [address] | + + + | Home Phone | | + + + | Preferred Language | Unknown | + + + | Marital Status | Single | + + + | Mormon Affiliation | Unknown | + + + [...] Team Providers + +------+ + | Care Communication Arts Lecturer Name | Role | Phone | + +------+ + PCP | Unavailable | + +------+ + Source Comments DAPHNE is fully live on both EpicCare Ambulatory and EpicCare InPatient.[facility] Allergies Not on File Medications Not on file Active Problems Not [...] on file | | + + + Last Filed Vital Signs Not on file Plan of Treatment + + +-------+ + | Health Maintenance | Due Date | Last | Comments | | | | Done | | + + +-------+ + | Influenza (Flu) | | | | | vaccination (#1) | 0 | | | + + +-------+ + | Pneumococcal | Aged Out | | No longer eligible based on patient's age | | vaccination | | | to complete this topic | + + +-------+ + Results Not on filefrom Last 3 Months"
--- OUTSIDE RECORDS SUMMARY | ~2020-05-17 | XMS | Clinical Summary ---
Demographics + + + | Address | [address] | | | [place] [address] | + + + | Home Phone | | + + + | Preferred Language | Unknown | + + + | Marital Status | Single | + + + | Evangelical Affiliation | 1041 | + + + | Race | or | + + + | Additional Race(s) | White | + + + | Ethnic Group | Not or | + + + Author + + + | Author | [facility] | | | and [place] | + + + | Organization | [facility] | | | and [...] Team Providers + +------+ + | Care Production Zone Leader Name | Role | Phone | + +------+ + | Unknown, Physician | PCP | | + +------+ + Allergies No Known Allergies Medications + + + +---------+------+------+-------+ | Medication | Sig | Dispensed | Refills | Star | End | Statu | | | | | | t | Date | s | | | | | | Date | | | + + + +---------+------+------+-------+ | betamethasone | Apply 1-2 times | 50 g | 11 | 08/2 | | Activ | | dipropionate 0.05% | daily to rash on | | | 11/12 | | e | | ointmentIndications: | knees, elbows and | | | 19 | | | | 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 Best | | | | | | | | applied to damp | | | | | | | | skin. | | | | | | + + + +---------+------+------+-------+ | triamcinolone | Apply 2-3 times | 453.6 g | 11 | 08/ | | Activ | | (KENALOG) 0.1% | daily to affected | | | 11/12 | | e | | creamIndications: | areas of psoriasis. 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 | | | | | | + + + +---------+------+------+-------+ | betamethasone | Apply 1 Application | | 0 | | | Activ | | dipropionate 0.05% | topically Daily as | | | | | e | | ointment | needed (psoriasis). | | | | | | + + + +---------+------+------+-------+ | triamcinolone | APPLY 2-3 TIMES | | 0 | | | Activ | | (KENALOG) 0.1% cream | DAILY TO AFFECTED | | | | | e | | | AREAS OF PSORIASIS | | | | | | | | AVOID THE FACE | | | | | | | | UNDERARMS AND GROIN | | | | | | + + + +---------+------+------+-------+ | Blood Glucose | 1 each by Does not | 1 each | 0 | 04/1 | | Activ | | Monitoring Suppl | apply route Daily. | | | 5/20 | | e | | (BLOOD GLUCOSE | | | | 20 | | | | MONITOR SYSTEM) | | | | | | | | w/Device KIT | | | | | | | + + + +---------+------+------+-------+ | Lancets Misc. MISC | 1 each by Does not | 120 | 0 | 04/1 | | Activ | | | apply route Daily. | each | | 5/20 | | e | | | | | | 20 | | | + + + +---------+------+------+-------+ | glucose blood | Check once daily | 120 | 0 | 04/1 | | Activ | | test strips | | each | | 5/20 | | e | | (TRUETEST TEST) | | | | 20 | | | | strip | | | | | | | + + + +---------+------+------+-------+ | | Take 1-2 tablets by | 12 | 0 | 04/1 | | Activ | | butalbital-acetamino | mouth every 4 hours | tablet | | 5/20 | | e | | phen-caffeine | as needed for | | | 20 | | | | 50-325-40 mg per | Headaches. | | | | | | | tablet | | | | | | | + + + +---------+------+------+-------+ | calcium carbonate | Chew and swallow 2 | 90 | 0 | 04/1 | | Activ | | (TUMS) 500 mg | tablets 3 times | tablet | | 5/20 | | e | | chewable tablet | daily. | | | 20 | | | + + + +---------+------+------+-------+ | docusate sodium | Take 100 mg by mouth | 30 | 0 | 04/1 | | Activ | | (COLACE) 100 MG | Twice daily as | capsule | | 5/20 | | e | | capsule | needed for | | | 20 | | | | | Constipation. | | | | | | + + + +---------+------+------+-------+ | folic acid 1 mg | Take 1 tablet by | 30 | 0 | 04/1 | | Activ | | tablet | mouth Daily. | tablet | | 6/20 | | e | | | | | | 20 | | | + + + +---------+------+------+-------+ | thiamine (VITAMIN | Take 1 tablet by | 30 | 0 | 04/1 | | Activ | | B-1) 100 mg tablet | mouth Daily. | tablet | | 6/20 | | e | | | | | | 20 | | | + + + +---------+------+------+-------+ | metFORMIN | Take 1 tablet by | 60 | 0 | 04/1 | | Activ | | (GLUCOPHAGE) 500 mg | mouth 2 times daily. | tablet | | 5/20 | | e | | tablet | | | | 20 | | | + + + +---------+------+------+-------+ | | Take 1 tablet by | 16 | 0 | 04/1 | | Activ | | sulfamethoxazole-tri | mouth 2 times daily. | tablet | | 5/20 | | e | | methoprim (BACTRIM | | | | 20 | | | | DS) 800-160 mg per | | | | | | | | tablet | | | | | | | + + + +---------+------+------+-------+ Active Problems + + + | Problem | Noted Date | + + + | Severe sepsis | 12/03/2019 | + + + | Acute kidney injury (PATRICA) with acute tubular necrosis (ATN) | 12/03/2019 | + + + Immunizations + + + + | Name | Administration Dates | Next Due | + + + + | DT (PED) | 04/12/1988 | | + + + + | DTP (PED) | 09/15/1980, 01/02/1977, 1976, | | | | 1976 | | + + + + | HEP A/HEP B, 3 DOSE | 09/20/2017, 09/28/2016, 08/16/2016 | | | (ADULT) | | | + + + + | INFLUENZA PF | 05/21/2019, 07/02/2018, 06/26/2017, | | | QUAD(PED/ADOL/ADULT) | 08/16/2016 | | | ,PSKT or VIAL | | | + + + + | INFLUENZA, | 07/02/2007, 09/05/2000, 06/29/1996, | | | UNSPECIFIED | 07/02/1994 | | | FORMULATION | | | + + + + | MMR, 2 DOSE | 04/14/1990, 11/11/1978 | | | (PED/ADULT) | | | + + + + | PNEUMOCOCCAL | 06/29/1996 | | | POLYSACCHARIDE | | | | 23-VALENT (PPSV23) | | | + + + + | POLIOVIRUS,OPV | 09/15/1980, 01/02/1977, 1976, | | | (LIVE) | 1976 | | + + + + | PPD Test | 09/30/2017 | | + + + + | TDAP, (ADOL/ADULT) | 04/06/2011 | | + + + + Social History + [...] + + + Last Filed Vital Signs + + + [...] | | + + + + + Plan of Treatment + + + + + | Health Maintenance | Due Date | Last | Comments | | | | Done | | + + + + + | Vaccine: | | 06/29/19 | | | Pneumococcal 19-64 | 7 | 96 | | | (2 of 3 - PCV13) | | | | + + + + + | Vaccine: Influenza | | 05/21/20 | | | (#1) | 0 | 19, | | | | | 07/02/20 | | | | | 18, | | | | | 06/26/20 | | | | | 17, | | | | | Addition | | | | | al | | | | | history | | | | | exists | | + + + + + | Med Mgmt: HBA1C | | 12/04/19 | | | | 0 | 20 | | + + + + + | Medication | | 12/18/19 | | | Management | 0 | 20 | | + + + + + | Med Mgmt: Cr | | 12/18/19 | | | | 1 | 20, | | | | | 12/09/19 | | | | | 20, | | | | | 12/08/19 | | | | | 20, | | | | | Addition | | | | | al | | | | | history | | | | | exists | | + + + + + | Med Mgmt: eGFR | | 12/18/19 | | | | 1 | 20, | | | | | 12/09/19 | | | | | 20, | | | | | 12/08/19 | | | | | 20, | | | | | Addition | | | | | al | | | | | history | | | | | exists | | + + + + + | Vaccine: | | 04/06/20 | | | Dtap/Tdap/Td (7 - | 1 | 11, | | | Td) | | 04/12/19 | | | | | 88, | | | | | 09/15/18 | | | | | 81, | | | | | Addition | | | | | al | | | | | history | | | | | exists | | + + + + + | Hepatitis C | Completed | 12/04/19 | | | Screening | | 20, | | | | | 12/20/19 | | | | | 13 | | + + + + + Results Not on filefrom Last 3 Months Insurance + +--------+ +--------+ +---------+--------+ | Payer | Benefi | Subscriber | Effect | Phone | Address | Type | | | t Plan | ID | angel | | | | | | / | | Dates | | | | | | Group | | | | | | + +--------+ +--------+ +---------+--------+ | [employer] [place] | MEDICA | [id number] | 12/03/19 | [phone] | | Medica | | | [place] | | 20-Pre | 2 | | id | | | PLUS | | sent | | | | + +--------+ +--------+ +---------+--------+ | [employer] | [employer] | [id number] | 08/26/19 | | | Indemn | | SERVICE | YELLOW | | 13-Pre | | | ity | | | HAWK | | sent | | | | + +--------+ +--------+ +---------+--------+ | [employer] | [employer] | [id number] | | | | Indemn | | SERVICE | YELLOW | | 018-Pr | | | ity | | | HAWK | | esent | | | | + +--------+ +--------+ +---------+--------+ | [employer] [place] | MEDICA | [id number] | 03/31/20 | [phone] | | Medica | | | [place] | | 19-Pre | 2 | | id | | | PLUS | | sent | | | | + +--------+ +--------+ +---------+--------+ + +--------+ +--------+ + + | Guarantor Name | Accoun | Relation to | Date | Phone | Billing Address | | | t Type | Patient | of | | | | | | | | | | + +--------+ +--------+ + + | Christiano Johnston | Person | Self [birth year] | [address] | | | al/Fam | | 1975 | [phone] | [place] [address] | | | nella | | | 9 (Home) | | + +--------+ +--------+ + + | Christiano Johnston | Person | Self | [birth year] | [address] | | | al/Fam | | 1974 | [phone] | [place] [address] | | | nella | | | 9 (Home) | | + +--------+ +--------+ + + | Christiano Johnston | Person | Self | [birth year] | [address] | | | al/Fam | | 1974 | [phone] [place] [address] | | | nella | | | 9 (Home) | | + +--------+ +--------+ + + Advance Directives + + + + + | Type | Date Recorded | Patient | Explanation | | | | Pet Stylist | | + + + + + | Power of | | | | | Two Needle Machine Operator | | | | + + + + + | Power of | | | | | Two Needle Machine Operator | | | | + + + + + | Advance | | | | | Directive | | | | + + + + + | Advance | 12/03/2019 10:56 | | | | Directive | AM | | | + + + + + + + + + + | Code Status | Date | Date | Comments | | | Activated | Inactivated | | + + + + + | Full Code | 12/04/2019 | 12/09/2019 | | | | 5:38 PM | 5:14 PM | | + + + + + + + + +---+ | | | | | + + + +---+ | Full Code | 12/03/2019 | 12/04/2019 | | | by default | 8:04 AM | 5:38 PM | | | - TBD | | | | + + + +---+
--- OUTSIDE RECORDS SUMMARY | ~2020-05-17 | XMS | Encounter Summary ---
Demographics + + + | Address | [address] | | | [place] [address] | + + + | Home Phone | | + + + | Preferred Language | Unknown | + + + | Marital Status | Single | + + + | Adventist Affiliation | 1041 | + + + | Race | or | + + + | Additional Race(s) | White | + + + | Ethnic Group | Not or | + + + Author + + + | Author | [facility] | | | and [place] | + + + | Organization | [facility] | | [...] Team Providers + +------+ + | Care River Guide Name | Role | Phone | + +------+ + | Unknown, Physician | PCP | | + +------+ + Encounter Details +--------+ + + + + | Date | Type | Department | Care Team | Description | +--------+ + + + + | 04/17/ | Telephone | [facility] | Camille Gillis | | | 2019 | | PLASTIC SURGERY AND | [address] | | | | | [address] | [address] | | | | | [address] | [place] [address] | | | | | [place], [place] | [phone] | | | | | [address] | | | | | | [phone] | | | +--------+ + + + [...] this encounter Miscellaneous Notes Telephone Encounter - Kira Jensen - 04/17/2019 1:41 PM PDTPATIENT LVM ASKING WHY RX H AVE NOT BEEN SENT. PLEASE CALL P M PDTdocumented in this encounter Plan of Treatment Not on filedocumented as of this encounter Visit Diagnoses Not on filedocumented in this encounter"
--- OUTSIDE RECORDS SUMMARY | ~2020-05-17 | XMS | Encounter Summary ---
Demographics + + + | Address | [address] | | | [place] [address] | + + + | Home Phone | | + + + | Preferred Language | Unknown | + + + | Marital Status | Single | + + + | Hinduism Affiliation | [id number] | + + + | Race | or | + + + | Additional Race(s) | White | + + + | Ethnic Group | Not or | + + + Author + + + | Author | [facility] | | | and [place] | + + + | Organization | [facility] | | | [...] Team Providers + +------+ + | Care Supervisor Mixing Name | Role | Phone | + +------+ + PCP | Unavailable | + +------+ + Encounter Details +--------+ + + + + | Date | Type | Department | Care Team | Description | +--------+ + + + + | 12/19/ | Hospital | [facility] | Terrence Alfred | | | 2012 - | Encounter | MED CTR MED ONC | MD Mariano [address] | | | | | [address] | [address] [facility] | | | 12/21/ | | [place] [address] | [place] [address] | | | 2012 | | [phone] | [phone] | | | | | | | | | | | | Daniel Hernandez MD | | | | | | [address] | | | | | | [place], [place] | | | | | | [id number] | | | | | | | [...] + + documented as of this encounter Discharge Summaries Duarte Landrum MD - 12/21/2012 8:18 [place] [address] Patient Name: BETHANIE VEGA Provider: Daniel Hernandez MD Unit #: [id number] Location: [facility] : 1975 ADMISSION DATE: 12/19/2012 DISCHARGE DATE: 12/21/2012 REASON FOR ADMISSION: Upper GI bleed with acute blood loss anemia as well as hepatitis. FINAL DIAGNOSES 1. UPPER GI BLEED WITH ACUTE BLOOD LOSS ANEMIA WELL HEPATITIS. 2. ELEVATED IRON. 3. HEPATITIS, PROBABLY ALCOHOLIC, BUT COULD BE IRON STORAGE DISEASE. 4. ALCOHOLISM. 5. HYPERTENSION. PROCEDURE: Upper endoscopy, Dr. Mark Easley. CONSULTS: Dr. Mark Easley. HOSPITAL COURSE: The patient was admitted to the hospital. He went on to have upper endosco py by Dr. Mark Easley. Helicobacter pylori urease came back negative. The endoscopy reveale d erosive esophagitis as well as gastric ulcers, Corina-Giraldo tear, and possible portal hy potensive gastropathy. The patient also had elevated liver function tests and bilirubin. His bilirubin did peak at 9.2 which is starting to come down as it is 9.0 this morning. He does have mild associated transaminase elevation. Those are also improving as today his AST is 195 and his ALT is 68 . His alkaline phosphatase remains normal the entire hospital stay. TSH came back normal. H is ferritin was elevated at 1391 with an iron of 93 and an iron binding capacity of 102. Ho wever, these studies could be from alcoholic hepatitis, but also consider the possibility o f hemochromatosis, thus I have a hemochromatosis specific study pending; i.e., a GenoType t est. I discussed this with the patient. The patient did have an elevated ammonia when I came in, which improved with lactulose. TSH came back normal. We did a gallbladder ultrasound which was negative for obstruction. He did have mild gallbl adder wall thickening, but no gallstones and no cholecystitis. He did have, on the ultrasou nd, changes of subjective hepatomegaly and diffusely increased hepatic echo texture, potent ially reflecting fatty infiltration. We checked hepatitis A, B, and C serologies, and those proved negative. The hepatitis A amor el was actually consistent with either a previous hepatitis A or previous hepatitis A vacci ne, but not current hepatitis. I discussed with patient, I really want him to avoid all forms of pain relievers and, of co urse, stay off of alcohol. He says, he does not drive because he lost his license, so lets his [id number] drive. His has not yet had her baby. Apparently if she does not go into labor by Saturday, the y are going to induce labor on Saturday at [facility]. DISPOSITION: Patient to be discharged to home in improved condition. DIET: I told him that he can go back to a regular diet, but absolutely no alcohol. ACTIVITIES: As tolerated. Again, he does not drive. FOLLOWUP: I asked that he see Dr. Molina this week for followup, and she needs to contact Mack Sen to get the results of the hemochromatosis test, which remains pending. MEDICATIONS 1. Metoprolol succinate 100 mg daily in the morning. 2. Aldactone 25 mg daily. 3. Lactulose syrup 20 gram; i.e., 30 ml twice a day. 4. Prilosec 20 mg twice a day. 5. Multivitamin with minerals once a day. The patient needs to stay off of NSAIDs medications because of his recent ulcer disease, an d also I asked that he not take Tylenol because of his liver disease, but as he continues t o improve, I suspect Dr. Molina will allow. December 31 addendum: His genetic test for hemochromatosis came back negative but a small perce ntage of patients can still have hemochromatosis despite a negative genetic test. I did pre viously dictate and sign a letter that was to be sent to Dr Molina. DICTATED BY: Duarte Landrum MD Internal Medicine JOB #: [id number] EXT JOB #:[id number] cc: MD Daniel Roy MD <<Signature on File>> Duarte Landrum MD0 12/31/12 0716 <Electronically signed by Duarte Landrum MD> documented in this encounter H&P Notes Daniel Hernandez MD - 12/19/2012 1:30 [place] [address] Patient Name: BETHANIE VEGA Provider: Daniel Hernandez MD Unit #: [id number] Location: [facility] : 1975 DATE: 12/19/2012 ADMISSION DIAGNOSES 1. Upper gastrointestinal bleed. 2. Hepatitis likely acute alcoholic hepatitis. 3. History of significant alcohol withdrawal in the past. 4. Hypertension. 5. History of mild asthma, usually requiring therapy only when exposed to airway irritants . 6. History of gastroesophageal reflux disease exacerbated over the past week. HISTORY OF PRESENT ILLNESS: Mr. Vega is a pleasant 37-year-old male who presented to [facility] emergency room at [facility] after vomiting blackish dark red blood at about 5 p.m. t his evening. He , following this, has had to his recollection 2 black stools, 1 here in the emergency room, 1 at [facility]. He denies any abdominal pains. His reports he has had worsening of chronic GERD over the past week. The patient does have a history of signi ficant alcohol consumption in the past. Reports he drinks 5-6 beers a day, but these are 24 ounce "hurricane" beers. He states that about a week ago he decided to decrease alcohol co nsumption because he is just about to have of another child. He has 2 teenagers by a previous marriage, but is going to have his first son hopefully delivered tomorrow apparent ly planned at [facility] either by induction or . The patient th us a week ago decided that he needed to cut back on alcohol. He states he was feeling okay before he started cutting back, but since starting to cut back he has felt very poorly. He h as not eaten well. He has not hallucinated. He has felt shaky for the whole week. He does r eport that yesterday he had 1-1/2 beers basically reducing his alcohol consumption progress ively. He presented to the emergency room at [facility] with alcohol level of 0. He kareen es any other vomiting this past week, and he denies abdominal pains. He thinks he may have had low-grade fevers, but he has had no shaking chills. He has no previous history of hepat itis from a viral standpoint and denies risk factors for viral hepatitis. He has a history of having blood work done 12/03/2012, and at that time in discussion with the emergency alex physician at [facility], his bilirubin was 0.9. This evening it is 6.5. His AST at [facility] was around 100 by report with ALT less than that. This evening his AST is 508 with a n ALT of 137. Alkaline phosphatase is 120. Otherwise, his blood count obtained initially in the emergency room at [facility] showe d a hematocrit of 46.3 with hemoglobin 15.5. On review of records from [facility] he rec eived a total of 3 liters of normal saline while there because of his tachycardia and recei tamiko IV lorazepam, receiving a total of 4 mg, and with this clinically stabilized. I did ask them to give thiamine 100 mg IV, which was done. Otherwise, in discussion with the patient, he does routinely take metoprolol. He has 100 m g of metoprolol succinate and depending on how he feels he typically either takes 50 or 75 mg daily. Today, he has not taken any. Again, since he discontinued alcohol consumption, he has felt quite poorly over the past week, not been eating well. In discussion with the patient, he has discontinued alcohol consumption in the past and wi th this has felt fairly poorly, albeit typically has not been hospitalized. He states a cou ple months ago that he felt miserable for several days after trying to stop drinking alcoho l. He denies having periods of hallucinosis. He does feel very shaky with this. Again, the patient denies IV drug use or other risk factors relative to developing viral h epatitis. PAST MEDICAL HISTORY: Otherwise is remarkable for diagnosis of hypertension, currently on spironolactone 25 mg daily and metoprolol again taking 50-75 mg of metoprolol succinate bas ed on how he feels. He was started about a week ago on Septra DS which he has taken for a s pot on his left leg, which does not appear infected at all currently. Otherwise, past medic al history in discussion with the patient is unremarkable. He states about age 15 he did alfaro ve an ulcer. He also has a history of asthma, which he states usually only becomes symptoma tic when he is exposed to dust. ALLERGIES: NO KNOWN DRUG ALLERGIES. HABITS: The patient is a nonsmoker, does not use other illicit drugs by report. SOCIAL HISTORY: The patient is . He works as a electrical construction project manager albeit he states that he has not been able to find work recently. FAMILY HISTORY: Negative for occult liver disease, premature coronary artery disease or fa milial tumors. He states that his father is alive and well. He states his mother recently h ad an illness that he is not certain of but has recovered. REVIEW OF SYSTEMS: Negative for significant weight fluctuations. He denies recent shortnes s of breath , cough, or sputum production. He denies chest pains, palpitations, or signific ant lightheadedness. He did have emesis again of blood. He has had poor appetite since tryi ng to cut back on alcohol over the past week. He did develop diarrhea only today with the d evelopment of hematemesis. Remainder of review of systems in discussion with Mr. Vega is negative on complete ROS . PHYSICAL EXAMINATION VITAL SIGNS: Blood pressure is 146/94, heart rate 131, respiratory rate 73, temperature 99 .6, O2 saturation 97% on room air. NECK: Without adenopathy or thyromegaly. LUNGS: Clear to auscultation and percussion. HEART: Has a regular rate and rhythm. No murmur, gallop, or rub is noted. ABDOMEN: Soft, no masses or organomegaly noted. Bowel sounds positive. HEENT: The patient has scleral icterus notable. EXTREMITIES: Without edema. NEUROLOGIC: The patient is nonfocal. LABORATORY: Blood work obtained at [facility] acquired at 7:20 p.m. shows sodium 131, p otassium 3.7 , chloride 96, CO2 23, glucose 145, creatinine 0.98, BUN 10. AST was 508, ALT 137, alkaline phosphatase 120, total bilirubin 6.5. Albumin was 3.4. Lipase was 55. White c ount 8.4, hematocrit 46.3 , platelets 89,000. Review of graphic sheets from [facility] how that the patient had a bilirubin of 0.9 on 12/06/2012, an ALT of 70 on the same day. T of 229 that day. Blood work obtained here after 3 liters of fluid given at [facility] shows white count 10.0, hematocrit is 42.9 with a platelet count of 86,000. PT/INR is 1.1. Sodium was 135, po tassium 4.2, chloride 105, CO2 20, calculated anion gap is 10. Magnesium is 1.2 with a veno us ammonia of 107. IMPRESSION 1. UPPER GASTROINTESTINAL BLEED. The patient will be given Protonix 40 mg IV every 12 hour s. Received first dose in emergency room. He appears to be quite stable relative to his ble eding. I am going to obtain next CBC in 6 hours and then based on his counts will obtain q. 6h. values until stable and then diminish appropriately. Otherwise, based on blood work in the a.m. will likely consider upper endoscopy. 2. HEPATITIS. This is likely acute alcoholic hepatitis given the marked elevation in bilir ubin compared to approximately 10 days ago. We will obtain a gallbladder ultrasound to rule out obstructive biliary disease. Otherwise, the patient does appear to have chronic liver disease with marked elevation of pneumonia likely arising because of blood in the GI tract. We are going to treat this with lactulose 20 grams hourly for 3 doses tonight, then 20 gra ms t.i.d. starting in the a.m. 3. RISK FOR ACUTE ALCOHOL WITHDRAWAL. The patient will be placed on the CIWA protocol. 4. HYPOMAGNESEMIA. We will give 2 grams of magnesium sulfate overnight and reassess magnes ium level in the a.m. Otherwise, will obtain a hepatitis B, hepatitis C, ferritin and iron studies in the a.m. W ill also repeat the magnesium and ammonia levels in the a.m. to make sure things are not wo rsening. DICTATED BY: Daniel Hernandez MD Internal Medicine JOB #: [id number] EXT JOB #:[id number] <<Signature on File>> Daniel Hernandez [id number] <Electronically signed by Daniel Hernandez MD> documented in this e ncounter Miscellaneous Notes Op Note - Mark Easley MD - 12/19/2012 4:25 [place] [address] Patient Name: BETHANIE VEGA Provider: Daniel Hernandez MD Unit #: [id number] Location: [address] [place], [place] [address]t #: [id number] : 1975 Patient Name: Bethanie Vega Gender: Emily Procedure Date: 12/19/2012 4:25 PM Date of : 1975 Age: 37 Admit Type: Inpatient Room: Endo Room 1 Note Status: Finalized Attending MD: Mark Easley MD Procedure: Upper GI endoscopy Indications: Hematemesis Providers: Mark Easley MD, Mercedes Calzada RN, Clarissa Cevallos, Station Tender, Randell Ann MD (Anesthesia Staff) Referring MD: [facility] MD Boyd Medicines: Sedation Required Anesthesia Staff Assistance Complications: N o immediate complications. Estimated blood loss: Minimal. Procedure: - Prior to the procedure, a History and Physical was performed, and patient medications, allergies and sensitivities were reviewed. The patient's tolerance of previous anesthesia was reviewed. - The risks and benefits of the procedure and the sedation options and risks were discussed with the patient. All questions were answered and informed consent was obtained. - Patient identification and proposed procedure were verified prior to the procedure by the physician, the nurse, the anesthesiologist and the desktop support technician. The procedure was verified in the endoscopy suite. - Airway Examination: small/crowded oropharyngeal airway and Mallampati Class III (part of the uvula and soft palate visualized). - Mental Status Examination: alert but confused. - ASA Grade Assessment: III - A patient with severe systemic disease. - After reviewing the risks and benefits, the patient was deemed in satisfactory condition to undergo the procedure. - Anesthesia under the supervision of an anesthesiologist using IV propofol was determined to be medically necessary for this procedure based on ASA Grade III-V and patient's history of drug or alcohol abuse. - Immediately prior to administration of medications, the patient was re-assessed for adequacy to receive sedatives. - The heart rate, respiratory rate, oxygen saturations, blood pressure, adequacy of pulmonary ventilation, and response to care were monitored throughout the procedure. - The physical status of the patient was re-assessed after the procedure. After obtaining informed consent, the endoscope was passed under direct vision. Throughout the procedure, the patient's blood pressure, pulse, and oxygen saturations were monitored continuously. The endoscope was introduced through the mouth, and advanced to the third part of duodenum. The upper GI endoscopy was accomplished without difficulty. The patient tolerated the procedure well. Findings: The cricopharyngeus, upper third of the esophagus and middle third of the esophagus were normal. LA Grade D (one or more mucosal breaks involving at least 75% of esophageal circumference) esophagitis with no bleeding was found 35 to 40 cm from the incisors. Localized severe inflammation characterized by adherent blood was found at the gastroesophageal junction. Diffuse moderately congested mucosa was found in the cardia, in the gastric fundus and in the gastric body. Two non-bleeding cratered gastric ulcers with no stigmata of bleeding were found in the prepyloric region of the stomach. Biopsies were taken with a cold forceps for Helicobacter pylori testing using CLOtest. Estimated blood loss was minimal. The duodenal bulb, first part of the duodenum, 2nd part of the duodenum, area of the papilla and 3rd part of the duodenum were normal. The retroflexed view confirmed previous findings, Impression : - Normal at the cricopharyngeus, in the upper third of the esophagus and in the middle third of the esophagus. - LA Grade D reflux esophagitis. - Esophageal mucosal changes were present, including adherent blood. Findings are suggestive of inflammation. - Congestive gastropathy. - Gastric ulcers with clean base. This was biopsied. - Normal duodenal bulb, first part of the duodenum, 2nd part of the duodenum, area of the papilla and 3rd part of the duodenum. Recommendation: - Return patient to ICU for ongoing care. - Clear liquid diet today. - Follow an antireflux regimen indefinitely. - Continue present medications. Mark Easley MD Signed Date: 12/19/2012 4:47 PM Number of Addenda: 0 Note initiated on 12/19/2012 4:24 PM Scope Withdrawal Time: N/A Total Procedure Duration Time: 07 minutes 26 seconds Mark Easley MD [id number] documented in this e ncounter Plan of Treatment Not on filedocumented as of this encounter Procedures + +--------+ + + + | Procedure Name | Priori | Date/Time | Associated Diagnosis | Comments | | | ty | | | | + +--------+ + + + | CBC NO DIFFERENTIAL | Routin | 12/21/2012 | | Results for this | | | e | 7:02 AM | | procedure are in the | | | | PDT | | results section. | + +--------+ + + + | COMPREHENSIVE | Routin | 12/21/2012 | | Results for this | | METABOLIC PANEL | e | 7:02 AM | | procedure are in the | | | | PDT | | results section. | + +--------+ + + + | HEMOCHROMATOSIS | Routin | 12/20/2012 | | Results for this | | MUTATION PANEL | e | 7:15 AM | | procedure are in the | | | | PDT | | results section. | + +--------+ + + + | CBC WITH | Routin | 12/20/2012 | | Results for this | | DIFFERENTIAL | e | 5:30 AM | | procedure are in the | | | | PDT | | results section. | + +--------+ + + + | MAGNESIUM | Routin | 12/20/2012 | | Results for this | | | e | 5:30 AM | | procedure are in the | | | | PDT | | results section. | + +--------+ + + + | AMMONIA | Routin | 12/20/2012 | | Results for this | | | e | 5:30 AM | | procedure are in the | | | | PDT | | results section. | + +--------+ + + + | COMPREHENSIVE | Routin | 12/20/2012 | | Results for this | | METABOLIC PANEL | e | 5:30 AM | | procedure are in the | | | | PDT | | results section. | + +--------+ + + + | HEMOGLOBIN AND | Routin | 12/19/2012 | | Results for this | | HEMATOCRIT | e | 6:26 PM | | procedure are in the | | | | PDT | | results section. | + +--------+ + + + | HELICOBACTER PYLORI | Routin | 12/19/2012 | | Results for this | | BIOPSY | e | 5:07 PM | | procedure are in the | | | | PDT | | results section. | + +--------+ + + + | HEPATITIS A IGG.IGM | Routin | 12/19/2012 | | Results for this | | | e | 12:50 PM | | procedure are in the | | | | PDT | | results section. | + +--------+ + + + | HEMOGLOBIN AND | Routin | 12/19/2012 | | Results for this | | HEMATOCRIT | e | 12:23 PM | | procedure are in the | | | | PDT | | results section. | + +--------+ + + + | US ABDOMEN LIMITED | Routin | 12/19/2012 | | Results for this | | | e | 10:28 AM | | procedure are in the | | | | PDT | | results section. | + +--------+ + + + | IRON PROFILE, | Routin | 12/19/2012 | | Results for this | | (FE+IBC+FERR+%SAT) | e | 6:25 AM | | procedure are in the | | | | PDT | | results section. | + +--------+ + + + | HEPATITIS C AB | Routin | 12/19/2012 | | Results for this | | | e | 6:25 AM | | procedure are in the | | | | PDT | | results section. | + +--------+ + + + | HEPATITIS B SURFACE | Routin | 12/19/2012 | | Results for this | | AG | e | 6:25 AM | | procedure are in the | | | | PDT | | results section. | + +--------+ + + + | CBC WITH | Routin | 12/19/2012 | | Results for this | | DIFFERENTIAL | e | 6:25 AM | | procedure are in the | | | | PDT | | results section. | + +--------+ + + + | TSH | Routin | 12/19/2012 | | Results for this | | | e | 6:25 AM | | procedure are in the | | | | PDT | | results section. | + +--------+ + + + | MAGNESIUM | Routin | 12/19/2012 | | Results for this | | | e | 6:25 AM | | procedure are in the | | | | PDT | | results section. | + +--------+ + + + | AMMONIA | Routin | 12/19/2012 | | Results for this | | | e | 6:25 AM | | procedure are in the | | | | PDT | | results section. | + +--------+ + + + | COMPREHENSIVE | Routin | 12/19/2012 | | Results for this | | METABOLIC PANEL | e | 6:25 AM | | procedure are in the | | | | PDT | | results section. | + +--------+ + + + | CULTURE, MRSA | Routin | 12/19/2012 | | | | | e | 3:55 AM | | | | | | PDT | | | + +--------+ + + + | URINALYSIS, REFLEX | Routin | 12/18/2012 | | Results for this | | MICROSCOPIC AND/OR | e | 11:57 PM | | procedure are in the | | CULTURE | | PDT | | results section. | + +--------+ + + + | PROTIME INR | Routin | 12/18/2012 | | Results for this | | | e | 11:57 PM | | procedure are in the | | | | PDT | | results section. | + +--------+ + + + | CBC WITH | Routin | 12/18/2012 | | Results for this | | DIFFERENTIAL | e | 11:57 PM | | procedure are in the | | | | PDT | | results section. | + +--------+ + + + | MAGNESIUM | Routin | 12/18/2012 | | Results for this | | | e | 11:57 PM | | procedure are in the | | | | PDT | | results section. | + +--------+ + + + | AMMONIA | Routin | 12/18/2012 | | Results for this | | | e | 11:57 PM | | procedure are in the | | | | PDT | | results section. | + +--------+ + + + | BASIC METABOLIC | Routin | 12/18/2012 | | Results for this | | PANEL | e | 11:57 PM | | procedure are in the | | | | PDT | | results section. | + +--------+ + + + documented in this encounter Results Comprehensive Metabolic Panel (12/21/2012 7:02 AM PDT) + + + + + + | Component | Value | Ref Range | Performed | Pathologist | | | | | At | Signature | + + + + + + | Glucose | 94 | 70 - 109 mg/dL | [facility] | | | | | [facility] | | | | | [facility] | | + + + + + + | Calcium | 8.5 | 8.3 - 10.5 | [facility] | | | | | mg/dL | [facility] | | | | | [facility] | | [facility] | | | | | | [facility] | | + + + + + + | Alkaline | 88 | 40 - 110 IU/L | [facility] | | | Phosphatase | | | [facility] | | | | | | [facility] | | | | | [facility] - | | | | | | [facility] | | + + + + + + | AST | 195 (H) | 10 - 42 IU/L | [facility] | | | | | | [facility] | | | | | [facility] | | | | [facility] | | | | | | [facility] | | + + + + + + | ALT | 68 (H) | 6 - 45 IU/L | [facility] | | | | | | [facility] | | | | | | [facility] | | | | [facility] | | | | | | [facility] | | + + + + + + | Bilirubin | 9.0 (H) | 0.2 - 1.0 mg/dL | [facility] | | | Total | | | [facility] | | | | | | [facility] | | | | | [facility] - | | | | | | [facility] | | + + + + + + | Total | 5.6 (L) | 6.0 - 7.8 gm/dL | [facility] | | | Protein | | | [facility] | | | | | | [facility] | | | | | [facility] - | | | | | | [facility] | | + + + + + + | Albumin | 2.3 (L) | 3.2 - 5.0 gm/dL | [facility] | | | | | | [facility] | | | | | [facility] | | | | | [facility] | | | | | | [facility] | | + + + + + + | BUN | 5 (L) | 7 - 18 mg/dL | [facility] | | | | | | [facility] | | | [facility] | | | | | [facility] | | | | | | [facility] | | + + + + + + | Creatinine | 0.82 | 0.60 - 1.30 | [facility] | | | | | mg/dL | [facility] | | | | | | [facility] | | | | | | CENTER - | | | | | | LABORATORY | | + + + + + + | Estimated | >60Comment: For | >60 mL/min/A | [facility] | | | GFR | -Americans, | | [facility] | | | | please multiply the | | MEDICAL | | | | result by 1.210 | | CENTER - | | | | This is an estimated | | LABORATORY | | | | GFR and is based on a | | | | | | standard adult | | | | | | body mass (A=1.73m2) and | | | | | | serum creatinine | | | | + + + + + + | BUN/Creatin | 6.1 (L) | 12 - 20 | [facility] | | | ine Ratio | | | [facility] | | | | | | [facility] | | | | | | CENTER - | | | | | | LABORATORY | | + + + + + + | Na | 134 (L) | 136 - 149 mEq/L | [facility] | | | | | | [facility] | | | | | | [facility] | | | | | | CENTER - | | | | | | LABORATORY | | + + + + + + | K | 3.2 (L) | 3.5 - 5.1 mEq/l | [facility] | | | | | | [facility] | | | | | | [facility] | | | | | | CENTER - | | | | | | LABORATORY | | + + + + + + | Cl | 103 | 98 - 109 mEq/l | [facility] | | | | | | [facility] | | | | | | [facility] | | | | | | CENTER - | | | | | | LABORATORY | | + + + + + + | CO2 | 23 (L) | 24 - 31 mEq/L | [facility] | | | | | | [facility] | | | | | | [facility]ICAL | | | | | | CENTER - | | | | | | LABORATORY | | + + + + + + | Anion Gap | 11.2 | 6.0 - 17.0 | [facility] | | | | | | [facility] | | | | | | MEDICAL [...] + | [facility] | [address] | [place], [place] | [phone] | | [facility] | | [address] | | | - LABORATORY | | | | + + + + + | [facility] | [address] | [place], [place] | | | [facility] | | [id number] | | | - LABORATORY | | | | + + + + + CBC no Differential (12/21/2012 7:02 AM PDT) + + + + + + | Component | Value | Ref Range | Performed | Pathologist | | | | | At | Signature | + + + + + + | White Blood | 6.3 | 4.0 - 11.0 K/uL | [facility] | | | Cells | | | [facility] | | | | | | MEDICAL | | | | | | CENTER - | | | | | | LABORATORY | | + + + + + + | Red Blood | 3.35 (L) | 4.30 - 5.70 | [facility] | | | Cells | | M/uL | [facility] | | | | | | MEDICAL | | | | | | CENTER - | | | | | | LABORATORY | | + + + + + + | Hemoglobin | 11.5 (L) | 13.5 - 18.0 | [facility] | | | | | gm/dL | [facility] | | | | | | MEDICAL | | | | | | CENTER - | | | | | | LABORATORY | | + + + + + + | Hematocrit | 34.6 (L) | 40.0 - 51.0 % | [facility] | | | | | | [facility] | | | | | | MEDICAL | | | | | | CENTER - | | | | | | LABORATORY | | + + + + + + | MCV | 103.4 (H) | 83.0 - 101.0 fL | [facility] | | | | | | [facility] | | | | | | MEDICAL | | | | | | CENTER - | | | | | | LABORATORY | | + + + + + + | MCH | 34.4 | 28.0 - 35.0 pg | [facility] | | | | | | [facility] | | | | | | MEDICAL | | | | | | CENTER - | | | | | | LABORATORY | | + + + + + + | MCHC | 33.3 | 32.0 - 36.0 | [facility] | | | | | g/dL | [facility] | | | | | | MEDICAL | | | | | | CENTER - | | | | | | LABORATORY | | + + + + + + | RDW-CV | 14.9 | <15.0 % | [facility] | | | | | | [facility] | | | | | | MEDICAL | | | | | | CENTER - | | | | | | LABORATORY | | + + + + + + | Platelet | 110 (L) | 140 - 440 K/uL | [facility] | | | Count | | | [facility] | | | | | | MEDICAL [...] + | [facility] | [address] | [place] | [phone] | | [facility] | | [address] | | | - LABORATORY | | | | + + + + + | [facility] | [address] | [place], [place] | | | [facility] | | [id number] | | | - LABORATORY | | | | + + + + + Hemachomatosis Mutation Panel (12/20/2012 7:15 AM PDT) + + + + + + | Component | Value | Ref Range | Performed | Pathologist | | | | | At | Signature | + + + + + + | HEMO-RESULT | SEE BELOWComment: | () | [facility] | | | | Negative for tested | | [facility] | | | | mutations | | MEDICAL | | | | | | CENTER - | | | | | | LABORATORY | | + + + + + + | HEMOCHROMAT | C282Y: Negative | () | [facility] | | | OSIS GENE | Comment: | | [facility] | | | | H63D: Negative | | MEDICAL | | | | S65C: Negative | | CENTER - | | | | | | LABORATORY | | + + + + + + | HEMOCHROMAT | SEE BELOWComment: The | () | [facility] | | | OSIS | patient is negative for | | [facility] | | | MUTATION | the C282Y, H63D, and | | MEDICAL | | | INTERP | S65C mutations. A | | CENTER - | | | | small percentage of | | LABORATORY | | | | patients diagnosed with | | | | | | hemochromatosis are | | | | | | negative for C282Y, | | | | | | H63D, and S65C yet | | | | | | have developed iron | | | | | | overload as a result of | | | | | | other unidentified | | | | | | genetic and/or | | | | | | environmental factors. | | | | | | Patients receiving | | | | | | genetic testing should | | | | | | consider genetic | | | | | | counseling. Counseling | | | | | | of potentially affected | | | | | | family members may | | | | | | also be warranted. | | | | | | Questions regarding | | | | | | information on this | | | | | | report can be directed | | | | | | to Angelica Chavez, | | | | | | Ph.D. at [phone], | | | | | | ext. [phone] | | | | + + + + + + | HEMO-COMMEN | SEE BELOWComment: | () | [facility] | | | T | Patient DNA is assayed | | [facility] | | | | for the C282Y, H63D and | | MEDICAL | | | | S65C point mutations | | CENTER - | | | | in the HFE gene by | | LABORATORY | | | | polymerase chain | | | | | | reaction (PCR). This | | | | | | test was developed and | | | | | | its performance | | | | | | characteristics | | | | | | determined by [facility] | | | | | | [facility] | | | | | | Center. It has not | | | | | | been cleared or approved | | | | | | by the U.S. Food and | | | | | | Drug Administration. | | | | | | The FDA has determined | | | | | | that such clearance | | | | | | or approval is not | | | | | | necessary. This test | | | | | | is used for clinical | | | | | | purposes. It should not | | | | | | be regarded as | | | | | | investigational or for | | | | | | research. This | | | | | | laboratory is | | | | | | certified under CLIA | | | | | | '88 as qualified to | | | | | | perform high | | | | | | complexity clinical | | | | | | testing. This test is | | | | | | performed pursuant to | | | | | | an agreement with [employer] | | | | | | [employer] | | | | | | Testing Performed: | | | | | | [facility] | | | | | | [facility], [address] | | | | | | , [place] [address] | | | | | | CLIA: [id number] | | | | + + + + + + + + | Specimen | + + | | + + + + + + + | Performing | Address | City/State/Zipcode | Phone Number | | Organization | | | | + + + + + | [facility] | [address] | [place] | [phone] | | [facility] | | [address] | | | - LABORATORY | | | | + + + + + | [facility] | [address] | [place] | | | [facility] | | [address], [facility] | | | - LABORATORY | | | | + + + + + CBC with Differential (12/20/2012 5:30 AM PDT) + + + + + + | Component | Value | Ref Range | Performed | Pathologist | | | | | At | Signature | + + + + + + | MANUAL | NO | | [facility] | | | [facility] | | | [facility] | | | L ? | | | MEDICAL | | | | | | CENTER - | | | | | | LABORATORY | | + + + + + + | White Blood | 6.3 (A) | 4.0 - 11.0 K/uL | [facility] | | | Cells | | | [facility] | | | | | | MEDICAL | | | | | | CENTER - | | | | | | LABORATORY | | + + + + + + | Red Blood | 3.38 (L) | 4.30 - 5.70 | [facility] | | | Cells | | M/uL | [facility] | | | | | | MEDICAL | | | | | | CENTER - | | | | | | LABORATORY | | + + + + + + | Hemoglobin | 11.8 (L) | 13.5 - 18.0 | [facility] | | | | | gm/dL | [facility] | | | | | | MEDICAL | | | | | | CENTER - | | | | | | LABORATORY | | + + + + + + | Hematocrit | 35.0 (L) | 40.0 - 51.0 % | [facility] | | | | | | [facility] | | | | | | MEDICAL | | | | | | CENTER - | | | | | | LABORATORY | | + + + + + + | MCV | 103.5 (H) | 83.0 - 101.0 fL | [facility] | | | | | | [facility] | | | | | | MEDICAL | | | | | | CENTER - | | | | | | LABORATORY | | + + + + + + | MCH | 34.8 | 28.0 - 35.0 pg | [facility] | | | | | | [facility] | | | | | | MEDICAL | | | | | | CENTER - | | | | | | LABORATORY | | + + + + + + | MCHC | 33.6 | 32.0 - 36.0 | [facility] | | | | | g/dL | [facility] | | | | | | MEDICAL | | | | | | CENTER - | | | | | | LABORATORY | | + + + + + + | RDW-CV | 15.0 | <15.0 % | [facility] | | | | | | [facility] | | | | | | MEDICAL | | | | | | CENTER - | | | | | | LABORATORY | | + + + + + + | Platelet | 85 (L) | 140 - 440 K/uL | [facility] | | | Count | | | [facility] | | | | | | MEDICAL | | | | | | CENTER - | | | | | | LABORATORY | | + + + + + + | % | 63.1 | 45 - 75 % | [facility] | | | Neutrophils | | | [facility] | | | | | | MEDICAL | | | | | | CENTER - | | | | | | LABORATORY | | + + + + + + | % | 25.7 | 20 - 45 % | [facility] | | | Lymphocytes | | | [facility] | | | | | | MEDICAL | | | | | | CENTER - | | | | | | LABORATORY | | + + + + + + | % Monocytes | 8.2 | 4 - 12 % | [facility] | | | | | | [facility] | | | | | | MEDICAL | | | | | | CENTER - | | | | | | LABORATORY | | + + + + + + | % | 1.2 | 0 - 5 % | [facility] | | | Eosinophils | | | [facility] | | | | | | MEDICAL | | | | | | CENTER - | | | | | | LABORATORY | | + + + + + + | % Basophils | 1.8 (H) | 0 - 1 % | [facility] | | | | | | [facility] | | | | | | MEDICAL | | | | | | CENTER - | | | | | | LABORATORY | | + + + + + + | Absolute | 4.0 | 1.5 - 6.6 K/uL | [facility] | | | Neutrophils | | | [facility] | | | | | | MEDICAL | | | | | | CENTER - | | | | | | LABORATORY | | + + + + + + | Absolute | 1.6 | 0.6 - 3.2 K/uL | [facility] | | | Lymphocytes | | | [facility] | | | | | | MEDICAL | | | | | | CENTER - | | | | | | LABORATORY | | + + + + + + | Absolute | 0.5 | 0.0 - 1.0 K/uL | [facility] | | | Monocytes | | | [facility] | | | | | | MEDICAL | | | | | | CENTER - | | | | | | LABORATORY | | + + + + + + | Absolute | 0.1 | 0.0 - 0.4 K/uL | [facility] | | | Eosinophils | | | [facility] | | | | | | MEDICAL | | | | | | CENTER - | | | | | | LABORATORY | | + + + + + + | Absolute | 0.1 | 0.0 - 0.1 K/uL | [facility] | | | Basophils | | | [facility] | | | | | | MEDICAL [...] + | [facility] | [address] | [place], [place] | [phone] | | [facility] | | [address] | | | - LABORATORY | | | | + + + + + | [facility] | [address] | [place], [place] | | | [facility] | | [address] [place] [address] | | | - LABORATORY | | | | + + + + + Ammonia (12/20/2012 5:30 AM PDT) + +--------+ + + + | Component | Value | Ref Range | Performed | Pathologist | | | | | At | Signature | + +--------+ + + + | Ammonia | 54 (H) | 11 - 35 umol/L | [facility] | | | | | | [facility] | | | | | | MEDICAL [...] + | [facility] | [address] | [place] | [phone] | | [facility] | | [address] | | | - LABORATORY | | | | + + + + + | [facility] | [address] | [place] | | | [facility] | | [address], [facility] | | | - LABORATORY | | | | + + + + + Comprehensive Metabolic Panel (12/20/2012 5:30 AM PDT) + + + + + + | Component | Value | Ref Range | Performed | Pathologist | | | | | At | Signature | + + + + + + | Glucose | 93 | 70 - 109 mg/dL | [facility] | | | | | | [facility] | | | | | | MEDICAL | | | | | | CENTER - | | | | | | LABORATORY | | + + + + + + | Calcium | 8.1 (L) | 8.3 - 10.5 | [facility] | | | | | mg/dL | [facility] | | | | | | MEDICAL | | | | | | CENTER - | | | | | | LABORATORY | | + + + + + + | Alkaline | 77 | 40 - 110 IU/L | [facility] | | | Phosphatase | | | [facility] | | | | | | MEDICAL | | | | | | CENTER - | | | | | | LABORATORY | | + + + + + + | AST | 279 (H) | 10 - 42 IU/L | [facility] | | | | | | [facility] | | | | | | MEDICAL | | | | | | CENTER - | | | | | | LABORATORY | | + + + + + + | ALT | 84 (H) | 6 - 45 IU/L | [facility] | | | | | | [facility] | | | | | | MEDICAL | | | | | | CENTER - | | | | | | LABORATORY | | + + + + + + | Bilirubin | 9.2 (H) | 0.2 - 1.0 mg/dL | [facility] | | | Total | | | [facility] | | | | | | MEDICAL | | | | | | CENTER - | | | | | | LABORATORY | | + + + + + + | Total | 5.4 (L) | 6.0 - 7.8 gm/dL | [facility] | | | Protein | | | [facility] | | | | | | MEDICAL | | | | | | CENTER - | | | | | | LABORATORY | | + + + + + + | Albumin | 2.3 (L) | 3.2 - 5.0 gm/dL | [facility] | | | | | | [facility] | | | | | | MEDICAL | | | | | | CENTER - | | | | | | LABORATORY | | + + + + + + | BUN | 11 | 7 - 18 mg/dL | [facility] | | | | | | [facility] | | | | | | MEDICAL | | | | | | CENTER - | | | | | | LABORATORY | | + + + + + + | Creatinine | 0.94 | 0.60 - 1.30 | [facility] | | | | | mg/dL | [facility] | | | | | | MEDICAL | | | | | | CENTER - | | | | | | LABORATORY | | + + + + + + | Estimated | >60Comment: For | >60 mL/min/A | [facility] | | | GFR | -Americans, | | [facility] | | | | please multiply the | | MEDICAL | | | | result by 1.210 | | CENTER - | | | | This is an estimated | | LABORATORY | | | | GFR and is based on a | | | | | | standard adult | | | | | | body mass (A=1.73m2) and | | | | | | serum creatinine | | | | + + + + + + | BUN/Creatin | 11.7 (L) | 12 - 20 | [facility] | | | ine Ratio | | | [facility] | | | | | | MEDICAL | | | | | | CENTER - | | | | | | LABORATORY | | + + + + + + | Na | 138 | 136 - 149 mEq/L | [facility] | | | | | | [facility] | | | | | | MEDICAL | | | | | | CENTER - | | | | | | LABORATORY | | + + + + + + | K | 3.9 | 3.5 - 5.1 mEq/l | [facility] | | | | | | [facility] | | | | | | MEDICAL | | | | | | CENTER - | | | | | | LABORATORY | | + + + + + + | Cl | 110 (H) | 98 - 109 mEq/l | [facility] | | | | | | [facility] | | | | | | MEDICAL | | | | | | CENTER - | | | | | | LABORATORY | | + + + + + + | CO2 | 22 (L) | 24 - 31 mEq/L | [facility] | | | | | | [facility] | | | | | | MEDICAL | | | | | | CENTER - | | | | | | LABORATORY | | + + + + + + | Anion Gap | 9.9 | 6.0 - 17.0 | [facility] | | | | | | [facility] | | | | | | MEDICAL [...] + | [facility] | [address] | [place] | [phone] | | [facility] | | [address] | | | - LABORATORY | | | | + + + + + | [facility] | [address] | [place], [place] | | | [facility] | | [id number] [place] [address] | | | - LABORATORY | | | | + + + + + Magnesium (12/20/2012 5:30 AM PDT) + +-------+ + + + | Component | Value | Ref Range | Performed | Pathologist | | | | | At | Signature | + +-------+ + + + | Magnesium | 2.0 | 1.8 - 2.5 mg/dL | [facility] | | | | | | [facility] | | | | | | MEDICAL [...] [address] | [place] | [phone] | | [facility] | | [address] | | | - LABORATORY | | | | + + + + + | [facility] | [address] | [place] | | | [facility] | | [address] | | | - LABORATORY | | | | + + + + + Hemoglobin and Hematocrit (12/19/2012 6:26 PM PDT) + + + + + + | Component | Value | Ref Range | Performed | Pathologist | | | | | At | Signature | + + + + + + | Hemoglobin | 12.4 (L) | 13.5 - 18.0 | [facility] | | | | | gm/dL | [facility] | | | | | | MEDICAL | | | | | | CENTER - | | | | | | LABORATORY | | + + + + + + | Hematocrit | 37.8 (L) | 40.0 - 51.0 % | [facility] | | | | | | [facility] | | | | | | MEDICAL [...] + | [facility] | [address] | [place] | [phone] | | [facility] | | [address] | | | - LABORATORY | | | | + + + + + | [facility] | [address] | [place] | | | [facility] | | [address], [facility] | | | - LABORATORY | | | | + + + + + Helicobactor pylori Biopsy (12/19/2012 5:07 PM PDT) + + + + + + | Component | Value | Ref Range | Performed | Pathologist | | | | | At | Signature | + + + + + + | GASTRIC | Negative for Urease | | [facility] | | | BIOPSY | | | [facility] | | | UREASE TEST | | | MEDICAL | | | [...] + | [facility] | [address] | [place], [place] | [phone] | | [facility] | | [address] | | | - LABORATORY | | | | + + + + + | [facility] | [address] | [place], [place] | | | [facility] | | [id number] | | | - LABORATORY | | | | + + + + + Hepatitis A IGG.IGM (12/19/2012 12:50 PM PDT) + + + + + + | Component | Value | Ref Range | Performed | Pathologist | | | | | At | Signature | + + + + + + | HEP A TOTAL | Reactive (H)Comment: | NR | [facility] | | | AB | Testing Performed: [place], | | [facility] | | | | [address], | | MEDICAL | | | | [place] [address] | | CENTER - | | | | CLIA: [id number] | | LABORATORY | | + + + + + + | HEP A IGM | Non ReactiveComment: | NR | [facility] | | | | Testing Performed: [place], | | [facility] | | | | [address], | | MEDICAL | | | | [place] [address] | | CENTER - | | | | CLIA: [id number] | | LABORATORY | | + + + + + + | Hepatitis | SEE BELOWComment: | () | [facility] | | | Interpretat | Consistent with remote | | 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 | | MEDICAL | | | | Testing Performed: | | CENTER - | | | | [place], [address], | | LABORATORY | | | | [place] [address] | | | | | | [place]: [id number] | | | | + + + + + + + + | Specimen | + + | | + + + + + + + | Performing | Address | City/State/[facility] | Phone Number | | Organization | | | | + + + + + | [facility] | [address] | [place] | [phone] | | [facility] | | [address] | | | - LABORATORY | | | | + + + + + | [facility] | [address] | [place] | | | [facility] | | [address], [place] | | | - LABORATORY | | | | + + + + + Hemoglobin and Hematocrit (12/19/2012 12:23 PM PDT) + + + + + + | Component | Value | Ref Range | Performed | Pathologist | | | | | At | Signature | + + + + + + | Hemoglobin | 12.5 (L) | 13.5 - 18.0 | [facility] | | | | | gm/dL | [facility] | | | | | | MEDICAL | | | | | | CENTER - | | | | | | LABORATORY | | + + + + + + | Hematocrit | 37.9 (L) | 40.0 - 51.0 % | [facility] | | | | | | [facility] | | | | | | MEDICAL [...] + | [facility] | [address] | [place], [place] | [phone] | | [facility] | | [address] | | | - LABORATORY | | | | + + + + + | [facility] | [address] | [place], [place] | | | [facility] | | [address], [facility] | | | - LABORATORY | | | | + + + + + US Abdomen Limited (12/19/2012 10:28 AM PDT) + + | Specimen | + + | | + + + + + | Narrative | Performed At | + + + | [facility] | [place] | | Department [address] [facility] | [facility] | | [ rep [address]] [ rep [facility] | | [facility]] Signed | - IMAGING | | | | | Patient Name: BETHANIE VEGA Emily | | | Physician: KAREN : 1975 Age: 37 Sex: M Unit | | | #: [id number] Exam Date: 12/19/12 Location: | | | I [id number] Report #: [id number] Page: | | | %(RAD)RES..mtdd.print.filter("pg") of %(RAD) | | | RES..mtdd.print.filter("tpg") | | | | | | Accession Number: [id number] | | | GALLBLADDER ULTRASOUND: 12/19/2012 CLINICAL HISTORY: | | | UPPER GI BLEED. COMPARISON: None available. | | | FINDINGS: The liver is subjectively enlarged and demonstrates | | | diffusely increased echotexture. Evaluation of the hepatic | | | parenchyma and hepatic vasculature is limited by sound attenuation by | | | the liver. The gallbladder demonstrates no evidence of gallstones or | | | pericholecystic fluid, however, the gallbladder wall is mildly | | | thickened, measuring 4.5 mm in width. Sonographic Mirza sign is | | | reportedly negative. The common duct measures up to 5 mm in | | | diameter. The pancreas is not visualized due to sound attenuation by | | | the liver and overlying bowel gas. The right kidney measures 10.6 x | | | 5.7 x 5.1 cm and is unremarkable, without hydronephrosis. No ascites | | | is visible in the right upper quadrant. IMPRESSION: 1. | | | SUBJECTIVE HEPATOMEGALY AND DIFFUSELY INCREASED HEPATIC | | | ECHOTEXTURE, POTENTIALLY REFLECTING FATTY INFILTRATION AND LIMITING | | | SONOGRAPHIC EVALUATION OF THE HEPATIC PARENCHYMA, VASCULATURE, AND | | | PANCREAS. 2. MILD GALLBLADDER WALL THICKENING WITHOUT | | | VISIBLE GALLSTONE OR OTHER SONOGRAPHIC EVIDENCE OF CHOLECYSTITIS. | | | CLINICAL AND LABORATORY CORRELATION ADVISED. | | | <<Signature on File>> | | | Antelmo Meyer | | | MD Chip12/19/[id number] <Electronically signed by Antelmo Saunders MD> | | | Antelmo Saunders MD 12/19/12 1028 [address]: | | | Freda Saenz12/19/12 1151 | | + + + + + + + + | Performing | Address | City/State/Zipcode | Phone Number | | Organization | | | | + + + + + | [facility] | [address] | [place] | [phone] | | [facility] | | [address] | | | - IMAGING | | | | + + + + + CBC with Differential (12/19/2012 6:25 AM PDT) + + + + + + | Component | Value | Ref Range | Performed | Pathologist | | | | | At | Signature | + + + + + + | MANUAL | NO | | [facility] | | [facility] | | [facility] | | | [facility] ? | | | [facility] | | | | | | [facility] - | | | | | | LABORATORY | | + + + + + + | White Blood | 8.6 (A) | 4.0 - 11.0 K/uL | [facility] | | | Cells | | | [facility] | | | | | | [facility] | | | | | | CENTER - | | | | | | LABORATORY | | + + + + + + | Red Blood | 3.70 (L) | 4.30 - 5.70 | [facility] | | | Cells | | M/uL | [facility] | | | | | | [facility]ICAL | | | | | | CENTER - | | | | | | LABORATORY | | + + + + + + | Hemoglobin | 12.7 (L) | 13.5 - 18.0 | [facility] | | | | | gm/dL | [facility] | | | | | | [facility] | | | | | | CENTER - | | | | | | LABORATORY | | + + + + + + | Hematocrit | 37.9 (L) | 40.0 - 51.0 % | [facility] | | | | | | [facility] | | | | | | [facility] | | | | | | C[facility] - | | | | | | LABORATORY | | + + + + + + | MCV | 102.3 (H) | 83.0 - 101.0 fL | [facility] | | | | | | [facility] | | | | | | [facility] | | | | | | C[facility] - | | | | | | LABORATORY | | + + + + + + | MCH | 34.3 | 28.0 - 35.0 pg | [facility] | | | | | | [facility] | | | | | | [facility] | | | | | | CENTER - | | | | | | LABORATORY | | + + + + + + | MCHC | 33.5 | 32.0 - 36.0 | [facility] | | | | | g/dL | [facility] | | | | | | [facility] | | | | | | CENTER - | | | | | | LABORATORY | | + + + + + + | RDW-CV | 15.2 (H) | <15.0 % | [facility] | | | | | | [facility] | | | [facility] | | [facility] | | | | | | [facility] - | | | | | | LABORATORY | | + + + + + + | Platelet | 74 (L) | 140 - 440 K/uL | [facility] | | | Count | | | [facility] | | | | | | [facility] | | | | | | CENTER - | | | | | | LABORATORY | | + + + + + + | % | 61.0 | 45 - 75 % | [facility] | | | Neutrophils | | | [facility] | | | | | | [facility]ICAL | | | | | | CENTER - | | | | | | LABORATORY | | + + + + + + | % | 28.7 | 20 - 45 % | [facility] | | | Lymphocytes | | | [facility] | | | | | | [facility]ICAL | | | | | | CENTER - | | | | | | LABORATORY | | + + + + + + | % Monocytes | 8.9 | 4 - 12 % | [facility] | | | | | | [facility] | | | | | | [facility] | | | | | | CENTER - | | | | | | LABORATORY | | + + + + + + | % | 0.0 | 0 - 5 % | [facility] | | | Eosinophils | | | [facility] | | | | | | [facility] | | | | | | CENTER - | | | | | | LABORATORY | | + + + + + + | % Basophils | 1.4 (H) | 0 - 1 % | [facility] | | | | | | [facility] | | | | | | [facility] | | | | | | CENTER - | | | | | | LABORATORY | | + + + + + + | Absolute | 5.2 | 1.5 - 6.6 K/uL | [facility] | | | Neutrophils | | | [facility] | | | | | | [facility] | | | | | | CENTER - | | | | | | LABORATORY | | + + + + + + | Absolute | 2.5 | 0.6 - 3.2 K/uL | [facility] | | | Lymphocytes | | | [facility] | | | | | | [facility] | | | | | | CENTER - | | | | | | LABORATORY | | + + + + + + | Absolute | 0.8 | 0.0 - 1.0 K/uL | [facility] | | | Monocytes | | | [facility] | | | | | | [facility] | | | | | | CENTER - | | | | | | LABORATORY | | + + + + + + | Absolute | 0.0 | 0.0 - 0.4 K/uL | [facility] | | | Eosinophils | | | [facility] | | | | | | [facility]ICAL | | | | | | CENTER - | | | | | | LABORATORY | | + + + + + + | Absolute | 0.1 | 0.0 - 0.1 K/uL | [facility] | | | Basophils | | | [facility] | | | | | | [facility] [...] [address] | [place] | [phone] | | [facility] | | [id number] | | | - LABORATORY | | | | + + + + + | [facility] | [address] | [place], [place] | | | [facility] | | [id number], [facility] | | | - LABORATORY | | | | + + + + + Hepatitis C Ab (12/19/2012 6:25 AM PDT) + + + + + + | Component | Value | Ref Range | Performed | Pathologist | | | | | At | Signature | + + + + + + | Hepatitis C | Non ReactiveComment: | NR | [facility] | | | Ab | Hepatitis C: Absence of | | [facility] | | | | antibody suggests no | | MEDICAL | | | | past Hepatitis C virus | | CENTER - | | | | infection. Since | | LABORATORY | | | | antibody development may | | | | | | be delayed up to 6 | | | | | | months after infection, | | | | | | retesting may be | | | | | | indicated. Testing | | | | | | Performed: [facility], [address] | | | | | | [address] [place] | | | | | | [id number] CLIA: [id number] | | | | | | | | | | + + + + + + + + | Specimen | + + | | + + + + + + + | Performing | Address | City/State/Zipcode | Phone Number | | Organization | | | | + + + + + | [facility] | [address] | [place] | [phone] | | [facility] | | [address] | | | - LABORATORY | | | | + + + + + | [facility] | [address] | [place] | | | [facility] | | [address], [facility] | | | - LABORATORY | | | | + + + + + Hepatitis B Surface Ag (12/19/2012 6:25 AM PDT) + + + + + + | Component | Value | Ref Range | Performed | Pathologist | | | | | At | Signature | + + + + + + | Hepatitis B | Non ReactiveComment: | NR | [facility] | | | Surface Ag | Testing Performed: [place], | | [facility] | | | | [address], | | MEDICAL | | | | [place] [address] | | CENTER - | | | | CLIA: [id number] | | LABORATORY | | + + + + + + + + | Specimen | + + | | + + + + + + + | Performing | Address | City/State/Zipcode | Phone Number | | Organization | | | | + + + + + | [facility] | [address] | [place], [place] | [phone] | | [facility] | | [address] | | | - LABORATORY | | | | + + + + + | [facility] | [address] | [place], [place] | | | [facility] | | [address] [place] [address] | | | - LABORATORY | | | | + + + + + TSH (12/19/2012 6:25 AM PDT) + + + + + + | Component | Value | Ref Range | Performed | Pathologist | | | | | At | Signature | + + + + + + | TSH | 3.07Comment: Testing | 0.34 - 5.60 | [facility] | | | | performed on the [facility] | uIU/mL | [facility] | | | | [place] [facility] | | MEDICAL | | | | Analyzer. | | CENTER - | | | | | | LABORATORY | | + + + + + + + + | Specimen | + + | | + + + + + + + | Performing | Address | City/State/Zipcode | Phone Number | | Organization | | | | + + + + + | [facility] | [address] | [place] | [phone] | | [facility] | | [address] | | | - LABORATORY | | | | + + + + + | [facility] | [address] | [place], [place] | | | [facility] | | [id number] | | | - LABORATORY | | | | + + + + + Ammonia (12/19/2012 6:25 AM PDT) + +--------+ + + + | Component | Value | Ref Range | Performed | Pathologist | | | | | At | Signature | + +--------+ + + + | Ammonia | 72 (H) | 11 - 35 umol/L | [facility] | | | | | | [facility] | | | | | | MEDICAL [...] + | [facility] | [address] | [place] | [phone] | | [facility] | | [address] | | | - LABORATORY | | | | + + + + + | [facility] | [address] | [place] | | | [facility] | | [id number] | | | - LABORATORY | | | | + + + + + Iron Profile (12/19/2012 6:25 AM PDT) + + + + + + | Component | Value | Ref Range | Performed | Pathologist | | | | | At | Signature | + + + + + + | Iron | 93 | 50 - 160 ug/dL | [facility] | | | | | | [facility] | | | | | | MEDICAL | | | | | | CENTER - | | | | | | LABORATORY | | + + + + + + | TIBC | 102 (L) | 235 - 425 ug/dL | [facility] | | | | | | [facility] | | | | | | MEDICAL | | | | | | CENTER - | | | | | | LABORATORY | | + + + + + + | % | 91 (H) | 20 - 55 % | [facility] | | | SATURATION | | | [facility] | | | | | | MEDICAL | | | | | | CENTER - | | | | | | LABORATORY | | + + + + + + | FERRITIN | 1,391.1 (H)Comment: | 23.9 - 336.0 | [facility] | | | | Testing performed on the | ng/mL | [facility] | | | | [facility] | | MEDICAL | | | | Analyzer. | | CENTER - | | | | | | LABORATORY | | + + + + + + + + | Specimen | + + | | + + + + + + + | Performing | Address | City/State/Zipcode | Phone Number | | Organization | | | | + + + + + | [facility] | [address] | [place] | [phone] | | [facility] | | [address] | | | - LABORATORY | | | | + + + + + | [facility] | [address] | [place] | | | [facility] | | [id number] | | | - LABORATORY | | | | + + + + + Comprehensive Metabolic Panel (12/19/2012 6:25 AM PDT) + + + + + + | Component | Value | Ref Range | Performed | Pathologist | | | | | At | Signature | + + + + + + | Glucose | 116 (H) | 70 - 109 mg/dL | [facility] | | | | | | [facility] | | | | | | MEDICAL | | | | | | CENTER - | | | | | | LABORATORY | | + + + + + + | Calcium | 7.9 (L) | 8.3 - 10.5 | [facility] | | | | | mg/dL | [facility] | | | | | | MEDICAL | | | | | | CENTER - | | | | | | LABORATORY | | + + + + + + | Alkaline | 81 | 40 - 110 IU/L | [facility] | | | Phosphatase | | | [facility] | | | | | | MEDICAL | | | | | | CENTER - | | | | | | LABORATORY | | + + + + + + | AST | 383 (H) | 10 - 42 IU/L | [facility] | | | | | | [facility] | | | | | | MEDICAL | | | | | | CENTER - | | | | | | LABORATORY | | + + + + + + | ALT | 100 (H) | 6 - 45 IU/L | [facility] | | | | | | [facility] | | | | | | MEDICAL | | | | | | CENTER - | | | | | | LABORATORY | | + + + + + + | Bilirubin | 8.3 (H) | 0.2 - 1.0 mg/dL | [facility] | | | Total | | | [facility] | | | | | | MEDICAL | | | | | | CENTER - | | | | | | LABORATORY | | + + + + + + | Total | 5.3 (L) | 6.0 - 7.8 gm/dL | [facility] | | | Protein | | | [facility] | | | | | | MEDICAL | | | | | | CENTER - | | | | | | LABORATORY | | + + + + + + | Albumin | 2.3 (L) | 3.2 - 5.0 gm/dL | [facility] | | | | | | [facility] | | | | | | MEDICAL | | | | | | CENTER - | | | | | | LABORATORY | | + + + + + + | BUN | 14 | 7 - 18 mg/dL | [facility] | | | | | | [facility] | | | | | | MEDICAL | | | | | | CENTER - | | | | | | LABORATORY | | + + + + + + | Creatinine | 0.85 | 0.60 - 1.30 | [facility] | | | | | mg/dL | [facility] | | | | | | MEDICAL | | | | | | CENTER - | | | | | | LABORATORY | | + + + + + + | Estimated | >60Comment: For | >60 mL/min/A | [facility] | | | GFR | -Americans, | | [facility] | | | | please multiply the | | MEDICAL | | | | result by 1.210 | | CENTER - | | | | This is an estimated | | LABORATORY | | | | GFR and is based on a | | | | | | standard adult | | | | | | body mass (A=1.73m2) and | | | | | | serum creatinine | | | | + + + + + + | BUN/Creatin | 16.5 | 12 - 20 | [facility] | | | ine Ratio | | | [facility] | | | | | | MEDICAL | | | | | | CENTER - | | | | | | LABORATORY | | + + + + + + | Na | 138 | 136 - 149 mEq/L | [facility] | | | | | | [facility] | | | | | | MEDICAL | | | | | | CENTER - | | | | | | LABORATORY | | + + + + + + | K | 3.4 (L) | 3.5 - 5.1 mEq/l | [facility] | | | | | | [facility] | | | | | | MEDICAL | | | | | | CENTER - | | | | | | LABORATORY | | + + + + + + | Cl | 109 | 98 - 109 mEq/l | [facility] | | | | | | [facility] | | | | | | MEDICAL | | | | | | CENTER - | | | | | | LABORATORY | | + + + + + + | CO2 | 21 (L) | 24 - 31 mEq/L | [facility] | | | | | | [facility] | | | | | | MEDICAL | | | | | | CENTER - | | | | | | LABORATORY | | + + + + + + | Anion Gap | 11.4 | 6.0 - 17.0 | [facility] | | | | | | [facility] | | | | | | MEDICAL [...] + | [facility] | [address] | [place], [place] | [phone] | | [facility] | | [address] | | | - LABORATORY | | | | + + + + + | [facility] | [address] | [place], [place] | | | [facility] | | [id number] [place] [address] | | | - LABORATORY | | | | + + + + + Magnesium (12/19/2012 6:25 AM PDT) + +-------+ + + + | Component | Value | Ref Range | Performed | Pathologist | | | | | At | Signature | + +-------+ + + + | Magnesium | 1.8 | 1.8 - 2.5 mg/dL | [facility] | | | | | | [facility] | | | | | | MEDICAL [...] + | [facility] | [address] | [place], [place] | [phone] | | [facility] | | [address] | | | - LABORATORY | | | | + + + + + | [facility] | [address] | [place], [place] | | | [facility] | | [address] [place] [address] | | | - LABORATORY | | | | + + + + + Culture, MRSA (12/19/2012 3:55 AM PDT) + + | Specimen | + + | | + + + + + + + | Performing | Address | City/State/Zipcode | Phone Number | | Organization | | | | + + + + + | [facility] | [address] | [place] | [phone] | | [facility] | | [address] | | | - LABORATORY | | | | + + + + + CBC with Differential (12/18/2012 11:57 PM PDT) + + + + + + | Component | Value | Ref Range | Performed | Pathologist | | | | | At | Signature | + + + + + + | MANUAL | NO | | [facility] | | | DIFFERENTIA | | | [facility] | | | L ? | | | MEDICAL | | | | | | CENTER - | | | | | | LABORATORY | | + + + + + + | White Blood | 10.0 | 4.0 - 11.0 K/uL | [facility] | | | Cells | | | [facility] | | | | | | MEDICAL | | | | | | CENTER - | | | | | | LABORATORY | | + + + + + + | Red Blood | 4.20 (L) | 4.30 - 5.70 | [facility] | | | Cells | | M/uL | [facility] | | | | | | MEDICAL | | | | | | CENTER - | | | | | | LABORATORY | | + + + + + + | Hemoglobin | 14.4 | 13.5 - 18.0 | [facility] | | | | | gm/dL | [facility] | | | | | | MEDICAL | | | | | | CENTER - | | | | | | LABORATORY | | + + + + + + | Hematocrit | 42.9 | 40.0 - 51.0 % | [facility] | | | | | | [facility] | | | | | | MEDICAL | | | | | | CENTER - | | | | | | LABORATORY | | + + + + + + | MCV | 102.1 (H) | 83.0 - 101.0 fL | [facility] | | | | | | [facility] | | | | | | MEDICAL | | | | | | CENTER - | | | | | | LABORATORY | | + + + + + + | MCH | 34.2 | 28.0 - 35.0 pg | [facility] | | | | | | [facility] | | | | | | MEDICAL | | | | | | CENTER - | | | | | | LABORATORY | | + + + + + + | MCHC | 33.5 | 32.0 - 36.0 | [facility] | | | | | g/dL | [facility] | | | | | | MEDICAL | | | | | | CENTER - | | | | | | LABORATORY | | + + + + + + | RDW-CV | 15.4 (H) | <15.0 % | [facility] | | | | | | [facility] | | | | | | MEDICAL | | | | | | CENTER - | | | | | | LABORATORY | | + + + + + + | Platelet | 86 (L) | 140 - 440 K/uL | [facility] | | | Count | | | [facility] | | | | | | MEDICAL | | | | | | CENTER - | | | | | | LABORATORY | | + + + + + + | % | 62.6 | 45 - 75 % | [facility] | | | Neutrophils | | | [facility] | | | | | | MEDICAL | | | | | | CENTER - | | | | | | LABORATORY | | + + + + + + | % | 26.4 | 20 - 45 % | [facility] | | | Lymphocytes | | | [facility] | | | | | | MEDICAL | | | | | | CENTER - | | | | | | LABORATORY | | + + + + + + | % Monocytes | 10.1 | 4 - 12 % | [facility] | | | | | | [facility] | | | | | | MEDICAL | | | | | | CENTER - | | | | | | LABORATORY | | + + + + + + | % | 0.1 | 0 - 5 % | [facility] | | | Eosinophils | | | [facility] | | | | | | MEDICAL | | | | | | CENTER - | | | | | | LABORATORY | | + + + + + + | % Basophils | 0.8 | 0 - 1 % | [facility] | | | | | | [facility] | | | | | | MEDICAL | | | | | | CENTER - | | | | | | LABORATORY | | + + + + + + | Absolute | 6.3 | 1.5 - 6.6 K/uL | [facility] | | | Neutrophils | | | [facility] | | | | | | MEDICAL | | | | | | CENTER - | | | | | | LABORATORY | | + + + + + + | Absolute | 2.6 | 0.6 - 3.2 K/uL | [facility] | | | Lymphocytes | | | [facility] | | | | | | MEDICAL | | | | | | CENTER - | | | | | | LABORATORY | | + + + + + + | Absolute | 1.0 | 0.0 - 1.0 K/uL | [facility] | | | Monocytes | | | [facility] | | | | | | MEDICAL | | | | | | CENTER - | | | | | | LABORATORY | | + + + + + + | Absolute | 0.0 | 0.0 - 0.4 K/uL | [facility] | | | Eosinophils | | | [facility] | | | | | | MEDICAL | | | | | | CENTER - | | | | | | LABORATORY | | + + + + + + | Absolute | 0.1 | 0.0 - 0.1 K/uL | [facility] | | | Basophils | | | [facility] | | | | | | MEDICAL [...] + | [facility] | [address] | [place], [place] | [phone] | | [facility] | | [address] | | | - LABORATORY | | | | + + + + + | [facility] | [address] | [place], [place] | | | [facility] | | [id number] | | | - LABORATORY | | | | + + + + + Urinalysis, Reflex Microscopic and/or Culture (12/18/2012 11:57 PM PDT) + + + + + + | Component | Value | Ref Range | Performed | Pathologist | | | | | At | Signature | + + + + + + | COLLECTION | VOID | | [facility] | | | METHOD 1 | | | [facility] | | | | | | MEDICAL | | | | | | CENTER - | | | | | | LABORATORY | | + + + + + + | Color, | CITLALI | | [facility] | | | Urine | | | [facility] | | | | | | MEDICAL | | | | | | CENTER - | | | | | | LABORATORY | | + + + + + + | Clarity, | CLEAR | | [facility] | | | Urine | | | [facility] | | | | | | MEDICAL | | | | | | CENTER - | | | | | | LABORATORY | | + + + + + + | Glucose, | NEGATIVE | NEGATIVE mg/dL | [facility] | | | Urine | | | [facility] | | | | | | MEDICAL | | | | | | CENTER - | | | | | | LABORATORY | | + + + + + + | Bilirubin, | MODERATE | NEGATIVE | [facility] | | | Urine | | | [facility] | | | | | | MEDICAL | | | | | | CENTER - | | | | | | LABORATORY | | + + + + + + | Ketones, | NEGATIVE | NEGATIVE | [facility] | | | Urine | | | [facility] | | | | | | MEDICAL | | | | | | CENTER - | | | | | | LABORATORY | | + + + + + + | Specific | 1.020 | 1.001 - 1.030 | [facility] | | | [place], | | | [facility] | | | Urine | | | MEDICAL | | | | | | CENTER - | | | | | | LABORATORY | | + + + + + + | Blood, | NEGATIVE | NEGATIVE | [facility] | | | Urine | | | [facility] | | | | | | MEDICAL | | | | | | CENTER - | | | | | | LABORATORY | | + + + + + + | pH, Urine | 7.0 | 5.0 - 8.0 | [facility] | | | | | | [facility] | | | | | | MEDICAL | | | | | | CENTER - | | | | | | LABORATORY | | + + + + + + | Protein, | NEGATIVE | NEGATIVE mg/dL | [facility] | | | Urine | | | [facility] | | | | | | MEDICAL | | | | | | CENTER - | | | | | | LABORATORY | | + + + + + + | Urobilinoge | NORMAL | NORMAL EU/dL | [facility] | | | n, Urine | | | [facility] | | | | | | MEDICAL | | | | | | CENTER - | | | | | | LABORATORY | | + + + + + + | Nitrite, | NEGATIVE | NEGATIVE | [facility] | | | Urine | | | [facility] | | | | | | MEDICAL | | | | | | CENTER - | | | | | | LABORATORY | | + + + + + + | Leukocyte | NEGATIVE | NEGATIVE | [facility] | | | Esterase, | | | [facility] | | | Urine | | | MEDICAL | | | | | | CENTER - | | | | | | LABORATORY | | + + + + + + | White Blood | NONE | 0 - 1 /hpf | [facility] | | | Cells, | | | [facility] | | | Urine | | | MEDICAL | | | | | | CENTER - | | | | | | LABORATORY | | + + + + + + | Red Blood | 0-2 | 0 - 4 /hpf | [facility] | | | Cells, | | | [facility] | | | Urine | | | MEDICAL | | | | | | CENTER - | | | | | | LABORATORY | | + + + + + + | Squamous | NONE | FEW /hps | [facility] | | | Epithelial | | | [facility] | | | Cells, | | | MEDICAL | | | Urine | | | CENTER - | | | | | | LABORATORY | | + + + + + + | Bacteria, | NONE | NONE /hpf | [facility] | | | Urine | | | [facility] | | | | | | MEDICAL | | | | | | CENTER - | | | | | | LABORATORY | | + + + + + + | Culture | NO | | [facility] | | | Indicated | | | [facility] | | | | | | MEDICAL [...] [address] | [place] | [phone] | | [facility] | | [address] | | | - LABORATORY | | | | + + + + + | [facility] | [address] | [place] | | | [facility] | | [id number] | | | - LABORATORY | | | | + + + + + Protime INR (12/18/2012 11:57 PM PDT) + + + + + + | Component | Value | Ref Range | Performed | Pathologist | | | | | At | Signature | + + + + + + | Prothrombin | 13.4 | 11.3 - 13.9 | [facility] | | | Time | | seconds | [facility] | | | | | | MEDICAL | | | | | | CENTER - | | | | | | LABORATORY | | + + + + + + | PATIENT | 12.9 | seconds | [facility] | | | NORMAL MEAN | | | [facility] | | | | | | MEDICAL | | | | | | CENTER - | | | | | | LABORATORY | | + + + + + + | INR | 1.1Comment: INR: USUAL | 0.9 - 1.1 | [facility] | | | | ORAL ANTICOAGULATION | | [facility] | | | | RANGE | | MEDICAL | | | | 2.0-3.0 | | CENTER - | | | | HIGH LEVEL ORAL | | LABORATORY | | | | ANTICOAGULATION RANGE | | | | | | 2.5-3.5 | | | | + + + + + + + + | Specimen | + + | | + + + + + + + | Performing | Address | City/State/Zipcode | Phone Number | | Organization | | | | + + + + + | [facility] | [address] | [place] | [phone] | | [facility] | | [address] | | | - LABORATORY | | | | + + + + + | [facility] | [address] | [place] | | | [facility] | | [address] | | | - LABORATORY | | | | + + + + + Basic Metabolic Panel (12/18/2012 11:57 PM PDT) + + + + + + | Component | Value | Ref Range | Performed | Pathologist | | | | | At | Signature | + + + + + + | Glucose | 126 (H) | 70 - 109 mg/dL | [facility] | | | | | | [facility] | | | | | | MEDICAL | | | | | | CENTER - | | | | | | LABORATORY | | + + + + + + | Calcium | 8.2 (L) | 8.3 - 10.5 | [facility] | | | | | mg/dL | [facility] | | | [facility] | | MEDICAL | | | | | | CENTER - | | | | | | LABORATORY | | + + + + + + | BUN | 13 | 7 - 18 mg/dL | [facility] | | | | | | [facility] | | | | | | MEDICAL | | | | | | CENTER - | | | | | | LABORATORY | | + + + + + + | Creatinine | 0.92 | 0.60 - 1.30 | [facility] | | | | | mg/dL | [facility] | | | | | | MEDICAL | | | | | | CENTER - | | | | | | LABORATORY | | + + + + + + | Estimated | >60Comment: For | >60 mL/min/A | [facility] | | | GFR | -Americans, | | [facility] | | | | please multiply the | | MEDICAL | | | | result by 1.210 | | CENTER - | | | | This is an estimated | | LABORATORY | | | | GFR and is based on a | | | | | | standard adult | | | | | | body mass (A=1.73m2) and | | | | | | serum creatinine | | | | + + + + + + | BUN/Creatin | 14.1 | 12 - 20 | [facility] | | | ine Ratio | | | [facility] | | | | | | MEDICAL | | | | | | CENTER - | | | | | | LABORATORY | | + + + + + + | Na | 135 (L) | 136 - 149 mEq/L | [facility] | | | | | | [facility] | | | | | | MEDICAL | | | | | | CENTER - | | | | | | LABORATORY | | + + + + + + | K | 4.2 | 3.5 - 5.1 mEq/l | [facility] | | | | | | [facility] | | | | | | MEDICAL | | | | | | CENTER - | | | | | | LABORATORY | | + + + + + + | Cl | 105 | 98 - 109 mEq/l | [facility] | | | | | | [facility] | | | | | | MEDICAL | | | | | | CENTER - | | | | | | LABORATORY | | + + + + + + | CO2 | 20 (L) | 24 - 31 mEq/L | [facility] | | | | | | [facility] | | | | | | MEDICAL | | | | | | CENTER - | | | | | | LABORATORY | | + + + + + + | Anion Gap | 14.2 | 6.0 - 17.0 | [facility] | | | | | | [facility] | | | | | | MEDICAL [...] [address] | [place] | [phone] | | [facility] | | [address] | | | - LABORATORY | | | | + + + + + | [facility] | [address] | [place], [place] | | | [facility] | | [id number] | | | - LABORATORY | | | | + + + + + Magnesium (12/18/2012 11:57 PM PDT) + +---------+ + + + | Component | Value | Ref Range | Performed | Pathologist | | | | | At | Signature | + +---------+ + + + | Magnesium | 1.2 (L) | 1.8 - 2.5 mg/dL | [facility] | | | | | | [facility] | | | | | | MEDICAL [...] + | [facility] | [address] | [place], [place] | [phone] | | [facility] | | [address] | | | - LABORATORY | | | | + + + + + | [facility] | [address] | [place], [place] | | | [facility] | | [address], [facility] | | | - LABORATORY | | | | + + + + + Ammonia (12/18/2012 11:57 PM PDT) + +---------+ + + + | Component | Value | Ref Range | Performed | Pathologist | | | | | At | Signature | + +---------+ + + + | Ammonia | 107 (H) | 11 - 35 umol/L | [facility] | | | | | | [facility] | | | | | | MEDICAL [...] [address] | [place] | [phone] | | [facility] | | [address] | | | - LABORATORY | | | | + + + + + | [facility] | [address] | [place] | | | [facility] | | [address] | | | - LABORATORY | | | | + + + + + documented in this encounter Visit Diagnoses Not on filedocumented in this encounter
--- OUTSIDE RECORDS SUMMARY | ~2020-05-17 | XMS | Encounter Summary ---
Demographics + + + | Address | [address] | | | [place] [address] | + + + | Home Phone | | + + + | Preferred Language | Unknown | + + + | Marital Status | Single | + + + | Samaritan Affiliation | 1041 | + + + | Race | or | + + + | Additional Race(s) | White | + + + | Ethnic Group | Not or | + + + Author + + + | Author | [facility] | | | [...] Team Providers + +------+ + | Care Counter Roller Name | Role | Phone | + +------+ + | Rosaline Beavers | PCP | Unavailable | | Health | | | + +------+ + Reason for Visit + + + | Reason | Comments | + + + | Psoriasis | | + + + Evaluate & Treat (Routine) +--------+--------+ + + + + | Status | Reason | Specialty | Diagnoses / | Referred By | Referred To | | | | | Procedures | Contact | Contact | +--------+--------+ + + + + | Closed | | Dermatology | Diagnoses | [place], | Abhijit | | | | | | [place] | Dermatology | | | | | cellulitis/a | [place] | [address] [place] [address] | | | | | bscess of | Health | [address] | | | | | back diffuse | | [place], [place] | | | | | | | [address] | | | | | | | Phone: | | | | | | | [phone] | | | | | | | Fax: | | | | | | | [phone] | +--------+--------+ + + + + Encounter Details +--------+---------+ + + + | Date | Type | Department | Care Team | Description | +--------+---------+ + + + | 04/17/ | Office | [facility] | Vanessa Gillis | Guttate psoriasis | | 2019 | Visit | PLASTIC SURGERY AND | [address] | (Primary Dx) | | | | DERMATOLOGY [address] | [address] | | | | | [address] | [place] [address] | | | | | [place], [place] | [phone] | | | | | [address] | | | | | | [phone] | | | +--------+---------+ + + + Social History + +-------+ [...] + + + | Blood Pressure | - | - | | + + + + + | Pulse | - | - | | + + + + + | Temperature | - | - | | + + + + + | Respiratory Rate | - | - | | + + + + + | Oxygen Saturation | - | - | | + + + + + | Inhaled Oxygen | - | - | | | Concentration | | | | + + + + + | Weight | 115.7 kg (255 lb) | 04/17/2019 9:31 AM | | | | | PDT | | + + + + + | Height | 188 cm (6' 2") | 04/17/2019 9:31 AM | | | | | PDT | | + + + + + | Body Mass Index | 32.74 | 04/17/2019 9:31 AM | | | | | PDT | | + + + + + documented in this encounter Patient Instructions Patient Instructions Delilah Wilcox, Photovoltaic Fabrication Technician - 04/17/2019 9:30 AM PDT Psoriasis Psoriasis is an inflammatory condition that affects the skin and nails. You may have patche s of thick, red skin (plaques) covered with silvery scales. These often appear on the elbows , knees, legs, lower back, and scalp. The plaques itch and can be painful. People with this condition are more likely to have emo tional stress and depression. Psoriasis is not contagious. It can t spread to someone else who touches it. But it can b e inherited. It is an autoimmune skin disease. This means that the immune system has an abno rmal reaction. It treats healthy skin like it is a foreign substance. This causes skin cells to grow faster than normal and to stack up in raised red patches.Psoriasis is a long-term (chronic) disease. You will have flare-ups that come and go over time. Smoking, sun exposure, and alcohol use may affect how often the psoriasis occurs and how lo ng the flare-ups last. There is no cure, but treatments can offer relief. Treatment can include topical creams, li ght therapy (phototherapy), and oralor injectablemedicines. Home care No specific diet is needed. Eat a healthy, well-balanced diet that includes fresh fruits and vegetables, whole grains, and lean meats. Psoriasis can increase your risk for diabetes and heart disease. Increasing omega-3 fatty acids in your dietcan help improve dry skin. The best dietary sources are fatty fish (salmon, mackerel, sykes trout, albacore tuna) or fish oil (such as c od liver oil). A great way to take fish oil is to add it to a juice, shake, or smoothie. Fla xseeds and flaxseed oil, canola oil, walnuts, soybean, and tofu are converted to omega-3 fat ty acid in the body. Stay at a healthy weight. Overlapping skin folds can be a site for psoriasis plaques. If you are overweight, talk to your healthcare provider about a weight-loss program. Bathing daily can help remove scales and calm inflamed skin. Use lukewarm water and mild soaps that have added oils, fats, and moisturizers. Avoid deodorants, antiperspirants, and antibacterial soaps. These have a drying effect. Many people find it helpful to soak in a tu b with added bath oils, oatmeal, apple cider vinegar, or Epsom salts. After bathing, put on skin cream (or a skin oil for a stronger effect). Some exposure to UV rays from the sun can improve psoriasis. But too much sun can trigge r an outbreak. It also raises your risk for skin cancer. Limit sun exposure and use sunscree n on healthy skin (at least 15 SPF). If you are prescribed medicine, take it as directed. Unless another steroid cream was prescribed, you may use agld-qwm-geqqrzv hydrocortisone cream for a few weeks during symptom flare-ups. Stop smoking. If you are a long-time smoker, this can be hard. Think about joining a sto p-smoking program. Tell your provider if your joints start to ache or get stiff. Tell your provider if you notice changes in your fingernails. Depression is more common among psoriasis patients. Get help if you notice changes in yo ur mood. Follow-up care Follow up with your healthcare provider, or as advised. When to seek medical advice Call your healthcare provider right away if any of these occur: Skin pain gets worse Bleeding from the skin plaques that is hard to control Signs of skin infection (redness, increasing pain, swelling, pus) Fever of 1 degree, or higher, above your normal temperature, or as directed by your prov ider Date Last Reviewed: 03/26/[id number] [employer] [address] [place] [address], [place] [address]. All righ ts reserved. This information is not intended as a substitute for professional medical care. Always follow your healthcare professional's instructions. documented in this encounter Progress Notes Vanessa Gillis, BRYNN - 04/17/2019 9:30 AM PDT Subjective Patient ID: Christiano Johnston is a 43 y.o. male. New patient is here today for bumps located throughout the body. He states these bumps have been going on for about 5-6 months ( reports more like 2 years). He states that he also tried to dye his hair one night and fell asleep with the dye in his hair since he did that he has now had those new bumps in his scalp he states they get itchy and can be painful. He admits that these bumps have been on and off. He does admit to previously having an upper re spiratory infection at the time it first developed. The following elements of the patient's history were reviewed and updated as appropriate. T hey are available elsewhere in the patient record. allergies, current medications, past fam nella history, past medical history, past social history, past surgical history and problem li st Review of Systems Constitutional: Negative. Skin: Negative. skin All other systems reviewed and are negative. Objective Ht 1.88 m (6' 2") | Wt 115.7 kg (255 lb) | BMI 32.74 kg/m Physical Exam Constitutional: He is oriented to person, place, and time. He appears well-developed and we ll-nourished. Eyes: Pupils are equal, round, and reactive to light. Neurological: He is alert and oriented to person, place, and time. Skin: Skin is warm and dry. Raised erythematous plaques with psoriatic scale throughout face and body in typical guttat e pattern. Sharply marginated dull red plaques with loosely adherent lamellar silvery white scales loc ated on the scalp. Negative for nail disease. Denies joint pain or swelling. Psychiatric: His behavior is normal. Assessment /Plan ASSESSMENT: guttate psoriasis. I explained this is can caused by a strep or viral infection . A throat swab was taken to rule out strep infection as cause. It can also be a precursor to psoriatic disease later in life. It can resolve spontaneously or take weeks to months to resolve. The pt will treat with oral antibiotic for 14 days and treat with Triamcinolone cre am 0.1% topically. The pt will apply the topical steroid twice daily to wet skin on the affe cted areas. We discussed using the steroid only while the skin is red and itchy, and discont inuing the product once the skin has healed. The pt was cautioned to avoid using on any one body area for longer than 2 weeks at a time. Christiano was seen today for psoriasis. Diagnoses and all orders for this visit: Guttate psoriasis - clobetasol (TEMOVATE) 0.05 % external solution; Apply to areas of rash on a clean dam p scalp once daily. Massage in and DO NOT RINSE. - POCT Rapid Strep A Screen - betamethasone dipropionate 0.05% ointment; Apply 1-2 times daily to rash on knees, el bows and lower legs. Best applied to damp skin. - triamcinolone (KENALOG) 0.1% cream; Apply 2-3 times daily to affected areas of psoria sis. Avoid the face, underarms and groin. I Delilah Wilcox CMA am scribing in the presence of; Vanessa KRISHNAMURTHY. I, KEYONA Crawford DCNP, personally performed the services described in this documen tation, as scribed by Delilah Wilcox CMA, in my presence, and it is both accurate and complete . documented i n this encounter Miscellaneous Notes Addendum Note - Vanessa Gillis ARNP - 04/17/2019 9:30 AM PDT Addended by: VANESSA GILLIS on: 04/17/2019 13:20 Modules accepted: Orders documented in this encounter Plan of Treatment + + +--------+ + + | Name | Type | Priori | Associated Diagnoses | Order Schedule | | | | ty | | | + + +--------+ + + | POCT Rapid Strep A | Point of | Routin | Guttate psoriasis | Ordered: 04/17/2019 | | Screen | Care | e | | | | | Testing | | | | + + +--------+ + + documented as of this encounter Visit Diagnoses + + | Diagnosis | + + | Guttate psoriasis - Primary Other psoriasis | + + documented in this encounter
--- OUTSIDE RECORDS SUMMARY | ~2020-05-17 | XMS | Encounter Summary ---
Demographics + + + | Address | [address] | | | [place] [address] | + + + | Home Phone | | + + + | Preferred Language | Unknown | + + + | Marital Status | Single | + + + | Rastafari Affiliation | 1041 | + + + | Race | or | + + + | Additional Race(s) | White | + + + | Ethnic Group | Not or | + + + Author + + + | Author | [facility] | | | and [place] | + + + | Organization | [facility] | | | and [...] Team Providers + +------+ + | Care Pinner Printed Circuit Boards Name | Role | Phone | + +------+ + | Unknown, Physician | PCP | | + +------+ + Encounter Details +--------+ + + + + | Date | Type | Department | Care Team | Description | +--------+ + + + + | 12/02/ | Imaging | [facility] | Provider, | | | 2019 | Exam | MED CTR EXTERNAL | [address] | | | | | IMAGING [address] | [address] | | | | | [facility] | [place] [address] | | | | | [place] [address] | | | | | | [phone] | | | +--------+ + + + [...] + + documented in this encounter Results XR Chest 1 Vw (12/03/2019 1:21 PM [...]
--- OUTSIDE RECORDS SUMMARY | ~2020-05-17 | XMS | Encounter Summary ---
Demographics + + + | Address | [address] | | | [place] [address] | + + + | Home Phone | | + + + | Preferred Language | Unknown | + + + | Marital Status | Single | + + + | Protestant Affiliation | Unknown | + + + | Race | | + + + | Ethnic Group | Not or | + + + Author + + + | Author | [facility] | + + + | Organization | [facility] | + + + | Address | Unknown | + + + | Phone | Unavailable | + + + Care Team Providers + +------+ + | Care Correspondence Review Clerk Name | Role | Phone | + [...] [id number] | | | | | | [place], [place] | | | | | | [address] | | | | | | [phone] | | | +--------+ + + + [...] | + + + + + | [facility] | [address] | [place] [address] | | | PATHOLOGY | [address] [...] | + + + + + | [facility] | [address] | [place] [address] | | | PATHOLOGY | [address] [...] | + + + + + | [facility] | [address] | [place] [address] | | | PATHOLOGY | [address] | | | + + + + + documented in this encounter Visit Diagnoses Not on filedocumented in this encounter"
--- OUTSIDE RECORDS SUMMARY | ~2020-05-17 | XMS | Encounter Summary ---
Demographics + + + | Address | [address] | | | [place] [address] | + + + | Home Phone | | + + + | Preferred Language | Unknown | + + + | Marital Status | Single | + + + | Religion Affiliation | 1041 | + + + | Race | or | + + + | Additional Race(s) | White | + + + | Ethnic Group | Not or | + + + Author + + + | Author | [facility] | | | [...] Team Providers + +------+ + | Care Tai Chi Instructor Name | Role | Phone | + +------+ + | Rosaline Beavers | PCP | Unavailable | | Health | | | + +------+ + Reason for Visit +---------+--------+ + | Reason | Onset | Comments | | | Date | | +---------+--------+ + | Results | 04/20/ | | | | 2019 | | +---------+--------+ + Encounter Details +--------+ + + + + | Date | Type | Department | Care Team | Description | +--------+ + + + + | 04/20/ | Telephone | [facility] | Camille Gillis | Results | | 2019 | | PLASTIC SURGERY AND | [address] | | | | | DERMATOLOGY [address] | [address] | | | | | [address] | [place] [address] | | | | | [place] | [phone] | | | | | [address] | | | | | | [phone] | | | +--------+ + + + [...] this encounter Miscellaneous Notes Telephone Encounter - Nhi Gongora, Recovery Coordinator - 04/20/2019 1:43 PM PDTI dar irving patient and informed him that Strep culture was negative for group A beta strep. No a ntibiotic treatment is necessary. Patient is to continue treating his psoriasis with the pr escribed topical medications and follow-up as planned made in the office. Patient stated understanding and thanked me. elephone Encounter - Nhi Gongora, Ma dical Specialist Managers - 04/20/2019 1:29 PM PDT----- Message from BRYNN Calhoun sent at 04/20/2019 10:03 PDT ----- Strep culture was negative for group A beta strep. No antibiotic treatment is necessary. Patient is to continue treating his psoriasis with the prescribed topical medications and fo llow-up as planned made in the office. Thank you, BRYNN Calhoun 04/20/2019 10:03 documented in this encounter Plan of Treatment Not on filedocumented as of this encounter Visit Diagnoses Not on filedocumented in this encounter"
--- OUTSIDE RECORDS SUMMARY | ~2020-05-17 | XMS | Encounter Summary ---
Demographics + + + | Address | [address] | | | [place] [address] | + + + | Home Phone | | + + + | Preferred Language | Unknown | + + + | Marital Status | Single | + + + | Christianity Affiliation | 1041 | + + + | Race | or | + + + | Additional Race(s) | White | + + + | Ethnic Group | Not or | + + + Author + + + | Author | [facility] | | | and [place] | + + + | Organization | [facility] | | | and [...] Team Providers + +------+ + | Care Retail Sales Associate Seasonal Name | Role | Phone | + +------+ + | Rosaline Beavers | PCP | Unavailable | | Health | | | + +------+ + Encounter Details +--------+ + + + + | Date | Type | Department | Care Team | Description | +--------+ + + + + | 04/17/ | Orders Only | [facility] | Camille Gillis | | | 2019 | | PLASTIC SURGERY AND | [address] | | | | | DERMATOLOGY [address] | [address] | | | | | [address] | [place] [address] | | | | | [place], [place] | [phone] | | | | | [address] | | | | | | [phone] | | | +--------+ + + + [...] | + +--------+ + + + | STREPTOCOCCUS GROUP | Routin | 04/17/2019 | | Results for this | | A SCREEN, REFLEX | e | 9:48 AM | | procedure are in the | | CULTURE | | PDT | | results section. | + +--------+ + + + documented in this encounter Results Streptococcus Group A Screen, Reflex Culture (04/17/2019 9:48 AM PDT) + + + + + + | Component | Value | Ref Range | Performed | Pathologist | | | | | At | Signature | + + + + + + | RESULT | RAPID ANTIGEN TEST | | REFERENCE | | | | NEGATIVE FOR GROUP A | | LAB | | | | BETA STREP | | [facility] | | | | | | LABORATORY | | + + + + + + | RESULT | NO GROUP A STREP | | REFERENCE | | | | ISOLATED | | LAB | | | | | | [facility] | | | | | | LABORATORY | | + + + + + + | RESULT | Testing performed at | | REFERENCE | | | | TC;[address] | | LAB | | | | [address]vd;[place] | | [facility] | | | | [id number]: Testing | | LABORATORY | | | | performed at [facility], [address] | | | | [address], | | | | | | [place] [address] | | | | + + + + + + + + | Specimen | + + | | + + + + + + + | Performing | Address | City/State/Zipcode | Phone Number | | Organization | | | | + + + + + | REFERENCE LAB | [address] | [place] | [phone] | | [facility] | [address] | [address] | | | LABORATORY | | | | + + + + + | REFERENCE LAB | [address] | [place], [place] | | | [facility] | [address]vd[address] | [address] | | | LABORATORY | | | | + + + + + documented in this encounter Visit Diagnoses Not on filedocumented in this encounter"
--- OUTSIDE RECORDS SUMMARY | ~2020-05-17 | XMS | Encounter Summary ---
Demographics + + + | Address | [address] [address] | | | [place] [address] | + + + | Home Phone | | + + + | Preferred Language | Unknown | + + + | Marital Status | Single | + + + | Yarsanism Affiliation | 1041 | + + + | Race | or | + + + | Additional Race(s) | White | + + + | Ethnic Group | Not or | + + + Author + + + | Author | [facility] | | | and [place] | + + + | Organization | [facility] | | | [...] Team Providers + +------+ + | Care Grief Counselor Name | Role | Phone | + +------+ + | Unknown, Physician | PCP | | + +------+ + Encounter Details +--------+ + + + + | Date | Type | Department | Care Team | Description | +--------+ + + + + | 12/28/ | Abstract | [facility] | Yvette Jensen W, | | | 2019 | | NEPHROLOGY [address] | | | | | [address] | [address] [facility] | | | | | [place] | [place] [id number] | | | | | [address] | [phone] | | | | | [phone] | | | +--------+ + + + [...] | + +--------+ + + + | EXTERNAL LAB: ARIA | Routin | 12/18/2019 | | Results for this | | | e | | | procedure are in the | | | | | | results section. | + +--------+ + + + | EXTERNAL LAB: | Routin | 12/18/2019 | | Results for this | | GLUCOSE | e | | | procedure are in the | | | | | | results section. | + +--------+ + + + | EXTERNAL LAB: ALT | Routin | 12/18/2019 | | Results for this | | | e | | | procedure are in the | | | | | | results section. | + +--------+ + + + | EXTERNAL LAB: AST | Routin | 12/18/2019 | | Results for this | | | e | | | procedure are in the | | | | | | results section. | + +--------+ + + + | EXTERNAL LAB: | Routin | 12/18/2019 | | Results for this | | ALKALINE PHOSPHATASE | e | | | procedure are in the | | | | | | results section. | + +--------+ + + + | EXTERNAL LAB: | Routin | 12/18/2019 | | Results for this | | BILIRUBIN, TOTAL | e | | | procedure are in the | | | | | | results section. | + +--------+ + + + | EXTERNAL LAB: | Routin | 12/18/2019 | | Results for this | | ALBUMIN | e | | | procedure are in the | | | | | | results section. | + +--------+ + + + | EXTERNAL LAB: | Routin | 12/18/2019 | | Results for this | | PROTEIN, TOTAL | e | | | procedure are in the | | | | | | results section. | + +--------+ + + + | EXTERNAL LAB: | Routin | 12/18/2019 | | Results for this | | CALCIUM | e | | | procedure are in the | | | | | | results section. | + +--------+ + + + | EXTERNAL LAB: CARBON | Routin | 12/18/2019 | | Results for this | | DIOXIDE | e | | | procedure are in the | | | | | | results section. | + +--------+ + + + | EXTERNAL LAB: | Routin | 12/18/2019 | | Results for this | | CHLORIDE | e | | | procedure are in the | | | | | | results section. | + +--------+ + + + | EXTERNAL LAB: | Routin | 12/18/2019 | | Results for this | | POTASSIUM | e | | | procedure are in the | | | | | | results section. | + +--------+ + + + | EXTERNAL LAB: SODIUM | Routin | 12/18/2019 | | Results for this | | | e | | | procedure are in the | | | | | | results section. | + +--------+ + + + | EXTERNAL LAB: EGFR | Routin | 12/18/2019 | | Results for this | | | e | | | procedure are in the | | | | | | results section. | + +--------+ + + + | EXTERNAL LAB: | Routin | 12/18/2019 | | Results for this | | CREATININE | e | | | procedure are in the | | | | | | results section. | + +--------+ + + + documented in this encounter Results External Lab: ARIA (12/18/2019) + +-------+ + + + | Component | Value | Ref Range | Performed | Pathologist | | | | | At | Signature | + +-------+ + + + | BUN, | 5 | | | | | External | | | | | + +-------+ + + + External Lab: Glucose (12/18/2019) + +-------+ + + + | Component | Value | Ref Range | Performed | Pathologist | | | | | At | Signature | + +-------+ + + + | Glucose, | 109 | | | | | External | | | | | + +-------+ + + + External Lab: ALT (12/18/2019) + +-------+ + + + | Component | Value | Ref Range | Performed | Pathologist | | | | | At | Signature | + +-------+ + + + | ALT, | 21 | | | | | External | | | | | + +-------+ + + + External Lab: AST (12/18/2019) + +-------+ + + + | Component | Value | Ref Range | Performed | Pathologist | | | | | At | Signature | + +-------+ + + + | AST, | 40 | | | | | External | | | | | + +-------+ + + + External Lab: Alkaline Phosphatase (12/18/2019) + +-------+ + + + | Component | Value | Ref Range | Performed | Pathologist | | | | | At | Signature | + +-------+ + + + | ALP, | 160 | | | | | External | | | | | + +-------+ + + + External Lab: Bilirubin, Total (12/18/2019) + +-------+ + + + | Component | Value | Ref Range | Performed | Pathologist | | | | | At | Signature | + +-------+ + + + | Bilirubin, | 2.1 | | | | | Total, | | | | | | External | | | | | + +-------+ + + + External Lab: Albumin (12/18/2019) + +-------+ + + + | Component | Value | Ref Range | Performed | Pathologist | | | | | At | Signature | + +-------+ + + + | Albumin, | 2.9 | | | | | External | | | | | + +-------+ + + + External Lab: Protein, Total (12/18/2019) + +-------+ + + + | Component | Value | Ref Range | Performed | Pathologist | | | | | At | Signature | + +-------+ + + + | Protein, | 8.5 | | | | | Total, | | | | | | External | | | | | + +-------+ + + + External Lab: Calcium (12/18/2019) + +-------+ + + + | Component | Value | Ref Range | Performed | Pathologist | | | | | At | Signature | + +-------+ + + + | Calcium, | 8.2 | | | | | External | | | | | + +-------+ + + + External Lab: Carbon Dioxide (12/18/2019) + +-------+ + + + | Component | Value | Ref Range | Performed | Pathologist | | | | | At | Signature | + +-------+ + + + | Carbon | 18 | | | | | Dioxide, | | | | | | External | | | | | + +-------+ + + + External Lab: Chloride (12/18/2019) + +-------+ + + + | Component | Value | Ref Range | Performed | Pathologist | | | | | At | Signature | + +-------+ + + + | Chloride, | 114 | | | | | External | | | | | + +-------+ + + + External Lab: Potassium (12/18/2019) + +-------+ + + + | Component | Value | Ref Range | Performed | Pathologist | | | | | At | Signature | + +-------+ + + + | Potassium, | 3.8 | | | | | External | | | | | + +-------+ + + + External Lab: Sodium (12/18/2019) + +-------+ + + + | Component | Value | Ref Range | Performed | Pathologist | | | | | At | Signature | + +-------+ + + + | Sodium, | 141 | | | | | External | | | | | + +-------+ + + + External Lab: eGFR (12/18/2019) + +-------+ + + + | Component | Value | Ref Range | Performed | Pathologist | | | | | At | Signature | + +-------+ + + + | eGFR, | >60 | | | | | External | | | | | + +-------+ + + + + + | Specimen | + + | Blood | + + External Lab: Creatinine (12/18/2019) + +-------+ + + + | Component | Value | Ref Range | Performed | Pathologist | | | | | At | Signature | + +-------+ + + + | Creatinine, | 1.2 | | | | | External | | | | | + +-------+ + + + + + | Specimen | + + | Blood | + + documented in this encounter Visit Diagnoses Not on filedocumented in this encounter"
--- OUTSIDE RECORDS SUMMARY | ~2020-05-17 | XMS | Encounter Summary ---
Demographics + + + | Address | [address] [address] | | | [place] [address] | + + + | Home Phone | | + + + | Preferred Language | Unknown | + + + | Marital Status | Single | + + + | Yarsani Affiliation | 1041 | + + + | Race | or | + + + | Additional Race(s) | White | + + + | Ethnic Group | Not or | + + + Author + + + | Author | [facility] | | | and [place] | + + + | Organization | [facility] | | | [...] Team Providers + +------+ + | Care Extruding Press Operator Name | Role | Phone | + +------+ + | Unknown, Physician | PCP | | + +------+ + Encounter Details +--------+ + + + + | Date | Type | Department | Care Team | Description | +--------+ + + + + | 12/22/ | Orders Only | [facility] | Yvette Jensen W, | Acute kidney injury | | 2020 | | NEPHROLOGY [address] | (PATRICA) with acute | | | | [address] | [address] [place] | tubular necrosis | | | | [place] | [place] [address] | (ATN) ([facility]) (Primary | | | | [address] | [phone] | Dx) | | | | [phone] | | | +--------+ + + + [...] documented as of this encounter Progress Notes Lyla Montemayor RN - 12/23/2019 4:25 PM PDTLabs for upcoming nephrology appointment sent to: Needs to be sent to [facility]. documented in this encounter Plan of Treatment + +------+--------+ + + | Name | Type | Priori | Associated Diagnoses | Order Schedule | | | | ty | | | + +------+--------+ + + | Renal Function Panel | Lab | Routin | Acute kidney | Expected: | | | | e | injury (PATRICA) with | 02/09/2020, Expires: | | | | | acute tubular | 12/22/2020 | | | | | necrosis (ATN) ([facility]) | | + +------+--------+ + + | Vitamin D, | Lab | Routin | Acute kidney | Expected: | | Deficiency Screen | | e | injury (PATRICA) with | 02/09/2020, Expires: | | (25-Hydroxy) | | | acute tubular | 12/22/2020 | | | | | necrosis (ATN) ([facility]) | | + +------+--------+ + + | Parathyroid Hormone, | Lab | Routin | Acute kidney | Expected: | | Intact | | e | injury (PATRICA) with | 02/09/2020, Expires: | | | | | acute tubular | 12/22/2020 | | | | | necrosis (ATN) ([facility]) | | + +------+--------+ + + | Protein/Creatinine | Lab | Routin | Acute kidney | Expected: | | Ratio, Urine | | e | injury (PATRICA) with | 02/09/2020, Expires: | | | | | acute tubular | 12/22/2020 | | | | | necrosis (ATN) ([facility]) | | + +------+--------+ + + | Urinalysis With | Lab | Routin | Acute kidney | Expected: | | Microscopic | | e | injury (PATRICA) with | 02/09/2020, Expires: | | | | | acute tubular | 12/22/2020 | | | | | necrosis (ATN) ([facility]) | | + +------+--------+ + + | CBC with | Lab | Routin | Acute kidney | Expected: | | Differential | | e | injury (PATRICA) with | 02/09/2020, Expires: | | | | | acute tubular | 12/22/2020 | | | | | necrosis (ATN) ([facility]) | | + +------+--------+ + + documented as of this encounter Visit Diagnoses + + | Diagnosis | + + | Acute kidney injury (PATRICA) with acute tubular necrosis (ATN) ([facility]) - Primary | + + documented in this encounter"
[~2020-05-17 08:42] MED LIST changes: +MULTI VITAMIN1 EACH PO
--- OUTSIDE RECORDS SUMMARY | 2020-05-17 08:44 | XMS ---
PreManage Notification: BETHANIE VEGA Security Direct Marketing Coordinator Events No recent Security Events currently on file CRITERIA MET - Group Notification CARE PROVIDERS NEYDA ZAFAR [facility] 05/19/2018-Current PHONE: Unknown SHERIF COFFMAN Physician [employer] 06/02/2018-Current PHONE: Unknown Name [facility] 12/07/2019-Current PHONE: [phone] Antonio has no Care Guidelines for this patient. Care History Medical/Surgical 07/07/2019 [facility] - PLEASE CONTACT FRANCES Irvin[facility]- IF PATIENT ACCEPTS SERVICES- . - [employer] CAN PROVIDE PATIENT WITH FOCUSED FACTORY MANAGER AND HELP WITH COMMUNITY RESOURCES. 03/25/2019 [facility] Care Recommendation: - USE EXTREME CAUTION IN GIVING NARCOTICS TO THIS PATIENT. - Avoid Discharge Narcotic prescriptions if at all possible. Physician discretion. 03/04/2019 [facility] - PATIENT IS A [place] ELIGIBLE, \T\middot;\T\nbsp; PLEASE REFER PATIENT TO [facility] FOR NON EMERGENT MEDICAL NEEDS. \T\middot;\T\nbsp; [facility] CAN SEE PATIENTS SAME DAY FOR APTS IF PATIENT CALLS FIRST THING IN THE MORNING. E.D. VISIT COUNT ([address] [facility]. TOTAL 3 NOTE: Visits indicate total known visits. ED/UCC VISIT TRACKING (12 MO.) 05/17/2020 08:42 [facility] TYPE: Emergency COMPLAINT: - CHEST PAIN, DIFF BREATHING, N/V 12/03/2019 02:48 [facility] TYPE: Emergency COMPLAINT: - ABDOMIANL PAIN DIAGNOSES: - Hyperlipidemia, unspecified - Severe sepsis without septic shock - Sepsis, unspecified organism - Unspecified abdominal pain - Essential (primary) hypertension - Personal history of nicotine dependence - Other keno terminal operator (current) drug therapy - Acute kidney failure, unspecified 07/05/2019 00:28 [facility] TYPE: Emergency COMPLAINT: - DETOX ISSUES DIAGNOSES: - Nicotine dependence, unspecified, uncomplicated - Alcohol abuse, uncomplicated - Other group home (current) drug therapy - Essential (primary) hypertension - Allergy status to other drugs, medicaments and biological sub INPATIENT VISIT TRACKING (12 MO.) 12/03/2019 07:49 Sherif [facility] TYPE: Surgical Services DIAGNOSES: - Unspecified abdominal pain - Sepsis, unspecified organism - Severe sepsis without septic shock - Acute kidney failure, unspecified - Acute kidney failure with tubular necrosis - Hypo-osmolality and hyponatremia [email or web address]
--- NOTE | 2020-05-18 14:56 | EKG ---
[facility] [address] [facility] [place] [address] Signed Normal sinus rhythm Left axis deviation Nonspecific intraventricular conduction delay Abnormal ECG When compared with ECG of 19-MAY-2018 13:42, No significant change was found Confirmed by SHERI STONE MD ([id number]) on 05/18/2020 2:56:16 PM Electronically Signed By: SHERI STONE MD 05/18/20 1456 PATIENT NAME: BETHANIE VEGA Electrocardiogram DATE OF : 77 PHYSICIAN: SHERI STONE MD REPORT #: [id number] REPORT IS CONFIDENTIAL AND NOT TO BE RELEASED WITHOUT AUTHORIZATION
== END 2020-05-17 11:35 | disposition home or self-care (01) ==
LOC: ED 08:42
DX: R07.9 Chest pain, unspecified (principal); Z20.828 Contact with and (suspected) exposure to other viral communicable diseases; R11.2 Nausea with vomiting, unspecified; R19.7 Diarrhea, unspecified; I10 Essential (primary) hypertension; E78.5 Hyperlipidemia, unspecified; Z87.891 Personal history of nicotine dependence; Z79.899 Other long term (current) drug therapy; Z88.8 Allergy status to other drugs, medicaments and biological substances
CPT/HCPCS: 71045; 80053; 84484; 85025; 93005; 93010; 99285-25; C9803

== ENCOUNTER 2020-08-04 18:45 | Emergency (ER) | payer OTHER ==
[~2020-08-04] VITALS: Ht 188 cm; Wt 122.5 kg
--- OUTSIDE RECORDS SUMMARY | 2020-08-04 18:48 | XMS ---
PreManage Notification: BETHANIE VEGA Security Assistant Manager Bilingual Events No recent Security Events currently on file CRITERIA MET - Group Notification CARE PROVIDERS NEYDA ZAFAR [facility] 05/19/2018-Current PHONE: Unknown SHERIF COFFMAN Physician Furnace Builder 06/02/2018-Current PHONE: Unknown Name [facility] 12/07/2019-Current PHONE: [phone] Antonio has no Care Guidelines for this patient. Care History Medical/Surgical 07/07/2019 [facility] - PLEASE CONTACT FRANCES Irvin\T\D SERVICES- IF PATIENT ACCEPTS SERVICES- [phone]. - [employer] A\T\D SERVICES CAN PROVIDE PATIENT WITH SYSTEM SUPPORT TECHNICIAN AND HELP WITH COMMUNITY RESOURCES. 03/25/2019 [facility] Care Recommendation: - USE EXTREME CAUTION IN GIVING NARCOTICS TO THIS PATIENT. - Avoid Discharge Narcotic prescriptions if at all possible. Physician discretion. 03/04/2019 [facility] - PATIENT IS A YELLOWHAWK ELIGIBLE, \T\middot;\T\nbsp; PLEASE REFER PATIENT TO [facility] FOR NON EMERGENT MEDICAL NEEDS. \T\middot;\T\nbsp; [facility] CAN SEE PATIENTS SAME DAY FOR APTS IF PATIENT CALLS FIRST THING IN THE MORNING. E.D. VISIT COUNT (12 MO.) 3 [facility] H. TOTAL 3 NOTE: Visits indicate total known visits. ED/UCC VISIT TRACKING (12 MO.) 08/04/2020 18:46 [facility]ale[facility]ya [facility] [place] TYPE: Emergency COMPLAINT: - BLOOD SUGAR PROBLEM 05/17/2020 08:42 [facility] Galeony [facility] [place] TYPE: Emergency COMPLAINT: - CHEST PAIN, DIFF BREATHING, N/V DIAGNOSES: - Chest pain, unspecified - Personal history of nicotine dependence - Diarrhea, unspecified - Essential (primary) hypertension - Hyperlipidemia, unspecified - Contact with and (suspected) exposure to other viral communicable diseases - Nausea with vomiting, unspecified - Other intermediate (current) drug therapy - Allergy status to other drugs, medicaments and biological substances 12/03/2019 02:48 [facility]ADA Galeony Miya [facility]se[facility] [place] TYPE: Emergency COMPLAINT: - ABDOMIANL PAIN DIAGNOSES: - Hyperlipidemia, unspecified - Severe sepsis without septic shock - Sepsis, unspecified organism - Unspecified abdominal pain - Essential (primary) hypertension - Personal history of nicotine dependence - Other intermediate (current) drug therapy - Acute kidney failure, unspecified INPATIENT VISIT TRACKING (12 MO.) 12/03/2019 07:49 [facility] Yael LUIS TYPE: Surgical Services DIAGNOSES: - Unspecified abdominal pain - Sepsis, unspecified organism - Severe sepsis without septic shock - Acute kidney failure, unspecified - Acute kidney failure with tubular necrosis - Hypo-osmolality and hyponatremia [email or web address]
[2020-08-04] MEDS ORDERED: LANTUS100 UNITS/ SUB-Q (19:14)
[2020-08-05] MEDS ORDERED: APIDRA SOL100 UNIT/1 SUB-Q (19:16)
== END 2020-08-04 21:24 | disposition home or self-care (01) ==
LOC: ED 18:45
DX: E11.65 Type 2 diabetes mellitus with hyperglycemia (principal); I10 Essential (primary) hypertension; E78.5 Hyperlipidemia, unspecified; Z88.8 Allergy status to other drugs, medicaments and biological substances; Z79.899 Other long term (current) drug therapy; Z79.4 Long term (current) use of insulin
CPT/HCPCS: 80053; 82010; 82800; 85025; 99284; J7030

== ENCOUNTER 2020-08-05 17:32 | Emergency (ER) | payer OTHER ==
[~2020-08-05] VITALS: Ht 188 cm; Wt 122.5 kg
--- OUTSIDE RECORDS SUMMARY | 2020-08-05 17:34 | XMS ---
PreManage Notification: BETHANIE VEGA Security Outpatient Therapist Events No recent Security Events currently on file CRITERIA MET - Group Notification - [facility] - 2 Visits in 30 Days CARE PROVIDERS NEYDA ZAFAR [facility] 05/19/2018-Current PHONE: Unknown SHERIF COFFMAN Physician Industrial Methods Consultant 06/02/2018-Current PHONE: Unknown Name [facility] 12/07/2019-Current PHONE: [phone] Antonio has no Care Guidelines for this patient. Care History Medical/Surgical 07/07/2019 [facility] - PLEASE CONTACT FRANCES Irvin\T\Danilo SERVICES- IF PATIENT ACCEPTS SERVICES- . - [place] A\T\D SERVICES CAN PROVIDE PATIENT WITH AGRIBUSINESS INTERNSHIP AND HELP WITH COMMUNITY RESOURCES. 03/25/2019 [facility] Care Recommendation: - USE EXTREME CAUTION IN GIVING NARCOTICS TO THIS PATIENT. - Avoid Discharge Narcotic prescriptions if at all possible. Physician discretion. 03/04/2019 [facility] - PATIENT IS A YELLOWHAWK ELIGIBLE, \T\middot;\T\nbsp; PLEASE REFER PATIENT TO [facility] FOR NON EMERGENT MEDICAL NEEDS. \T\middot;\T\nbsp; [facility] CAN SEE PATIENTS SAME DAY FOR APTS IF PATIENT CALLS FIRST THING IN THE MORNING. E.D. VISIT COUNT (12 MO.) [address] [facility] H. TOTAL 4 NOTE: Visits indicate total known visits. ED/UCC VISIT TRACKING (12 MO.) 08/05/2020 17:[address] [facility] Ose[facility] OR TYPE: Emergency COMPLAINT: - HIGH BLOOD SUGAR LEVEL 08/04/2020 18:46 AMADA Quintana Miya Osei OR TYPE: Emergency COMPLAINT: - BLOOD SUGAR PROBLEM 05/17/2020 08:42 AMADA Quintana HAlanna Osei OR TYPE: Emergency COMPLAINT: - CHEST PAIN, DIFF BREATHING, N/V DIAGNOSES: - Chest pain, unspecified - Personal history of nicotine dependence - Diarrhea, unspecified - Essential (primary) hypertension - Hyperlipidemia, unspecified - Contact with and (suspected) exposure to other viral communicable diseases - Nausea with vomiting, unspecified - Other fci (current) drug therapy - Allergy status to other drugs, medicaments and biological substances 12/03/2019 02:48 [facility] [place] TYPE: Emergency COMPLAINT: - ABDOMIANL PAIN DIAGNOSES: - Hyperlipidemia, unspecified - Severe sepsis without septic shock - Sepsis, unspecified organism - Unspecified abdominal pain - Essential (primary) hypertension - Personal history of nicotine dependence - Other fci (current) drug therapy - Acute kidney failure, unspecified INPATIENT VISIT TRACKING (12 MO.) 12/03/2019 07[facility] DIAGNOSES: - Unspecified abdominal pain - Sepsis, unspecified organism - Severe sepsis without septic shock - Acute kidney failure, unspecified - Acute kidney failure with tubular necrosis - Hypo-osmolality and hyponatremia [email or web address]
[2020-08-05] MEDS ORDERED: APIDRA SOL100 UNIT/1 SUB-Q (19:16)
== END 2020-08-05 19:27 | disposition home or self-care (01) ==
LOC: ED 17:32
DX: E11.65 Type 2 diabetes mellitus with hyperglycemia (principal); I10 Essential (primary) hypertension; E78.5 Hyperlipidemia, unspecified; F17.200 Nicotine dependence, unspecified, uncomplicated; Z88.8 Allergy status to other drugs, medicaments and biological substances; Z79.899 Other long term (current) drug therapy; Z79.4 Long term (current) use of insulin
CPT/HCPCS: 99284

== ENCOUNTER 2021-02-21 08:04 | Emergency (ER) | payer OTHER ==
[~2021-02-21] VITALS: Ht 188 cm; Wt 126.5 kg
[~2021-02-21 08:04] MED LIST changes: +APIDRA SOL100 UNIT/1 SUB-Q; +FA-80.8 MG PO; +GLIPIZIDE ER2.5 MG PO; +TRIAMTERENE50 MG PO; +VITAMIN B122500 MCG
--- OUTSIDE RECORDS SUMMARY | 2021-02-21 08:16 | XMS ---
PreManage Notification: BETHANIE VEGA Security Business Objects Analyst Events No recent Security Events currently on file CRITERIA MET - Group Notification CARE PROVIDERS NEYDA ZAFAR [facility] 05/19/2018-Current PHONE: [phone] SHERIF COFFMAN Physician Retail Support Associate 06/02/2018-Current PHONE: [facility] PHONE: [phone] Antonio has no Care Guidelines for this patient. Care History Medical/Surgical 07/07/2019 [facility] - PLEASE CONTACT FRANCES Sherwood\Danilo SERVICES- IF PATIENT ACCEPTS SERVICES- . - [place] A\T\D SERVICES CAN PROVIDE PATIENT WITH IT QUALITY ANALYST AND HELP WITH COMMUNITY RESOURCES. 03/25/2019 [facility] Care Recommendation: - USE EXTREME CAUTION IN GIVING NARCOTICS TO THIS PATIENT. - Avoid Discharge Narcotic prescriptions if at all possible. Physician discretion. 03/04/2019 [facility] - PATIENT IS A YELLOWHAWK ELIGIBLE, \T\middot;\T\nbsp; PLEASE REFER PATIENT TO [facility] FOR NON EMERGENT MEDICAL NEEDS. \T\middot;\T\nbsp; [facility] CAN SEE PATIENTS SAME DAY FOR APTS IF PATIENT CALLS FIRST THING IN THE MORNING. E.D. VISIT COUNT (12 MO.) 5 [facility] H. TOTAL 5 NOTE: Visits indicate total known visits. ED/UCC VISIT TRACKING (12 MO.) 02/21/2021 08:06 [facility] [place] TYPE: Emergency COMPLAINT: - NUMBNESS IN FACE, LEGS, EYE PROBLEM 12/27/2020 16:16 [facility] [place] TYPE: Emergency COMPLAINT: - WEAKNESS 08/05/2020 17:33 [facility] [place] TYPE: Emergency COMPLAINT: - HIGH BLOOD SUGAR DIAGNOSES: - Essential (primary) hypertension - Allergy status to other drugs, medicaments and biological substances - Type 2 diabetes mellitus with hyperglycemia - residential (current) use of insulin - Nicotine dependence, unspecified, uncomplicated - Allergy status to other drugs, medicaments and biological substances - Hyperlipidemia, unspecified - Other supervisor intermediates (current) drug therapy 08/04/2020 18:46 [facility] [place] TYPE: Emergency COMPLAINT: - BLOOD SUGAR PROBLEM DIAGNOSES: - Essential (primary) hypertension - joint terminal attack controller (current) use of insulin - Hyperlipidemia, unspecified - Allergy status to other drugs, medicaments and biological substances - Type 2 diabetes mellitus with hyperglycemia - Allergy status to other drugs, medicaments and biological substances - Other usp (current) drug therapy 05/17/2020 08:42 [facility] [place] TYPE: Emergency COMPLAINT: - CHEST PAIN, DIFF BREATHING, N/V DIAGNOSES: - Chest pain, unspecified - Personal history of nicotine dependence - Diarrhea, unspecified - Essential (primary) hypertension - Hyperlipidemia, unspecified - Contact with and (suspected) exposure to other viral communicable diseases - Nausea with vomiting, unspecified - Other usp (current) drug therapy - Allergy status to other drugs, medicaments and biological substances INPATIENT VISIT TRACKING (12 MO.) 12/27/2020 16:17 [facility] [place] TYPE: Observation COMPLAINT: - HYPOGLYCEMIA DIAGNOSES: - Essential (primary) hypertension - Other stimulant abuse, uncomplicated - Type 2 diabetes mellitus with hypoglycemia without coma - joint terminal attack controller (current) use of oral hypoglycemic drugs - Allergy status to other drugs, medicaments and biological substances - Alcohol abuse, uncomplicated - Nicotine dependence, unspecified, uncomplicated [email or web address]
[2021-02-21] MEDS ORDERED: FAMCICLOVIR500 MG PO (08:57)
[2021-02-21] MEDS ORDERED: TRIAMTERENE-HC1 EAC1 PO (08:57)
[2021-02-21] MEDS ORDERED: PREDNISONE20 MG PO (08:57)
== END 2021-02-21 09:07 | disposition home or self-care (01) ==
LOC: ED 08:04
DX: G51.0 Bell's palsy (principal); I10 Essential (primary) hypertension; E11.9 Type 2 diabetes mellitus without complications; E78.5 Hyperlipidemia, unspecified; F17.200 Nicotine dependence, unspecified, uncomplicated; Z88.8 Allergy status to other drugs, medicaments and biological substances; Z79.899 Other long term (current) drug therapy; Z79.4 Long term (current) use of insulin
CPT/HCPCS: 99283

== ENCOUNTER 2021-09-21 15:48 | Observation (INO) | payer OTHER ==
[~2021-09-21] VITALS: Ht 188 cm; Wt 117.4 kg
[~2021-09-21 15:48] MED LIST changes: +FAMCICLOVIR500 MG PO; +PREDNISONE20 MG PO
--- OUTSIDE RECORDS SUMMARY | 2021-09-21 15:52 | XMS ---
PreManage Notification: BETHANIE VEGA Security Manager Pool Events No recent Security Events currently on file CRITERIA MET - PDMP - Group Notification CARE PROVIDERS NEYDA ZAFAR [facility] 05/19/2018-Current PHONE: [phone] SHERIF COFFMAN Physician Computer Animator 06/02/2018-Current PHONE: Unknown [facility]/[place] 12/07/2019-[facility] PHONE: [phone] Antonio has no Care Guidelines for this patient. Care History Medical/Surgical 07/07/2019 [facility] - PLEASE CONTACT FRANCES Irvin\T\Danilo SERVICES- IF PATIENT ACCEPTS SERVICES- [phone]. - [facility] SERVICES CAN PROVIDE PATIENT WITH TIP OUT WORKER AND HELP WITH COMMUNITY RESOURCES. 03/25/2019 [facility] Care Recommendation: - USE EXTREME CAUTION IN GIVING NARCOTICS TO THIS PATIENT. - Avoid Discharge Narcotic prescriptions if at all possible. Physician discretion. 03/04/2019 [facility] - PATIENT IS A YELLOWHAWK ELIGIBLE, \T\middot;\T\nbsp; PLEASE REFER PATIENT TO [facility] FOR NON EMERGENT MEDICAL NEEDS. \T\middot;\T\nbsp; [facility] CAN SEE PATIENTS SAME DAY FOR APTS IF PATIENT CALLS FIRST THING IN THE MORNING. E.D. VISIT COUNT (12 MO.) 3 [facility] H. TOTAL 3 NOTE: Visits indicate total known visits. ED/UCC VISIT TRACKING (12 MO.) 09/21/2021 15:49 [facility] [place] TYPE: Emergency COMPLAINT: - BLOOD SUGAR ISSUE 02/21/2021 08:06 [facility] [place] TYPE: Emergency COMPLAINT: - NUMBNESS IN FACE, LEGS, EYE PROBLEM DIAGNOSES: - meterman (current) use of insulin - Other correction (current) drug therapy - Essential (primary) hypertension - Type 2 diabetes mellitus without complications - Anesthesia of skin - Nicotine dependence, unspecified, uncomplicated - Norman's palsy - Hyperlipidemia, unspecified - Allergy status to other drugs, medicaments and biological substances 12/27/2020 16:16 [facility] [place] TYPE: Emergency COMPLAINT: - WEAKNESS INPATIENT VISIT TRACKING (12 MO.) 12/27/2020 16:17 [facility] [place] TYPE: Observation COMPLAINT: - HYPOGLYCEMIA DIAGNOSES: - Essential (primary) hypertension - Other stimulant abuse, uncomplicated - Type 2 diabetes mellitus with hypoglycemia without coma - meterman (current) use of oral hypoglycemic drugs - Allergy status to other drugs, medicaments and biological substances - Alcohol abuse, uncomplicated - Nicotine dependence, unspecified, uncomplicated [email or web address]
--- NOTE | 2021-09-21 21:55 | NUR ---
DR MIRANDA STOPPED BY RN STATION AFTER TALKING WITH PT, PT TOLD HIM HIS BG ON HIS MONITOR WAS 60. CHECKED PT'S BG AND IT WAS 56. PRIMARY RN PAM NOTIFIED AND DR MIRANDA IS AWARE. GAVE PT CRANBERRY JUICE THAT HE HAD A BEDSIDE. DR MIRANDA PUT NEW ORDERS IN. MEGAN OROZCO IS IN ROOM WITH PT AT THIS TIME.
--- NOTE | 2021-09-21 22:32 | NUR ---
PT IN BED WATCHIMG TV, ALERT AND ORIENTED, ATE SANDWICH BOX CONTENTS AND JUICES. CBG EARLIER WAS 56 BY OUR CBG READER AND 60 BY HIS INDWELLING ACCUCHECK READER RUP. RECEIVED 25MG D50. CBG CHECKED AT THIS TIME AGAIN. PER OPTS READER HE WAS 154 AND 134 BY OURS. D10 IVF INFUSING AT 125CC, RECEIVED. VOIDED QS. BED ALARM ON PER SAFETY, PT INSTRUCTED, STAED UNDERSTNADING, KEEPS CHECKING HIS ACCUCHECK READER EVERY 1-2 MINUTES. BED ALARMS ON, FLUIDS AND CALL LIGHT AT HANDS REACH.M PT AWARE OF CBG Q2H STATED UNDERSTANDING, COOP WITH ADMIT ASSESSMENT
--- NOTE | 2021-09-22 00:26 | NUR ---
pt awake, watching tv, calm, no distress or c/o. IVF D10% infusing. as per his glucose reader 146, ours 166, . tolerating liquids well, voiding large amounts of clear urine.
--- NOTE | 2021-09-22 02:13 | NUR ---
PT RESTING, EYSE CLOSED, AWAKES EASILY, NO C/O PAIN. OR S/SX HYPOGLYCEMIA/HYPERGLYCEMIS, CBG WITH OUR READER 320, PER HIS WIRELESS READER 310. CONTINUES TO RECEIVE d10 ivf AT 125CC/HR. VOIDING LARGE AMUONTS OF URINE. GOES BACK TO SLEEP, CALM COOPERATIVE, ALERT AND ORINETED, APPROPRIATE
--- NOTE | 2021-09-22 03:01 | NUR ---
TALKED TO DR MIRANDA VIA PHONE R/T PTS CBG 320. STATED CHANGED IVF TO D5 AT 100CC/HR. IF BLOOD SUGARS STARTS TRENDING DOWN AGAIN, PLACE HIM BACK ON D10 AT 125. DO ACCUCHECKS AT 0400 AND 06 /PRN IF NEEDED.
--- NOTE | 2021-09-22 04:01 | NUR ---
CBG 412, D5 AT 100CC/HR INFUSING, PT AWAKE, ALERT AND ORIENTED, CALM, QUIET, GOES BACK TO SLEEP, VOIDING QS. NO C/O PAIN
--- NOTE | 2021-09-22 06:22 | NUR ---
PT ADMITTED FOR HYPOGLYCEMIA, ON ARRIVAL TO THIS UNIT HIS CBG WAS 56, RECEIVED 25CC OF D50 IV. PT WAS STARTED ON D10IVF AT THE ED. BLOOD SUGARS HAVE CONTINUES TO CLIMB. CURRENTLYON D5 AT 100CC/HR. LAST CBG 412 AND CURRENTLY 411AS PER BLOOD DRAW. SLEPT. WAS VERY ANXIOUS AT BEGINIGN OF SHIFT, MUCH IMPROVED NOW, CIWA SCORES HAVE BEEN 8 AND 2, TOLERATING DIET WELL, IVF INFUSING, VOIDING LARGE AMOUNT OF URINE. COOP USES CALL LIGHT. BED ALRM ON PER SAFETY HE WAS ORIGINALLY VERY ANXIOUS AND JUMPY ON ADMISSION
--- NOTE | 2021-09-22 07:30 | NUR ---
Shift report received from RN Apolonia, pt resting in bed w/ call light in reach, no needs at this time
--- NOTE | 2021-09-22 08:30 | NUR ---
IN TO GIVE MORNING CARE AND TAKE BS CHECK. WHITE BOARD UPDATED. PT ACCEPTED [facility] FOR FACE. SOMEONE HAD ALREADY SET UP PT WITH BREAKFAST BEFORE HIS BS CHECK HAD BEEN TAKEN. ALERTED MEGAN HANKS. BS CHECK DONE. CALL LIGHT WITHINR REACH, NO FURTHER NEEDS. BS CHECK SIGN POSTED ON DOOR.
--- NOTE | 2021-09-22 09:06 | NUR ---
IN TO DO VS. PT QUIETLY SITTING UP IN BED WATCHING TV. CALL LIGHT WITHIN REACH, NO FURTHER NEEDS AT THIS TIME.
[2021-09-22] MEDS ORDERED: THIAMINE HCL100 MG PO (10:00)
--- NOTE | 2021-09-22 10:00 | NUR ---
Pt resting in bed safely w/ call light in reach. Morning assesment complete and insulin given per SS/provider orders. Pt denies any other needs at this time.
[2021-09-22] MEDS ORDERED: TRIAMTERENE-HC1 EAC1 PO (10:06)
[2021-09-22] MEDS ORDERED: CALCIUM CARBON500 MG PO (10:08)
[2021-09-22] MEDS ORDERED: ALOGLIPTIN25 MG PO (10:14)
[2021-09-22] MEDS ORDERED: LOSARTAN POTASS25 MG PO (10:14)
[2021-09-22] MEDS ORDERED: GABAPENTIN100 MG PO (10:15)
[2021-09-22] MEDS ORDERED: METOPROLOL SUC100 MG PO (10:16)
[2021-09-22] MEDS ORDERED: IBUPROFEN800 MG PO (10:17)
--- NOTE | 2021-09-22 10:18 | NUR ---
MED REC COMPLETED BY PHARMACY
--- NOTE | 2021-09-22 12:00 | NUR ---
Pt sitting up in bed w/ call light in reach, eating lunch. Insulin given per SS/provider order. Discharge orders written, waiting for paperwork to be completed.
[2021-09-22] MEDS ORDERED: APIDRA SOL100 UNIT/1 SUB-Q (12:49)
--- NOTE | 2021-09-22 12:58 | NUR ---
PT SAYS THEY SPILLED URINE WHILE VOIDING INTO URINAL ON ACCIDENT. HOWEVER, THE URINAL IS IN THE BATHROOM, AND PTS SHEETS AND PANTS ARE SOAKED IN URINE. IT SEEMS TO BE IF PT HAD INCONTINENT EPISODE. RN LATONYA AWARE. COMPLETE BED CHANGE DONE, AND MATRESS WIPED DOWN. CALL LIGHT WITHIN REACH, NO FURTHER NEEDS AT THIS TIME.
== END 2021-09-22 14:30 | disposition home or self-care (01) ==
LOC: ED 15:48 → MS 15:50
PROVIDERS: ADMIT Student in an Organized Health Care Education/Training Program; ATTEND Student in an Organized Health Care Education/Training Program
DX: T50.901A Poisoning by unspecified drugs, medicaments and biological substances, accidental (unintentional), initial encounter (principal); E11.649 Type 2 diabetes mellitus with hypoglycemia without coma; I10 Essential (primary) hypertension; E78.5 Hyperlipidemia, unspecified; F17.200 Nicotine dependence, unspecified, uncomplicated; Z88.8 Allergy status to other drugs, medicaments and biological substances; Z79.84 Long term (current) use of oral hypoglycemic drugs; Z20.822 Contact with and (suspected) exposure to COVID-19
CPT/HCPCS: 80048; 81001; 83735; 85025; 96374; 99285-25; C9803; J1100; J1815; J2354-JA; J7070; J7121; U0003

== ENCOUNTER 2023-05-19 16:39 | Inpatient (IN) | payer OTHER ==
[~2023-05-19] VITALS: Ht 188 cm; Wt 110.9 kg
[~2023-05-19 16:39] MED LIST changes: +ALOGLIPTIN25 MG PO; +COZAAR50 MG PO; -FA-80.8 MG PO; +GABAPENTIN300 MG PO; +IBUPROFEN800 MG PO; +METOPROLOL TAR100 MG PO; +THIAMINE HCL100 MG PO; +TUMS200 MG PO; +VITAMIN B-121000 MCG PO; -VITAMIN B122500 MCG
--- OUTSIDE RECORDS SUMMARY | 2023-05-19 16:43 | XMS ---
PreManage Notification: BETHANIE VEGA Security Machinist General Events No recent Security Events currently on file CRITERIA MET - Group Notification - PDMP CARE PROVIDERS [facility] 12/07/2019-[facility] PHONE: [phone] SHERIF COFFMAN Physician [employer] 06/02/2018-Current PHONE: Unknown NEYDA ZAFAR [facility] 05/19/2018-Current PHONE: [phone] Antonio has no Care Guidelines for this patient. Care History Medical/Surgical 09/25/2021 [facility] - [facility]IENT [facility]IGIBLE, · PLEASE REFER PATIENT TO [facility] FOR NON EMERGENT MEDICAL NEEDS. · [facility] CAN SEE PATIENTS SAME DAY FOR APTS IF PATIENT CALLS FIRST THING IN THE MORNING. 07/07/2019 [facility] - PLEASE CONTACT [facility]- IF PATIENT ACCEPTS SERVICES- [phone]. - [facility] [facility] CAN PROVIDE PATIENT WITH EDITORIAL DIRECTOR AND HELP WITH COMMUNITY RESOURCES. 03/25/2019 [facility] Care Recommendation: - USE EXTREME CAUTION IN GIVING NARCOTICS TO THIS PATIENT. - Avoid Discharge Narcotic prescriptions if at all possible. Physician discretion. E.D. VISIT COUNT (12 MO.) 1 [facility]. TOTAL 1 NOTE: Visits indicate total known visits. ED/UCC VISIT TRACKING (12 MO.) 05/19/2023 16:[address] [facility] OR TYPE: Emergency COMPLAINT: - SKIN PROBLEM INPATIENT VISIT TRACKING (12 MO.) No inpatient visits to display in this time frame [id number]
[2023-05-19 18:15] LABS: HEMATOCRIT 36.4 % (35.0-50.0); HEMOGLOBIN 12.1 g/dL (12.0-18.0); MCH 30.4 (27-36); MCHC 33.3 g/dl (30-36); MCV 91.3 fl (81-99); PLATELET COUNT 248 K/uL (140-440); RBC 3.99 M/ul (4.3-5.7); RDW 14.9 (10.5-15.0)
[2023-05-19 18:30] LABS: BANDS, MANUAL DIFF 18; LYMPHOCYTES, MANUAL DIFF 9; MONOCYTES, MANUAL DIFF 3; NEUTROPHILS, MANUAL DIFF 70
[2023-05-19 18:31] LABS: ALBUMIN 2.8 g/dL (3.4-5.0); ALBUMIN/GLOBULIN RATIO 0.44 (1.1-2.4); BILIRUBIN, TOTAL 2.3 ng/dL (0.2-1.0); BUN/CREATININE RATIO 16.25 (6.0-28.6); CALCIUM 8.9 mg/dL (8.5-10.1); CREATININE, SERUM 1.6 mg/dL (0.70-1.30); PROTEIN, TOTAL 9.1 g/dL (6.4-8.2)
[2023-05-19 18:40] LABS: LACTIC ACID, BLOOD 2.1 mmol/L (0.4-2.0)
[2023-05-19 19:35] LABS: INFLUENZA B NAA NEGATIVE (NEGATIVE); RESPIRATORY SYNCYTIAL VIR NAA NEGATIVE (NEGATIVE)
[2023-05-19 20:05] VITALS: BP 142/85
[2023-05-19 20:15] VITALS: BP 152/93
[2023-05-19 20:54] LABS: BILIRUBIN, URINE NEGATIVE (negative); BLOOD/HGB, URINE TRACE-I (Negative); KETONE, URINE NEGATIVE (Negative); LEUK ESTERASE, URINE NEGATIVE (negative); NITRITE, URINE POSITIVE (negative); PH, URINE 6.5 (5-7)
[2023-05-19 20:59] LABS: CRYSTALS, URINE NONE SEEN (0-1+); EPITHELIAL CELLS, URINE SQUAMOUS 1+ /lpf (0-1+)
[2023-05-19 21:00] LABS: BACTERIA, URINE RARE /hpf (negative); CASTS, URINE NONE SEEN \\lpf
[2023-05-19 21:01] LABS: REFLEX CULTURE, URINE No (No)
--- NOTE | 2023-05-19 21:04 | NUR ---
PATIENT ARRIVED TO THE UNIT AROUND 2009 BY ED STAFF. PATIENT MOVED HIMSELF OVER TO THE BED. VS STABLE. PATIENT ALERT AND ORIENTED X4. IV FLUIDS STARTED PER ORDER. IV SITE WNL X1. ABX FINISHED. PATIENT PROVIDED FOOD AND DRINKS. PICTURES TAKEN OF RIGHT FOOT WITH PATIENT PERMISSION AND PLACED IN CHART. FOOT LEFT OPEN TO AIR WITH MODERATE AMOUNT OF YELLOW DRAINAGE NOTED. PATIENT REPORTS PAIN 7/10; WORSE WITH TOUCH. STRONG PULSES FELT IN SONAL LOWER EXTREMITITES. DEPENDENT EDEMA NOTED IN RIGHT FOOT. PATIENT ABLE TO USE THE URNAL WITHOUT ASSISTANCE. URINE NOTED TO BE ORANGE/CITLALI IN COLOR. LAB IN FOR REPEAT LACTIC. PATIENT RESTING COMFORTABLE. WARM BLANKETS PROVIDED. CALL LIGHT IN REACH.
[2023-05-19 21:05] VITALS: BP 145/90
[2023-05-19 22:00] VITALS: BP 141/86
--- NOTE | 2023-05-19 22:57 | NUR ---
PATIENT VOIDED TO THE URNAL. PATIENT IS SITTING UP IN BED EATING SNACKS. FRESH ICE WATER PROVIDED. PATIENT DENIED OTHER NEEDS. CALL LIGHT IN REACH.
[2023-05-19 23:00] VITALS: BP 148/89
[2023-05-20] VITALS (11 sets, daily range): BP systolic 113–146; BP diastolic 73–107
--- NOTE | 2023-05-20 00:02 | NUR ---
PATIENT RESTING IN BED. REPORTS FEELING HOT. ORAL TEMP ELEAVTED. PO TYLENOL PROVIDED AND ROOM TEMP ADJUSTED. PATIENT DENIES ANY OTHER CONCERNS. VS STABLE. IV FLUIDS PER ORDER. SITE WNL.
--- NOTE | 2023-05-20 02:00 | NUR ---
PATIENT VS STABLE. APPEARS TO BE RESTING COMFORTABLE. ALLOWED PATIENT TO REST.
--- NOTE | 2023-05-20 04:45 | NUR ---
PATIENT RESTING IN BED. ALERTS TO VOICE. VS STABLE. IV WNL; FLUIDS PER ORDER. ABX STARTED. PATIENT DENIED NEEDS. FRESH ICE WATER PROVIDED AND NEW FAN PAD PLACED UNDER RIGHT FOOT. VS STABLE. URNAL EMPITED. GOOD URINE OUTPUT.
[2023-05-20 05:29] LABS: HEMATOCRIT 32.9 % (35.0-50.0); HEMOGLOBIN 10.9 g/dL (12.0-18.0); MCH 30.2 (27-36); MCV 91.3 fl (81-99); PLATELET COUNT 201 K/uL (140-440); RDW 14.8 (10.5-15.0)
[2023-05-20 05:37] LABS: ANION GAP 11.9 (7-21); BUN/CREATININE RATIO 15.45 (6.0-28.6); CALCIUM 8.2 mg/dL (8.5-10.1); CREATININE, SERUM 1.1 mg/dL (0.70-1.30); POTASSIUM 3.9 mmol/L (3.5-5.1)
[2023-05-20 06:12] LABS: LYMPHOCYTES, MANUAL DIFF 16; NEUTROPHILS, MANUAL DIFF 84
--- NOTE | 2023-05-20 08:15 | NUR ---
Pt off floor to MRI.
--- NOTE | 2023-05-20 08:55 | NUR ---
PATIENT IS IN THE MRI DEPARTMENT HAVING A MRI OF HIS RIGHT FOOT. THE RECYCLING OR RUBBISH COLLECTOR WILL RETURN LATER TODAY TO DO THE DISCHARGE ASSESSMENT.
--- NOTE | 2023-05-20 09:15 | NUR ---
PT BACK FROM MRI - PIVOT TRANSFER TO BED. PT DEMONSTRATES STRENGTH TO MOVE SELF IN BED AND BEAR WEIGHT ON NON AFFECTED LEG DURING TRANSFER, MILDLY IMPULSIVE WITH MOVEMENT. RIGHT FOOT REMAINS DRAINING SERO/SANG FLUID, SWOLLEN AND WARM TO TOUCH. PT RATES PAIN 7/10 IN FOOT. REPORTS MODERATE HEADACHE WITHOUT LIGHT SENSITIVITY, MILD TREMORS. MD APPRO[facility] WITH[facility]MPTOMS REQUESTED.
--- NOTE | 2023-05-20 10:10 | NUR ---
PT STATED FOOT IS BAD AND IS AWARE THAT INFECTION HAS TRAVELLED NEARLY TO HIS KNEE. CONSENTED TO PRAYER. PRAYED FOR HEALING AND STRENGTH. PT REQUESTED RESTAURANT MGR VISIT AND BRING COMMUNION. I COMMUNICATED THIS REQUEST VIA NOT IN SACRISTRY.
--- NOTE | 2023-05-20 11:06 | NUR ---
PT UP TO CHAIR WORKING WITH PHYSICAL THERAPY AND OT - ANDRE CARE COMPLETE, LINEN CHANGE. PT RATES PAIN 7/10, UNCHANGED BY TYLENOL.
--- NOTE | 2023-05-20 11:44 | NUR ---
PT DROWSY IN CHAIR, LEGS ELEVATED WITH PILLOW. VS STABLE. NEW IV IN R WRIST PLACED FOR ABX INFUSION. PT TOLERATED WITHOUT DIFFICULTY.
[2023-05-20] MEDS ORDERED: LIPITOR10 MG PO (12:08)
[2023-05-20] MEDS ORDERED: IBU600 MG PO (12:10)
[2023-05-20] MEDS ORDERED: TYLENOL325 MG PO (12:11)
--- NOTE | 2023-05-20 12:11 | NUR ---
PT PROVIDED LUNCH, WAKES EASILY. PT REFUSES HELP WITH URNIAL DESPITE SEVERAL EPISODES OF INC TODAY. PT AGGITATED. WILL CONTINUE TO ASSESS.
[2023-05-20] MEDS ORDERED: LANTUS SOL100 UNIT/1 SUB-Q (12:12)
[2023-05-20] MEDS ORDERED: NOVOLOG FL100 UNIT/1 SUB-Q (12:15)
--- NOTE | 2023-05-20 13:46 | NUR ---
SPOKE TO PATIENT ABOUT THE DC PLAN. PATIENT HAS A TRAVEL TRAILOR THAT HE LIVES ALONE IN. PATIENT DOES NOT WANT HIS SISTER TO KNOW HE IS IN THE HOSPITAL. PATIENT SAYS HE HAS A LOT OF DRINKING FRIENDS AND DOES NOT PLAN TO QUIT DRINKING. PATIENT REFUSES ETOH TREATMENT. PT TOLD TO ASK FOR PEOPLESOFT ANALYST IF HE CHANGES HIS MIND ABOUT ETOH HELP. PATIENT CAN TAKE CARE OF HIS OWN ADLS. PATIENT CAN AFFORD FOOD AND HOUSING AND FOLLOWS UP AT [facility] WHEN NEEDED. PATIENT IS NOT INTERESTED IN TALKING TO THE PEOPLESOFT ANALYST.
--- NOTE | 2023-05-20 14:12 | NUR ---
RN IN ROOM TO ROUND WITH DR. LAZO - PT WAKES EASILY. DISCUSSED POC CHOICES OF AMPUTATION VS WOUND DEBREIDMENT WITH PT, STATES UNDERSTANDING ON CURRENT PLAN TO CONSULT WITH PODIATRY.
--- NOTE | 2023-05-20 14:19 | NUR ---
REMAINS IN CHAIR. HAS BEEN VERY DROWSY TODAY. IVF AND IV ABX INFUSING.
--- NOTE | 2023-05-20 16:05 | NUR ---
Pt inc of urine in bed after attempting to use urinal by self - bed linens changed. VS remain stable.
--- NOTE | 2023-05-20 18:07 | NUR ---
RN AT BEDSIDE TO ASSIST DR. VICENTE IN DEBRIEDMENT AND WOUND CLEANSING. PT PROVIDED PRN DILAUDID FOR 10/10 PAIN. PT TOLERATED PROCEDURE WITH MODERATE DISCOMFORT. CONSENT SIGNED FOR SURGERY PLANNED FOR SATURDAY - PT DENIES QUESTIONS OR CONCERNS AT THIS TIME. DINNER PROVIDED.
--- NOTE | 2023-05-20 18:44 | NUR ---
PT RESTING WITH EYES CLOSED IN BED, ABLE TO REPOSISTION SELF. VS REMAINS STABLE. NO FURTHER SIGN OF WITHDRAWL.
--- NOTE | 2023-05-20 19:10 | NUR ---
REPORT RECEIVED AND CARE ASSUMED FROM MEGAN GORMAN. PT RESTING IN BED, WATCHING TELEVISION. NAD NOTED. CALL LIGHT IN REACH, BED ALARM ON.
--- NOTE | 2023-05-20 21:05 | NUR ---
REPORT RECEIVED FROM MEGAN GORMAN. PT RESTING IN BED WATCHING TELEVISION. NAD NOTED. BED ALARM ON, CALL LIGHT IN REACH.
--- NOTE | 2023-05-20 21:43 | NUR ---
PT REQUESTED WARM BLANKETS, DIET SPRITE, PB & CRACKERS, PUDDING AND SPOONS. PT REQUESTS PROVIDED. PT DENIES ADDITIONAL NEEDS. PT VERBALIZES UNDERSTANDING TO USE CALL LIGHT WITH NEEDS. CALL LIGHT IN REACH, BED IN LOW, LOCKED POSITION WITH BED ALARM ON. NAD NOTED.
[2023-05-21] VITALS (9 sets, daily range): BP systolic 92–133; BP diastolic 69–97
--- NOTE | 2023-05-21 02:35 | NUR ---
PT RESTING IN BED, DENIES NEEDS. PT USING URINAL APPROPRIATELY, PLEASANT AND COMMUNICATIVE. NAD NOTED.
--- NOTE | 2023-05-21 06:01 | NUR ---
PT DENIES NEEDS, PT RESTING IN BED, NAD NOTED. PT VERBALIZES UNDERSTANDING TO USE CALL LIGHT WITH NEEDS.
--- NOTE | 2023-05-21 06:54 | EKG ---
[facility] [address] [place] [address] Signed Sinus rhythm with occasional premature ventricular complexes Left anterior fascicular block Abnormal ECG When compared with ECG of 17-MAY-2020 08:46, premature ventricular complexes are now present Confirmed by BASSAM TAY MD ([id number]) on 05/21/2023 6:53:54 AM Electronically Signed By: BASSAM TAY 05/21/23 0654 PATIENT NAME: BETHANIE VEGA Electrocardiogram DATE OF : 77 PHYSICIAN: BASSAM TAY REPORT #: [id number] REPORT IS CONFIDENTIAL AND NOT TO BE RELEASED WITHOUT AUTHORIZATION
--- NOTE | 2023-05-21 08:00 | NUR ---
BEDBATH PROVIDED, PATIENT ASSISTING WITH ACTIVITY. STAND AND PIVOT TO RECLINER USING FWW, LEGS ELEVATED. LINEN AND GOWN CHANGED, BREAKFAST PROVIDED. CALL LIGHT IN EASY REACH. RN AT BEDSIDE
--- NOTE | 2023-05-21 08:10 | NUR ---
IN PATIENT'S ROOM FOR ASSESSMENT, BREAKFAST AND AM MEDS. CIAIO LUMITE INJECTOR IN ROOM HELPING CLEAN PATIENT UP AND GETTING INTO CHAIR. PT HAD LOOSE DIARRHEA IN BED WELL SOME SPILLING OF URINE. IVF CONTINUE AT 125 ML/HR. AM MEDS GIVEN PER EMAR. PT NOW SITTING IN CHAIR EATING BREAKFAST. PT STATES PAIN IS 6/10 CURRENTLY, AND HE NOTES RIGHT FOOT HURTS A LITTLE LESS TODAY THAN YESTERDAY. FOOT REMAINS WRAPPED PER MD WITH COBAN ON THE OUTSIDE. SOME DRAINAGE NOTED WHEN PATIENT UP TO CHAIR ON FLOOR, DARK BROWN IN COLOR BUT ONLY A FEW DROPS. RIGHT LOWER LEG EDEMATOUS, 2+ PRETIBIAL. UNABLE TO PALPATE PULSES ON RIGHT FOOT DUE TO DRESSING. ALL EXT WARM, PINK WITH NORMAL CAP REFILL. LINEN CHANGED AND NEW GOWN PROVIDED. PLAN OF CARE DISCUSSED.
--- NOTE | 2023-05-21 10:11 | NUR ---
SPOKE TO PATIENT ABOUT THE DC PLAN. PATIENT WILL BE GOING TO THE OR TOMORROW. PATIENT WILL BE HAVING SURGERY BY . PATIENT WILL HAVE 2 TOES AMPUTATED. PATIENT MAY HEED A WALKER OR WHEELCHAIR. DISCUSSED WITH PATIENT ABOUT THE DME THAT MAY BE NEEDED POST-OP. PATIENT VOICED UNDERSTANDING.
--- NOTE | 2023-05-21 10:20 | NUR ---
NOTED THAT PATIENT DID NOT HAVE ANY AM LABS DRAWN AND SODIUM WAS 130 YESTERDAY. NO NEW ORDERS REC'D.
--- NOTE | 2023-05-21 10:45 | NUR ---
SPRITE AND CRACKERS PROVIDED PER REQUEST. PATIENT RESTING IN RECLINER.CALL LIGHT IN EASY REACH
--- NOTE | 2023-05-21 11:31 | NUR ---
MED REC COMPLETE
--- NOTE | 2023-05-21 12:15 | NUR ---
DR. VICENTE IN TO SEE PATIENT AND CHANGING THE DRESSING. PURULENT DRAINAGE BEING EXPRESSED FROM THE WOUND. PT MEDICATED FOR PAIN PER EMAR BUT IS STILL VERY PAINFUL DURING THIS DRESSING CHANGE. NEW PICTURES TAKEN.
[2023-05-21 12:49] LABS: BASOPHILS 0.6 % (0-2); HEMATOCRIT 34.1 % (35.0-50.0); HEMOGLOBIN 11.2 g/dL (12.0-18.0); LYMPHOCYTES 8.8 % (24-44); MONOCYTES 9.1 % (0-12); NEUTROPHILS 80.5 % (39-80); PLATELET COUNT 238 K/uL (140-440); RBC 3.75 M/ul (4.3-5.7); RDW 14.5 (10.5-15.0)
[2023-05-21 12:58] LABS: ANION GAP 10.7 (7-21); BUN/CREATININE RATIO 10.61 (6.0-28.6); CALCIUM 8.8 mg/dL (8.5-10.1); CREATININE, SERUM 1.13 mg/dL (0.70-1.30); MAGNESIUM 1.5 mg/dL (1.8-2.4); POTASSIUM 3.7 mmol/L (3.5-5.1)
--- NOTE | 2023-05-21 13:53 | NUR ---
Pt appeared to be trying to sleep. Did not disturb. Prayed silent prayer for protestant of health and ongoing blessing.
[2023-05-21 13:59] LABS: ERYTHROCYTE SEDIMENTATION RATE 118
--- NOTE | 2023-05-21 16:33 | NUR ---
PC FROM [facility] IN [facility]. THEY WILL TRANSFER PT TO ROOM 109 VIA CHAIR NOW.
--- NOTE | 2023-05-21 16:52 | NUR ---
REPORT GIVEN TO MEGAN URENA WHO WILL RESUME CARE OF PATIENT ON MED/SURG ROOM 109. PT TAKEN OVER BY CHAIR TO NEW ROOM AND ALL PERSONAL BELONGINGS TAKEN WITH PATIENT. PT DOES NOT HAVE AN ORDER FOR TELE.
--- NOTE | 2023-05-21 17:06 | NUR ---
PT ARRIVED TO ROOM 109 VIA CHAIR, TRANSFERRED BY ADDY MITCHELL. PT A&O X4, REPORTS PAIN IS A 7 OUT OF 10 IN HIS RIGHT FOOT. WARM BLANKETS PROVIDED. PT ARRIVED AT ABOUT 1645 HOURS. PT PROVIDED TYLENOL FOR PAIN PER EMAR. CALL LIGHT IN REACH.
--- NOTE | 2023-05-21 18:39 | NUR ---
IN FOR HOURLY ROUNDING. PT IS RECLINED IN CHAIR, EYES CLOSED, BUT AWAKENS EASILY WITH QUIET NOISE. IV PUMP ALARMING THAT MG RIDER IS COMPLETE. RW IV S/L, CAP PLACED ON END.
--- NOTE | 2023-05-21 19:39 | NUR ---
REPORT RECEIVED FROM DAY SHIFT RN. PT RESTING IN BED. SAFETY PRECAUTIONS MAINTAINED. CALL LIGHT WITHIN REACH. WILL CONTINUE TO MONITOR.
--- NOTE | 2023-05-21 20:10 | NUR ---
PT ASSESSED AND MEDICATIONS GIVEN. RIGHT FOOT DRESSING CDI. IVF INFUSING PER ORDER. IV ABX GIVEN. URINAL AT BEDSIDE. CIWA SCORE 2. CEBALLOS NOTED ONLY PER PT. PT SBA WITH FWW TO THE BSC DUE TO MINIMAL WT BEARING ON RLE. PT EXPRESSED NO CONCERNS OR COMPLAINTS AT THIS TIME. SAFETY PRECAUTIONS MAINTAINED. CALL LIGHT WITHIN REACH. WILL CONTINUE TO MONITOR.
--- NOTE | 2023-05-21 22:05 | NUR ---
PATIENT CALLED. EMPTIED URINAL WITH 900ML YELLOW URINE. CRACKERS AND DIET SODA PROVIDED PER PATIENT'S REQUEST.
[2023-05-22] VITALS (8 sets, daily range): BP systolic 97–143; BP diastolic 57–111
[2023-05-22 05:52] LABS: BASOPHILS 0.7 % (0-2); EOSINOPHILS 1.7 % (0-6); HEMATOCRIT 34.8 % (35.0-50.0); HEMOGLOBIN 11.8 g/dL (12.0-18.0); LYMPHOCYTES 11.4 % (24-44); MCH 30.9 (27-36); MCHC 33.9 g/dl (30-36); MCV 91.2 fl (81-99); MONOCYTES 11.9 % (0-12); NEUTROPHILS 74.3 % (39-80); PLATELET COUNT 262 K/uL (140-440); RBC 3.82 M/ul (4.3-5.7)
--- NOTE | 2023-05-22 06:03 | NUR ---
PT RESTED WELL DURING THE SHIFT. IVF INFUSING PER ORDER. PT USING THE URINAL AT BEDSIDE, GOOD OUTPUT NOTED. PT SBA WITH WALKER TO BATHROOM. PT HAD A PRE-SURGICAL BATH THIS AM. SHEETS AND GOWN CHANGED. PT NPO SINCE MIDNIGHT IN PREPARATION FOR PROCEDURE TODAY. DILAUDID GIVEN FOR PAIN. SAFETY PRECAUTIONS MAINTAINED. CALL LIGHT WITHIN REACH. WILL CONTINUE TO MONITOR.
[2023-05-22 06:05] LABS: ALBUMIN 1.8 g/dL (3.4-5.0); ALBUMIN/GLOBULIN RATIO 0.31 (1.1-2.4); BILIRUBIN, TOTAL 1.5 ng/dL (0.2-1.0); CALCIUM 9.1 mg/dL (8.5-10.1); CREATININE, SERUM 1.09 mg/dL (0.70-1.30); PROTEIN, TOTAL 7.7 g/dL (6.4-8.2)
--- NOTE | 2023-05-22 07:28 | NUR ---
REPORT RECIEVED FROM MEGAN STRANGE. PT RESTING IN BED, USING URINAL WHILE LYING ON RIGHT SIDE. URINAL EMPTIED OF 500ML CLEAR YELLOW URINE, CONCENTRATED. PT REPORTS 7/10 PAIN IN HIS RIGHT FOOT AND 8/10 HEADACHE. PT VERBALIZES UNDERSTANDING OF PLAN OF CARE AND PLAN FOR TRANSFER TO OR THIS MORNING. KADY, OR CHARGE, CALLED AND STATES TO HOLD MORNING DOSE OF ZOSYN, DOSE HELD. NO ADDITIONAL REQUESTS OR COMPLAINTS AT HTIS TIME. CALL LIGHT WITHIN REACH. BED RAILS UP.
--- NOTE | 2023-05-22 07:58 | NUR ---
MORNING ASSESSMENT AND MEDICATION DUE. KADY SUPPLY CHAIN GENERALIST STATES TO GIVE MORNING CARDIAC MEDICAITONS AND DAPTOMYACIN BUT HOLD ZOSYN. SEE MAR FOR MEDICATIONS GIVEN. PT CONTINUES TO REPORT 7/10 PAIN IN RLE, AND 8/10 HEADACHE. SEE MAR FOR MEDICATION GIVEN. PT ALERT AND ORIENTED TO ALL. PT VERBALIZES UNDERSTANDING OF PLAN OF CARE AND ASKS APPROPIRATE QUESTIONS, QUESTIONS ANSWERED. CIWA 2 AT THIS TIME. BASELINE NEUROPATHY CONTINUES IN BLE AND HANDS. LUNG SOUNDS CLEAR. HEART TONES REGULAR. METOPROLOL GIVEN, LOSTARTAN HELD BLOOD PRESSURE MILDY LOW AT THIS TIME AND PT IS PRE OP. STRONG PEDIAL AND TIBIAL PULSES FELT TO LLE, RLE COVERED WITH BANDAGE, UNABLE TO ASSESS PULSES. EDEMA CONTINUES TO RLE. DRESSING IN PLACE, NO DRAINAGE PRESENT AT THIS TIME. ABDOMEN SOFT AND NON TENDER. BOWEL TONES ACTIVE. PT REPORTS HUNGER. PT VOIDING LARGE AMOUNTS OF CLEAR YELLOW URINE. CONTINANT AT THIS TIME. PT WATCHING TV. NO ADDITIONAL REQUESTS OR COMPLAINTS. UPDATED REGARDING HOLDING OF BLOOD PRESSURE MEDICATION. CALL LIGHTW ITHIN REACH. BED RAILS UP.
--- NOTE | 2023-05-22 08:40 | NUR ---
REPORT GIVEN TO RUBEN HILLMAN RN WHO HAS COME TO TAKE PT TO OR. PT VERBALIZES UNDERSTANDING OF PLAN OF CARE AND PROCEEDURE. PT REPORTS 6/10 PAIN IN RLE AND STATES HEADACHE HAS RESOLVED. IV FLUIDS TAKEN OFF OF PUMP AND PLACED ON STRAIGHT TUBING PER OR PROTOCOL. NO ADDITIONAL REQUESTS OR COMPLAINTS. PT TO OR.
--- NOTE | 2023-05-22 11:03 | NUR ---
05/22/23 1102 Leny Quintanilla 1043-PATIENT ARRIVED TO PACU ON 6L MASK RR EVEN. PATIENT REACTIVE TO VERBAL STIMULI SLIGHTLY OPENING EYES REMAINS VERY DROWSY. IVF INFUSING. SR. RIGHT FOOT ELEVATED ON PILLOW DRESSING CDI. CAP REFILL 2 SECONDS. EROS PEDAL PULSE. WARM
--- NOTE | 2023-05-22 11:20 | NUR ---
PT ARRIVED FROM PACU. REPORT RECEIVED FROM MEGAN WILKES. VITAL SIGNS STABLE. PT TOELARTING ROOM AIR WITH OXGYEN SATUARTIONS OF 100%. PT ALERT AND OREINTED TO ALL. PT DENIES PAIN AND NAUSEA AND REQUESTS FOOD. ICE WATER PROVIDED. LUNG SOUNS CLEAR. HEART TONES ERGULAR. BASELINE NEUROPATHY UNCHANGED. STRONG PEDIAL AND TIBIAL PULSES TO LLE, RLE COVERED WITH BANDAGE, UNABLE TO ASSESS PULSES. STRONG PLANTAR AND DORSI FLEXION PRESENT. +2 PITTING EDEMA CONTINUES TO RLE. DERSSING C/D/I TO RIGHT FOOT. CPOX IN PLACE WITH OXGYEN SATURATIONS ABOVE 96%. PUDDING PROVIDED PER PT REQUEST. PT CALLIGN FRIENDS TO UPDATE THEM. NO ADDITONAL REQUESTS OR COMPLAINTS. CALL LIGHT WITHIN REACH. BED RAILS UP.
--- NOTE | 2023-05-22 13:28 | NUR ---
VITALS AND ASSESSMENT DUE. PT UP TO CHAIR AFTER WORKING WITH PHYSICAL THERAPY. PT REPORTS PHYSICAL THERAPY WAS "FINE, BUT ALL I DID WAS STAND." PT CONTINEUS TO DENY PAIN AND NAUSEA. CMS UNCHANGED. DRESSING UNCHANGE, NO DRAINAGE PRESENT. VITALS SIGNS STABLE. PT HAS VOIDED 100ML DARK YELLOW URINE INTO URINAL. IV ABX STARTED, NEW IV FLUID BAG HUNG. NO ADDITIONAL REQUESTS OR COMPLAINTS. CALL LIGHT WIHTIN REACH. PT ENCOUARGED TO CALL WITH NEEDS.
--- NOTE | 2023-05-22 14:30 | NUR ---
VITALS AND ASSESSMENT DUE. PT REMAINS UP TO CHAIR. RESTING ON LEFT SIDE IN CHAIR. PT AWAKE AND ALERT. PT ORIENTED TO ALL, MORE IRRITABLE AND AGITATED WITH INTERVENTIONS. PT UNABLE TO ADD NUMBERS CORRECTLY BUT DOES REPORT THE DATE ACCURATLY AFTER CORRECTING HIMSELF. MILD CLAMMY SKIN PRESENT. PT REPORTS 7/10 HEADACHE AND 7/10 RLE PAIN STATING THE "NUMBNESS IS WEARING OFF." SEE MAR FOR MEDICATION GIVEN. OCCUPATIONAL THERAPY TO BEDSIDE AND PT AGITATED WITH SUGGESTED ACTIVITIES. CMS UNCHANGED. DRESSIGN UNCHANGED. PT CONTINUES TO TOLERATE ROOM AIR WITH OXGYEN SATURATIOSN ABOVE 96%. PT WORKING WITH OCCPATIONAL THERPY GETTING UP TO RESTROOM. NO ADDITIONAL NEEDS AT THIS TIME. CALL LIGHT WITHIN REACH. PT ADVISED TO CALL IF/WHEN HE NEEDS TO GET UP.
--- NOTE | 2023-05-22 14:56 | NUR ---
HOURLY ROUNDING. PT RESTING IN CHAIR WITH EYES CLOSED. O2 SAT 98. CALL LIGHT WITHIN REACH.
--- NOTE | 2023-05-22 15:54 | NUR ---
HOURLY ROUNDING. PT LAYING IN CHAIR, STATES HE DOES NOT WANT TO GO BACK INTO THE BED. IN TO GIVE MEDICATION, SEE EMAR. PT DROPPED MEDICATION, RETRIEVED ADDITIONAL CAPSULE. PT REPORTS 7/10 HEADACHE AND 6/10 PAIN IN R FOOT. PT TOLERATING RA AT 98%. PT DRIFTS QUICKLY BACK TO SLEEP. RESPIRATIONS REMAIN EVEN AND UNLABORED. CALL LIGHT WITHIN REACH. FEET ELEVATED ON PILLOWS.
--- NOTE | 2023-05-22 16:17 | NUR ---
PT POST OP DAY ZERO AFTER 5TH DIGIT FROM RIGHT FOOT. PT UP AFTER SURGERY WITH STAND BY ASSIST AND FWW TO RESTROOM, ARROUND ROOM, AND TO CHAIR. TOLERATING ACTIVITY WELL. PT ADVANCED TO 60G CARB DIET WITH EXCELLENT APPITITE. SUGAR FREE SNACKS PROVIDED. BLOOD SUGAR CHECKS WITH MEALS WITH SLIDING SCALE INSULIN. CIWA SCORES 2-5 THIS SHIFT, NO MEDICATION NEEDED. PT ALERT AND ORIENTED THROUGHOUT SHIFT, IRRITABLE AT TIMES. CPOX IN PLACE, PT TOLERATING ROOM AIR WITH OXYGEN SATURATIONS ABOVE 96%. SURGICAL DRESSING IN PLACE TO RLE/FOOT. C/D/I THIS SHIFT. BASELINE NEUROPATHY WITH PLANTAR AND DORSI FLEXION PRESENT. UNABLE TO ASSESS RLE PULSES THIS SHIFT THEY ARE COVERED BY BANDAGE. +2 PITTING EDEMA CONTINUES TO RLE. PT VOIDING QUANTITY SUFFICIENT. PT HAS YET TO USE CALL LIGHT. BED/CHAIR ALARM FOR SAFETY.
--- NOTE | 2023-05-22 17:01 | NUR ---
AFTERNOON ASSESSMENT DUE. PT RESTING ON LEFT SIDE WHILE UP TO CHAIR WITH EYES CLOSED. PT AWAKENS TO VOICE. BLOOD SUGAR TAKEN, REMAINS WITH IN RANGE. PT REPORTS 7/10 HEADACHE AND 7/10 RIGTH FOOT/TOE PAIN CONTINUES. PT DECLINES PAIN MEDICATION AT THIS TIME STATING "I'LL HAVE IT AFTER DINNER." PT REMAINS ALERT AND ORENTED TO ALL WITH CIWA SCORE OF 2. PT CALM AND COOPERATIVE, MILDY DROWSY ALTHOUGH RESPONDING APPROPRIATLY. LUNG SOUNDS CLEAR. HEART TONES REGULAR. BOWEL TONES ACTIVE. NEUROPATHY UNCHANGED. STRONG PEDIAL AND TIBIAL PULSES PRESENT TO LLE, UNABLE TO ASSESS PERIPHERAL PULSES TO RLL BANDANGE IS IN PLACE. BANDAGE REMAINS C/D/I. PLANTAR AND DORSI FLEXION PRESENET ALTHOUGH WEAKER IN RIGHT COMPARED TO LEFT. PT TOELRATING ROOM AIR WITH OXGYEN SATURATION OF 98%. PT CONITINUES TO REQUESTS TO "GO GET A BEER." 350ML YELLOW URINE EMPITED FROM URINAL. PT DENIES ADDITIONAL REQUESTS OR COMPLAINTS AT THIS TIME. CALL LIGHT WITHIN REACH.
--- NOTE | 2023-05-22 17:20 | NUR ---
HOURLY ROUNDING. OT IN ROOM WORKING WITH PT. PT HAD QUESTIONS REGARDING WOUND CARE, FACILITIES MAINTENANCE SUPERVISOR ON FLOOR AND CONSULTED ON THIS. PT ASSISTED SETTING UP DINNER TRAY. CALL LIGHT WITHIN REACH. O2 >88. LEGS ELEVATED IN CHAIR.
--- NOTE | 2023-05-22 17:39 | NUR ---
DR. SUERO UPDATED REGARDING PT'S REPORTS OF PAIN. PT HAS REQUESTED PERCOCET WHICH HAS WORKED FOR HIM IN THE PAST. NEW ORDERS GIVEN, ORDERS ENTERED, REPEAT BACK PERFORMED.
--- NOTE | 2023-05-22 17:46 | NUR ---
HOURLY ROUNDING. PT WAS RESTING WITH EYES CLOSED RESPIRATIONS EVEN AND UNLABORED. PT AWAKENS TO TOUCH FOR DINNER WHICH WAS REQUESTED BY PT. CALL LIGHT WITHIN REACH. LEGS ELEVATED IN CHAIR.
--- NOTE | 2023-05-22 18:22 | NUR ---
HOURLY ROUNDING. PT SITTING UP IN CHAIR, MOVED BACK TO BED. PT CONTINUES TO BE STANDBY ASSIST WITH FWW. REPORTS 7/10 PAIN IN BOTH FOOT AND HEADACHE. PAIN MEDICATION PER ORDER, SEE EMAR. PT CONTINUES TO INDEPENDENTLY USE URINAL. URINAL AT THE BEDSIDE, GOOD OUTPUT NOTED. CALL LIGHT WITHIN REACH. PT LYING SEMIFOWLER IN BED, R LEG ELEVATED ON PILLOW, WARM BLANKETS PROVIDED.
--- NOTE | 2023-05-22 19:34 | NUR ---
REPORT RECEIVED FROM DAY SHIFT RN. PT RESTING IN BED. LYING ON RIGHT SIDE. SAFETY PRECAUTIONS MAINTAINED. CALL LIGHT WITHIN REACH. WILL CONTINUE TO MONITOR.
--- NOTE | 2023-05-22 20:10 | NUR ---
PT ASSESSED AND MEDICATIONS GIVEN. VSS. IVF INFUSING PER ORDER. IV ABX GIVEN. RIGHT FOOT DRESSING CDI. PT SBA WITH A WALKER. PT USING URINAL AT BEDSIDE. GOOD OUTPUT NOTED. SAFETY PRECAUTIONS MAINTAINED. CALL LIGHT WITHIN REACH. WILL CONTINUE TO MONITOR.
[2023-05-23 01:51] VITALS: BP 95/70
--- NOTE | 2023-05-23 02:01 | NUR ---
PT RESTING IN BED. VSS. IVF INFUSING. ABX GIVEN. PT CONTINUES TO BE A SBA WITH WALKER. URINAL AT BEDSIDE. SAFETY PRECAUTIONS MAINTAINED. CALL LIGHT WITHIN REACH. WILL CONTINUE TO MONITOR.
[2023-05-23 05:49] LABS: BASOPHILS 0.9 % (0-2); EOSINOPHILS 4.3 % (0-6); HEMATOCRIT 38.7 % (35.0-50.0); HEMOGLOBIN 12.9 g/dL (12.0-18.0); LYMPHOCYTES 16.6 % (24-44); MCH 30.2 (27-36); MCHC 33.3 g/dl (30-36); MCV 90.9 fl (81-99); MONOCYTES 11.3 % (0-12); NEUTROPHILS 66.9 % (39-80); PLATELET COUNT 281 K/uL (140-440); RBC 4.26 M/ul (4.3-5.7); RDW 14.7 (10.5-15.0)
[2023-05-23 05:52] VITALS: BP 111/65
[2023-05-23 06:01] LABS: ALBUMIN/GLOBULIN RATIO 0.31 (1.1-2.4); ANION GAP 14.3 (7-21); BILIRUBIN, TOTAL 1.3 ng/dL (0.2-1.0); BUN/CREATININE RATIO 12.5 (6.0-28.6); CALCIUM 9.5 mg/dL (8.5-10.1); CREATININE, SERUM 1.2 mg/dL (0.70-1.30); POTASSIUM 4.3 mmol/L (3.5-5.1); PROTEIN, TOTAL 8.5 g/dL (6.4-8.2)
--- NOTE | 2023-05-23 06:08 | NUR ---
PT RESTED WELL THROUGHOUT THE SHIFT. PRN PERCOCET GIVEN FOR PAIN. IVF INFUSING PER ORDER. IV ABX GIVEN. URINAL AT BEDSIDE. GOOD OUTPUT NOTED. SAFETY PRECAUTIONS MAINTAINED. CALL LIGHT WITHIN REACH. WILL CONTINUE TO MONITOR.
--- NOTE | 2023-05-23 07:05 | NUR ---
THIS RN AND MEGAN URENA RECEIVED REPORT FROM MEGAN BLACKWELL. PT RESTING IN BED ON LEFT SIDE. EYES CLOSED, RR EVEN AND UNLABORED. CALL LIGHT IN REACH.
--- NOTE | 2023-05-23 07:05 | NUR ---
RECEIVED PT REPORT FROM MEGAN BLACKWELL. PT RESTING WITH EYES CLOSED IN BED, LAYING ON HIS LEFT SIDE. BREATHING IS REGULAR AND NON-LABORED.
--- NOTE | 2023-05-23 08:24 | OR ---
[facility] [address], [place] [address] Signed DATE OF OPERATION: 05/22/2023 SURGEON: Justine Lucas DPM PREOPERATIVE DIAGNOSES: 1. 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 2. Cellulitis with abscess formation. POSTOPERATIVE DIAGNOSES: 1. 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 2. Cellulitis with abscess formation. PROCEDURES: 1. Amputation of right 5th digit. 2. Debridement of bone, 5th metatarsal. 3. I and D of extensor tendon, right foot. RN CONCURRENT REVIEW: Feliciano Gutierrez DPM. ANESTHESIA: Local with general. ESTIMATED BLOOD LOSS: Less than 5 mL or minimal. HEMOSTASIS: With an ankle tourniquet. MATERIALS UTILIZED: Calcium sulfate beads with one-third gram vancomycin powder mixed in and 3-0 nylon. PROCEDURE IN DETAIL: The patient was brought into the operating room and placed upon the operating table in the supine position. Following IV sedation, local anesthesia consisting of 10 mL of 0.5% ropivacaine was injected above the patient's right ankle. The patient's right foot was then scrubbed, prepped and draped in usual sterile technique. An Esmarch bandage was wrapped around the patient's right ankle without exsanguinating the foot or the area distally. Attention was then directed to the dorsal aspect of the patient's right foot, where 5th metatarsophalangeal joint region, where approximately a 5-cm linear incision Electronically Signed By: JUSTINE LUCAS DPM 05/23/23 0824 PATIENT NAME: BETHANIE VEGA OPERATIVE REPORT DATE OF : 77 REPORT #: [id number] PHYSICIAN: JUSTINE LUCAS DPM PCP: EMELYN CHEN REPORT IS CONFIDENTIAL AND NOT TO BE RELEASED WITHOUT AUTHORIZATION [facility] [address], [place] [address] Signed was performed over the dorsal aspect of the 5th metatarsal extending to the base of the 5th digit. Circumferential incision was then performed at the base of the 5th digit. Next, a #64 blade was utilized to release deep soft tissue and capsular structures from the base of the 5th digit and the 5th digit was excised and removed from the surgical site. Attention was then directed to the 5th metatarsal, where the incision was deepened utilizing a #64 blade down to bone. Wetzel elevator was then utilized to free the soft tissue attachments at the distal 2/3rd of 5th metatarsal. Sagittal saw was then utilized to perform a transverse osteotomy of the 5th metatarsal at the proximal, middle one-third metatarsal junction. The osteotomy was through and through. Inspection of the osteotomy revealed healthy appearing bone at this level. The distal aspect of the 5th metatarsal was then excised. Inspection of the surrounding area was then performed. Rongeur and tenotomies were utilized to debride necrotic tissue, damage tissue, scar tissue from around this location. With light pressure, some purulent drainage has been expressed from the extensor tendon leading to the 5th digit and incision was then performed proximal extending the incision from the metatarsal up into the calcaneocuboid region. Careful dissection continued down to the level of the extensor tendons. This extensor tendon sheath was then incised and purulent drainage expressed and necrotic tendon debridement occurred. The area was then flushed with copious amounts of sterile normal saline. The whole area was then flushed with sterile normal saline and inspected. Next, calcium sulfate beads were placed along the cores of the surgical site from the area of necrotic tendon, also into the 5th metatarsal cavity and to the base what would be 5th metatarsophalangeal joint. The surgical site was reapproximated proximally and distally utilizing 3-0 nylon in the interrupted suture technique. The mid 50% or so of the surgical site was unable to be closed due to soft tissue loss. This area was packed with moist gauze dressing. Adaptic was then applied followed by Betadine soaked gauze, fluff gauze, Kerlix, and Coban. The ankle tourniquet was removed and prompt hyperemic response was noted to all digits that remained on the patient's right foot. The patient was then escorted to the recovery area. The patient tolerated both the procedure and the anesthesia well. The patient is to be readmitted to the general medical floor for continued IV antibiotics. Justine Lucas DPM TM/MODL /[id number] Electronically Signed By: JUSTINE LUCAS DPM 05/23/23 0824 PATIENT NAME: BETHANIE VEGA OPERATIVE REPORT DATE OF : 77 REPORT #: [id number] PHYSICIAN: JUSTINE LUCAS DPM PCP: [facility] REPORT IS CONFIDENTIAL AND NOT TO BE RELEASED WITHOUT AUTHORIZATION [address] [address] Signed Copies: ~ Electronically Signed By: JUSTINE LUCAS DPM 05/23/23 0824 PATIENT NAME: BETHANIE VEGA OPERATIVE REPORT DATE OF : 77 REPORT #: [id number] PHYSICIAN: JUSTINE LUCAS DPM PCP: EMELYN [facility] REPORT IS CONFIDENTIAL AND NOT TO BE RELEASED WITHOUT AUTHORIZATION
--- NOTE | 2023-05-23 09:20 | NUR ---
Pt states feeling better about self and feeling healthier since has not used alchohol. Exercised [facility] as Dr. Rao began wound care. Exited room to allow care to continue.
[2023-05-23 10:24] VITALS: BP 149/89
--- NOTE | 2023-05-23 11:22 | NUR ---
IN PT REQUESTING PRN PAIN MEDICATION. PT REPORTING PAIN 8/10 IN RLE. PT TAKES PRN PAIN MEDICATION WITH NO ISSUES, SEE MAR. WATER PROVIDED. PT DENIES ANY OTHER NEEDS AT THIS TIME. CALL LIGHT IN REACH.
--- NOTE | 2023-05-23 11:25 | NUR ---
Reached out to CORTES at [facility], checking for bed availability for SNF. No beds available at [facility]. Message left for Caridad at [facility] regarding bed. Awaiting call back.
[2023-05-23 13:51] VITALS: BP 137/81
--- NOTE | 2023-05-23 15:03 | NUR ---
IN TO ADMINISTER MEDICATION, SEE MAR. PT REPORTING PAIN 7/10 IN RLE. PT TAKES PO MEDICATION WITH NO ISSUES. PRN TYLENOL ADMINISTERED, SEE MAR. ASSESSMENT COMPLETE. LUNG SOUNDS CLEAR. BOWEL TONES ACTIVE. RLE DRESSING C/D/I. PT REPORTS SENSATION IN BLE. CMS INTACT. RLE WARM TO TOUCH. RLE ELEVATED ON PILLOW. WATER AND YAMILEX PROVIDED. URINAL EMPTIED. PT DENIES ANY OTHER NEEDS AT THIS TIME. CALL LIGHT IN REACH.
[2023-05-23 16:49] VITALS: BP 128/78
--- NOTE | 2023-05-23 16:53 | NUR ---
IN TO ADMINISTER MEDICATION, SEE MAR. VITALS AND I&Os COMPLETE. PT RESTING IN BED ON LEFT SIDE. EYES CLOSED. RR EVEN AND UNLABORED. PT RESPONDS WHEN ADDRESSED. PT DENIES ANY OTHER NEEDS AT THIS TIME. CALL LIGHT IN REACH.
--- NOTE | 2023-05-23 18:09 | NUR ---
IN TO ROUND ON PT. PT REPORTING PAIN 8/10 IN RLE. PRN PAIN MEDICATION ADMINISTERED, SEE MAR. PT DENIES ANY OTHER NEEDS AT THIS TIME. CALL LIGHT IN REACH. URINAL EMPTIED. DINNER TRAY REMOVED. WATER PROVIDED.
--- NOTE | 2023-05-23 19:25 | NUR ---
REPORT RECIEVED FROM DAY SHIFT RN. PT RESTING IN BED. IVF INFUSING. SAFETY PRECAUTIONS MAINTAINED. CALL LIGHT WITHIN REACH. WILL CONTINUE TO MONITOR.
[2023-05-23 20:06] VITALS: BP 139/82
--- NOTE | 2023-05-23 20:15 | NUR ---
PT ASSESSED AND MEDICATIONS GIVEN. IVF INFUSING PER ORDER. IV ABX GIVEN. URINAL AT BEDSIDE. PT SBA WITH WALKER TO BATHROOM AND IN ROOM. RIGHT FOOR ELEVATED ON PILLOWS. SAFETY PRECAUTIONS MAINTAINED. CALL LIGHT WITHIN REACH. WILL CONTINUE TO MONITOR.
[2023-05-24 05:02] VITALS: BP 134/85
[2023-05-24 05:52] LABS: BASOPHILS 0.8 % (0-2); EOSINOPHILS 4.8 % (0-6); HEMATOCRIT 37.5 % (35.0-50.0); HEMOGLOBIN 12.5 g/dL (12.0-18.0); LYMPHOCYTES 16.9 % (24-44); MCHC 33.4 g/dl (30-36); MCV 89.7 fl (81-99); MONOCYTES 9.3 % (0-12); NEUTROPHILS 68.2 % (39-80); PLATELET COUNT 348 K/uL (140-440); RBC 4.18 M/ul (4.3-5.7); RDW 14.8 (10.5-15.0)
--- NOTE | 2023-05-24 06:04 | NUR ---
PT RESTED WELL DURING THE SHIFT. IVF INFUSING PER ORDER. PT ABLE TO AMBULATE WITH FWW TO THE BATHROOM AND AROUND ROOM. URINAL AT BEDSIDE. GOOD OUTPUT NOTED. RIGHT FOOT DRESSING CDI. SAFETY PRECAUTIONS MAINTAINED. CALL LIGHT WITHIN REACH. WILL CONTINUE TO MONITOR.
[2023-05-24 06:15] LABS: ALBUMIN/GLOBULIN RATIO 0.31 (1.1-2.4); ANION GAP 15.2 (7-21); BILIRUBIN, TOTAL 0.9 ng/dL (0.2-1.0); BUN/CREATININE RATIO 12.6 (6.0-28.6); CALCIUM 9.6 mg/dL (8.5-10.1); CREATININE, SERUM 1.19 mg/dL (0.70-1.30); POTASSIUM 4.2 mmol/L (3.5-5.1); PROTEIN, TOTAL 8.5 g/dL (6.4-8.2)
--- NOTE | 2023-05-24 07:00 | NUR ---
REPORT REVEIVED FROM MEGAN BLACKWELL. PT LAYING IN BED WATCHING TV. PT RESPONDS WHEN ADDRESSED. PT REQUESTING WATER, WATER PROVIDED. PT DENIES ANY OTHER NEEDS AT THIS TIME. CALL LIGHT IN REACH.
--- NOTE | 2023-05-24 07:51 | NUR ---
DID PATIENT BLOOD SUGAR CHECK. PATIENT IS SLEEPING.
--- NOTE | 2023-05-24 08:13 | NUR ---
IN TO ADMINISTER MEDICAITON, SEE MAR. PT TAKES PO MEDICATIONS WITH NO ISSUES. ASSESSMENT COMPLETE. PT REPORING PAIN 03/04. PRN PAIN MEDICATION ADMINISTERED, SEE MAR. DISCUSSED WITH MD ABOUT DESIRAE GONZÁLES. PER MD. "OKAY TO GIVE TO PT." IV FLUSHES WNL. ASSESSMENT COMPLETE. LUNG SOUNDS CLEAR. BOWEL TONES ACTIVE. PT DENIES PAIN OR TENDERNESS WITH ABD PALPATION. PT REPORTS NUMBNESS AND TINGLING IN BILATERAL HANDS AND FEET CHRONIC. DRESSING TO RIGHT FOOT C/D/I. EDEMA NOTED TO RLE. CAP REFILL TO RIGHT FOOT WNL. PT REPORTS SENSATION IN RIGHT FOOT WITH TOUCH. URINAL EMPTIED. PT DENIES ANY OTHER NEEDS AT THIS TIME. CALL LIGHT IN REACH.
--- NOTE | 2023-05-24 09:00 | NUR ---
Spoke with Christiano. Asked were he would like to go on dc for his antibiotics and wound care. Options are SNF or Out patients. He states he will not consider any place but a SNF. We discussed he has dmap and these beds are limitied. He agrees to go out of town if a bed can be found. He is unsure of his pcp. He states he has no one to help him at home. Called and left a message at [facility], and [facility]. I called and left a message for Carla Covarrubias at [facility] to see if he would qualify for payment through [employer].
[2023-05-24 10:00] VITALS: BP 122/56
--- NOTE | 2023-05-24 11:09 | NUR ---
Spoke with Joy from [facility]. She does not have beds open. I received a return call from Carla Covarrubias. She states Meeta will pay for over and above bills for Medicare. She states they are not allowed to be billed above what medicaid covers. She states they are now set up with [facility] through their transportation department. Pt should be able to go to [facility] Patients for IV and wound care. I will speak with the pt again. She transfered me to Shy, adult basic education manager. She states they have limited drivers and it would be case by case. They do not transport on the weekends.
--- NOTE | 2023-05-24 11:16 | NUR ---
I spoke with PT and they state pt is strong and able to walk without assist.
--- NOTE | 2023-05-24 11:30 | NUR ---
Spoke with Dr. Leung and updated, pt has been declined by all SNFs in our area. Updated pt would prefer a SNF, but per PT pt is able to ambulate with a walker. Per Dr. Leung pt can return daily to OP for wound care and IV therapy or he can go home with PO antibiotics. I gave these options to the pt and he states he wants a SNF as he does not have any caregivers. He does have a place to live. He does not have a phone or transportation. His friend will pick him up and transport him. He would like his rx as a hard copy to fill at [facility] or in [facility] depending where he decides to stay. I called [facility] to set up a FU appt with Dottie RAND, unfortunately, I am unable to reach any of the RN's or their scheduling desk. Message left with the Nurse supervisor air conditioning installer phone asking if they can provide any help for this pt. Pt does have a walker in the room. Dr. Leung updated pt plans on going home with oral antibiotics.
--- NOTE | 2023-05-24 11:38 | NUR ---
IN TO ROUND ON PT. PT RESTING IN BED WITH EYES CLOSED. RR EVEN AND UNLABORED. PT LAYING ON LEFT SIDE. URINAL EMPTIED. NO OTHER NEEDS IDENTIFIED AT THIS TIME. CALL LIGHT IN REACH.
[2023-05-24] MEDS ORDERED: ZINC30 MG PO (12:28)
[2023-05-24] MEDS ORDERED: BACTRIM DS TAB1 EACH PO (12:28)
[2023-05-24] MEDS ORDERED: VITAMIN C250 M1 PO (12:28)
[2023-05-24] MEDS ORDERED: CIPROFLOXACIN500 MG PO (12:28)
--- NOTE | 2023-05-24 13:11 | NUR ---
IN IV PUMP ALARMING. IV ABX COMPLETE. PT SL AT THIS TIME. PT RESTING IN BED ON RIGHT SIDE WITH EYES CLOSED, RR EVEN AND UNLABROED. NO NEEDS IDENTIFIED AT THIS TIME. CALL LIGHT IN REACH.
--- NOTE | 2023-05-24 14:10 | NUR ---
Called [facility] for a FU appt and they are closed. Left a message letting them know pt plans on dc to home. Left update all SNFs declined him. I am not able to reach anyone at [facility] who can assist this pt at this time. I've again have reached out to three different people attempting to schedule this pt and have been able to contact anyone. Message left for Brandi that works in pcp's office at the [facility].
--- NOTE | 2023-05-24 14:19 | NUR ---
IN TO ADMINISTER MEDICATION, SEE MAR. PHARMACY IN ROOM. TALKED TO PHARMACY REGARDING CEFEPIME ABX RUNNING OVER 4 HOURS. PER AICHA, PHARMACY "OKAY TO RUN OVER 30 MINUTES." URINAL EMPTIED. PT DENIES ANY OTHER NEEDS AT THIS TIME. CALL LIGHT IN REACH. PT ATTEMPTING TO CALL FOR CLOTHES AND A RIDE.
[2023-05-24 14:53] VITALS: BP 158/85
--- NOTE | 2023-05-24 15:00 | NUR ---
Received a call from [facility] ticket scheduler. He scheduled pt to see Dr. Gutierrez and then called again as he has updated Dr Lucas pt does not qualify for SNF. Dr Lucas would like to see pt Saturday at 4:30. Called charge nurse and updated and she will add his appt to the dc instruction sheet.
--- NOTE | 2023-05-24 15:23 | NUR ---
IN TO ROUND ON PT. PT RESTING IN BED WITH EYES CLOSED. RR EVEN AND UNLBAORED. PT ON LEFT SIDE. IV ABX COMPLETE. MEDICATION ADMINISTERED, SEE MAR. IV INFUSING WNL. NO OTHER NEEDS IDENTIFIED AT THIS TIME. CALL LIGHT IN REACH.
--- NOTE | 2023-05-24 16:17 | NUR ---
IN IV ABX COMPLETE. PT SL. IV REMOVED WNL. COBAN AND GAUZE PLACED AND VERBAL INSTRUCTIONS PROVIDED. PT DENIES ANY NEEDS AT THIS TIME. CALL LIGHT IN REACH.
[2023-05-24 16:33] VITALS: BP 138/92
--- NOTE | 2023-05-24 16:38 | NUR ---
IN TO GO OVER DC TEACHING. VERBAL AND WRITTEN INSTRUCTIONS PROVIDED. FOLLOW UP APPOINTMENT PROVIDED. QUESTIONS ANSWERED. BELONGINGS RETURNED. PT DENIES ANY NEEDS AT THIS TIME. CALL LIGHT IN REACH.
--- NOTE | 2023-05-27 15:48 | PATH ---
[facility] [address], [place] [address] Signed SPECIMEN(S): A RIGHT FIFTH DIGIT SPECIMEN(S): B RIGHT FIFTH METATARSAL SPECIMEN SOURCE: A. RIGHT FIFTH DIGIT B. RIGHT FIFTH METATARSAL CLINICAL HISTORY: Severe sepsis osteomyelitis and right foot cellulitis RLE FINAL PATHOLOGIC DIAGNOSIS: A. Right fifth digit: - Ulcerated toe with prominent acute soft tissue inflammation and necrosis. - Features focally consistent with acute osteomyelitis. - Acute soft tissue necrosis and suppurative inflammation extends to the inked soft tissue margin. B. Right fifth metatarsal: - Bone margin shows focal fat necrosis and acute inflammation focally suspicious for involvement by osteomyelitis. - Acute soft tissue inflammation and necrosis present at the surgical margin. JVR:[email or web address] MICROSCOPIC EXAMINATION: Histologic sections of all submitted blocks are examined by light microscopy. These findings, together with the gross examination, support the pathologic diagnosis. GROSS DESCRIPTION: A. The specimen, labeled and designated "Preston, right fifth digit," is received in formalin and consists of toe that measure 3.5 x 1.1 x 0.8 cm. The level of the amputation is within the MTP joint. The bone resection margin is articulated. The skin is pink-alvarado and ulcerous. The specimen is randomly perpendicularly sectioned and upon sectioning shows yellow-alvarado, trabeculated bone tissue. Specimen is left for decalcification in decal stat prior to processing. Perpendicular sections and skin resection margin, shave are submitted in (A1). B. The specimen, labeled and designated "Preston, right fifth metatarsal," is received in formalin and consists of metatarsal bone that measure 3.5 x 1.7 x 1.2 cm. The metatarsal head is covered with pink-alvarado, smooth cartilage. Resection margin is inked. The specimen is PATIENT NAME: BETHANIE VEGA PATHOLOGY DATE OF : 77 REPORT #: [id number] PHYSICIAN: VIVEK CONTRERAS PCP: [facility] REPORT IS CONFIDENTIAL AND NOT TO BE RELEASED WITHOUT AUTHORIZATION [facility] [address], [place] [address] Signed perpendicularly sectioned and upon sectioning shows pink-alvarado trabeculated bone surface. Specimen is left for decalcification in decal stat prior to processing. Specimen two is left for decalcification in decal stat prior to processing. Bone resection margin, shaved and central bone part, perpendicular section are submitted in (B1). JS (under the direct supervision of a pathologist) The Gross Description was prepared using a voice recognition system. The report was reviewed for accuracy; however, sound-alike word errors, addition and/or deletions may occur. If there is any question about this report, please contact Client Services. PERFORMING LABORATORY: Technical component was performed by [facility], [address] [place] [id number] (CLIA# [id number]). Professional interpretation was performed by [facility], [address] [place] [id number] (CLIA#: [id number]). Diagnostician: Edwin Harrison MD Pathologist Electronically Signed 05/27/2023 Copies: ~ PATIENT NAME: BETHANIE VEGA PATHOLOGY DATE OF : 77 REPORT #: [id number] PHYSICIAN: [facility] PATHOLOGY PCP: EMELYN CHEN REPORT IS CONFIDENTIAL AND NOT TO BE RELEASED WITHOUT AUTHORIZATION
== END 2023-05-24 17:10 | disposition home or self-care (01) | DRG 616 ==
LOC: ED 16:39 → CCU 18:44 → MS 18:44
PROVIDERS: Internal Medicine; Podiatrist Foot & Ankle Surgery; ADMIT Internal Medicine; ATTEND Family Medicine
PROC: 3E03329 Introduction of Other Anti-infective into Peripheral Vein, Percutaneous Approach (ICD-10-PCS; 2023-05-19)
PROC: HZ2ZZZZ Detoxification Services for Substance Abuse Treatment (ICD-10-PCS; 2023-05-21)
PROC: 0Y6X0Z0 Detachment at Right 5th Toe, Complete, Open Approach (ICD-10-PCS; principal; 2023-05-22 08:30)
DX: E11.69 Type 2 diabetes mellitus with other specified complication (principal); A41.9 Sepsis, unspecified organism; R65.20 Severe sepsis without septic shock; L03.115 Cellulitis of right lower limb; M86.171 Other acute osteomyelitis, right ankle and foot; E87.1 Hypo-osmolality and hyponatremia; L97.414 Non-pressure chronic ulcer of right heel and midfoot with necrosis of bone; E11.621 Type 2 diabetes mellitus with foot ulcer; F10.90 Alcohol use, unspecified, uncomplicated; I10 Essential (primary) hypertension; E78.5 Hyperlipidemia, unspecified; E11.51 Type 2 diabetes mellitus with diabetic peripheral angiopathy without gangrene; F17.210 Nicotine dependence, cigarettes, uncomplicated; F11.90 Opioid use, unspecified, uncomplicated; I25.10 Atherosclerotic heart disease of native coronary artery without angina pectoris; Z79.52 Long term (current) use of systemic steroids; Z20.822 Contact with and (suspected) exposure to COVID-19; Z79.4 Long term (current) use of insulin; Z79.899 Other long term (current) drug therapy; Z91.198 Patient's noncompliance with other medical treatment and regimen for other reason; Y90.9 Presence of alcohol in blood, level not specified
CPT/HCPCS: 01482; 36415; 71045; 73630; 73723; 80048; 80053; 81001; 83605; 83735; 85025; 85651; 86140; 87040; 87502; 88304; 88305; 88307; 88311; 93005; 93010; 96365; 96375; 97110; 97161; 97165; 97530; 97535; 99284-25; A9270; A9577; A9579; C1713; C9803; J0692; J0878; J1100; J1170; J1815; J1885; J2001; J2060; J2543; J2704; J2795; J3370; J3411; J3475; J3490; J7030; J7121; U0002

== ENCOUNTER 2023-08-02 16:23 | Inpatient (IN) | payer OTHER ==
[~2023-08-02] VITALS: Ht 188 cm; Wt 102.1 kg
--- NOTE | ~2023-08-02 | OR ---
[facility] [address], [place] [address] Draft DATE OF OPERATION: 08/07/2023 SURGEON: Justine Lucas DPM PREOPERATIVE DIAGNOSIS: Osteomyelitis, first metatarsophalangeal joint. POSTOPERATIVE DIAGNOSIS: Osteomyelitis, first metatarsophalangeal joint. PROCEDURE: Tarsometatarsal amputation right foot. ANESTHESIA PROVIDER: Gema Horner CRNA. ANESTHESIA: Consisted of a local with MAC, total of 17 mL of 1:1 mix of 0.5 ropivacaine and 2% lidocaine pain was utilized. HEMOSTASIS: With an ankle tourniquet. ESTIMATED BLOOD LOSS: Less than 5 mL were minimal. MATERIALS UTILIZED: 3-0 Nylon. calcium sulfate absorbable beads with vancomycin one-third gram mixed into the mix. PROCEDURE IN DETAIL: The patient was brought into the operating room and placed upon the operating table in the supine position. Following IV sedation, the above local anesthesia was administered above the patient right ankle region. The right foot was then scrubbed, prepped and draped in usual sterile technique. An Esmarch bandage was utilized to exsanguinating the patient's right foot and then left wrapped the ankle to act as tourniquet. Attention was then directed to the dorsal aspect of the metatarsophalangeal joint region where a linear incision connecting the fourth MTPJ to the first MTPJ was then performed in a semicurved incision full skin thickness and down through the deep soft tissue. Another incision was performed from the medial aspect of the first metatarsal extending PATIENT NAME: BETHANIE VEGA OPERATIVE REPORT DATE OF : 77 REPORT #: [id number] PHYSICIAN: JUSTINE LUCAS DPM PCP: EMELYN CHEN REPORT IS CONFIDENTIAL AND NOT TO BE RELEASED WITHOUT AUTHORIZATION [facility] [address], [place] [address] Draft slightly plantar in semicurved incision extending along the sulcus or just distal to the metatarsal heads extending to the base of the fourth digit then connecting both the dorsal and the medial incision, this creating big skin flap with the digits involved. The incision was then deepened through tendon and deep soft tissue down to the metatarsophalangeal joint regions. #15 blade was utilized to perform capsulotomy and released the digits at the MTPJ's. MTPJ's were removed and then sent to the back table to be later sent to the pathology. Attention was then directed to the exposed metatarsal head. Please note that the patient has had a previous fifth metatarsal amputation. First metatarsal had a dusky appearance, lot of crisostomo alvarado scar tissue present about it. No active purulent drainage noted in the region. Flexor tendon was significantly compromised. Degradation of the surrounding soft tissue and also the metatarsal extended back to the distal one-third of the diaphyseal region. Sagittal saw was utilized to resect the bone between the metaphyseal and diaphyseal junction. A probe had been utilized to probe the bone back to bone prior to doing this. The head of the first metatarsal was resected and passed off for pathologic review. Inspection was then obtained of the distal medullary canal what appeared to be somewhat normal in appearance medullary canal was present. The surrounding bone was structurally sound. Coloration was also satisfactory. A bacterial swab was then taken of the surrounding tissue at this level. Next, the sagittal saw was then utilized to resect the distal portions including the head of the second, third and fourth metatarsals slightly reducing them in length as we progressed laterally. Thus trying to create a good for future ambulation. With resection of the metatarsal heads the area was again inspected. A tenotomy and forceps were then utilize to remove avascular tissue and tendon. A rongeur was utilized to resect and debride area around the first metatarsal that contained a lot of scar tissue and tissue that was recovering from the soft tissue abscess and infection in this region. Upon completion of debridement of the soft tissue around the first metatarsal. Attention was directed to the plantar ulceration that was noted and present at the distal first metatarsal region. #15 blade was utilized to elipse and freshen the margins of this ulceration that extended through and through and could be observed into the deep soft tissue. Again, previous damage to necrotic tissue was resected at the open transmetatarsal site. The area was then flushed with copious amounts of sterile normal saline. Inspection of the surgical site was then performed again. Plantar flap was brought upward and slightly rotated to close the ulcerative area that had been present under the first metatarsal. 3-0 nylon was also planned to be used for primary closure, but prior to closure some calcium sulfate beads mixed with vancomycin. These beads have been mixed up on the back table, prior placement of several beads were then performed. Approximately, three of the beads were stucked into the end of the medullary canal on the first metatarsal with placement of the absorbable beads then primary closure of the wound occurred by bringing the plantar flap upward distally to meet the superior integument. Plantar flap was slightly rotated medial to close the ulceration that had been present. 3-0 nylon with simple interrupted suture technique was then utilized to close the operative site. Steri-Strips were then PATIENT NAME: BETHANIE VEGA OPERATIVE REPORT DATE OF : 77 REPORT #: [id number] PHYSICIAN: JUSTINE LUCAS DPM PCP: EMELYN [facility] REPORT IS CONFIDENTIAL AND NOT TO BE RELEASED WITHOUT AUTHORIZATION [facility] [address] [place] [address] [place], [place] [address] Draft applied for reenforcement and postoperative dressing consisted of Xeroform and a single layer ABD pad, foam pad, Kerlix and Coban were then all applied. Ankle tourniquet was removed. No breakthrough bleeding was noted and also testing the compression that was present at the surgical site were found to be just light compression present. The patient was then escorted to the recovery room via anesthesia with vital signs stable. The patient tolerated both the procedure and the anesthesia well. The patient was later readmitted to the general medical floor for continued IV therapy. ARIANNA Vidal/MODL /[id number] Copies: ~ PATIENT NAME: BETHANIE VEGA OPERATIVE REPORT DATE OF : 77 REPORT #: [id number] PHYSICIAN: JUSTINE LUCAS DPM PCP: [facility] REPORT IS CONFIDENTIAL AND NOT TO BE RELEASED WITHOUT AUTHORIZATION
[~2023-08-02 16:23] MED LIST changes: +CIPROFLOXACIN500 MG PO; +IBU600 MG PO; +LANTUS SOL100 UNIT/1 SUB-Q; +LIPITOR10 MG PO; +TYLENOL325 MG PO; +VITAMIN C250 M1 PO; +ZINC30 MG PO
--- OUTSIDE RECORDS SUMMARY | 2023-08-02 16:30 | XMS ---
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 PHONE: [phone] SHERIF COFFMAN Physician Senior Technical Writer 06/02/2018-Current PHONE: Unknown NEYDA ZAFAR Family Medicine 05/19/2018-Current PHONE: [phone] Antonio has no Care Guidelines for this patient. Care History Medical/Surgical 09/25/2021 [facility] - PATIENT IS A [facility] ELIGIBLE, PLEASE REFER PATIENT TO [facility] FOR NON EMERGENT MEDICAL NEEDS. [facility] CAN SEE PATIENTS SAME DAY FOR APTS IF PATIENT CALLS FIRST THING IN THE MORNING. 07/07/2019 [facility] - PLEASE CONTACT [facility]- IF PATIENT ACCEPTS SERVICES- . - [facility] CAN PROVIDE PATIENT WITH BOW MAKER GIFT WRAPPING AND HELP WITH COMMUNITY RESOURCES. 03/25/2019 [facility] Care Recommendation: - USE EXTREME CAUTION IN GIVING NARCOTICS TO THIS PATIENT. - Avoid Discharge Narcotic prescriptions if at all possible. Physician discretion. E.D. VISIT COUNT (12 MO.) 2 [facility]. TOTAL 2 NOTE: Visits indicate total known visits. 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 - Cellulitis of right lower limb - Cellulitis of right lower limb - Contact with and (suspected) exposure to COVID-19 - Contact with and (suspected) exposure to COVID-19 - Essential (primary) hypertension - Essential (primary) hypertension - Hyperlipidemia, unspecified - Hyperlipidemia, unspecified - Hypo-osmolality and hyponatremia - Hypo-osmolality and hyponatremia - adjunct faculty for medical terminology (current) use of insulin - alf (current) use of insulin - alf (current) use of systemic steroids - alf (current) use of systemic steroids - Nicotine dependence, cigarettes, uncomplicated - Nicotine dependence, cigarettes, uncomplicated - Non-pressure chronic ulcer of right heel and midfoot with necrosis of bone - Non-pressure chronic ulcer of right heel and midfoot with necrosis of bone - Nontraumatic hematoma of soft tissue - Opioid use, unspecified, uncomplicated - Opioid use, unspecified, uncomplicated - Other acute osteomyelitis, right ankle and foot - Other acute osteomyelitis, right ankle and foot - Other snf (current) drug therapy - Other intermediate teacher (current) drug therapy - Patient's noncompliance with other medical treatment and regimen for other reason - Patient's noncompliance with other medical treatment and regimen for other reason - Presence of alcohol in blood, level not specified - Presence of alcohol in blood, level not specified - Sepsis, unspecified organism - Sepsis, unspecified organism - Severe sepsis without septic shock - Severe sepsis without septic shock - Type 2 diabetes mellitus with diabetic peripheral angiopathy without gangrene - Type 2 diabetes mellitus with diabetic peripheral angiopathy without gangrene - Type 2 diabetes mellitus with foot ulcer - Type 2 diabetes mellitus with foot ulcer - Type 2 diabetes mellitus with other specified complication - Type 2 diabetes mellitus with other specified complication [email or web address]
[2023-08-02 18:27] LABS: BASOPHILS 0.6 % (0-2); EOSINOPHILS 2.4 % (0-6); HEMATOCRIT 32.1 % (35.0-50.0); HEMOGLOBIN 10.8 g/dL (12.0-18.0); LYMPHOCYTES 17.8 % (24-44); MCH 29.8 (27-36); MCHC 33.7 g/dl (30-36); MCV 88.5 fl (81-99); MONOCYTES 9.6 % (0-12); NEUTROPHILS 69.6 % (39-80); PLATELET COUNT 328 K/uL (140-440); RBC 3.62 M/ul (4.3-5.7); RDW 15.1 (10.5-15.0)
[2023-08-02 18:41] LABS: ALBUMIN 2.1 g/dL (3.4-5.0); ALBUMIN/GLOBULIN RATIO 0.34 (1.1-2.4); ANION GAP 10.2 (7-21); BILIRUBIN, TOTAL 0.3 ng/dL (0.2-1.0); BUN/CREATININE RATIO 15.51 (6.0-28.6); CALCIUM 8.1 mg/dL (8.5-10.1); CREATININE, SERUM 1.74 mg/dL (0.70-1.30); POTASSIUM 4.2 mmol/L (3.5-5.1); PROTEIN, TOTAL 8.2 g/dL (6.4-8.2)
[2023-08-02 20:14] VITALS: BP 136/84
--- NOTE | 2023-08-02 20:30 | NUR ---
REPORT RECIEVED FROM ANASTASIYA GUZMAN. pt ARRIVED VIA STRETCHER AND WAS ABLE TO TRANSFER SBA FROM ER BED TO MS BED. ASSESSMENT AND VITAL SIGNS DONE. CBG CHECKED. SS INSULIN ADMINISTERED, SEE OCT. IVF INFUSING PER ORDER, SEE OCT. HOSPITAL PANTS PUT ON. SBA AT BED SIDE. NICOTINE PATCH PLACED, SEE MAR. SCHEDULED MEDICATIONS ADMINISTERED PER ORDER, SEE MAR. ADMISSION DONE BY MICHAEL GUZMAN. FRESH ICE WATER GIVEN. WARM BLANKET GIVEN. CALL LIGHT WITHIN REACH. NO OTHER NEEDS AT THIS TIME.
--- NOTE | 2023-08-02 22:41 | NUR ---
ADMISSION COMPLETED, pt AWOKE TO VOICE. CCU RN JAKOB IN ROOM WITH THIS RN AND CLEANED WOUNDED W/ WOUND CLEANSER TO RIGHT FOOT AND PLACED ABD PAD TO AID IN DRAINAGE COLLECTION, FOOT ALSO HAD MESH STOCKING IN PLACE TO KEEP ABD PAD IN PLACE. FOUL SMELLING PURULENT DRAINAGE NOTED. PHOTOS COLLECTED IN ED AND IN CHART.
--- NOTE | 2023-08-03 00:29 | NUR ---
pt STATES HE HAS SLEEP APNEA BUT NO HOME CPAP. CPOX SET UP TO MONITOR O2 SATURATIONS. NICOTINE PATCH REMOVED PRE PATIENTS REQUEST. IV ASSESSED. CALL LIGHT WITHIN REACH. NO OTHER NEEDS AT THIS TIME.
[2023-08-03 01:59] VITALS: BP 102/66
--- NOTE | 2023-08-03 02:24 | NUR ---
ASSESSMENT AND VITAL SIGNS DONE. pt C/O 03/04 PAIN. PRN TYLENOL ADMINISTERED, SEE OCT. CBG SPOT CHECKED. MODERATE AMMOUNT OF PURULENT DRAINAGE FROM THE MIDDLE WOUND ON pt'S RIGHT FOOT COMPARED TO THE UPPER AND LOWER WOUND. WATER REFRESHED. CALL LIGHT WITHIN REACH. NO OTHER NEEDS AT THIS TIME. CMS REMAINS INTACT WITH STRONG PEDAL PULSES. GENERALIZED EDEMA REMAINS NOTED TO R FOOT. R FOOT ELEVATED ON PILLOW.
--- NOTE | 2023-08-03 04:38 | NUR ---
PT ASLEEP, RESP EVEN AND REGULAR, NEW BAG OF NS HUNG AND INFUSING WELL AT 125ML/HR, SITE INTACT, PT WITHOUT SIGNS OF DISTRESS.
--- NOTE | 2023-08-03 04:54 | NUR ---
PATIENT RESTING IN BED WITH EYES CLOSED. HR 63. RR EVEN AND UNLABORED. CALL LIGHT WITHIN REACH. NO OTHER NEEDS AT THIS TIME.
--- NOTE | 2023-08-03 05:02 | NUR ---
call light answered, iv fluids alarming. distal occlusion, issue resolved. iv fluids infusing wnl and as directed. pt requesting additioanl sf soda and pudding, provided. no additional needs or concerns verbalized. call light in reach.
[2023-08-03 05:31] LABS: BASOPHILS 0.7 % (0-2); HEMATOCRIT 30.5 % (35.0-50.0); HEMOGLOBIN 10.2 g/dL (12.0-18.0); LYMPHOCYTES 25.8 % (24-44); MCH 29.7 (27-36); MCHC 33.4 g/dl (30-36); MCV 88.8 fl (81-99); MONOCYTES 8.1 % (0-12); NEUTROPHILS 60.4 % (39-80); PLATELET COUNT 291 K/uL (140-440); RBC 3.44 M/ul (4.3-5.7); RDW 14.9 (10.5-15.0)
[2023-08-03 05:57] VITALS: BP 110/75
[2023-08-03 05:57] LABS: ANION GAP 17.1 (7-21); BUN/CREATININE RATIO 16.12 (6.0-28.6); CALCIUM 8.2 mg/dL (8.5-10.1); CREATININE, SERUM 1.24 mg/dL (0.70-1.30); MAGNESIUM 1.7 mg/dL (1.8-2.4); POTASSIUM 4.1 mmol/L (3.5-5.1)
--- NOTE | 2023-08-03 06:00 | NUR ---
VITAL SIGNS AND ASSESSMENT DONE. NO NEW CHANGE TO WOUNDS. DRESSING INTACT. IVF INFUSING PER ORDER, SEE MAR. CALL LIGHT WITHIN REACH. NO OTHER NEEDS AT THIS TIME.
--- NOTE | 2023-08-03 06:06 | NUR ---
vs and i&o's collected with primary rn sharon. call light in reach and bed alarm on for safety.
--- NOTE | 2023-08-03 08:41 | NUR ---
TYLENOL 650MG PO ADMIN AT THIS TIME FOR REPORTS OF 7/10 RLE PAIN. RLE ELVATED ON PILLOW AT THIS TIME, NOTABLE FOUL SMELL WITH MODERATE MILK/WREN COLORED DRAINAGE TO FOOT DRESSING.
--- NOTE | 2023-08-03 09:29 | NUR ---
ADMIN MORPHINE 1MG IV FOR REPORTS OF 8/10 LEFT FOOT PAIN.
--- NOTE | 2023-08-03 10:12 | NUR ---
Per physical therapy, patient reports he "likes to drink beer". Patient up to restroom with physical therapy, pt appeared a bit agitated when staff asked him to call for help when ambulating. Education provided regarding safety, pt receptive to education and plan of care. Patient reports he drank "a lot two years ago" and currently only drinks a "beer or two every now and again". Patient does not display any withdrawal symptoms at this time. This Rn encouraged patient to ask staff if he feels he needs something for anxiety and or agitation while here and we can call the provider. Patient denies current needs. Chair alarm intact.
--- NOTE | 2023-08-03 10:24 | NUR ---
DR VICENTE TO BEDSIDE FOR EVALUATION. PHOTOGRAPHS OF FOOT PROVIDED. VERBAL ORDERS GIVEN FOR LABS TOMORROW MORNING. ORDERS ENTERED, REPEAT BACK PERFORMED. PTS PRIMARY RN AT BEDSIDE WITH DR. VICENTE FOR EVALUATION.
[2023-08-03 10:55] VITALS: BP 116/73
--- NOTE | 2023-08-03 11:33 | NUR ---
New dressing placed to right foor by Dr. Lucas. Dressing CDI.
--- NOTE | 2023-08-03 11:40 | NUR ---
THIS RN TO ROOM WITH DR VICENTE FOR WOUND EVLAUATION AND DRESSING APPLICATION. WOUND DEBRIEDED BY DR GRANT. MODERATE AMOUNTS OF RED DRANAGE SEEN. PHTOGRAPHS TAKEN. DR VICENTE STATES TO GIVE ADDITIONAL DOSE OF PAIN MEDICAITON, GIVEN FOR 8/10 PAIN. DRESSING APPLIED BY DR. VICENTE. PRN DRESSING CHANGE ORDERS GIVEN, ENTERED, REPEAT BACK PERFORMED. PT REPORTS PAIN HAS IMPROVED DOWN TO 6/10. NO ADDITIONAL REQUESTS OR COMPLAINS. CALL LIGHT WITHIN REACH. BED RAILS UP. PTS PRIMARY RN UPDATED.
[2023-08-03 14:22] VITALS: BP 125/83
--- NOTE | 2023-08-03 14:33 | NUR ---
Admin tylenol 650mg po for reports of 7/10 right foot pain. RLE elevated on pillow. Dressing remains CDI at this time.
--- NOTE | 2023-08-03 16:00 | NUR ---
Admin morphine 1mg IV at this time for reports of 7/10 RLE pain. RLE remains elevated on pillow, dressing CDI.
[2023-08-03 18:33] VITALS: BP 122/58
--- NOTE | 2023-08-03 19:15 | NUR ---
REPORT RECIEVED FROM MARIAM GUZMAN. PATIENT RESTING IN BED. BOARD UPDATED. ZENA LIGHT WITHIN REACH. NO OTHER NEEDS AT THIS TIME.
[2023-08-03 21:05] VITALS: BP 106/81
--- NOTE | 2023-08-03 21:15 | NUR ---
ASSESSMENT AND VITAL SIGNS DONE. pt C/O 04/04 PAIN. PRN PAIN MEDICATION ADMINSTERED. SCHEDULED MEDICATION ADMINISTERED. CBG CHECKED. SS INSULIN ADMINISTERED. pt REQUESTED TO MOVE TO THE CHAIR AND TO CHANGE HIS CLOTHES. CLOTHES CHANGED AND pt ASSISSTED SBA WITH CRUTCH TO CHAIR. WEIGHT BEARING ON RIGHT HEEL ONLY. SMALL AMOUNT OF DRAINAGE ON BOTTOM OF FOOT. TERESA GUZMAN REINFORCED BANDAGE. pt REQUESTED A SNACK. SUGAR FREE PUDDING GIVEN. WATER REFRESHED. CALL LIGHT WITHIN REACH. NO OTHER NEEDS AT THIS TIME.
--- NOTE | 2023-08-03 22:21 | NUR ---
Helped Pt back to bed, reinforced dressing, Pt had px medicine and denies px
--- NOTE | 2023-08-03 23:20 | NUR ---
PT ASLEEP, LAYING ON RIGHT SIDE, NEW BAG OF NS HUNG AND INFUSING WELL, URINAL EMPTIED FOR 525 ML LIGHT YELLOW URINE.
--- NOTE | 2023-08-04 01:20 | NUR ---
PATIENT RESTING IN THE BED WITH EYES CLOSED. RESP OBSERVED, EVEN AND UNLABORED. CALL LIGHT WITHIN REACH. NO NEEDS AT THIS TIME.
[2023-08-04 02:42] VITALS: BP 102/59
--- NOTE | 2023-08-04 02:58 | NUR ---
pt C/O 04/04 PAIN. PRN PAIN MEDICATION ADMINISTERED. CALL LIGHT WITHIN REACH. NO OTHER NEEDS AT THIS TIME. RLE DRESSING CDI.
--- NOTE | 2023-08-04 04:30 | NUR ---
PATIENT RESTING IN BED WITH EYES CLOSED. RESP OBSERVED. RR EVEN AND UNLABORED. CALL LIGHT WITHIN REACH.
[2023-08-04 05:27] LABS: BASOPHILS 0.6 % (0-2); EOSINOPHILS 1.8 % (0-6); HEMOGLOBIN 10.4 g/dL (12.0-18.0); LYMPHOCYTES 27.4 % (24-44); MCH 29.4 (27-36); MCHC 33.5 g/dl (30-36); MCV 87.7 fl (81-99); MONOCYTES 6.3 % (0-12); NEUTROPHILS 63.9 % (39-80); PLATELET COUNT 303 K/uL (140-440); RBC 3.54 M/ul (4.3-5.7)
[2023-08-04 05:52] VITALS: BP 122/69
--- NOTE | 2023-08-04 06:10 | NUR ---
PATIENT IN BED RESTING. RR EVEN AND UNLABORED. CALL LIGHT WITHIN REACH. NO OTHER NEEDS AT THIS TIME.
[2023-08-04 06:48] LABS: ERYTHROCYTE SEDIMENTATION RATE 141
--- NOTE | 2023-08-04 07:12 | NUR ---
REPORT RECEIVED FROM WALTER, Lalo. PT RESTING IN BED, AWAKEN AND ALERT. PT NOTES HE IS VOIDING LARGE AMOUNTS AND REQUESTS IV FLUIDS BE DECREASED OR STOPPED. WILL CONSULT MD. TELEMETRY MONITORING CONTINUES TO SHOW NORMAL SINUS RYTHEM WITH RATE IN THE 70'S. PT REPORTS 7.5/10 PAIN IN RIGHT FOOT AT THIS TIME REQUESTING PAIN MEDICATIONS WITH MORNING MEDICATIONS. NO ADDITIONAL REQUESTS OR COMPLAINTS AT THIS TIME. CALL LIGHT WITHIN REACH. BED RAILS UP.
--- NOTE | 2023-08-04 07:45 | NUR ---
MORNING ASSESSMENT AND MEDICAITON DUE. PT RESTING IN BED ON LEFT SIDE, AWAKE AND ALERT. PT ORETINTED TO ALL. PT CONTINUES TO REPORT 8/10 PAIN IN RLE. SEE MAR FOR MEDICATION GIVEN. PT REMAINS ON TELEMETRY MONITORING WITH NORMAL SINUS RYTHEM, HEART RATE 70-80'S. TIBIAL AND PEDIAL PULSES TO RLE WEAK. CAPILLARY REFILL GREATER THAN 3 SECONDS IN ALL EXTREMITIES. NO CALF TENDERNESS PRESENT. PT REPORTS FEELSING OF "ZAPPING" IN LOWER LEGS, NUBNESS IN FEET. PT EPORS OCCATIONAL NEUROPATHY IN HANDS WELL "LIKE LIGHTNING COMING OFF MY FINGERS." PT STATES NEUROPATHY IS IMPROVED WITH ACTIVITY. GENERALIZED EDEMA CONTINUES TO RLE. DR. VICENTE TO BEDSIDE FOR DRESSING CHANGE. PT TOELRATES WELL. WOUNDS CONTINUE TO LEAK PURULANT AND RED DRAINAGE. MARGENS OF WOUNDS BECOMING MACERATED. PT UPDATED BY DR. VICENTE ON PLAN FOR SURGERY. GAUZE, IODASORB, ABD, KERLIX AND COBAN APPLIED BY DR GRANT. PHOTOGRAPHS TAKEN. PT CONTINUES TO VOID LARGE AMOUNTS OF CLEAR YELLOW URINE. ABDOMEN SOFT AND NON TENDER. PT DENIES NAUSEA. BOWEL TONES ACTIVE. APPITITE STRONG.PT JOKING AND LAUGHING THROUGHOUT CARES AND DRESSING CHANGE. MEDICAITONS GIVEN. NO ADDIITONAL REQUESTS OR COMPLAINTS. PT AGREES TO GET UP TO CHAIR FOR BREAKFAST. 1 PERSON ASSIST UP TO CHAIR. BREAKFAST DELIVERED. NO ADDITIONAL REQUESTS OR COMPLAINTS. CALL LIGHT WITHIN REACH.
--- NOTE | 2023-08-04 08:16 | NUR ---
PT REPORTS IMPROVEMENT OF PAIN AFTER GETTING UP AND DRESSING CHANGE. NOW 02/02 IN RIGHT FOOT. PT DENIES NEED FOR ADDITIONAL PAIN MEDICAITON. NO ADDITONIAL REQUESTS OR COMPLAINTS AT THIS TIME. CALL LIGHT WITHIN REACH.
--- NOTE | 2023-08-04 09:05 | NUR ---
DR SUERO UPDATED ON PT STATUS AND DR. MONSIVAIS ASSESSMENT. ORDERS GIVEN TO DC TELEMETRY MONITORING AND SALINE LOCK PTS IV SITE/DC FLUIDS. ORDERS ENTERED, REPEAT BACK PERFORMED. IV FLIUSHED AND SALINE LOCKED. PT REPORTS PAIN IS NOW 5/10, PT DENIES NEED FOR ADDITIONAL PAIN MEDICATION. PT REQUESTS TO NAP. PT RESTING ON LEFT SIDE WITH EYES CLOSED. RESPIRATIONS EVEN AND UNLABORED. CALL LIGHT WITHIN REACH. BED RAILS UP.
[2023-08-04 09:21] VITALS: BP 122/78
--- NOTE | 2023-08-04 10:23 | NUR ---
THIS RN TO ROOM TO CHECK ON PT. PT RESTING ON RIGHT SIDE WITH EYES CLOSED, RESPIRATIONS EVEN AND UNLABORED. BED RAILS UP. CALL LIGHT WITHIN REACH. PT ALLOWED TO REST.
--- NOTE | 2023-08-04 10:56 | NUR ---
PT CALL LIGHT ON. PT REQUESTS PAIN MEDICATON FOR 7/10 PAIN TO RIGHT FOOT. PT AGREES TO WORK WITH PHYSICAL THERPAY. AFTER WHICH HE WOULD LIKE TO SHOWER, CORRUGATOR OPERATOR HELPER UPDATED, PHYSICAL THERAPIST UPDATED. PT DENIES ADDITIONAL REQUESTS OR COMPLAINTS. CALL LIGHT WITHIN REACH. BED RAILS UP.
--- NOTE | 2023-08-04 11:12 | NUR ---
THIS RN TO ROOM TO CHECK ON PT. PT RESTING IN CHAIR, VISITING WITH FRIEND WHO BROUGHT IN HIS PHONE JOB CAPTAIN AND PICKED UP HIS BELONGINGS FROM [employer]. PT STATES HIS BELONGINGS ARE "IN MY TRUCK." ONLY HIS PHONE JOB CAPTAIN WAS BROUGHT IN. PT CONTINUES TO TOLERATE 3L O2 BY NC WITH OXGYEN SATURATION OF 94%. CPOX IN PLACE. PT DENIES REQUESTS OR COMPLAINTS AT THIS TIME. CALL LIGHT WITHIN REACH. PT ENCOURAGED TO CALL WITH ANY NEEDS.
--- NOTE | 2023-08-04 11:37 | NUR ---
PHYSICAL THERAPY TO ROOM. PT AGREES TO WORK WITH PHYSICAL THERAPY. AGITATED ABOUT BEING ASKED TO WALK. PT REPORTS 6/10 PAIN IN RIGHT FOOT. THAT IS "BETTER" WITH THE PAIN MEDICATIONS. PT DENIES ADDITIONAL REQUESTS OR COMPLAINTS. DRESSING REMAINS C/D/I.
--- NOTE | 2023-08-04 12:01 | NUR ---
PT RETURNED FROM WORKING WITH PHYSICAL THERAPY. PT UP TO CHAIR FOR LUNCH. INSLUIN GIVEN. PT REPORTS PAIN CONTINUES AT 5-6/10 IN RIGHT FOOT. PT DENEIS ADDITIONAL REQUESTS OR COMPLAINTS. CALL LIGHT WITHIN REACH.
--- NOTE | 2023-08-04 12:25 | NUR ---
PT CALL LIGHT ON. PT REPORTS HE IS FINISHED WITH LUNCH AND READY FOR A SHOWER. PT UP TO RESTROOM WITH STAND BY ASSIST AND CRUTCH, HEEL TOUCH ONLY ON RIGHT FOOT. PT HAS "NORMAL" BOWEL MOVEMENT, ANDRE CARE PER PT. PT SHOWERING INDEPENDANTLY. CALL LIGHT WITHIN REACH. PT DEMONSTRATES USE. IV AND RIGHT FOOT DRESSING COVERED.
[2023-08-04 12:59] VITALS: BP 109/69
--- NOTE | 2023-08-04 13:04 | NUR ---
PT CALL LIGHT ON. PT REPORTS HE IS FINISHED WITH HIS SHOWER. THIS RN TO ROOM. BAGS REMOVED, DRESSING TO RLE REMAINS CLEAN AND DRY AND INTACT. NO SKID SOCKS APPLIED. PT BACK TO BED WITH 1 PERSON STAND BY ASSIST AND CRUTCH. PT REPORTS PAIN HAS INCREASED TO 7/10 WITH ACTIVITY OF THE SHOWER. SEE MAR FOR MEDICATION GIVEN. PT REMAINS ALERT AND OREINTED TO ALL, NEUROPATHY UNCHANGED. PT DEMONSTRATING CORRECLTY HEEL TOUCH ONLY WEIGHT BEARING TO R FOOT. GENERAZLIED SWELLING REMAINS. NO DRAINAGE ON BANDAGE AT THIS TIME. HEART TONES REGULAR. LUNG SOUNDS CLEAR. UNABLE TO ASSESS PEDIAL OR TIBIAL PULSE TO RIGHT FOOT R/T DRESSING, BOTH ARE STRONG TO LLE. STRONG PLANTAR AND DORSI FLEXION PRESENT. DIET 7-UP PROVIDED PER PT REQUEST. NO ADDITIONAL REQUESTS OR COMPLAINTS. CALL LIGHT WITHIN REACH. BED RAILS UP.
--- NOTE | 2023-08-04 14:01 | NUR ---
THIS RN TO ROOM TO CHECK ON PT. PT RESTING ON RIGHT SIDE WITH EYES CLOSED. RESPIRATIONS EVEN AND UNLABORED. BED RAILS UP. CALL LIGHT WITHIN REACH. PT ALLOWED TO REST.
--- NOTE | 2023-08-04 15:08 | NUR ---
THIS RN TO ROOM TO CHECK ON PT. PT RESTING IN BED ON RIGHT SIDE WITH EYES CLOSED, RESPRIATIONS EVEN AND UNLABORED. URINAL EMPTIED OF 500ML CLEAR YELLOW URINE. NO ADDITIONAL NEEDS AT THSI TIME. CALL LIGHT WITHIN REACH. BED RAILS UP.
--- NOTE | 2023-08-04 16:23 | NUR ---
THIS RN TO ROOM TO CHECK ON PT. PT RESTING IN SUPINE POSITION WITH EYES CLOSED. RESPIRATIONS EVEN AND UNALBORED. BED RAILS UP. URINAL EMPTIED OF 400ML CLEAR YELLOW URINE. BED RAILS UP. CALL LIGHT WITHIN REACH.
--- NOTE | 2023-08-04 16:39 | NUR ---
PT HERE FOR CELLUITIS AND FOOT WOUNDS. 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 PT UP WITH HEEL TOUCH ONLY TO RIGHT HEEL TO CHAIR, SHOWER AND WITH PHYSICAL THERAPY THIS SHIFT. PT TOLERATING 60G CARB DIET WITH GOOD APPTITIE. BLOOD SUGAR CHECKS WITH MEALS AND SLIDING SCALE INSULIN GIVEN. TELEMETRY AND IV FLUIDS DC'D. WOUND TO RIGHT FOOT UNCHANGED, CONTINUES TO LEAK YELLOW AND RED DRAINAGE. DRESSING CHANGD BY DR. VICENTE THIS SHIFT. REMAINS C/D/I SO FAR THIS SHIFT. PRN PAIN MEDICATIONS GIVEN WITH GOOD EFFECT. MRI EXPECTED TOMORROW WITH POSSIBLE SURGERY TO FOLLOW LATER THIS WEEK. PT VOIDING QUANTITY SUFFICIENT. PT USES CALL LIGHT AND MAKES NEEDS KNOWN.
[2023-08-04 17:01] VITALS: BP 123/75
--- NOTE | 2023-08-04 17:16 | NUR ---
THIS RN TO ROOM TO CHECK ON PT. PT EATING DINNER IN BED. PT DECLINES TIME UP TO CHAIR, EDUCATION DONE. PT CONTINUES TO REFUSE TIME UP TO CHAIR. PT REPORTS PAIN AT 7/10 IN RIGHT FOOT BUT DECLIENS PAIN MEDICATION AT THIS TIME. PT ENCORAUGED TO CALL WITH ADDITIONAL NEEDS. CALL LIGHT WITHIN REACH. BED RAILS UP. PT DENIES ADDITIONAL REQUESTS OR COMPLAINTS AT THIS TIME.
--- NOTE | 2023-08-04 18:30 | NUR ---
WOUND CARE CONSULTED. PODIATRY ALSO CONSULTED. RIGHT FOOT WOUND CURRENTLY MANAGED BY PODIATRY, . WOUND CARE WILL DEFER TO . PLEASE RE-CONSULT WOUND CARE FOR ANY FUTURE WOUND CARE NEEDS.
--- NOTE | 2023-08-04 18:33 | NUR ---
THIS RN TO ROOM TO CHECK ON PT. PT RESTING WITH EYES CLOSED ON RIGHT SIDE. RESPIRATIONS EVEN AND UNLABORED. BED RAILS UP. CALL LIGHT WITHIN REACH. URINAL EMPTIED OF 150ML OF CLEAR YELLOW URINE. PT ALLOWED TO REST.
--- NOTE | 2023-08-04 19:43 | NUR ---
REPORT RECEIVED FROM MEGAN SALINAS. pt RESTING IN BED AWAKE. DRESSING CDI ON FOOT. URINAL EMPTIED. pt REQUESTS PRN PAIN MEDICATIONS WITH NIGHT TIME MEDICATIONS FOR 7-04/04 PAIN IN FOOT.
--- NOTE | 2023-08-04 20:01 | NUR ---
CALL LIGHT ANSWERED. pt REQUESTING PRN PAIN MEDICATION NOW FOR 7-8 PAIN IN RIGHT FOOT. PRN MEDICATION ADMINISTERED. URINAL EMPTIED. SF PO FLUIDS PROVIDED. CALL LIGHT IN REACH. PHONE PROVIDED.
[2023-08-04 20:12] VITALS: BP 120/70
--- NOTE | 2023-08-04 20:50 | NUR ---
pt AWAKE RESTING IN BED, RATES PAIN 4.5-5/10 AT THIS TIME. ASSESSMENT COMPLETE. SCHEDULED MEDICATIONS ADMINISTERED. URINAL EMPTIED. CALL LIGHT IN REACH.
--- NOTE | 2023-08-04 22:22 | NUR ---
pt RESTING IN BED WITH EYES CLOSED, BREATHING UNLABORED. LYING ON RIGHT SIDE. CALL LIGHT WITHIN REACH.
--- NOTE | 2023-08-05 00:13 | NUR ---
PT RESTING IN BED, ALERT, REQUESTING PAIN MED FOR RIGHT FOOT PAIN 03/04, MEDICATED WITH MORPHINE 1 MG PER ORDER PER RIGHT AC SL, SL INTACT AND FLUSHES WELL, NOTED SPILLAGE OF URINAL, PT REPORTS BED DAMP, PT UP TO RECLINER, LINEN CHANGED, ATTENDS GIVEN FOR COMFORT, GOWN CHANGED, PT BACK TO BED, RIGHT FOOT DRESSING APPEARS INTACT, FOOT ELEVATED ON 1 PILLOW, PT GIVEN PUDDING PER REQUEST, FRESH WATER GIVEN, PT WITHOUT OTHER REQUESTS, LIGHTS DIMMED.
--- NOTE | 2023-08-05 00:38 | NUR ---
CALL LIGHT ANSWERED. MEGAN MELTON IN ROOM TO MEDICATE pt FOR PAIN. INCONTINENCE/SPILLAGE OF URINE. LINENS CHANGED. URINAL FULL, EMPTIED. MEGAN MELTON IN ROOM PROVIDING PO SNACK. pt UP TO CHAIR.
--- NOTE | 2023-08-05 03:16 | NUR ---
CHECKED ON pt. RESTING IN BED WITH EYES CLOSED. BREATHING EQUAL AND UNLABORED. NO DISTRESS NOTED.
[2023-08-05 05:44] VITALS: BP 107/81
--- NOTE | 2023-08-05 05:50 | NUR ---
pt AWAKENS TO VOICE. VSS. ASSESSMENT COMPLETE. SMALL AMT SANGUINOUS DRAINAGE FROM DRESSSING, REINFORCED WITH GAUZE AND COBAN TELEVISION OPERATOR IN ROOM TO TAKE pt FOR IMAGING. pt OFF FLOOR AT THIS TIME.
--- NOTE | 2023-08-05 07:19 | NUR ---
VERBAL BEDSIDE REPORT RECEIVED FROM MEGAN HALE. PT AWAKE AND ALERT IN BED. CALL LIGHT IN REACH.
[2023-08-05 09:56] VITALS: BP 105/74
--- NOTE | 2023-08-05 10:49 | NUR ---
UR NOTE [facility] CELLULITIS (ISC) INPATIENT 08/02/23 MET CLINICAL INDICATIONS FOR ADMISSION TO INPATIENT CARE GL DAY 1
--- NOTE | 2023-08-05 12:00 | NUR ---
PT SITS UP IN RECLINER. WATCHES TV, EATS 100% OF LUNCH, TOLERATES THIS WELL. CALL LIGHT IN REACH.
--- NOTE | 2023-08-05 14:00 | NUR ---
Spoke with Christiano. He is now residing in a trailer at [facility]. He is responsible for his food. He states he has lost 3-4 phones so he is unable to contact [facility] transport for his Dr. alfaro. He does state Father Munir at the [employer] has told him he has it set up for him to go online and get a state phone. He states he has difficulty getting to town to grocery shop, at times the people from the [employer] will drive him. He does state they are very busy people and he is expected to provide for himself. He now has an address, so he should be able to get transport from the [facility] or through [facility]. He is wanting a wc and I let him know, this will be up to Dr. Lucas. In the past he has said no as he wants the pt walking. Pt has a crutch in the room he has been using. He states his need is for his truck to be fixed so he can get around. He asks I call father Munir and ask if he can assist him. He then states, father Munir said he can work around the mission to pay for parts and labor. I let him know he will have to work this out with father Tome. Plan for dc when pt is cleared by Dr. Lucas and Dr. Leung.
[2023-08-05 15:22] VITALS: BP 114/72
--- NOTE | 2023-08-05 16:32 | NUR ---
PT RESTS IN BED SUPINE, WATCHES TV. RECEIVES PAIN MEDICATION FOR RLE PAIN, SEE EMAR. RLE DRESSING C/D/I, TOES PINK AND WARM, ELECTRICIAN SECOND <3. NO FURTHER REQUESTS AT THIS TIME.
[2023-08-05 18:37] VITALS: BP 103/66
--- NOTE | 2023-08-05 19:56 | NUR ---
REPORT RECEIVED FROM MEGAN GORMAN. THIS RN IN ROOM WITH pt AND DR. AVILEZ. DRESSING CHANGED BY . GRANULATION TISSUE NOTED IN WOUNDS ON FOOT. IODOSORB, GAUZE, KERLEX AND COBAN APPLIED. pt WITH [employer] AT BEDSIDE. ICE WATER REFILLED. pt EDUCATION PROVIDED ON DIABETIC DIET. CALL LIGHT IN REACH.
[2023-08-05 20:47] VITALS: BP 114/78; BP 96/63
--- NOTE | 2023-08-05 21:11 | NUR ---
pt SLEEPING, AWAKENS TO VOICE. VSS. pt RATES PAIN 7/10 IN RIGHT FOOT "PRESSURE" AFTER DR. LOPEZ CHANGED DRESSING. PRN PAIN MEDICATION ADMINISTERED. ASSESSMENT COMPLETE. IV SL WNL. URINAL EMPTIED. ICE WATER REFILLED AND IN REACH. LIGHTS OFF IN ROOM. pt DENIES ADDITIONAL REQUESTS.
--- NOTE | 2023-08-05 23:46 | NUR ---
CHECKED ON pt. RESTING IN BED WITH EYES CLOSED, BREATHING UNLABORED. NO DISTRESS NOTED.
--- NOTE | 2023-08-06 01:03 | NUR ---
CHECKED ON pt. RESTING IN BED WITH EYES CLOSED. URINAL EMPTIED. NO DISTRESS NOTED.
--- NOTE | 2023-08-06 02:47 | NUR ---
pt RESTING IN BED ON RIGHT SIDE. BREATHING EQUAL AND UNLABORED.
--- NOTE | 2023-08-06 03:34 | NUR ---
CALL LIGHT ANSWERED. URINAL EMPTIED. ICE WATER PROVIDED. pt DROWSY, STATES "I SLEPT REALLY GOOD AFTER THAT PAIN PILL". RATES PAIN 7/10 IN RIGHT FOOT. ASSESSMENT COMPLETE. PRN PAIN MEDICATIONS ADMINISTERED. DRESSING CDI RIGHT FOOT. SF PUDDING PROVIDED WITH PAIN MEDICATIONS. CALL LIGHT IN REACH.
[2023-08-06 05:14] VITALS: BP 110/66
[2023-08-06 05:51] LABS: BASOPHILS 0.7 % (0-2); EOSINOPHILS 3.3 % (0-6); HEMOGLOBIN 11.2 g/dL (12.0-18.0); LYMPHOCYTES 18.9 % (24-44); MCH 29.8 (27-36); MCHC 33.8 g/dl (30-36); MCV 88.3 fl (81-99); MONOCYTES 8.8 % (0-12); NEUTROPHILS 68.3 % (39-80); PLATELET COUNT 318 K/uL (140-440); RBC 3.74 M/ul (4.3-5.7); RDW 15.2 (10.5-15.0)
--- NOTE | 2023-08-06 05:52 | NUR ---
pt RESTING IN BED AWAKE. DOOR SHUT PER REQUEST. pt REQUESTING TO SLEEP.
[2023-08-06 06:05] LABS: ANION GAP 13.4 (7-21); BUN/CREATININE RATIO 15.94 (6.0-28.6); CALCIUM 8.8 mg/dL (8.5-10.1); CREATININE, SERUM 1.38 mg/dL (0.70-1.30); POTASSIUM 4.4 mmol/L (3.5-5.1)
--- NOTE | 2023-08-06 07:33 | NUR ---
REPORT RECEIVED FROM MEGAN HALE. PT IN BED WITH EYES CLOSED.
--- NOTE | 2023-08-06 07:36 | NUR ---
DID PATIENT'S BLOOD SUGAR CHECK PATIENT IS SLEEPING. UPDATE WHITE BOARD. GET PATIENT FRESH ICE WATER.
[2023-08-06] MEDS ORDERED: DOXYCYCLINE HY100 MG PO (08:22)
[2023-08-06] MEDS ORDERED: AMOX TR-K CLV1 EAC1 PO (08:23)
[2023-08-06] MEDS ORDERED: ZINC SULFATE50 M1 PO (08:24)
[2023-08-06] MEDS ORDERED: IBU600 MG PO (08:25)
[2023-08-06] MEDS ORDERED: VITAMIN C500 M1 PO (08:26)
[2023-08-06] MEDS ORDERED: [UNRECOGNIZED DRUG - OTHER] TOP (08:27)
[2023-08-06] MEDS ORDERED: TUMS200 MG PO (08:29)
[2023-08-06] MEDS ORDERED: ERYTHROMYCIN 2%60 ML TOP (08:44)
[2023-08-06] MEDS ORDERED: TYLENOL325 MG PO (08:45)
[2023-08-06 09:18] VITALS: BP 110/66
--- NOTE | 2023-08-06 09:38 | NUR ---
PT SITTING IN BED HAVING JUST FINISHED BREAKFAST. PT RATES PAIN 7\10 ADMININSTERED OXY. IV FLUSHED AND RUNNING AB. FELICIANO PATCH ON BACK. DRESSING CDI.
[2023-08-06] MEDS ORDERED: DRYSOL35 ML TOP (10:17)
--- NOTE | 2023-08-06 10:18 | NUR ---
MED REC COMPLETE
--- NOTE | 2023-08-06 11:14 | NUR ---
PT IN BED WATCHING MORGAN IS RIGHT. DENIES CONCERNS ATT.
--- NOTE | 2023-08-06 11:30 | NUR ---
Spoke with Christiano. He is asking if I was able to get him a phone, wc, and other services. Let him know I contacted [employer] and they do not assist with phones. He will need to go through the internet and apply, I have not seen Dr. Alvarado so I have not been able to ask about a wc. When I spoke with the [employer], they stated pt receives food boxes through [employer], he should not need additional food. For transportation, she stated the shuttle goes to within 1/2 mile of the [place] and pt should be able to get a ride to catch the shuttle to [facility]. I updated the pt to the above. He states none of this is possible as he doesn't have a phone. I again let him know, he needs to go throught the internet and request a replacement phone. Pt then asked if he can go to a SNF after is surgery. I let him know I left a note for Dr. Lucas asking if he is in agreement for placement to a SNF and a WC.
--- NOTE | 2023-08-06 11:58 | NUR ---
PT CALLED TO GET READY FOR SHOWER. WRAPPED FOOT WITH BAG AND TOLD TO PROP IT UP ON THE COMMODE IN BATHROOM. INSTRUCTED TO CALL IF HE NEEDS ANYTHING OR HELP.
--- NOTE | 2023-08-06 14:21 | NUR ---
MS ROUNDS. PT APPEARED TO BE SLEEPING. DID NOT DISTURB. PROVIDED PRAYER.
--- NOTE | 2023-08-06 14:27 | NUR ---
PT RESTING WITH EYES CLOSED. TV ON. CALL LIGHT IN REACH.
[2023-08-06 14:33] VITALS: BP 101/58
--- NOTE | 2023-08-06 14:52 | NUR ---
ADMININSTERED OXY FOR 7\10 PAIN. PT RESTING IN BED WATCHING TV.
--- NOTE | 2023-08-06 14:55 | NUR ---
PATIENT IS ON A 60 GM CONS CARB DIET WITH SUPPLEMENTS TID. WE ARE SENDING GLUCERNA WITH MEALS AND PATIENT IS FINE WITH DRINKING THESE. PATIENT REPORTS NO CHEWING OR SWALLOWING PROBLEMS. APPETITE IS GOOD. NO FOOD ALLERGIES EITHER. NO OTHER NUTRITION INTERVENTION NEEDED AT THIS TIME. WILL CONTINUE TO MONITOR.
--- NOTE | 2023-08-06 16:24 | NUR ---
AFTER PATIENT TOOK HIS SHOWER HE SET UP IN HIS CHAIR FOR LUNCH. BROUGHT HIM AND FRESH CUP OF ICE WATER. AND A DIET SODA. PATIENT IS NOW BACK IN BED.
--- NOTE | 2023-08-06 17:39 | NUR ---
ADMINISTERED SCHEDULED MEDS. FATHER VIJAY HAD AGAIN BROUGHT DINNER FOR PT. DR VICENTE IN ROOM OBTAINING CONSENT FOR SURGERY TOMORROW. PT ASKING QUESTIONS AND PARTICIPATING IN CARE PLAN.
[2023-08-06 19:11] VITALS: BP 108/61
--- NOTE | 2023-08-06 19:30 | NUR ---
REPORT RECEIVED FROM DAY SHIFT RN. PT LYING IN BED RESTING WITH EYES CLOSED. RESPIRATIONS EVEN. CALL LIGHT IN REACH.
[2023-08-06 21:44] VITALS: BP 119/67
--- NOTE | 2023-08-06 22:18 | NUR ---
EVENING ASSESSMENT COMPLETE. SCHEDULED MEDS ADMIN PER EMAR. PT REPORTS RIGHT FOOT PAIN 04/04. PRN FOR PAIN ADMIN PER EMAR. PT DENIES NAUSEA. RIGHT FOOT WITH DRESSING INTACT. SMALL AMOUNT DRAINAGE NOTED. DISCUSSED NPO STATUS AFTER MIDNIGHT. PT VERBALIZES UNDERSTANDING. PT DENIES QUESTIONS OR CONCERNS. CALL LIGHT IN REACH.
--- NOTE | 2023-08-07 00:11 | NUR ---
PT RESTING WITH EYES CLOSED. RESPIRATIONS EVEN. PT NPO AT THIS TIME. CALL LIGHT IN REACH.
--- NOTE | 2023-08-07 01:53 | NUR ---
PT RESTING IN BED ON LEFT SIDE. EYES CLOSED. RESPIRATIONS EVEN. URINAL EMPTIED. CALL LIGHT IN REACH.
--- NOTE | 2023-08-07 03:57 | NUR ---
PT AWAKE IN BED. REPORTS RIGHT FOOT PAIN /. PRN FOR PAIN ADMIN WITH SIPS OF WATER. URINAL EMPTIED. ASSESSMENT UNCHANGED. EARRING FROM LEFT EAR REMOVED AND PLACED IN SPECIMEN CONTAINER AND PLACED IN LOCK BOX IN ROOM. NO FURTHER NEEDS AT THIS TIME.
[2023-08-07 04:40] VITALS: BP 113/67
--- NOTE | 2023-08-07 04:53 | NUR ---
PREOP WIPED DOWN DONE. FRESH GOWN AND SOCKS PROVIDED. BED LINEN CHANGED.
--- NOTE | 2023-08-07 05:02 | NUR ---
SURGICAL WIPE DOWN COMPLETE. LINENS/GOWN CHANGED. NEW 20G IV PLACED IN LEFT FOREARM. PT TELLO WELL. MORNING LABS SENT. NO FURTHER NEEDS.
[2023-08-07 05:08] LABS: HEMOGLOBIN 11.3 g/dL (12.0-18.0); MCHC 33.3 g/dl (30-36)
[2023-08-07 05:10] LABS: BASOPHILS 1.1 % (0-2); EOSINOPHILS 4.3 % (0-6); LYMPHOCYTES 26.9 % (24-44); MCH 29.3 (27-36); MONOCYTES 9.3 % (0-12); NEUTROPHILS 58.4 % (39-80); PLATELET COUNT 353 K/uL (140-440); RBC 3.86 M/ul (4.3-5.7); RDW 15.5 (10.5-15.0)
[2023-08-07 05:16] LABS: ANION GAP 11.3 (7-21); BUN/CREATININE RATIO 21.09 (6.0-28.6); CALCIUM 8.9 mg/dL (8.5-10.1); CREATININE, SERUM 1.28 mg/dL (0.70-1.30); POTASSIUM 4.3 mmol/L (3.5-5.1)
--- NOTE | 2023-08-07 07:10 | NUR ---
REPORT RECEIVED FROM MEGAN NIÑO. PT LAYING IN BED WITH EYES CLOSED. RR EVEN AND UNLBAORED. PT AWAKENS WHEN MEGAN NIÑO AND THIS RN ENTER ROOM. PT RESPONDS WHEN ADDRESSED. PT DENIES ANY NEEDS AT THIS TIME. CALL LIGHT IN REACH.
--- NOTE | 2023-08-07 08:16 | NUR ---
IN TO ADMINISTER MEDICATIONS, SEE OCT. BP NOTED TO BE 94/54. DR. TAY NOTIFIED. BP MEDICATIONS HELD AT THIS TIME ALONG WITH INSULIN. ASSESSMENT COMPLETE. PT REPORTING PAIN 03/04. RIGHT FOOT DRESSING D/I WITH SHADWOING NOTED TO BOTTOM OF DRESSING. LUNG SOUNDS CLEAR. BOWEL TONES ACTIVE. BLE CHOCO. IVs FLUSH WNL. IV IN LEFT FOREARM INFUSING WNL. PT DENIES ANY OTHER NEEDS AT THIS TIME. CALL LIGHT IN REACH.
--- NOTE | 2023-08-07 10:13 | NUR ---
PT OFF FLOOR FOR PROCEDURE.
--- NOTE | 2023-08-07 10:58 | NUR ---
UR NOTE MCG CELLULITIS (ISC) INPATIENT 08/03/23 MET GL DAY 2 08/04/23 VARIANCE GL DAY 3 08/05/23 VARIANCE GL DAY 3 08/06/23 VARIANCE GL DAY 3
--- NOTE | 2023-08-07 11:24 | NUR ---
MS ROUNDS. NO VISIT. PT GONE FOR PROCEDURE. PROVIDED PRAYER.
--- NOTE | 2023-08-07 12:15 | NUR ---
08/07/23 1215 Narcisa Modi 1156 PT TO PACU ALERT AND AWAKE REPORTS PAIN 03/04 HE STATES PAIN IS TOLERABLE HE REPORTS HE IS USED TO THIS TYPE OF PAIN.
[2023-08-07 12:25] VITALS: BP 107/65
--- NOTE | 2023-08-07 12:25 | NUR ---
PATIENT ARRIVES BACK FROM PACU TO MS UNIT. PT A+O, ON ROOM AIR. CPOX IN PLACE PER PROTOCOL. NO SOB. RECEIVED 1 LR OF FLUID IN OR. VSS. PT REPORTS PAIN 8/10, PRN MEDICATIONS ADMINISTERED SEE EMAR. CBG CHECKED 104, NO INSULIN PROVIDED. ICE WATER AND JUICE PROVIDED. CALL LIGHT IN REACH.
--- NOTE | 2023-08-07 12:30 | NUR ---
Spoke with Dr. Lucas. He would like this pt to go to a SNF for as long as possible for wound healing and therapy as pt lives alone. He does not feel he will need a wc at this time. I then spoke with Christiano. He feels his surgery went well. He is eating a regular diet as he is hungry. Denies needs. He is in agreement for a SNF, if placement can be arranged.
--- NOTE | 2023-08-07 13:06 | NUR ---
IN TO ADMINISTER REMAINING MORNING MEDICATIONS PT IS BACK TO FLOOR POST OP. PT TAKES PO MEDICATIONS WITH NO ISSUES. PHYSICAL THERAPY IN ROOM AND FINISHED ASSISTING PT TO CHAIR. DRESSING TO RIGHT C/D/I. LUNG SOUNDS CLEAR. BOWEL TONES ACTIVE. PT A&O TO ALL. PT REPORTING PAIN 9/10 IN RIGHT FOOT. PT SITTING UP IN RECLINER EATING LUNCH. PT DENIES ANY OTHER NEEDS AT THIS TIME. CALL LIGHT IN REACH.
[2023-08-07 13:26] VITALS: BP 100/57
--- NOTE | 2023-08-07 13:26 | NUR ---
IN TO OBTAIN VITALS. PT SITTING UP IN RECLINER AND RESPONDS WHEN ADDRESSED. VITALS COMPLETE. PT DENIES ANY OTHER NEEDS AT THIS TIME. CALL LIGHT IN REACH.
--- NOTE | 2023-08-07 14:30 | NUR ---
Spoke with Father Munir as he is here to see Christiano. He states there is no issue for this pt to return to the trailer at the [facility] after a SNF stay. They will assist him to set up transportation for fu appts to Dr. webb. I let him know Christiano has free transport through the [facility] and [facility].
[2023-08-07 14:34] VITALS: BP 96/61
--- NOTE | 2023-08-07 14:41 | NUR ---
IN TO ROUND ON PT. MEGAN PETER IN ROOM. PT IN BED. NO NEEDS FROM THIS RN AT THIS TIME. CALL LIGHT IN REACH.
--- NOTE | 2023-08-07 15:10 | NUR ---
Received a text from CORTES at [facility]. He is requesting to know if pt will need IV antibiotics. I called Dr. Lucas and faxed the Anaerobic culture final report. He states pt will need po antibiotics. I called CORTES at [facility] and they can accept this pt on Saturday at 10:00. He states pt must be there by 10:30. I called and scheduled the wc van for Saturday at 10:00. They will sweet pickle maker a wc from [facility]. I texted CORTES and asked him to put a wc out at 9:45 on Saturday. I called and left a message for Dr. Lucas pt has been accept for Saturday and 10:00. I requested tomorrow he complete SNF orders and med rec.
[2023-08-07 15:30] VITALS: BP 97/54
--- NOTE | 2023-08-07 15:30 | NUR ---
IN TO OBTAIN VITALS. PT LAYING IN BED ON LEFT SIDE. EYES CLOSED. RR EVEN AND UNLABORED. PT RESPONDS WHEN ADDRESSED. VITALS COMPLETE. PT DENIES ANY OTHER NEEDS AT THIS TIME. CALL LIGHT IN REACH.
--- NOTE | 2023-08-07 16:21 | NUR ---
THIS RN NOTIFIED DR. TAY REGARDING PTs BP OF 97/54. NO NEW ORDERS AT THIS TIME.
--- NOTE | 2023-08-07 16:21 | NUR ---
THIS RN NOTIFIED DR. TAY REGARDING PTs BP OF 97/54. NO NEW ORDERS AT THIS TIME.
--- NOTE | 2023-08-07 16:40 | NUR ---
IN TO ROUND ON PT. PT LYAING IN BED AND RESPONDS WHEN ADDRESSED. PT DENIES ANY NEEDS AT THIS TIME.
--- NOTE | 2023-08-07 16:46 | NUR ---
Pt updated he has been accepted by [facility] and can go on Saturday. Pt states he will need to go home and move somethings in his trailer. Let him know he will need to go directly there. We discussed he has been accepted to go on Saturday, it is his choice if he goes or not. Pt stating he may just go ahead and leave tonight and then return. I cautioned him if he leaves the hospital he cannot go to [facility]. Will follow up with him tomorrow.
--- NOTE | 2023-08-07 17:16 | NUR ---
IN TO ADMINISTER MEDICATION, SEE MAR. PT REPORTING PAIN 8/10 PRN PAIN MEDICATION ADMINISTERED, SEE MAR. PT TAKES PO MEDICATION WITH NO ISSUES. DINNER TRAY PROVIDED. PT SITTING UP IN BED. PT DENIES ANY OTHER NEEDS AT THIS TIME. CALL LIGHT IN REACH.
[2023-08-07 18:26] VITALS: BP 126/66
--- NOTE | 2023-08-07 18:44 | NUR ---
IN TO ROUND ON PT. PT LAYING IN BED ON LEFT SIDE. EYES CLOSED, RR EVEN AND UNLABORED. RR OF 16 NOTED. NO NEEDS IDENTIFIED AT THIS TIME. CALL LIGHT IN REACH.
--- NOTE | 2023-08-07 19:48 | NUR ---
Report given by day shift RN. Patient lying on side, lights out and appears a sleep, RR=16. AP rate 80, Or sat 98%. No distress noted. Right foot with dressing intact and dry. Will allow patient to rest until BS check due.
--- NOTE | 2023-08-07 22:10 | NUR ---
Patient medicated prior to bed time. CMS intact, VSS, Right leg dressing intact. Patient visiting with friend earlier. At this time has lights out and his attempting to sleep. no complaints, call light within reach.
--- NOTE | 2023-08-07 23:03 | NUR ---
Patient woke up requested that heat be turned down and given fresh ice water. no complaints, assessment without change. call light lena ross.
--- NOTE | 2023-08-08 00:30 | NUR ---
Patient appears sleeping, appears comfortable, RR=18, continous pulse ox on and O2 sats 97%, HR - 82.
[2023-08-08 02:16] VITALS: BP 115/74
--- NOTE | 2023-08-08 02:17 | NUR ---
Patient sleeping between care. VSS, CMS intact, right leg dressing intact. no complaints, Sitting up now and having a snack. TV on, lights are off and call light is within reach.
--- NOTE | 2023-08-08 04:26 | NUR ---
Patient appears a sleep, appears comfortable, RR-18, pulse ox on at O2 sats - 97%, HR 88. no noted distress.
[2023-08-08 05:15] VITALS: BP 116/71
--- NOTE | 2023-08-08 05:25 | NUR ---
Patient awake, assisted with one person SBA and FWW to BR. Tolerating well and patient careful to use only right heel during gait. dressing intact. CMS intact. c/o pain and medicated for discomfort, Had medium brown BM this am, VSS. Awake watching TV now. call light within reach.
--- NOTE | 2023-08-08 05:46 | EKG ---
[facility] [address] [facility] [place] [address] Signed Sinus rhythm with frequent premature ventricular complexes Left axis deviation Abnormal ECG When compared with ECG of 21-MAY-2023 00:25, Left anterior fascicular block is no longer present Confirmed by BASSAM TAY MD ([id number]) on 08/08/2023 5:46:24 AM Electronically Signed By: BASSAM TAY 08/08/23 0546 PATIENT NAME: BETHANIE VEGA Electrocardiogram DATE OF : 77 PHYSICIAN: BASSAM TAY REPORT #: [id number] REPORT IS CONFIDENTIAL AND NOT TO BE RELEASED WITHOUT AUTHORIZATION
[2023-08-08 06:01] LABS: BASOPHILS 0.7 % (0-2); EOSINOPHILS 2.6 % (0-6); HEMATOCRIT 33.4 % (35.0-50.0); HEMOGLOBIN 10.8 g/dL (12.0-18.0); LYMPHOCYTES 23.7 % (24-44); MCH 29.2 (27-36); MCHC 32.4 g/dl (30-36); PLATELET COUNT 242 K/uL (140-440); RBC 3.71 M/ul (4.3-5.7); RDW 15.6 (10.5-15.0)
[2023-08-08 06:10] LABS: ANION GAP 9.8 (7-21); CALCIUM 8.5 mg/dL (8.5-10.1); CREATININE, SERUM 1.25 mg/dL (0.70-1.30); POTASSIUM 4.8 mmol/L (3.5-5.1)
--- NOTE | 2023-08-08 07:10 | NUR ---
REPORT RECEIVED FROM MEGAN COYNE. PT LAYING IN BED ON LEFT SIDE. EYES CLOSED, RR EVEN AND UNLABORED. O2 SATS AT 97% ON RA. RR OF 16 NOTED. NO NEEDS IDENTIFIED. CALL LIGHT IN REACH.
--- NOTE | 2023-08-08 08:57 | NUR ---
IN TO ADMINISTER MEDICATIONS, SEE MAR. PT SITTING UP IN BED AND RESPONDS WHEN ADDRESSED. PT TAKES PO MEDICATIONS WITH NO ISSUES. PT REPORTING PAIN 8/10 IN RIGHT FOOT, PRN PAIN MEDICATION ADMINISTERED, SEE MAR. IV IN RIGHT AC REMOVED PER PT REQUEST. IV IN LEFT FOREARM FLUSHES WNL. IV ABX STARTED, SEE MAR. ASSESSMENT COMPLETE. LUNG SOUNDS CLEAR. BOWEL TONES ACTIVE. PT REPORTS TINGLING IN BILATERAL FEET, PT STATES NORMAL. DRESSING TO RIGHT FOOT C/D/I. UNABLE TO ASSESS PEDAL PULSE TO RIGHT FOOT DUE TO DRESSING. LEFT FOOT PEDAL PULSE PALPABLE AND STRONG. PT DENIES ANY OTHER NEEDS AT THIS TIME. CALL LIGHT IN REACH.
--- NOTE | 2023-08-08 10:25 | NUR ---
IN TO ROUND ON PT. PT SITTING UP IN BED. PT RESPONDS WHEN ADDRESSED. PT DENIES ANY NEEDS AT THIS TIME. CALL LIGHT IN REACH. FAMILY MEMBER IN ROOM.
[2023-08-08 10:56] VITALS: BP 94/56
--- NOTE | 2023-08-08 11:00 | NUR ---
VITALS AND I&OS CHARTED. PATIENT RESTING IN BED, VISITING EITH BECKY TAY.
--- NOTE | 2023-08-08 11:18 | NUR ---
IN TO ROUND ON PT. PT SITTING UP IN BED. PT RESPONDS WHEN ADDRESSED. PT REPORTING PAIN 7/10 IN RIGHT FOOT. PRN TYLENOL ADMINISTERED, SEE MAR. PT TAKES PO MEDICATION WITH NO ISSUES. DIET YAMILEX PROVIDED PER PT REQUEST. PT DENIES ANY OTHER NEEDS AT THIS TIME. CALL LIGHT IN REACH.
[2023-08-08] MEDS ORDERED: AMOX TR-K CLV1 EAC1 PO (12:34)
[2023-08-08] MEDS ORDERED: OXYCODONE HCL5 MG PO (13:40)
[2023-08-08 14:43] VITALS: BP 93/57
--- NOTE | 2023-08-08 14:46 | NUR ---
IN TO ROUND ON PT. PT LAYING IN BED AND RESPONDS WHEN ADDRESSED. PT REPORTING PAIN 7/10 IN RIGHT FOOT. PRN PAIN MEDICATION ADMINISTERED, SEE MAR. ASSESSMENT COMPLETE. DRESSING TO RIGHT FOOT C/D/I. PER PT "DR. VICENTE WAS IN AND CHANGED DRESSING TODAY." PT REPORTS CHRONIC NUMBNESS AND TINGLING IN BILATERAL FEET. UNABLE TO PALPATE RIGHT PEDAL AND TIBIAL PULSE DUE TO DRESSING. PT REPORTS SENSATION INTACT TO RIGHT FOOT WITH TOUCH. PT DENIES ANY OTHER NEEDS AT THIS TIME. CALL LIGHT IN REACH.
--- NOTE | 2023-08-08 16:22 | NUR ---
IN TO ROUND ON PT. PT LAYING IN BED. PT RESPONDS WHEN ADDRESSED. PT REPORTS TOILETING NEEDS BSA WITH FWW AND PT WEIGHT ON RIGHT HEEL, PER ORDERS FROM BED TO RESTROOM. PT HAS STEADY GAIT. PT REQUESTING WASH CLOTH SO PT CAN PERFORM HYGIENE AND CLEANSE SKING. PT INFORMED TO USE PULL CORD ON WALL WHEN FINISHED. PT VERBALIZES UNDERSTANDING. PT DENIES ANY OTHER NEEDS AT THIS TIME.
[2023-08-08 16:48] VITALS: BP 98/61
--- NOTE | 2023-08-08 17:11 | NUR ---
IN TO ADMINISTER MEDICATION, SEE MAR. PT TAKES PO MEDICATION WITH NO ISSUES. PT SITTING UP IN BED. PT REPORTING PAIN 8/10 IN RIGHT FOOT. PRN PAIN MEDICATION ADMINISTERED, SEE OCT. DINNER TRAY PROVIDED. SCANT AMOUNT OF SHADOWING NOTED TO DRESSING ON R FOOT. WATER PROVIDED. PT DENIES ANY OTHER NEEDS AT THIS TIME. CALL LIGHT IN REACH.
--- NOTE | 2023-08-08 18:13 | NUR ---
IN TO ROUND ON PT. PT LAYING IN BED ON LEFT SIDE. EYES CLOSED, RR EVEN AND UNLABORED. RR OF 16 NOTED. DINNER TRAY REMOVED. NO OTHER NEEDS IDENTIFIED. CALL LIGHT IN REACH.
--- NOTE | 2023-08-08 19:40 | NUR ---
Report given by day shift RN. Patient resting in bed with lights out, no noted distress. polysomnographic technologist complaints. call light within reach.
[2023-08-08 20:00] VITALS: BP 95/60
--- NOTE | 2023-08-08 20:21 | NUR ---
Patient complaint of foot pain. medicated for discomfort, BP low at 95/60 and evening lopressor held. Patient taking in adequate fluids and voiding qs. lower right foot dressing intact and dry. bllod sugar 284 and 7 units per SS given. Patient resting now on his side with lights out and eyes closed, call light within reach. no complaints.
--- NOTE | 2023-08-08 22:29 | NUR ---
Patient with eyes closed, lying on side, RR- 18, no distress noted.
--- NOTE | 2023-08-09 00:03 | NUR ---
Patient resting comfortable with eyes closed. no compliants, RR- 18. lower right leg dressing intact, dry. call light within reach.
--- NOTE | 2023-08-09 04:02 | NUR ---
pt USING URINAL AT BEDSIDE
[2023-08-09 04:33] VITALS: BP 125/69
[2023-08-09 05:40] LABS: BASOPHILS 0.9 % (0-2); EOSINOPHILS 3.8 % (0-6); HEMATOCRIT 29.6 % (35.0-50.0); HEMOGLOBIN 9.9 g/dL (12.0-18.0); LYMPHOCYTES 21.2 % (24-44); MCH 29.4 (27-36); MCHC 33.3 g/dl (30-36); MCV 88.2 fl (81-99); MONOCYTES 12.7 % (0-12); NEUTROPHILS 61.4 % (39-80); PLATELET COUNT 223 K/uL (140-440); RBC 3.35 M/ul (4.3-5.7); RDW 15.3 (10.5-15.0)
[2023-08-09 05:49] LABS: ANION GAP 9.6 (7-21); BUN/CREATININE RATIO 19.49 (6.0-28.6); CALCIUM 8.5 mg/dL (8.5-10.1); CREATININE, SERUM 1.18 mg/dL (0.70-1.30); POTASSIUM 4.6 mmol/L (3.5-5.1)
--- NOTE | 2023-08-09 07:20 | NUR ---
REPORT RECEIVED FROM MEGAN REDDING AND MEGAN MOORE. PT LAYING IN BED WATCHING TV. RR EVEN AND UNLABORED. PT SWINGING LEFT LEG ON SIDE OF BED. NO NEEDS REPORTED AT THIS TIME. CALL LIGHT IN REACH.
--- NOTE | 2023-08-09 09:17 | NUR ---
IN TO ADMINISTER MEDICAITON, SEE MAR. PT SITTING UP IN RECLINER AND TAKES PO MEDICATION WITH NO ISSUES. PT REPORTING PAIN 05/05. PRN PAIN MEDICATION ADMINISTERD, SEE MAR. ASSESSMENT COMPLETE. LUNG SOUNDS CLEAR. BOWEL TONES ACTIVE. PT DENIES NUMBNESS OR TINGLING OUTSIDE OF NORMAL. EDEMA NOTED TO RIGHT LEG. DRESSING TO RIGHT FOOT D/I WITH SCANT AMOUNT OF SHADOWING ON BOTTOM OF DRESSING. IV FLUSHES WNL. IV ABX STARTED, SEE MAR. URINAL EMPTIED. PT REQUESTING TO GET BACK INTO BED. SBA FROM RECLINER TO BED. PT IN BED. PT DENIES ANY OTHER NEEDS AT THIS TIME. CALL LIGHT IN REACH.
--- NOTE | 2023-08-09 09:28 | NUR ---
Called and spoke with Podiatry clinic to verify dressing orders. Dressing to remain in place for 5-7 days unless wet or soiled and F/U has been arranged with [facility] for 08/[address] Lucas.
[2023-08-09 09:33] VITALS: BP 111/86
--- NOTE | 2023-08-09 10:10 | NUR ---
REPORT CALLED TO NA AND GIVEN TO MICHELLE GODDARD. QUESTIONS ANSWERED.
--- NOTE | 2023-08-12 17:00 | PATH ---
[facility] [address] [place], [place] [address] Signed SPECIMEN(S): A RIGHT FOREFOOT SPECIMEN SOURCE: A. RIGHT FOREFOOT CLINICAL HISTORY: Osteomyelitis FINAL PATHOLOGIC DIAGNOSIS: Right forefoot: - Right forefoot including first through fourth toes with focal plantar ulceration and prominent acute inflammation (abscess) and soft tissue necrosis. - Necrotic soft tissue and abscess extends to the inked proximal soft tissue margin. - Acute osteomyelitis. - Separately submitted bone fragments contain acute osteomyelitis. [id number]:[id number] MICROSCOPIC EXAMINATION: Histologic sections of all submitted blocks are examined by light microscopy. These findings, together with the gross examination, support the pathologic diagnosis. GROSS DESCRIPTION: The specimen, labeled and designated "Albaro Vega" and designated on the requisition "right forefoot," is received in formalin and consists of a 1st 2nd 3rd and 4th toe connected via skin and soft tissue (9.0 x 7.0 x 4.9 cm) and all disarticulated at the metatarsophalangeal joint, and a separate segment of bone (3.5 cm in length and ranging in diameter from 1.8 to 2.2 cm) with a one alvarado smooth to slightly disrupted articular surface and opposite smooth resected surface. The 3rd and 4th toes have alvarado-brown markedly thickened toenails. There are white-alvarado roughened areas in place of the toenail on the 1st and 2nd toe. There is an area of ulceration (1.7 x 1.5 cm) on the plantar aspect of the specimen proximal to the 1st toe and 0.3 cm from the skin and soft tissue margin (inked blue). The proximal phalanx of the 1st toe underlying the area of ulceration is red-brown and slightly softened. The cut surface of the separate bone segment adjacent to the articulating end is red-brown and slightly softened. Digital Sales Representative sections are submitted. PATIENT NAME: BETHANIE VEGA PATHOLOGY DATE OF : 77 REPORT #: [id number] PHYSICIAN: VIVEK CONTRERAS PCP: [facility] REPORT IS CONFIDENTIAL AND NOT TO BE RELEASED WITHOUT AUTHORIZATION [facility] [address] [place], [place] [address] Signed Cassette Summary: (A1) area of ulceration with skin and soft tissue margin (A2) proximal articulating surface of possible phalanx of 1st toe, decalcified decal stat (A3) separate bone margin, shaved, decalcified in decal stat (A4) articulating surface of separate bone segment, decalcified in decal stat AC (under the direct supervision of a pathologist) The Gross Description was prepared using a voice recognition system. The report was reviewed for accuracy; however, sound-alike word errors, addition and/or deletions may occur. If there is any question about this report, please contact Client Services. PERFORMING LABORATORY: Technical component was performed by [facility], [address] [place] [id number] (CLIA# [id number]). Professional interpretation was performed by [facility], [address] [place] [id number] (CLIA#: [id number]). Diagnostician: Edwin Harrison MD Pathologist Electronically Signed 08/12/2023 Copies: ~ PATIENT NAME: BETHANIE VEGA PATHOLOGY DATE OF : 77 REPORT #: [id number] PHYSICIAN: VIVEK PATHOLOGY PCP: EMELYN CHEN REPORT IS CONFIDENTIAL AND NOT TO BE RELEASED WITHOUT AUTHORIZATION
== END 2023-08-09 09:45 | DRG 617 ==
LOC: ED 16:23 → MS 19:14
PROVIDERS: Emergency Medicine; Podiatrist Foot & Ankle Surgery; ADMIT Internal Medicine; ATTEND Family Medicine
PROC: 0Y6M0Z9 Detachment at Right Foot, Partial 1st Ray, Open Approach (ICD-10-PCS; principal; 2023-08-02)
DX: E11.69 Type 2 diabetes mellitus with other specified complication (principal); E46 Unspecified protein-calorie malnutrition; L03.115 Cellulitis of right lower limb; M86.8X7 Other osteomyelitis, ankle and foot; E11.628 Type 2 diabetes mellitus with other skin complications; I12.9 Hypertensive chronic kidney disease with stage 1 through stage 4 chronic kidney disease, or unspecified chronic kidney disease; E11.22 Type 2 diabetes mellitus with diabetic chronic kidney disease; N18.9 Chronic kidney disease, unspecified; E11.40 Type 2 diabetes mellitus with diabetic neuropathy, unspecified; F10.10 Alcohol abuse, uncomplicated; E88.09 Other disorders of plasma-protein metabolism, not elsewhere classified; E11.65 Type 2 diabetes mellitus with hyperglycemia; E78.5 Hyperlipidemia, unspecified; F17.210 Nicotine dependence, cigarettes, uncomplicated; Z89.421 Acquired absence of other right toe(s)
CPT/HCPCS: 01482; 36415; 73630; 73723; 80048; 80053; 82553; 83735; 85025; 85651; 86140; 87070; 87075; 87076; 87205; 88307; 88311; 93005; 93010; 94762; 96374; 97110; 97161; 97165; 97530; 99284-25; A9270; A9579; C1713; J0696; J0878; J1100; J1650; J1815; J2001; J2250; J2270; J2704; J2795; J3370; J3475; J3490; J7030

== ENCOUNTER 2024-03-01 14:39 | Inpatient (IN) | payer OTHER ==
[~2024-03-01] VITALS: Ht 188 cm; Wt 110.5 kg
[~2024-03-01 14:39] MED LIST changes: +AMOX TR-K CLV1 EAC1 PO; +DOXYCYCLINE HY100 MG PO; +DRYSOL35 ML TOP; +ERYTHROMYCIN 2%60 ML TOP; +OXYCODONE HCL5 MG PO; +VITAMIN C500 M1 PO; +ZINC SULFATE50 M1 PO; +[UNRECOGNIZED DRUG - OTHER] TOP
[2024-03-01] MEDS ORDERED: PIPERACILLIN/TAZOBACTAM 3.375 GM in DEXTROSE 5% 100 ML IV ONE (15:00)
[2024-03-01] MEDS ORDERED: SODIUM CHLORIDE 0.9% 3,100 ML IV PRN (15:00)
[2024-03-01] MEDS ORDERED: DEXTROSE 5% 100 ML IV ONE (15:28)
[2024-03-01 15:34] LABS: BASOPHILS 0.7 % (0-2); EOSINOPHILS 2.6 % (0-6); HEMATOCRIT 32.2 % (35.0-50.0); HEMOGLOBIN 10.5 g/dL (12.0-18.0); LYMPHOCYTES 14.5 % (24-44); MCH 29.3 (27-36); MCHC 32.7 g/dl (30-36); MCV 89.6 fl (81-99); MONOCYTES 8.3 % (0-12); NEUTROPHILS 73.9 % (39-80); PLATELET COUNT 433 K/uL (140-440); RDW 15.9 (10.5-15.0)
[2024-03-01 15:43] LABS: INR 1.1 (0.80-1.30); PROTIME 13.8 Sec (11.2-14.2)
[2024-03-01 15:46] LABS: PARTIAL THROMBOPLASTIN TIME 28.7 Sec (22.9-41.3)
[2024-03-01 15:49] LABS: ALBUMIN 2.3 g/dL (3.4-5.0); ALBUMIN/GLOBULIN RATIO 0.36 (1.1-2.4); ANION GAP 15.6 (7-21); BILIRUBIN, TOTAL 0.4 ng/dL (0.2-1.0); BUN/CREATININE RATIO 11.66 (6.0-28.6); CALCIUM 8.6 mg/dL (8.5-10.1); CREATININE, SERUM 1.2 mg/dL (0.70-1.30); POTASSIUM 3.6 mmol/L (3.5-5.1); PROTEIN, TOTAL 8.7 g/dL (6.4-8.2)
[2024-03-01 15:53] LABS: LACTIC ACID, BLOOD 1.5 mmol/L (0.4-2.0)
[2024-03-01 15:59] LABS: BILIRUBIN, URINE NEGATIVE (negative); BLOOD/HGB, URINE NEGATIVE (Negative); KETONE, URINE TRACE (Negative); LEUK ESTERASE, URINE NEGATIVE (negative); NITRITE, URINE NEGATIVE (negative); PH, URINE 5.5 (5-7)
[2024-03-01] MEDS ORDERED: VANCOMYCIN HCL 2,500 MG in DEXTROSE 5% 500 ML IV ONE (16:00)
[2024-03-01 16:36] LABS: ERYTHROCYTE SEDIMENTATION RATE 111
[2024-03-01] MEDS ORDERED: ENOXAPARIN SODIUM 40 MG/0.4 ML SYR SUB-Q SCH (18:30)
[2024-03-01] MEDS ORDERED: PANTOPRAZOLE SODIUM 40 MG TABEC PO SCH (18:31)
[2024-03-01] MEDS ORDERED: GLUCAGON,HUMAN RECOMBINANT 1 MG/ML VIAL SUB-Q PRN (19:00)
[2024-03-01] MEDS ORDERED: PROCHLORPERAZINE EDISYLATE 10 MG/2 ML VIAL IV PRN (19:00)
[2024-03-01] MEDS ORDERED: IBLOOD GLUCOSE TEST STRIP 1 EA TEST XX PRN (19:00)
[2024-03-01] MEDS ORDERED: DEXTROSE 50% 50 ML SYR IV PRN ×2 (19:00)
[2024-03-01] MEDS ORDERED: DEXTROSE 5% 1,000 ML IV PRN (19:00)
[2024-03-01] MEDS ORDERED: ondansetron HCL 4 MG/2 ML VIAL IV PRN (19:00)
[2024-03-01] MEDS ORDERED: LACTATED RINGER'S 1,000 ML IV SCH (19:00)
[2024-03-01] MEDS ORDERED: ACETAMINOPHEN 325 MG TAB PO PRN (19:00)
[2024-03-01 20:00] VITALS: BP 134/81
[2024-03-01] MEDS ORDERED: PIPERACILLIN/TAZOBACTAM 4.5 GM in DEXTROSE 5% 100 ML IV SCH (20:00)
[2024-03-01 20:18] VITALS: BP 134/81
[2024-03-01] MEDS ORDERED: PIPERACILLIN/TAZOBACTAM 4.5 GM VIAL ONE (20:54)
[2024-03-01] MEDS ORDERED: IBLOOD GLUCOSE TEST STRIP 1 EA TEST VI SCH (21:00)
[2024-03-01] MEDS ORDERED: INSULIN LISPRO 100 UNIT/ML ML SUB-Q SCH (21:00)
[2024-03-02] VITALS (9 sets, daily range): BP systolic 105–133; BP diastolic 73–92
[2024-03-02] MEDS ORDERED: PIPERACILLIN/TAZOBACTAM 4.5 GM VIAL ONE (03:14)
[2024-03-02 05:32] LABS: BASOPHILS 0.7 % (0-2); EOSINOPHILS 4.2 % (0-6); HEMATOCRIT 29.2 % (35.0-50.0); HEMOGLOBIN 9.8 g/dL (12.0-18.0); LYMPHOCYTES 22.9 % (24-44); MCH 29.6 (27-36); MCHC 33.5 g/dl (30-36); MCV 88.3 fl (81-99); MONOCYTES 7.5 % (0-12); NEUTROPHILS 64.7 % (39-80); PLATELET COUNT 337 K/uL (140-440); RBC 3.31 M/ul (4.3-5.7); RDW 16.1 (10.5-15.0)
[2024-03-02 05:57] LABS: ALBUMIN 1.7 g/dL (3.4-5.0); ALBUMIN/GLOBULIN RATIO 0.33 (1.1-2.4); ANION GAP 8.7 (7-21); BILIRUBIN, TOTAL 0.6 ng/dL (0.2-1.0); CALCIUM 7.8 mg/dL (8.5-10.1); MAGNESIUM 1.5 mg/dL (1.8-2.4); POTASSIUM 3.7 mmol/L (3.5-5.1); PROTEIN, TOTAL 6.9 g/dL (6.4-8.2)
[2024-03-02] MEDS ORDERED: LORazepam 2 MG/ML VIAL IV PRN (07:00)
[2024-03-02] MEDS ORDERED: MAGNESIUM SULFATE 2 GM IV ONE (07:00)
[2024-03-02] MEDS ORDERED: MAGNESIUM SULFATE 2 GM/50 ML BAG IV ONE (07:30)
[2024-03-02 08:40] LABS: AMPHETAMINES, URINE POSITIVE (NEGATIVE); BARBITURATES, URINE NEGATIVE (NEGATIVE); BENZODIAZEPINE, URINE NEGATIVE (NEGATIVE); BUPRENORPHINE, URINE NEGATIVE (NEGATIVE); CANNABINOID, URINE POSITIVE (NEGATIVE); COCAINE, URINE NEGATIVE (NEGATIVE); ECSTASY, URINE POSITIVE (NEGATIVE); FENTANYL, URINE NEGATIVE (NEGATIVE); METHADONE, URINE NEGATIVE (NEGATIVE); OPIATES, URINE NEGATIVE (NEGATIVE); OXYCODONE, URINE NEGATIVE (NEGATIVE); PHENCYCLIDINE, URINE NEGATIVE (NEGATIVE)
[2024-03-02] MEDS ORDERED: MULTIVITAMINS 10 ML,FOLIC ACID 1 MG,THIAMINE HCL 100 MG in SODIUM CHLORIDE 0.9% 1,000 ML IV SCH (09:00)
[2024-03-02] MEDS ORDERED: PHARMACY RENAL DOSE ADJUSTMENT 1 DOSE MISC PO SCH (12:00)
[2024-03-02] MEDS ORDERED: GABAPENTIN 300 MG CAP PO SCH (21:00)
[2024-03-02] MEDS ORDERED: METOPROLOL TARTRATE 100 MG TAB PO SCH (21:00)
[2024-03-03] VITALS (12 sets, daily range): BP systolic 89–140; BP diastolic 57–83
[2024-03-03 05:35] LABS: BASOPHILS 0.8 % (0-2); EOSINOPHILS 5.5 % (0-6); HEMATOCRIT 29.4 % (35.0-50.0); LYMPHOCYTES 21.4 % (24-44); MCH 29.8 (27-36); MCHC 33.8 g/dl (30-36); MONOCYTES 6.2 % (0-12); NEUTROPHILS 66.1 % (39-80); PLATELET COUNT 358 K/uL (140-440); RBC 3.34 M/ul (4.3-5.7)
[2024-03-03 05:54] LABS: ALBUMIN 1.8 g/dL (3.4-5.0); ALBUMIN/GLOBULIN RATIO 0.32 (1.1-2.4); ANION GAP 9.8 (7-21); BILIRUBIN, TOTAL 0.4 ng/dL (0.2-1.0); BUN/CREATININE RATIO 7.54 (6.0-28.6); CREATININE, SERUM 1.06 mg/dL (0.70-1.30); MAGNESIUM 1.7 mg/dL (1.8-2.4); POTASSIUM 3.8 mmol/L (3.5-5.1); PROTEIN, TOTAL 7.4 g/dL (6.4-8.2)
[2024-03-03] MEDS ORDERED: LOSARTAN POTASSIUM 50 MG TAB PO SCH (09:00)
[2024-03-03] MEDS ORDERED: MAGNESIUM SULFATE 2 GM/50 ML BAG IV ONE (09:45)
[2024-03-04 05:49] VITALS: BP 124/72
[2024-03-04] MEDS ORDERED: LINEZOLID 600 MG TAB PO SCH (09:00)
[2024-03-04] MEDS ORDERED: LINEZOLID600 MG PO (09:26)
[2024-03-04 10:25] VITALS: BP 123/85
[2024-03-04 10:26] VITALS: BP 123/85
== END 2024-03-04 12:55 | disposition home or self-care (01) | DRG 638 ==
LOC: ED 14:39 → CCU 18:23 → MS 18:23
PROVIDERS: Emergency Medicine; ADMIT Internal Medicine; ATTEND Internal Medicine
DX: E11.69 Type 2 diabetes mellitus with other specified complication (principal); L03.115 Cellulitis of right lower limb; M86.9 Osteomyelitis, unspecified; E66.01 Morbid (severe) obesity due to excess calories; I10 Essential (primary) hypertension; F17.200 Nicotine dependence, unspecified, uncomplicated; E78.5 Hyperlipidemia, unspecified; Z88.8 Allergy status to other drugs, medicaments and biological substances; Z79.4 Long term (current) use of insulin; Z68.29 Body mass index [BMI] 29.0-29.9, adult
CPT/HCPCS: 36415; 73630; 73723; 80053; 80307; 81003; 83605; 83735; 85025; 85610; 85651; 85730; 86140; A9270; A9577; G0480; J1650; J1815; J2543; J3370; J3411; J3475; J7030; J7060

== ENCOUNTER 2024-04-25 07:37 | Emergency (ER) | payer OTHER ==
[~2024-04-25] VITALS: Ht 188 cm; Wt 104.9 kg
[~2024-04-25 07:37] MED LIST changes: +LINEZOLID600 MG PO
[2024-04-25] MEDS ORDERED: AMOX TR-K CLV1 EAC1 PO (09:13)
[2024-04-25 09:24] VITALS: BP 118/76
== END 2024-04-25 09:24 | disposition home or self-care (01) ==
LOC: ED 07:37
DX: S71.122A Laceration with foreign body, left thigh, initial encounter (principal); W26.9XXA Contact with unspecified sharp object(s), initial encounter; I10 Essential (primary) hypertension; E11.9 Type 2 diabetes mellitus without complications; E78.5 Hyperlipidemia, unspecified; F17.200 Nicotine dependence, unspecified, uncomplicated; Z88.8 Allergy status to other drugs, medicaments and biological substances; Z79.4 Long term (current) use of insulin; Z79.899 Other long term (current) drug therapy
CPT/HCPCS: 12005; 99282-25

== ENCOUNTER 2024-05-03 03:09 | Emergency (ER) | payer OTHER ==
[~2024-05-03] VITALS: Ht 188 cm; Wt 120.0 kg
[2024-05-03 03:53] LABS: BASOPHILS 0.7 % (0-2); HEMATOCRIT 37.1 % (35.0-50.0); HEMOGLOBIN 12.4 g/dL (12.0-18.0); LYMPHOCYTES 20.9 % (24-44); MCH 30.6 (27-36); MCHC 33.5 g/dl (30-36); MCV 91.2 fl (81-99); MONOCYTES 11.2 % (0-12); NEUTROPHILS 61.2 % (39-80); PLATELET COUNT 256 K/uL (140-440); RBC 4.07 M/ul (4.3-5.7); RDW 16.7 (10.5-15.0)
[2024-05-03 04:15] LABS: ALBUMIN 3.2 g/dL (3.4-5.0); ALBUMIN/GLOBULIN RATIO 0.63 (1.1-2.4); ANION GAP 13.2 (7-21); BILIRUBIN, TOTAL 0.7 ng/dL (0.2-1.0); BUN/CREATININE RATIO 11.33 (6.0-28.6); CALCIUM 9.3 mg/dL (8.5-10.1); CREATININE, SERUM 2.03 mg/dL (0.70-1.30); POTASSIUM 4.2 mmol/L (3.5-5.1); PROTEIN, TOTAL 8.3 g/dL (6.4-8.2)
[2024-05-03] MEDS ORDERED: AMOX TR-K CLV1 EAC1 PO (05:25)
[2024-05-03] MEDS ORDERED: AMOXICILLIN/CLAVULANATE K 875 MG HOME.PACK PO ONE (05:30)
[2024-05-03 05:42] VITALS: BP 133/91
== END 2024-05-03 05:42 | disposition home or self-care (01) ==
LOC: ED 03:09
PROVIDERS: Internal Medicine
DX: S81.812D Laceration without foreign body, left lower leg, subsequent encounter (principal); L08.9 Local infection of the skin and subcutaneous tissue, unspecified; E11.621 Type 2 diabetes mellitus with foot ulcer; L97.418 Non-pressure chronic ulcer of right heel and midfoot with other specified severity; E11.69 Type 2 diabetes mellitus with other specified complication; M86.8X7 Other osteomyelitis, ankle and foot; I10 Essential (primary) hypertension; F17.200 Nicotine dependence, unspecified, uncomplicated; X58.XXXD Exposure to other specified factors, subsequent encounter; Z88.8 Allergy status to other drugs, medicaments and biological substances
CPT/HCPCS: 36415; 73630; 80053; 83605; 85025; 85651; 86140; 87040; 87070; 87075; 87205; 99283

== ENCOUNTER 2024-08-06 15:57 | Emergency (ER) | payer OTHER ==
[~2024-08-06] VITALS: Ht 188 cm; Wt 105.6 kg
[2024-08-06 17:04] LABS: BASOPHILS 1.1 % (0-2); HEMATOCRIT 33.6 % (35.0-50.0); HEMOGLOBIN 11.1 g/dL (12.0-18.0); LYMPHOCYTES 26.8 % (24-44); MCH 29.1 (27-36); MCV 88.2 fl (81-99); MONOCYTES 8.3 % (0-12); NEUTROPHILS 61.8 % (39-80); PLATELET COUNT 308 K/uL (140-440); RBC 3.81 M/ul (4.3-5.7); RDW 17.7 (10.5-15.0)
[2024-08-06 17:22] LABS: ALBUMIN 2.6 g/dL (3.4-5.0); ALBUMIN/GLOBULIN RATIO 0.43 (1.1-2.4); ANION GAP 13.8 (7-21); BILIRUBIN, TOTAL 0.5 ng/dL (0.2-1.0); BUN/CREATININE RATIO 14.96 (6.0-28.6); CALCIUM 8.6 mg/dL (8.5-10.1); CREATININE, SERUM 1.27 mg/dL (0.70-1.30); POTASSIUM 3.8 mmol/L (3.5-5.1); PROTEIN, TOTAL 8.7 g/dL (6.4-8.2)
[2024-08-06] MEDS ORDERED: CEFTRIAXONE/SODIUM CHLORIDE 2 GM/100 ML PIGGYBACK IV ONE (18:30)
[2024-08-06] MEDS ORDERED: AMOX TR-K CLV1 EAC1 PO (18:33)
[2024-08-06 19:40] VITALS: BP 137/87
== END 2024-08-06 19:40 | disposition home or self-care (01) ==
LOC: ED 15:57
PROVIDERS: Emergency Medicine
DX: L03.115 Cellulitis of right lower limb (principal); E11.9 Type 2 diabetes mellitus without complications; I10 Essential (primary) hypertension; F17.200 Nicotine dependence, unspecified, uncomplicated; Z88.8 Allergy status to other drugs, medicaments and biological substances
CPT/HCPCS: 36415; 73700; 80053; 85025; 96365; 99284-25; J0696

== ENCOUNTER 2024-10-06 17:24 | Inpatient (IN) | payer OTHER ==
[~2024-10-06] VITALS: Ht 188 cm; Wt 109.0 kg
[2024-10-06] MEDS ORDERED: ACETAMINOPHEN 500 MG TAB PO ONE (17:45)
[2024-10-06 17:56] LABS: BASOPHILS 0.3 % (0-2); EOSINOPHILS 0.4 % (0-6); HEMATOCRIT 38.1 % (35.0-50.0); LYMPHOCYTES 8.5 % (24-44); MCH 30.2 (27-36); MCV 88.8 fl (81-99); MONOCYTES 6.3 % (0-12); NEUTROPHILS 84.5 % (39-80); PLATELET COUNT 215 K/uL (140-440)
[2024-10-06] MEDS ORDERED: COZAAR50 MG PO (17:56)
[2024-10-06] MEDS ORDERED: METOPROLOL TAR100 MG PO (17:56)
[2024-10-06 18:13] LABS: ALBUMIN/GLOBULIN RATIO 0.48 (1.1-2.4); ANION GAP 15.7 (7-21); BILIRUBIN, TOTAL 0.5 ng/dL (0.2-1.0); BUN/CREATININE RATIO 11.11 (6.0-28.6); CALCIUM 8.6 mg/dL (8.5-10.1); CREATININE, SERUM 1.08 mg/dL (0.70-1.30); POTASSIUM 3.7 mmol/L (3.5-5.1); PROTEIN, TOTAL 9.2 g/dL (6.4-8.2)
[2024-10-06 18:15] LABS: LACTIC ACID, BLOOD 1.9 mmol/L (0.4-2.0)
[2024-10-06 18:29] LABS: CORONAVIRUS COVID-19 AG NEGATIVE (NEGATIVE); INFLUENZA A AG POSITIVE (NEGATIVE); INFLUENZA B AG NEGATIVE (NEGATIVE)
[2024-10-06 19:17] LABS: BILIRUBIN, URINE NEGATIVE (negative); BLOOD/HGB, URINE LARGE (Negative); KETONE, URINE NEGATIVE (Negative); LEUK ESTERASE, URINE NEGATIVE (negative); NITRITE, URINE NEGATIVE (negative)
[2024-10-06 19:23] LABS: WHITE BLOOD CELLS, URINE 0-1 /HPF (0-5)
[2024-10-06 19:24] LABS: BACTERIA, URINE NONE SEEN /hpf (negative); CASTS, URINE NONE SEEN \\lpf; COLLECTION TYPE, URINE CLEAN CATCH; CRYSTALS, URINE NONE SEEN (0-1+); EPITHELIAL CELLS, URINE SQUAMOUS 1+ /lpf (0-1+); RED BLOOD CELLS, URINE 41-50 /hpf (0-5); REFLEX CULTURE, URINE No (No)
[2024-10-06] MEDS ORDERED: GLUCAGON,HUMAN RECOMBINANT 1 MG/ML VIAL SUB-Q PRN (21:00)
[2024-10-06] MEDS ORDERED: DEXTROSE 5% 1,000 ML IV PRN (21:00)
[2024-10-06] MEDS ORDERED: IBLOOD GLUCOSE TEST STRIP 1 EA TEST XX PRN (21:00)
[2024-10-06] MEDS ORDERED: LACTATED RINGER'S 1,000 ML IV SCH (21:00)
[2024-10-06] MEDS ORDERED: INSULIN LISPRO 100 UNIT/ML ML SUB-Q SCH (21:00)
[2024-10-06] MEDS ORDERED: IBLOOD GLUCOSE TEST STRIP 1 EA TEST VI SCH (21:00)
[2024-10-06] MEDS ORDERED: DEXTROSE 50% 50 ML SYR IV PRN ×2 (21:00)
[2024-10-06] MEDS ORDERED: IBUPROFEN 600 MG TAB PO ONE (21:30)
[2024-10-06] MEDS ORDERED: OXYCODONE HCL 5 MG TAB PO PRN (22:15)
[2024-10-06] MEDS ORDERED: ACETAMINOPHEN 325 MG TAB PO PRN (22:15)
[2024-10-06 22:24] VITALS: BP 134/70
[2024-10-06] MEDS ORDERED: metroNIDAZOLE 250 MG TAB PO SCH (23:00)
[2024-10-06] MEDS ORDERED: LORazepam 2 MG/ML VIAL IV/IM PRN (23:00)
[2024-10-06] MEDS ORDERED: THIAMINE HCL 100 MG,FOLIC ACID 1 MG,MULTIVITAMINS 10 ML in SODIUM CHLORIDE 0.9% 1,000 ML IV ONE (23:00)
[2024-10-06] MEDS ORDERED: CEFTRIAXONE/SODIUM CHLORIDE 2 GM/100 ML PIGGYBACK IV SCH (23:00)
[2024-10-06] MEDS ORDERED: FOLIC ACID 1 MG/0.2 ML ML ONE (23:41)
[2024-10-07] VITALS (12 sets, daily range): BP systolic 107–141; BP diastolic 57–75
[2024-10-07 05:52] LABS: BASOPHILS 0.3 % (0-2); HEMATOCRIT 36.1 % (35.0-50.0); HEMOGLOBIN 12.3 g/dL (12.0-18.0); LYMPHOCYTES 6.3 % (24-44); MCH 30.3 (27-36); MCHC 34.1 g/dl (30-36); MCV 88.8 fl (81-99); MONOCYTES 3.2 % (0-12); NEUTROPHILS 90.2 % (39-80); PLATELET COUNT 142 K/uL (140-440); RBC 4.06 M/ul (4.3-5.7); RDW 16.8 (10.5-15.0)
[2024-10-07 06:04] LABS: ANION GAP 13.2 (7-21); BUN/CREATININE RATIO 16.36 (6.0-28.6); CALCIUM 8.2 mg/dL (8.5-10.1); CREATININE, SERUM 1.1 mg/dL (0.70-1.30); MAGNESIUM 1.3 mg/dL (1.8-2.4); POTASSIUM 3.2 mmol/L (3.5-5.1)
[2024-10-07] MEDS ORDERED: metroNIDAZOLE 250 MG TAB PO SCH (08:00)
[2024-10-07] MEDS ORDERED: IBLOOD GLUCOSE TEST STRIP 1 EA TEST VI SCH (08:00)
[2024-10-07] MEDS ORDERED: CEFTRIAXONE/SODIUM CHLORIDE 2 GM/100 ML PIGGYBACK IV SCH (09:00)
[2024-10-07] MEDS ORDERED: POTASSIUM CHLORIDE 10 MEQ TABCR PO ONE (09:00)
[2024-10-07] MEDS ORDERED: MAGNESIUM OXIDE 400 MG TABLET PO ONE (09:00)
[2024-10-07] MEDS ORDERED: MAGNESIUM SULFATE 2 GM/50 ML BAG IV ONE (09:00)
[2024-10-07] MEDS ORDERED: PHARMACY RENAL DOSE ADJUSTMENT 1 DOSE MISC PO SCH (12:00)
[2024-10-07] MEDS ORDERED: DAPTOmycin 500 MG/10 ML VIAL IV SCH (19:00)
[2024-10-08] VITALS (9 sets, daily range): BP systolic 105–142; BP diastolic 64–90
[2024-10-08 06:00] LABS: BASOPHILS 0.3 % (0-2); EOSINOPHILS 0.1 % (0-6); HEMATOCRIT 37.2 % (35.0-50.0); HEMOGLOBIN 12.7 g/dL (12.0-18.0); LYMPHOCYTES 9.4 % (24-44); MCH 30.1 (27-36); MCHC 34.1 g/dl (30-36); MCV 88.1 fl (81-99); MONOCYTES 5.5 % (0-12); NEUTROPHILS 84.7 % (39-80); PLATELET COUNT 180 K/uL (140-440); RBC 4.23 M/ul (4.3-5.7); RDW 16.3 (10.5-15.0)
[2024-10-08 06:16] LABS: ANION GAP 11.9 (7-21); BUN/CREATININE RATIO 14.58 (6.0-28.6); CALCIUM 8.5 mg/dL (8.5-10.1); CREATININE, SERUM 0.96 mg/dL (0.70-1.30); MAGNESIUM 1.6 mg/dL (1.8-2.4); PHOSPHORUS, INORGANIC 1.8 mg/dL (2.5-4.9); POTASSIUM 3.9 mmol/L (3.5-5.1)
[2024-10-08] MEDS ORDERED: SODIUM PHOSPHATE 30 MMOL in DEXTROSE 5% 250 ML IV ONE (09:00)
[2024-10-08] MEDS ORDERED: MAGNESIUM OXIDE 400 MG TABLET PO ONE (09:00)
[2024-10-08] MEDS ORDERED: NEURONTIN300 MG PO (10:52)
[2024-10-08] MEDS ORDERED: LIPITOR10 MG PO (10:52)
[2024-10-08] MEDS ORDERED: B-1100 MG PO (10:52)
[2024-10-08] MEDS ORDERED: [UNRECOGNIZED DRUG - OTHER] PO (10:53)
[2024-10-08] MEDS ORDERED: LANTUS SOL100 UNIT/1 SUB-Q (16:10)
[2024-10-08] MEDS ORDERED: NOVOLOG FL100 UNIT/1 SUB-Q (16:13)
[2024-10-08] MEDS ORDERED: DAPTOmycin 500 MG/10 ML VIAL IV SCH (21:00)
[2024-10-09] VITALS (9 sets, daily range): BP systolic 120–132; BP diastolic 67–81
[2024-10-09 05:53] LABS: BUN/CREATININE RATIO 15.73 (6.0-28.6); CREATININE, SERUM 0.89 mg/dL (0.70-1.30); MAGNESIUM 1.5 mg/dL (1.8-2.4); PHOSPHORUS, INORGANIC 3.7 mg/dL (2.5-4.9)
[2024-10-09 08:04] LABS: BASOPHILS 0.3 % (0-2); EOSINOPHILS 0.1 % (0-6); HEMATOCRIT 38.3 % (35.0-50.0); MCV 88.3 fl (81-99); MONOCYTES 10.6 % (0-12); PLATELET COUNT 113 K/uL (140-440); RBC 4.34 M/ul (4.3-5.7); RDW 16.1 (10.5-15.0)
[2024-10-09] MEDS ORDERED: MAGNESIUM OXIDE 400 MG TABLET PO ONE (09:00)
[2024-10-09 11:10] LABS: INR 1.06 (0.80-1.30); PROTIME 13.8 Sec (11.2-14.2)
[2024-10-09 11:12] LABS: PARTIAL THROMBOPLASTIN TIME 34.8 Sec (22.9-41.3)
[2024-10-09] MEDS ORDERED: ALBUTEROL SULFATE 0.083% 3 ML VIAL INH PRN (11:15)
[2024-10-09] MEDS ORDERED: ALBUTEROL SULFATE 0.083% 3 ML VIAL INH SCH (14:00)
[2024-10-09] MEDS ORDERED: CEFEPIME HCL/D5W 1 GM/100 ML PIGGYBACK IV SCH (14:00)
[2024-10-09] MEDS ORDERED: BUDESONIDE 0.5 MG/2 ML VIAL INH SCH (20:00)
[2024-10-10] VITALS (10 sets, daily range): BP systolic 102–120; BP diastolic 65–81
[2024-10-10 05:37] LABS: BASOPHILS 0.3 % (0-2); EOSINOPHILS 0.6 % (0-6); HEMATOCRIT 39.6 % (35.0-50.0); HEMOGLOBIN 13.7 g/dL (12.0-18.0); LYMPHOCYTES 25.8 % (24-44); MCH 30.4 (27-36); MCHC 34.6 g/dl (30-36); MCV 87.9 fl (81-99); MONOCYTES 18.3 % (0-12); PLATELET COUNT 213 K/uL (140-440); RDW 16.2 (10.5-15.0)
[2024-10-10 05:56] LABS: ALBUMIN 2.2 g/dL (3.4-5.0); ALBUMIN/GLOBULIN RATIO 0.39 (1.1-2.4); ANION GAP 13.3 (7-21); BILIRUBIN, TOTAL 0.6 mg/dL (0.2-1.0); BUN/CREATININE RATIO 16.85 (6.0-28.6); CALCIUM 8.6 mg/dL (8.5-10.1); CREATININE, SERUM 0.89 mg/dL (0.70-1.30); MAGNESIUM 1.5 mg/dL (1.8-2.4); PHOSPHORUS, INORGANIC 3.3 mg/dL (2.5-4.9); POTASSIUM 4.3 mmol/L (3.5-5.1); PROTEIN, TOTAL 7.9 g/dL (6.4-8.2)
[2024-10-10] MEDS ORDERED: MAGNESIUM OXIDE 400 MG TABLET PO ONE (08:00)
[2024-10-10] MEDS ORDERED: SODIUM CHLORIDE 0.9% 1,000 ML IV SCH (08:00)
[2024-10-11] VITALS (7 sets, daily range): BP systolic 104–121; BP diastolic 64–85
[2024-10-11 05:32] LABS: BASOPHILS 0.4 % (0-2); EOSINOPHILS 1.9 % (0-6); HEMOGLOBIN 13.4 g/dL (12.0-18.0); LYMPHOCYTES 34.9 % (24-44); MCH 29.6 (27-36); MCHC 33.6 g/dl (30-36); MCV 88.1 fl (81-99); MONOCYTES 19.8 % (0-12); PLATELET COUNT 232 K/uL (140-440); RBC 4.54 M/ul (4.3-5.7); RDW 15.7 (10.5-15.0)
[2024-10-11 05:46] LABS: ANION GAP 13.4 (7-21); BUN/CREATININE RATIO 18.62 (6.0-28.6); CALCIUM 8.5 mg/dL (8.5-10.1); CREATININE, SERUM 1.02 mg/dL (0.70-1.30); MAGNESIUM 1.8 mg/dL (1.8-2.4); PHOSPHORUS, INORGANIC 2.9 mg/dL (2.5-4.9); POTASSIUM 4.4 mmol/L (3.5-5.1)
[2024-10-11] MEDS ORDERED: GENTAMICIN SULFATE IV ONE ×2 (09:30→10:00)
[2024-10-11] MEDS ORDERED: DEXTROSE 5% IV ONE ×2 (09:30→10:00)
[2024-10-11] MEDS ORDERED: GENTAMICIN PHARMACY TO DOSE IV SCH (16:42)
--- NOTE | 2024-10-11 18:29 | EKG ---
[facility] [address] [facility] [place], [place] [address] Signed Normal sinus rhythm Left anterior fascicular block Abnormal ECG Confirmed by Lam Lacey MD ([id number]) on 10/11/2024 6:29:35 PM Electronically Signed By: LAM LAECY MD 10/11/24 182 PATIENT NAME: BETHANIE VEGA Electrocardiogram DATE OF : 77 PHYSICIAN: LAM LACEY MD REPORT #: [id number] REPORT IS CONFIDENTIAL AND NOT TO BE RELEASED WITHOUT AUTHORIZATION
[2024-10-12] MEDS ORDERED: GABAPENTIN 300 MG CAP PO SCH (09:00)
[2024-10-12] MEDS ORDERED: DEXTROSE 5% IV SCH (10:00)
[2024-10-12] MEDS ORDERED: GENTAMICIN SULFATE IV SCH (10:00)
[2024-10-12 10:02] VITALS: BP 135/70
[2024-10-12] MEDS ORDERED: CIPROFLOXACIN750 MG PO (10:34)
[2024-10-12] MEDS ORDERED: AMOX TR-K CLV1 EAC1 PO (10:34)
[2024-10-12] MEDS ORDERED: OXYCODONE HCL5 MG PO (10:37)
== END 2024-10-12 12:25 | disposition home or self-care (01) | DRG 854 ==
LOC: ED 17:24 → MS 21:38
PROVIDERS: Emergency Medicine; ADMIT Student in an Organized Health Care Education/Training Program; ATTEND Student in an Organized Health Care Education/Training Program
PROC: 3E03329 Introduction of Other Anti-infective into Peripheral Vein, Percutaneous Approach (ICD-10-PCS; 2024-10-06)
PROC: 0JBQ0ZZ Excision of Right Foot Subcutaneous Tissue and Fascia, Open Approach (ICD-10-PCS; principal; 2024-10-07)
DX: A41.02 Sepsis due to Methicillin resistant Staphylococcus aureus (principal); E11.52 Type 2 diabetes mellitus with diabetic peripheral angiopathy with gangrene; M86.171 Other acute osteomyelitis, right ankle and foot; M86.671 Other chronic osteomyelitis, right ankle and foot; L97.412 Non-pressure chronic ulcer of right heel and midfoot with fat layer exposed; Z59.00 Homelessness unspecified; A41.89 Other specified sepsis; E11.69 Type 2 diabetes mellitus with other specified complication; A41.52 Sepsis due to Pseudomonas; E11.621 Type 2 diabetes mellitus with foot ulcer; J10.1 Influenza due to other identified influenza virus with other respiratory manifestations; I10 Essential (primary) hypertension; D69.6 Thrombocytopenia, unspecified; E83.42 Hypomagnesemia; E83.39 Other disorders of phosphorus metabolism; F17.210 Nicotine dependence, cigarettes, uncomplicated; Z88.8 Allergy status to other drugs, medicaments and biological substances; Z89.421 Acquired absence of other right toe(s); Z89.411 Acquired absence of right great toe
CPT/HCPCS: 36415; 71045; 73700; 73723; 80048; 80053; 80170; 81001; 83036; 83605; 83735; 84100; 85025; 85379; 85384; 85610; 85730; 86140; 87040; 87070; 87075; 87077; 87186; 87205; 94640; 94760; 94762; 97162; 97165; A9270; A9579; J0692; J0696; J0878; J1580; J1815; J2060; J3411; J3475; J7030; J7060; J7121

== ENCOUNTER 2025-07-22 14:08 | Emergency (ER) | payer OTHER ==
[~2025-07-22] VITALS: Ht 188 cm; Wt 100.5 kg
[~2025-07-22 14:08] MED LIST changes: +B-1100 MG PO; +CIPROFLOXACIN750 MG PO; +NEURONTIN300 MG PO; +[UNRECOGNIZED DRUG - OTHER] PO
[2025-07-22] MEDS ORDERED: MINCORA TABLET1 EACH PO (14:27)
[2025-07-22 14:45] LABS: BASOPHILS 0.7 % (0.2-1.2); EOSINOPHILS 3.2 % (0.8-7.0); LYMPHOCYTES 28.3 % (21.8-53.1); MCH 29.1 PG (25.7-32.2); MCHC 33.0 g/dL (32.3-36.5); MCV 88.1 fL (79.0-92.2); MONOCYTES 8.8 % (5.3-12.2); NEUTROPHILS 58.7 % (34.0-67.9); RBC 4.54 M/uL (4.63-6.08)
[2025-07-22 15:07] LABS: ALT (SGPT) 23.0 U/L (14-59); AST (SGOT) 24.0 U/L (15-37); GLOMERULAR FILTRATION RATE,EST 74.0 mL/min (>60); PROTEIN, TOTAL 8.4 g/dL (6.4-8.2); UREA NITROGEN 17.0 mg/dL (7-18)
[2025-07-22 15:53] LABS: ERYTHROCYTE SEDIMENTATION RATE 48
[2025-07-22] MEDS ORDERED: PIPERACILLIN/TAZOBACTAM 4.5 GM in SODIUM CHLORIDE 0.9% 100 ML IV ONE (16:30)
[2025-07-22] MEDS ORDERED: AMOX TR-K CLV1 EAC1 PO (16:57)
[2025-07-22] MEDS ORDERED: CIPRO500 MG PO (16:57)
[2025-07-22] MEDS ORDERED: DAPTOmycin 500 MG/10 ML VIAL IV ONE (17:00)
[2025-07-22 17:14] VITALS: BP 164/91
== END 2025-07-22 17:17 | disposition left against medical advice (07) ==
LOC: ED 14:08
PROVIDERS: Emergency Medicine
DX: M86.9 Osteomyelitis, unspecified (principal); I10 Essential (primary) hypertension; E78.5 Hyperlipidemia, unspecified; F17.200 Nicotine dependence, unspecified, uncomplicated; Z88.8 Allergy status to other drugs, medicaments and biological substances; Z53.29 Procedure and treatment not carried out because of patient's decision for other reasons
CPT/HCPCS: 36415; 73630; 80053; 85025; 85651; 86140; 96374; 99284-25; J0878